=== PATIENT | male | born 1965 | race Caucasian/White ===

== ENCOUNTER 2020-05-15 12:44 | Inpatient (IN) ==
[2020-05-15] MEDS ORDERED: DEXAMETHASONE SOD INJ 10 MG/ML VIAL IV ONE (13:18)
[2020-05-15] MEDS ORDERED: ONDANSETRON INJ 2 MG/ML 2 ML VIAL IV STA (13:23)
[2020-05-15 13:50] LABS: Hematocrit (blood only) 36.6 % (42-52); Hemoglobin 12.7 g/dL (14.0-18.0); Mean Corpuscular Hemoglobin 29.5 pg (25-34); Mean Corpuscular Hgb Conc 34.7 g/dL (32-36); Mean Corpuscular Volume 85.1 fL (80-100); Mean Platelet Volume 10.5 fL (7.4-10.4); Platelet Count 45 K/uL (130-400); RDW Coefficient of Variation 12.7 % (11.5-14.5); RDW Standard Deviation 39.2 fL (36.4-46.3); White Blood Count 2.79 K/uL (4.8-10.8)
[2020-05-15 13:59] LABS: Influenza A virus by PCR Negative (Negative); Influenza B virus by PCR Negative (Negative)
[2020-05-15 14:02] LABS: Base Excess VBG 2.2 mEq/L; HCO3 VBG 28 mmol/L; PCO2 VBG 46 mmHg (38-50); PO2 VBG 31 mmHg
[2020-05-15 14:03] LABS: Oxygen Saturation VBG < 60.0 %
--- NOTE | 2020-05-15 14:06 | XRay Report ---
SINGLE VIEW CHEST CLINICAL HISTORY: Sepsis. FINDINGS: An AP, portable, upright chest radiograph is compared to study dated 07/05/2019 and correlat ed with chest CT dated 11/03/2018. The examination is degraded by portable technique and patient rotat ion. A left subclavian central venous infusion port is unchanged in position The cardiomediastinal si lhouette is unremarkable. Chronic interstitial thickening is similar to previous. Biapical opacities and nodularity is again noted. There is increasing airspace consolidation in both upper lobes (right greater than left) as compared to previous. No large pleural effusion or pneumothorax is seen. The sk eletal structures are osteopenic. The bony thorax is grossly intact. IMPRESSION: 1. Chronic parenchymal changes as above with increasing bilateral upper lobe airspace consolidation, right greater than left. Correlate clinically for evidence of pneumonia. Radiographic follow-up to re solution is recommended. 2. No pleural effusion is identified. ACT 112: Negative or not required by law. Electronically signed by: Agustín Torres M.D. 05/15/2020 2:05 PM
[2020-05-15 14:08] LABS: INR 1.1 (0.9-1.1); Partial Thromboplastin Ratio 1.4; Partial Thromboplastin Time 38.8 Seconds (21.0-31.0); Prothrombin Time 11.4 Seconds (9.0-12.0)
[2020-05-15 14:11] LABS: Alanine Aminotransferase 20 U/L (12-78); Albumin Level 3.4 gm/dl (3.4-5.0); Aspartate Aminotransferase 27 U/L (15-37); Blood Urea Nitrogen 15 mg/dl (7-18); Calcium 8.2 mg/dl (8.5-10.1); Carbon Dioxide 27 mmol/L (21-32); Chloride 102 mmol/L (98-107); Est GFR (Non-African American) 100.1; Glucose 103 mg/dl (70-99); Magnesium 2.5 mg/dl (1.8-2.4); Potassium 4.2 mmol/L (3.5-5.1); Sodium 133 mmol/L (136-145)
[2020-05-15 14:13] LABS: Immature Granulocytes # (auto) 0.01 K/uL (0.00-0.02); Immature Granulocytes % (auto) 0.4 %; Lymphocytes # (auto) 0.34 K/uL (1.2-3.4); Lymphocytes % (auto) 12.2 %; Monocytes # (auto) 0.25 K/uL (0.11-0.59); Neutrophils # (auto) 2.19 K/uL (1.4-6.5); Neutrophils % (auto) 78.4 %
[2020-05-15 14:17] LABS: Albumin Globulin Ratio 0.9 (0.9-2); Alkaline Phosphatase 98 U/L (45-117); Bilirubin,Total 0.8 mg/dl (0.2-1); Globulin 3.6 gm/dl (2.5-4.0); NT Pro B Type Natriuretic Pept 68 pg/ml (0-900); Troponin I 0.037 ng/ml (0-0.045)
[2020-05-15] MEDS ORDERED: OPTIRAY 320 125ml IV ONE (15:07)
--- NOTE | 2020-05-15 15:25 | CT Scan Report ---
CT ANGIOGRAM OF THE CHEST CLINICAL HISTORY: Shortness of breath. Covid positive patient. COMPARISON STUDY: Chest CT dated 11/03/2018 TECHNIQUE: Following the IV administration of 118 mL of Optiray-320, CT angiogram of the thorax was p erformed from the thoracic inlet to the lung bases utilizing the pulmonary embolus protocol. Images a re reviewed in the axial, sagittal, and coronal planes. IV contrast was administered without complica tion. MIP imaging was performed. A dose lowering technique was utilized adhering to the principles o f ALARA. CT DOSE: 554.88 mGy.cm FINDINGS: The visualized portions the upper abdomen reveal splenomegaly. There are mildly enlarged mediastinal lymph nodes measuring up to 12 mm in diameter. There is no path ologic axillary or hilar adenopathy. There is mild dilatation of the ascending thoracic aorta which measures 39 mm the level of the main p ulmonary artery. There were no pulmonary artery filling defects to indicate acute pulmonary embolism. No pleural effusions are visualized. There is cylindrical bronchiectasis. This is most pronounced within the lower lobes. There are multif ocal groundglass opacities with an upper lobe predominance. This is superimposed on the previously id entified upper lobe predominant subtle background increased groundglass attenuation of the lungs. There is a left sided A-Port catheter present. IMPRESSION: 1. No evidence of acute pulmonary embolism 2. Multifocal groundglass pulmonary opacities consistent with a multifocal pneumonia. Clinical and ra diographic follow-up is recommended 3. Bronchiectasis 4. Mild mediastinal lymphadenopathy 5. Mild aneurysmal dilatation of the ascending thoracic aorta which measures 39 mm 6. Splenomegaly ACT 112: Negative or not required by law. Electronically signed by: Hamilton Roach M.D. 05/15/2020 3:23 PM
--- NOTE | 2020-05-15 15:34 | CT Scan Report ---
CT SCAN OF THE ABDOMEN AND PELVIS WITH IV CONTRAST CLINICAL HISTORY: Generalized abdominal pain. COMPARISON STUDY: Abdominal CT dated 02/25/2013. PET CT dated 12/20/2019. TECHNIQUE: Following the IV administration of 118 cc of Optiray 320, CT scan of the abdomen and pelv is is performed from the lung bases to the proximal femora. Images are reviewed in the axial, sagitta l, and coronal planes. IV contrast was administered without complication. A dose lowering technique w as utilized adhering to the principles of ALARA. FINDINGS: Lung bases: The heart is normal in size and without pericardial effusion. Mild bronchiectasis is note d at the lung bases. There is peribronchial thickening with mucous plugging seen in the lower lobes. No lobar consolidation or pleural effusion is identified. A 4 mm pulmonary nodule in the lingula is s een on image #7. Liver: The contrast-enhanced liver is cirrhotic in morphology and heterogeneous in attenuation. There is nodularity of the hepatic surface contour. There is no intrahepatic biliary ductal dilatation. Th e hepatic veins and portal veins are patent. Gallbladder: Gallbladder wall thickening is nonspecific and likely related to adjacent hepatocellular disease. Spleen: The spleen is markedly enlarged measuring 16.3 cm in length. Pancreas: Unremarkable. Adrenal glands: Unremarkable. Kidneys: The contrast enhanced kidneys are normal in size and without hydronephrosis. The kidneys enh ance symmetrically. A 1.4 cm cyst is seen in the left upper pole. Abdominal vasculature: The abdominal aorta is normal in course and caliber noting mild atheroscleroti c calcification. Bowel: There is no bowel obstruction. Moderate fecal retention is seen throughout the colon. There is nonspecific wall thickening seen involving the distal ileum and the cecum. Additionally, there is a large calcification at the base of the appendix seen on image #209. The appendix is distended and flu id-filled measuring up to 1.3 cm diameter. There is mild periappendiceal stranding and tiny adjacent lymph nodes.. Peritoneum: There is no intraperitoneal free air or abdominal ascites. There is a fat-containing umbi lical hernia. Lymphadenopathy: None. Pelvic viscera: The prostate gland is mildly enlarged and heterogeneous. The bladder wall is thickene d and trabeculated indicating chronic outlet obstruction. Skeletal structures: No lytic or blastic lesions are seen. There are bilateral pars defects at L5 wit h grade 2 anterolisthesis at L5-S1. IMPRESSION: 1. There is a large calcification at the base of the appendix. The appendix is distended and fluid-fi lled, and there is surrounding soft tissue inflammation. This is somewhat similar in appearance to e 12/20/2019 PET examination. These findings may represent a mucocele of the appendix. Acute versus chr onic appendicitis is not excluded. Clinical correlation will be essential. 2. There is wall thickening in the distal ileum and the adjacent cecum. This may represent a nonspeci fic ileocecal uterus. Underlying mass or lymphomatous involvement is not excluded. 3. Cirrhotic liver morphology. 4. Marked splenomegaly. 5. Bronchiectasis with peribronchial thickening and mucus plugging is again seen at the lung bases. 6. Additional findings as above. ACT 112: Negative or not required by law. Electronically signed by: Agustín Torres M.D. 05/15/2020 3:32 PM
[2020-05-15] MEDS ORDERED: CEFEPIME 2,000 MG/20 ML VIAL IV STA (16:07)
[2020-05-15] MEDS ORDERED: metroNIDAZOLE 500 MG/100 ML BAG IV STA (16:07)
--- NOTE | 2020-05-15 16:07 | Emergency Department Note ---
History of Present Illness General Chief complaint: Shortness of Breath/Dyspnea Stated complaint: WEAKNESS, HEADACHE, FEVER, COUGH Time Seen by Provider: 05/15/20 12:54 History of Present Illness Provider complaint: Shortness of breath fever cough Onset (ago): day(s) 2 Associated symptoms: + fever/chills and + shortness of breath 54-year-old incarcerated male presents emergency department for fever cough and shortness of breath. Patient reports he has been feeling this way for last couple days. He went to the [facility] today and the patient was found to be hypoxic. He was started on supplemental oxygen. He is found to be febrile at the [facility] also. Patient was then transferred to [facility] emergency department. Patient does not wear oxygen normally. Patient has a history of CVID, colon cancer, and lymphoma. Home Medications Medication Instructions Recorded Confirmed Type Lactobacillus acidophilus 1 0 cell PO TID 06/26/19 05/15/20 History billion cell tablet ascorbic acid (vitamin C) 500 mg 500 mg PO BID 06/26/19 05/15/20 History capsule carvedilol 6.25 mg tablet 6.25 mg PO BID tab 06/26/19 05/15/20 History folic acid 1 mg tablet 1 mg PO DAILY 06/26/19 05/15/20 History immune glob,gamma(IgG) 10 0 g IV UD 06/26/19 05/15/20 History clbd-iqi-bbkp-IgA 0 to 50 mcg/mL IV solution pantoprazole 40 mg granules 40 mg PO DAILY ea 06/26/19 05/15/20 History delayed-release for susp in packet calcium polycarbophil [Fiber 625 mg PO QAM 07/03/19 05/15/20 History (calcium polycarbophil)] ondansetron HCl [Zofran] 4 mg PO Q8H PRN 07/03/19 05/15/20 History vitamin B complex 1 cap PO DAILY 07/03/19 05/15/20 History dextromethorphan-guaifenesin 30 1 tab PO Q12H PRN #60 tab 01/05/20 05/15/20 Rx mg-600 mg tablet extended hr levalbuterol tartrate 45 2 inh INHALATION Q6H PRN #15 gm 01/05/20 05/15/20 Rx mcg/actuation aerosol inhaler levocetirizine 5 mg tablet 5 mg PO DAILY PRN #90 tab 01/05/20 05/15/20 Rx umeclidinium 62.5 mcg-vilanterol 1 puffs INH DAILY #60 ea 01/05/20 05/15/20 Rx 25 mcg/actuation powdr for inhalation acetaminophen [Tylenol] 650 mg PO ONCE PRN 05/15/20 05/15/20 History escitalopram oxalate [Lexapro] 5 mg PO HS 05/15/20 05/15/20 History escitalopram oxalate [Lexapro] 10 mg PO HS 05/15/20 05/15/20 History peg 400-propylene glycol [Systane 1 drp OPHTHALMIC (EYE) QID 05/15/20 05/15/20 History Gel] Allergies Allergy/AdvReac Type Severity Reaction Status Date / Time Bactrim Allergy Mild RASH/BLEEDI Verified 01/10/13 14:22 NG sulfamethoxazole Allergy Mild RASH/BLEEDI Verified 05/15/20 13:31 NG trimethoprim Allergy Mild RASH/BLEEDI Verified 05/15/20 13:31 NG Past Med/Surg History Medical History Asthma Cirrhosis Common variable immunodeficiency Diffuse large B-cell lymphoma HIV disease Surgical History Hx of colonoscopy Port-A-Cath in place (07/05/19) Insertion Of Mediport With Fluoroscopy Dr. Huang 07-05-19 Social History Smoking Status: Former smoker Second Hand Exposure: No; Hx Alcohol Use: No Hx Substance Use: No Preferred Language: Slovak Communication Ability: Effective Illustrator Set Required: No Beliefs That Will Affect Care: None Current Living Situation: Other Current Living Situation Comment: [facility] Feels Safe at Home: Yes Review of Systems A total of 10 systems reviewed and were otherwise negative Physical Exam Vital Signs Vital Signs - 24 hr 05/15/20 12:48 05/15/20 13:03 05/15/20 13:33 Temperature 37.6 C H Temperature Source Oral Pulse Rate 78 Pulse Rate [Left Finger] 73 Pulse Rate from SpO2 Sensor Respiratory Rate 20 26 H 24 Respiratory Effort / Characteristics Non-Labored Spontaneous Non-Labored Spontaneous Blood Pressure 117/77 Blood Pressure [Left Arm] 107/77 Blood Pressure Mean 90 Blood Pressure Mean [Left Arm] 87 Pulse Oximetry 94 98 98 Oxygen Delivery Method Room Air Nasal Cannula Nasal Cannula Oxygen Flow Rate 2 2 Sepsis Recent Fever Within 48 Hours Yes Sepsis New/Unexplained Change in Mental Status N/A Sepsis Action Taken by Nursing No Action Required 05/15/20 14:06 05/15/20 14:58 05/15/20 15:19 Temperature Temperature Source Pulse Rate 70 Pulse Rate [Left Finger] 74 Pulse Rate from SpO2 Sensor 69 Respiratory Rate 22 25 H Respiratory Effort / Characteristics Blood Pressure 106/72 Blood Pressure [Left Arm] 104/68 Blood Pressure Mean 75 Blood Pressure Mean [Left Arm] 80 Pulse Oximetry 98 100 Oxygen Delivery Method Nasal Cannula Room Air Oxygen Flow Rate 2 Sepsis Recent Fever Within 48 Hours Sepsis New/Unexplained Change in Mental Status Sepsis Action Taken by Nursing 05/15/20 15:30 05/15/20 16:00 Temperature Temperature Source Pulse Rate 68 64 Pulse Rate [Left Finger] Pulse Rate from SpO2 Sensor 67 64 Respiratory Rate 26 H 27 H Respiratory Effort / Characteristics Blood Pressure 106/74 110/71 Blood Pressure [Left Arm] Blood Pressure Mean 77 81 Blood Pressure Mean [Left Arm] Pulse Oximetry 98 99 Oxygen Delivery Method Oxygen Flow Rate Sepsis Recent Fever Within 48 Hours Sepsis New/Unexplained Change in Mental Status Sepsis Action Taken by Nursing Physical Exam GENERAL: Cachectic and ill-appearing. HENT: Exam performed. - Head: Normocephalic and atraumatic. - Right Ear: External ear normal. No mastoid tenderness. - Left Ear: External ear normal. No mastoid tenderness. - Mouth/Throat: The oropharynx is clear and moist. No trismus in the jaw. No dental abscesses or uvula swelling. No oropharyngeal exudate or tonsillar abscesses. EYES: Conjunctivae and EOM are normal. Pupils are equal, round, and reactive to light. Right eye exhibits no discharge. Left eye exhibits no discharge. No scleral icterus. NECK: Normal range of motion. Neck supple. No JVD present. No spinous process tenderness present. No carotid bruit present. No rigidity. No tracheal deviation and normal range of motion present. No Brudzinski's sign and no Kernig's sign noted. CV: Normal rate, regular rhythm, normal heart sounds and intact distal pulses. There is no peripheral edema. Palpable radial pulses bue. PULM/CHEST: Rhonchi bilaterally. - Chest Wall: He exhibits no tenderness. ABD: The abdomen is soft. Bowel sounds are normal. He has no distension. No mass is present. There is no tenderness. There is no rebound, no guarding, no Moore's sign and no tenderness at McBurney's point. Rovsig negative. MUSC/SKEL: Normal range of motion. There is no peripheral edema, tenderness or deformity. LYMPH: No cervical adenopathy. NEURO: He is alert and oriented to person, place, and time. He has normal strength. No cranial nerve deficit or sensory deficit. Coordination and gait normal. GCS eye subscore is 4. GCS verbal subscore is 5. GCS motor subscore is 6. Cerebellar tests wnl. SKIN: Skin is warm and dry. He is not diaphoretic. PSYCH: He has a normal mood and affect. Behavior is normal. Judgment and thought content normal. Course Course 1254: The patient was evaluated in room A11. A complete history and physical exam was performed. Patient was admitted and placed on phototypesetting equipment monitor. [facility]'s oxygen saturation on room air is 90%. Patient was started on supplemental oxygen via nasal cannula. Patient was seen in full airborne precautions. Patient was seen in N95's, gloves, gowns, face shield by myself and staff. Given the patient's hypoxia and fever at the present, there is high suspicion for COVID-19. Patient was pretreated with Decadron 6 mg IV push on arrival. Cardiac monitoring: An order was placed for continuous cardiac monitoring. The monitor shows a rate of 60 with sinus rhythm 1611: Vital signs stable on supplemental oxygen 2 L via nasal cannula. Labs show leukopenia of 2.79. Neutrophils are within normal limits. Lactic acid and procalcitonin within normal limits. Patient is influenza negative for COVID-19 positive. CTA of the lungs showed no PE but does show multifocal groundglass opacities. Patient CT of the abdomen also showed a mucocele versus acute appendicitis versus chronic appendicitis. Physical exam revealed no pain on palpation of the right lower quadrant. I discussed with general surgery on-call Christina Jung PA-C on-call for Dr. Gallo. Both she and I agree get the patient less likely has acute appendicitis with out pain on palpation of the right lower quadrant and his fever is most likely due to his Covid pneumonia. General surgery did agree to be on consult. Patient will be treated empirically for his pulmonary infection and possible appendicitis with cefepime, Flagyl, and vancomycin. Discussed [facility] who agreed to admit the patient. Administered Medications Metronidazole (Flagyl) 500 mg in 100 mls @ 100 mls/hr IV NOW STA Stop: 05/15/20 17:06 Last Admin: 05/15/20 16:22 Dose: 100 mls/hr Documented by: [id number] Discontinued Medications Dexamethasone (Dexamethasone Sod Inj 10 Mg/Ml Vial) 6 mg IV NOW ONE Stop: 05/15/20 13:19 Last Admin: 05/15/20 13:30 Dose: 6 mg Documented by: [id number] Cefepime HCl (Maxipime) 2,000 mg in 20 mls @ 5 mls/min IV NOW STA; Protocol Stop: 05/15/20 16:10 Last Admin: 05/15/20 16:21 Dose: 5 mls/min Documented by: [id number] Ioversol (Optiray 320 125ml) 118 ml IV ONCE ONE Stop: 05/15/20 15:08 Last Admin: 05/15/20 15:07 Dose: 118 ml Documented by: [id number] Ondansetron HCl (Ondansetron Inj 2 Mg/Ml 2 Ml Vial) 4 mg IV NOW STA Stop: 05/15/20 13:24 Last Admin: 05/15/20 13:30 Dose: 4 mg Documented by: [id number] Critical Care Time Critical Care Time: Yes Total Critical Care Time: 43 I have personally spent greater than 43 minutes of critical care time in the direct management of this patient. This includes bedside care, interpretation of diagnostic studies, and testing, discussion with consultants, patient, and family members, and other required patient management activities. This 43 minutes is in excess of all separately billable procedures. Medical Decision Making Laboratory Data Result diagrams: 05/15/20 13:20 05/15/20 13:20 Lab Results 05/15/20 05/15/20 05/15/20 Range/Units 13:20 13:20 13:20 WBC 2.79 L (4.8-10.8) K/uL RBC 4.30 L (4.7-6.1) M/uL Hgb 12.7 L (14.0-18.0) g/dL Hct 36.6 L (42-52) % MCV 85.1 (80-100) fL MCH 29.5 (25-34) pg MCHC 34.7 (32-36) g/dL RDW Std Deviation 39.2 (36.4-46.3) fL RDW Coeff of John 12.7 (11.5-14.5) % Plt Count 45 L (130-400) K/uL MPV 10.5 H (7.4-10.4) fL Immature Gran % (Auto) 0.4 % Neut % (Auto) 78.4 % Lymph % (Auto) 12.2 % [place] % (Auto) 9.0 % Eos % (Auto) 0.0 % Baso % (Auto) 0.0 % Neut # (Auto) 2.19 (1.4-6.5) K/uL Lymph # (Auto) 0.34 L (1.2-3.4) K/uL [place] # (Auto) 0.25 (0.11-0.59) K/uL Eos # (Auto) 0.00 (0-0.5) K/uL Baso # (Auto) 0.00 (0-0.2) K/uL Immature Gran # (Auto) 0.01 (0.00-0.02) K/uL PT 11.4 (9.0-12.0) Seconds INR 1.1 (0.9-1.1) APTT 38.8 H (21.0-31.0) Seconds PTT Ratio 1.4 VBG pH (7.36-7.41) VBG pCO2 (38-50) mmHg VBG pO2 mmHg VBG HCO3 mmol/L VBG O2 Saturation % VBG Base Excess mEq/L Barometric Pressure mm/Hg Sodium (136-145) mmol/L Potassium (3.5-5.1) mmol/L Chloride (98-107) mmol/L Carbon Dioxide (21-32) mmol/L Anion Gap (3-11) BUN (7-18) mg/dl Creatinine (0.6-1.4) mg/dl Est Cr Clr Drug Dosing Est GFR ( Amer) Est GFR (Non-Af Amer) BUN/Creatinine Ratio (10-20) Glucose (70-99) mg/dl Lactate (0.4-2.0) mmol/L Calcium (8.5-10.1) mg/dl Magnesium (1.8-2.4) mg/dl Total Bilirubin (0.2-1) mg/dl AST (15-37) U/L ALT (12-78) U/L Alkaline Phosphatase (45-117) U/L Troponin I (0-0.045) ng/ml NT-Pro-B Natriuret Pep (0-900) pg/ml Total Protein (6.4-8.2) gm/dl Albumin (3.4-5.0) gm/dl Globulin (2.5-4.0) gm/dl Albumin/Globulin Ratio (0.9-2) Procalcitonin < 0.05 (0-0.5) ng/ml Urine Color Urine Appearance (Clear) Urine pH (4.5-7.5) Ur Specific Coleman (1.000-1.030) Urine Protein (Negative) Urine Glucose (UA) (Negative) Urine Ketones (Negative) Urine Blood (Negative) Urine Nitrite (Negative) Urine Bilirubin (Negative) Urine Urobilinogen (Negative) Ur Leukocyte Esterase (Negative) Urine WBC (Auto) (0-5) /hpf Urine RBC (Auto) (0-4) /hpf U Hyaline Cast (Auto) (0-5) /lpf U Epithel Cells (Auto) (0-5) /lpf Urine Bacteria (Auto) (Negative) COVID-19 Eval Order Influ A Molecular Assay (Negative) Influ B Molecular Assay (Negative) SARS-CoV-2, RNA, NAAT (NEGATIVE) 05/15/20 05/15/20 05/15/20 Range/Units 13:20 13:20 13:20 WBC (4.8-10.8) K/uL RBC (4.7-6.1) M/uL Hgb (14.0-18.0) g/dL Hct (42-52) % MCV (80-100) fL MCH (25-34) pg MCHC (32-36) g/dL RDW Std Deviation (36.4-46.3) fL RDW Coeff of John (11.5-14.5) % Plt Count (130-400) K/uL MPV (7.4-10.4) fL Immature Gran % (Auto) % Neut % (Auto) % Lymph % (Auto) % [place] % (Auto) % Eos % (Auto) % Baso % (Auto) % Neut # (Auto) (1.4-6.5) K/uL Lymph # (Auto) (1.2-3.4) K/uL [place] # (Auto) (0.11-0.59) K/uL Eos # (Auto) (0-0.5) K/uL Baso # (Auto) (0-0.2) K/uL Immature Gran # (Auto) (0.00-0.02) K/uL PT (9.0-12.0) Seconds INR (0.9-1.1) APTT (21.0-31.0) Seconds PTT Ratio VBG pH (7.36-7.41) VBG pCO2 (38-50) mmHg VBG pO2 mmHg VBG HCO3 mmol/L VBG O2 Saturation % VBG Base Excess mEq/L Barometric Pressure mm/Hg Sodium 133 L (136-145) mmol/L Potassium 4.2 (3.5-5.1) mmol/L Chloride 102 (98-107) mmol/L Carbon Dioxide 27 (21-32) mmol/L Anion Gap 4.0 (3-11) BUN 15 (7-18) mg/dl Creatinine 0.81 (0.6-1.4) mg/dl Est Cr Clr Drug Dosing Not Reportable Est GFR ( Amer) 116.0 Est GFR (Non-Af Amer) 100.1 BUN/Creatinine Ratio 18.0 (10-20) Glucose 103 H (70-99) mg/dl Lactate (0.4-2.0) mmol/L Calcium 8.2 L (8.5-10.1) mg/dl Magnesium 2.5 H (1.8-2.4) mg/dl Total Bilirubin 0.8 (0.2-1) mg/dl AST 27 (15-37) U/L ALT 20 (12-78) U/L Alkaline Phosphatase 98 (45-117) U/L Troponin I 0.037 (0-0.045) ng/ml NT-Pro-B Natriuret Pep 68 (0-900) pg/ml Total Protein 7.0 (6.4-8.2) gm/dl Albumin 3.4 (3.4-5.0) gm/dl Globulin 3.6 (2.5-4.0) gm/dl Albumin/Globulin Ratio 0.9 (0.9-2) Procalcitonin (0-0.5) ng/ml Urine Color Urine Appearance (Clear) Urine pH (4.5-7.5) Ur Specific Coleman (1.000-1.030) Urine Protein (Negative) Urine Glucose (UA) (Negative) Urine Ketones (Negative) Urine Blood (Negative) Urine Nitrite (Negative) Urine Bilirubin (Negative) Urine Urobilinogen (Negative) Ur Leukocyte Esterase (Negative) Urine WBC (Auto) (0-5) /hpf Urine RBC (Auto) (0-4) /hpf U Hyaline Cast (Auto) (0-5) /lpf U Epithel Cells (Auto) (0-5) /lpf Urine Bacteria (Auto) (Negative) COVID-19 Eval [facility] A Molecular Assay Negative (Negative) Influ B Molecular Assay Negative (Negative) SARS-CoV-2, RNA, NAAT (NEGATIVE) 05/15/20 05/15/20 05/15/20 Range/Units 13:20 13:49 13:49 WBC (4.8-10.8) K/uL RBC (4.7-6.1) M/uL Hgb (14.0-18.0) g/dL Hct (42-52) % MCV (80-100) fL MCH (25-34) pg MCHC (32-36) g/dL RDW Std Deviation (36.4-46.3) fL RDW Coeff of John (11.5-14.5) % Plt Count (130-400) K/uL MPV (7.4-10.4) fL Immature Gran % (Auto) % Neut % (Auto) % Lymph % (Auto) % [place] % (Auto) % Eos % (Auto) % Baso % (Auto) % Neut # (Auto) (1.4-6.5) K/uL Lymph # (Auto) (1.2-3.4) K/uL [place] # (Auto) (0.11-0.59) K/uL Eos # (Auto) (0-0.5) K/uL Baso # (Auto) (0-0.2) K/uL Immature Gran # (Auto) (0.00-0.02) K/uL PT (9.0-12.0) Seconds INR (0.9-1.1) APTT (21.0-31.0) Seconds PTT Ratio VBG pH 7.40 (7.36-7.41) VBG pCO2 46 (38-50) mmHg VBG pO2 31 mmHg VBG HCO3 28 mmol/L VBG O2 Saturation < 60.0 % VBG Base Excess 2.2 mEq/L Barometric Pressure 734.4 mm/Hg Sodium (136-145) mmol/L Potassium (3.5-5.1) mmol/L Chloride (98-107) mmol/L Carbon Dioxide (21-32) mmol/L Anion Gap (3-11) BUN (7-18) mg/dl Creatinine (0.6-1.4) mg/dl Est Cr Clr Drug Dosing Est GFR ( Amer) Est GFR (Non-Af Amer) BUN/Creatinine Ratio (10-20) Glucose (70-99) mg/dl Lactate 1.0 (0.4-2.0) mmol/L Calcium (8.5-10.1) mg/dl Magnesium (1.8-2.4) mg/dl Total Bilirubin (0.2-1) mg/dl AST (15-37) U/L ALT (12-78) U/L Alkaline Phosphatase (45-117) U/L Troponin I (0-0.045) ng/ml NT-Pro-B Natriuret Pep (0-900) pg/ml Total Protein (6.4-8.2) gm/dl Albumin (3.4-5.0) gm/dl Globulin (2.5-4.0) gm/dl Albumin/Globulin Ratio (0.9-2) Procalcitonin (0-0.5) ng/ml Urine Color Urine Appearance (Clear) Urine pH (4.5-7.5) Ur Specific Coleman (1.000-1.030) Urine Protein (Negative) Urine Glucose (UA) (Negative) Urine Ketones (Negative) Urine Blood (Negative) Urine Nitrite (Negative) Urine Bilirubin (Negative) Urine Urobilinogen (Negative) Ur Leukocyte Esterase (Negative) Urine WBC (Auto) (0-5) /hpf Urine RBC (Auto) (0-4) /hpf U Hyaline Cast (Auto) (0-5) /lpf U Epithel Cells (Auto) (0-5) /lpf Urine Bacteria (Auto) (Negative) COVID-19 Eval Order Influ A Molecular Assay (Negative) Influ B Molecular Assay (Negative) SARS-CoV-2, RNA, NAAT POSITIVE A* (NEGATIVE) 05/15/20 Range/Units 16:13 WBC (4.8-10.8) K/uL RBC (4.7-6.1) M/uL Hgb (14.0-18.0) g/dL Hct (42-52) % MCV (80-100) fL MCH (25-34) pg MCHC (32-36) g/dL RDW Std Deviation (36.4-46.3) fL RDW Coeff of John (11.5-14.5) % Plt Count (130-400) K/uL MPV (7.4-10.4) fL Immature Gran % (Auto) % Neut % (Auto) % Lymph % (Auto) % [place] % (Auto) % Eos % (Auto) % Baso % (Auto) % Neut # (Auto) (1.4-6.5) K/uL Lymph # (Auto) (1.2-3.4) K/uL [place] # (Auto) (0.11-0.59) K/uL Eos # (Auto) (0-0.5) K/uL Baso # (Auto) (0-0.2) K/uL Immature Gran # (Auto) (0.00-0.02) K/uL PT (9.0-12.0) Seconds INR (0.9-1.1) APTT (21.0-31.0) Seconds PTT Ratio VBG pH (7.36-7.41) VBG pCO2 (38-50) mmHg VBG pO2 mmHg VBG HCO3 mmol/L VBG O2 Saturation % VBG Base Excess mEq/L Barometric Pressure mm/Hg Sodium (136-145) mmol/L Potassium (3.5-5.1) mmol/L Chloride (98-107) mmol/L Carbon Dioxide (21-32) mmol/L Anion Gap (3-11) BUN (7-18) mg/dl Creatinine (0.6-1.4) mg/dl Est Cr Clr Drug Dosing Est GFR ( Amer) Est GFR (Non-Af Amer) BUN/Creatinine Ratio (10-20) Glucose (70-99) mg/dl Lactate (0.4-2.0) mmol/L Calcium (8.5-10.1) mg/dl Magnesium (1.8-2.4) mg/dl Total Bilirubin (0.2-1) mg/dl AST (15-37) U/L ALT (12-78) U/L Alkaline Phosphatase (45-117) U/L Troponin I (0-0.045) ng/ml NT-Pro-B Natriuret Pep (0-900) pg/ml Total Protein (6.4-8.2) gm/dl Albumin (3.4-5.0) gm/dl Globulin (2.5-4.0) gm/dl Albumin/Globulin Ratio (0.9-2) Procalcitonin (0-0.5) ng/ml Urine Color Dark Yellow Urine Appearance Clear (Clear) Urine pH 6.0 (4.5-7.5) Ur Specific Coleman 1.035 H (1.000-1.030) Urine Protein 2+ H (Negative) Urine Glucose (UA) Negative (Negative) Urine Ketones 1+ H (Negative) Urine Blood Negative (Negative) Urine Nitrite Negative (Negative) Urine Bilirubin Negative (Negative) Urine Urobilinogen Negative (Negative) Ur Leukocyte Esterase Trace H (Negative) Urine WBC (Auto) 1-5 (0-5) /hpf Urine RBC (Auto) 0-4 (0-4) /hpf U Hyaline Cast (Auto) 10-30 H (0-5) /lpf U Epithel Cells (Auto) >30 H (0-5) /lpf Urine Bacteria (Auto) Negative (Negative) COVID-19 Eval Order Influ A Molecular Assay (Negative) Influ B Molecular Assay (Negative) SARS-CoV-2, RNA, NAAT (NEGATIVE) Imaging Data Radiologist's Impression: CT ANGIOGRAM OF THE CHEST CLINICAL HISTORY: Shortness of breath. Covid positive patient. COMPARISON STUDY: Chest CT dated 11/03/2018 TECHNIQUE: Following the IV administration of 118 mL of Optiray-320, CT angiogram of the thorax was performed from the thoracic inlet to the lung bases utilizing the pulmonary embolus protocol. Images are reviewed in the axial, sagittal, and coronal planes. IV contrast was administered without complication. MIP imaging was performed. A dose lowering technique was utilized adhering to the principles of ALARA. CT DOSE: 554.88 mGy.cm FINDINGS: The visualized portions the upper abdomen reveal splenomegaly. There are mildly enlarged mediastinal lymph nodes measuring up to 12 mm in diameter. There is no pathologic axillary or hilar adenopathy. There is mild dilatation of the ascending thoracic aorta which measures 39 mm the level of the main pulmonary artery. There were no pulmonary artery filling defects to indicate acute pulmonary embolism. No pleural effusions are visualized. There is cylindrical bronchiectasis. This is most pronounced within the lower lobes. There are multifocal groundglass opacities with an upper lobe predominance. This is superimposed on the previously identified upper lobe predominant subtle background increased groundglass attenuation of the lungs. There is a left sided A-Port catheter present. IMPRESSION: 1. No evidence of acute pulmonary embolism 2. Multifocal groundglass pulmonary opacities consistent with a multifocal pneumonia. Clinical and radiographic follow-up is recommended 3. Bronchiectasis 4. Mild mediastinal lymphadenopathy 5. Mild aneurysmal dilatation of the ascending thoracic aorta which measures 39 mm 6. Splenomegaly ACT 112: Negative or not required by law. Electronically signed by: Hamilton Roach M.D. 05/15/2020 3:23 PM Dictated: 05/15/20 1516Transcribed: 05/15/20 1516 SINGLE VIEW CHEST CLINICAL HISTORY: Sepsis. FINDINGS: An AP, portable, upright chest radiograph is compared to study dated 07/05/2019 and correlated with chest CT dated 11/03/2018. The examination is degraded by portable technique and patient rotation. A left subclavian central v enous infusion port is unchanged in position The cardiomediastinal silhouette is unremarkable. Chronic interstitial thickening is similar to previous. Biapical opacities and nodularity is again noted. There is increasing airspace consolidation in both upper lobes (right greater than left) as compared to previous. No large pleural effusion or pneumothorax is seen. The skeletal structures are osteopenic. The bony thorax is grossly intact. IMPRESSION: 1. Chronic parenchymal changes as above with increasing bilateral upper lobe airspace consolidation, right greater than left. Correlate clinically for evidence of pneumonia. Radiographic follow-up to resolution is recommended. 2. No pleural effusion is identified. ACT 112: Negative or not required by law. Electronically signed by: Agustín Torres M.D. 05/15/2020 2:05 PM Dictated: 05/15/201402Transcribed: 05/15/201402 CT SCAN OF THE ABDOMEN AND PELVIS WITH IV CONTRAST CLINICAL HISTORY: Generalized abdominal pain. COMPARISON STUDY: Abdominal CT dated 02/25/2013. PET CT dated 12/20/2019. TECHNIQUE: Following the IV administration of 118 cc of Optiray 320, CT scan of the abdomen and pelvis is performed from the lung bases to the proximal femora. Images are reviewed in the axial, sagittal, and coronal planes. IV contrast was administered without complication. A dose lowering technique was utilized adhering to the principles of ALARA. FINDINGS: Lung bases: The heart is normal in size and without pericardial effusion. Mild bronchiectasis is noted at the lung bases. There is peribronchial thickening with mucous plugging seen in the lower lobes. No lobar consolidation or pleural effusion is identified. A 4 mm pulmonary nodule in the lingula is seen on image #7. Liver: The contrast-enhanced liver is cirrhotic in morphology and heterogeneous in attenuation. There is nodularity of the hepatic surface contour. There is no intrahepatic biliary ductal dilatation. The hepatic veins and portal veins are patent. Gallbladder: Gallbladder wall thickening is nonspecific and likely related to adjacent hepatocellular disease. Spleen: The spleen is markedly enlarged measuring 16.3 cm in length. Pancreas: Unremarkable. Adrenal glands: Unremarkable. Kidneys: The contrast enhanced kidneys are normal in size and without hydronephrosis. The kidneys enhance symmetrically. A 1.4 cm cyst is seen in the left upper pole. Abdominal vasculature: The abdominal aorta is normal in course and caliber noting mild atherosclerotic calcification. Bowel: There is no bowel obstruction. Moderate fecal retention is seen throughout the colon. There is nonspecific wall thickening seen involving the distal ileum and the cecum. Additionally, there is a large calcification at the base of the appendix seen on image #209. The appendix is distended and fluid- filled measuring up to 1.3 cm diameter. There is mild periappendiceal stranding and tiny adjacent lymph nodes.. Peritoneum: There is no intraperitoneal free air or abdominal ascites. There is a fat-containing umbilical hernia. Lymphadenopathy: None. Pelvic viscera: The prostate gland is mildly enlarged and heterogeneous. The bladder wall is thickened and trabeculated indicating chronic outlet obstruction. Skeletal structures: No lytic or blastic lesions are seen. There are bilateral pars defects at L5 with grade 2 anterolisthesis at L5-S1. IMPRESSION: 1. There is a large calcification at the base of the appendix. The appendix is distended and fluid-filled, and there is surrounding soft tissue inflammation. This is somewhat similar in appearance to the 12/20/2019 PET examination. These findings may represent a mucocele of the appendix. Acute versus chronic ap pendicitis is not excluded. Clinical correlation will be essential. 2. There is wall thickening in the distal ileum and the adjacent cecum. This may represent a nonspecific ileocecal uterus. Underlying mass or lymphomatous involvement is not excluded. 3. Cirrhotic liver morphology. 4. Marked splenomegaly. 5. Bronchiectasis with peribronchial thickening and mucus plugging is again seen at the lung bases. 6. Additional findings as above. ACT 112: Negative or not required by law. Electronically signed by: Agustín Torres M.D. 05/15/2020 3:32 PM Dictated: 05/15/20 1515Transcribed: 05/15/20 1515 ECG Data Indication: + SOB/dyspnea Rate (beats per minute): 81 Rhythm: + normal sinus ECG Intervals/blocks: + Normal QRS, + Normal WA and + Normal QT-c ECG ST segments: + Normal ST segments [facility] Narrative 1254: The patient was evaluated in room A11. A complete history and physical exam was performed. Patient was admitted and placed on phototypesetting equipment monitor. Patient's oxygen saturation on room air is 90%. Patient was started on supplemental oxygen via nasal cannula. Patient was seen in full airborne precautions. Patient was seen in N95's, gloves, gowns, face shield by myself and staff. Given the patient's hypoxia and fever at the present, there is high suspicion for COVID-19. Patient was pretreated with Decadron 6 mg IV push on arrival. Cardiac monitoring: An order was placed for continuous cardiac monitoring. The monitor shows a rate of 60 with sinus rhythm 1611: Vital signs stable on supplemental oxygen 2 L via nasal cannula. Labs sh ow leukopenia of 2.79. Neutrophils are within normal limits. Lactic acid and procalcitonin within normal limits. Patient is influenza negative for COVID-19 positive. CTA of the lungs showed no PE but does show multifocal groundglass opacities. Patient CT of the abdomen also showed a mucocele versus acute appendicitis versus chronic appendicitis. Physical exam revealed no pain on palpation of the right lower quadrant. I discussed with general surgery on-call Christina Jung PA-C on-call for Dr. Gallo. Both she and I agree get the patient less likely has acute appendicitis with out pain on palpation of the right lower quadrant and his fever is most likely due to his Covid pneumonia. General surgery did agree to be on consult. Patient will be treated empirically for his pulmonary infection and possible appendicitis with cefepime, Flagyl, and vancomycin. Discussed case [facility] who agreed to admit the patient. Impression & Plan Pneumonia due to 2019 novel coronavirus, Immunocompromised, Common variable immunodeficiency, Hypoxia Discharge Plan Visit Data Chief Complaint: Shortness of Breath/Dyspnea Stated Complaint: WEAKNESS, HEADACHE, FEVER, COUGH ED Provider: Yoshi Quintero Discharge Problem: Pneumonia due to 2019 novel coronavirus, Immunocompromised, Common variable immunodeficiency, Hypoxia Patient Disposition: Admitted As Inpatient Forms Stand Alone Forms: [facility], Virtual Emergency Department, Important Visit Information Prescriptions Prescriptions: No Action Anoro Ellipta 62.5-25 mcg/actuation blister with device 1 puffs INH DAILY Qty: 60 RF: 2 levalbuterol tartrate [Xopenex HFA] 45 mcg/actuation HFA aerosol inhaler 2 inh INHALATION Q6H PRN (Reason: SOB) Qty: 15 RF: 3 levocetirizine 5 mg tablet 5 mg PO DAILY PRN (Reason: allergy symptoms) Qty: 90 RF: 1 Mucinex DM 30-600 mg tablet extended release 12 hr 1 tab PO Q12H PRN (Reason: cough) Qty: 60 RF: 0 immun glob [id number]-[id number]-IgA 0-50 10 gram recon soln 0 g IV UD RF: 0 ascorbic acid (vitamin C) 500 mg capsule 500 mg PO BID RF: 0 Lactobacillus acidophilus 1 billion cell tablet 0 cell PO TID RF: 0 folic acid 1 mg tablet 1 mg PO DAILY RF: 0 pantoprazole [address] for susp in packet 40 mg PO DAILY RF: 0 carvedilol 6.25 mg tablet 6.25 mg PO BID RF: 0 ondansetron HCl [Zofran] 4 mg Tablet 4 mg PO Q8H PRN (Reason: Nausea And Vomiting) RF: 0 calcium polycarbophil [Fiber (calcium polycarbophil)] 625 mg Tablet 625 mg PO QAM RF: 0 vitamin B complex Capsule 1 cap PO DAILY RF: 0 acetaminophen [Tylenol] 325 mg Tablet 650 mg PO ONCE PRN (Reason: w/ gammagard) RF: 0 escitalopram oxalate [Lexapro] 10 mg Tablet 10 mg PO HS RF: 0 escitalopram oxalate [Lexapro] 5 mg Tablet 5 mg PO HS RF: 0 Systane Gel 0.4-0.3 % Drops,Gel 1 drp OPHTHALMIC (EYE) QID RF: 0 Referrals Referrals: Bradford PERERA [Primary Care Provider] -
[2020-05-15] MEDS ORDERED: VANCOMYCIN HCL 1,250 MG in SODIUM CHLORIDE 0.9% 500 ML IV ONE (16:08)
[2020-05-15] MEDS ORDERED: VANCOMYCIN CONSULT ACTIVE PRN (16:08)
[2020-05-15 16:33] LABS: Appearance Urine Clear (Clear); Bacteria Urine Automated Negative (Negative); Blood Urine Negative (Negative); Color Urine Dark Yellow; Epithelial Cell Urine Auto >30 /lpf (0-5); Glucose Urine UA Negative (Negative); Ketones Urine 1+ (Negative); Leukocyte Esterase Urine Trace (Negative); Nitrite Urine Negative (Negative); Protein Urine 2+ (Negative); RBC Urine Automated 0-4 /hpf (0-4); Specific Gravity Urine 1.035 (1.000-1.030); Urobilinogen Urine Negative (Negative)
[2020-05-15 16:36] LABS: Bilirubin Urine Negative (Negative); Ictotest Urine Negative (Negative)
--- NOTE | 2020-05-15 17:08 | History & Physical Report ---
Date of Service May 15, 2020 Assessment & Plan (1) Pneumonia due to 2019 novel coronavirus: 54yo male presenting with PNA secondary to Covid-19. Patient with reported hypoxia prior to arrival - was mildly hypoxic upon arrival to the ER. Presently doing well on NC with no respiratory distress. He has history of severe COPD with air trapping and bronchiectasis for which he follows with Pulmonary. Last seen by Dr. Curtis in December. Patient has not been hypoxic since arrival. Presently saturating 99% on room air -Admit to medical - maintain precautions, airborne and contact -Check inflammatory markers - ESR, CRP, Ferritin, Ddimer and LDH -Supplemental O2 as needed to maintain saturation 90 - 92% -Dexamethasone 6mg IV daily - if patient remains stable and not hypoxic would discontinue this -Albuterol HFA PRN -Continue Umeclidinium/VIlanterol -Pulmonary consultation appreciated -Lovenox 30 BID with caution as patient with chronic history of thrombocytopenia. Presently with platelets of 45. If levels drop with AM CBC would discontinue Lovenox in favor of mechanical DVT prophylaxis Present on Admission?: Yes (2) COPD (chronic obstructive pulmonary disease): As above. Patient with immunoglobulin deficiency/CVID, severe bronchiectasis with air trapping -Continue Umeclidinium/Vilanterol -Albuterol PRN Present on Admission?: Yes (3) Appendicitis: CT read as possible acute appendicitis. Patient does no clinically appear to have acute appendicitis. Abdomen is soft, NT/ND -Monitor clinically -Patient received antibiotics in the ER for possible appendicitis. Will hold off on additional antibiotics for now. -General Surgery consultation appreciated Present on Admission?: Yes (4) Autoimmune hepatitis: With history of non-bleeding esophageal varices per record review. Stable liver studies with no clinical evidence for decompensated failure. -Monitor -Continue Carvedilol 6.25mg po BID Present on Admission?: Yes (5) Common variable immunodeficiency: Chronic -Patient receives infusion of Immunoglobulin q Wednesday Gammagard 15gm weekly- he did not receive his treatment today due to being febrile and hypoxic. -Administer Immunoglobulin as written (after discussion with Pharmacy we may need to acquire his medication from [facility] pharmacy) Present on Admission?: Yes (6) Diffuse large B-cell lymphoma: Patient diagnosed with DLBC Lymphoma in March 2019. He has completed 5 cycles of R-CHOP and Vincristine - dosage reduced d/t neuropathy. His treatments have been put on hold d/t thrombocytopenia. He follows with [facility]. Monitor electrolytes. Regular diet as tolerated Ppx. - Lovenox BID as above with close monitoring of platelet count Code - Full Dispo - Admit to medical History of Present Illness Chief Complaint: fevers/chills/SOB Primary Care Provider: [facility] Natalio Vitale is a 54yo male presenting with 3-4 days of fevers/chills and SOB. Patient is an inmate at [facility]. He has history of CVID for which he receives a weekly infusion of IVIG [facility] and found to be febrile and hypoxic in the 70's. He was transferred to [facility] for further care. Upon arrival noted to be 90% on room air. States he feels short of breath, otherwise doing well. Covid-19 testing POSITIVE ER Course: Dexamethasone, Zofran, Cefepime, Vancomycin, Flagyl Allergies Allergy/AdvReac Type Severity Reaction Status Date / Time Bactrim Allergy Mild RASH/BLEEDI Verified 01/10/13 14:22 NG sulfamethoxazole Allergy Mild RASH/BLEEDI Verified 05/15/20 13:31 NG trimethoprim Allergy Mild RASH/BLEEDI Verified 05/15/20 13:31 NG Home Medications Medication Instructions Recorded Confirmed Type Lactobacillus acidophilus 1 0 cell PO TID 06/26/19 05/15/20 History billion cell tablet ascorbic acid (vitamin C) 500 mg 500 mg PO BID 06/26/19 05/15/20 History capsule carvedilol 6.25 mg tablet 6.25 mg PO BID tab 06/26/19 05/15/20 History folic acid 1 mg tablet 1 mg PO DAILY 06/26/19 05/15/20 History immune glob,gamma(IgG) 10 0 g IV UD 06/26/19 05/15/20 History vkbk-ued-mlbd-IgA 0 to 50 mcg/mL IV solution pantoprazole 40 mg granules 40 mg PO DAILY ea 06/26/19 05/15/20 History delayed-release for susp in packet calcium polycarbophil [Fiber 625 mg PO QAM 07/03/19 05/15/20 History (calcium polycarbophil)] ondansetron HCl [Zofran] 4 mg PO Q8H PRN 07/03/19 05/15/20 History vitamin B complex 1 cap PO DAILY 07/03/19 05/15/20 History dextromethorphan-guaifenesin 30 1 tab PO Q12H PRN #60 tab 01/05/20 05/15/20 Rx mg-600 mg tablet extended [id number] hr levalbuterol tartrate 45 2 inh INHALATION Q6H PRN #15 gm 01/05/20 05/15/20 Rx mcg/actuation aerosol inhaler levocetirizine 5 mg tablet 5 mg PO DAILY PRN #90 tab 01/05/20 05/15/20 Rx umeclidinium 62.5 mcg-vilanterol 1 puffs INH DAILY #60 ea 01/05/20 05/15/20 Rx 25 mcg/actuation powdr for inhalation acetaminophen [Tylenol] 650 mg PO ONCE PRN 05/15/20 05/15/20 History escitalopram oxalate [Lexapro] 5 mg PO HS 05/15/20 05/15/20 History escitalopram oxalate [Lexapro] 10 mg PO HS 05/15/20 05/15/20 History peg 400-propylene glycol [Systane 1 drp OPHTHALMIC (EYE) QID 05/15/20 05/15/20 History Gel] Past Med/Surg History Medical History (Updated 05/15/20 @ 22:30 by Louisa Ramirez DO) Asthma Cirrhosis Common variable immunodeficiency Diffuse large B-cell lymphoma Surgical History Hx of colonoscopy Port-A-Cath in place (07/05/19) Insertion Of Mediport With Fluoroscopy Dr. Huang 07-05-19 Social History Smoking Status: Former smoker Second Hand Exposure: No; Hx Alcohol Use: No Hx Substance Use: No Preferred Language: Syriac Communication Ability: Effective Family Resource Management Professor Required: No Beliefs That Will Affect Care: None Current Living Situation: Other Current Living Situation Comment: [facility] Feels Safe at Home: Yes Review of Systems Review of Systems: All systems reviewed & are unremarkable except as noted in HPI & below +Fever/chills +SOB Denies chest pain, nausea, vomiting, diarrhea Physical Exam Physical Exam: General: patient resting comfortably, NAD, non-toxic in appearance, AA&O x 4, wearing facemask Skin: warm, dry, intact, no rashes or lesions HEENT: NC/AT, PERRL, EOMI, anicteric sclera, conjunctiva without injection, external ear normal to inspection and nontender, nares patent, moist mucus membranes, dentition intact, no oropharyngeal lesions, neck supple, trachea midline, no LAD, no thyromegaly, no JVD Heart: +S1/S2, regular, no m/r/g Lungs: equal air entry bilaterally, no rales/rhonchi/wheezes, port present left chest wall - nontender to palpation Abd: +BS, soft, NT/ND, no masses/organomegaly/ascites Ext: warm, 2+ pulses in UE/LE bilaterally, +Digital clubbing noted on fingers Neuro: nonfocal, patient AA&O x 4, speech intact, no facial droop, moving all extremities on command with equal strength 5/5, resting tremor of right hand Results & Data Results & Data ([facility]) Vital Signs (Past 12 Hours) Vital Signs Temp Pulse Pulse Resp BP BP Pulse Ox 05/15/20 16:00 64 27 H 110/71 99 05/15/20 15:30 68 26 H 106/74 98 05/15/20 15:19 70 25 H 106/72 100 05/15/20 14:58 74 22 104/68 98 05/15/20 13:33 73 24 107/77 98 05/15/20 13:03 26 H 98 05/15/20 12:48 37.6 C H 78 20 117/77 94 Laboratory Results Lab Results 05/15/20 05/15/20 05/15/20 Range/Units 13:20 13:20 13:20 WBC 2.79 L (4.8-10.8) K/uL RBC 4.30 L (4.7-6.1) M/uL Hgb 12.7 L (14.0-18.0) g/dL Hct 36.6 L (42-52) % MCV 85.1 (80-100) fL MCH 29.5 (25-34) pg MCHC 34.7 (32-36) g/dL RDW Std Deviation 39.2 (36.4-46.3) fL RDW Coeff of John 12.7 (11.5-14.5) % Plt Count 45 L (130-400) K/uL MPV 10.5 H (7.4-10.4) fL Immature Gran % (Auto) 0.4 % Neut % (Auto) 78.4 % Lymph % (Auto) 12.2 % [place] % (Auto) 9.0 % Eos % (Auto) 0.0 % Baso % (Auto) 0.0 % Neut # (Auto) 2.19 (1.4-6.5) K/uL Lymph # (Auto) 0.34 L (1.2-3.4) K/uL [place] # (Auto) 0.25 (0.11-0.59) K/uL Eos # (Auto) 0.00 (0-0.5) K/uL Baso # (Auto) 0.00 (0-0.2) K/uL Immature Gran # (Auto) 0.01 (0.00-0.02) K/uL PT 11.4 (9.0-12.0) Seconds INR 1.1 (0.9-1.1) APTT 38.8 H (21.0-31.0) Seconds PTT Ratio 1.4 D-Dimer (0-500) ug/L FEU VBG pH (7.36-7.41) VBG pCO2 (38-50) mmHg VBG pO2 mmHg VBG HCO3 mmol/L VBG O2 Saturation % VBG Base Excess mEq/L Barometric Pressure mm/Hg Sodium (136-145) mmol/L Potassium (3.5-5.1) mmol/L Chloride (98-107) mmol/L Carbon Dioxide (21-32) mmol/L Anion Gap (3-11) BUN (7-18) mg/dl Creatinine (0.6-1.4) mg/dl Est Cr Clr Drug Dosing Est GFR ( Amer) Est GFR (Non-Af Amer) BUN/Creatinine Ratio (10-20) Glucose (70-99) mg/dl Lactate (0.4-2.0) mmol/L Calcium (8.5-10.1) mg/dl Magnesium (1.8-2.4) mg/dl Total Bilirubin (0.2-1) mg/dl AST (15-37) U/L ALT (12-78) U/L Alkaline Phosphatase (45-117) U/L Troponin I (0-0.045) ng/ml NT-Pro-B Natriuret Pep (0-900) pg/ml Total Protein (6.4-8.2) gm/dl Albumin (3.4-5.0) gm/dl Globulin (2.5-4.0) gm/dl Albumin/Globulin Ratio (0.9-2) Procalcitonin < 0.05 (0-0.5) ng/ml Urine Color Urine Appearance (Clear) Urine pH (4.5-7.5) Ur Specific [place] (1.000-1.030) Urine Protein (Negative) Urine Glucose (UA) (Negative) Urine Ketones (Negative) Urine Blood (Negative) Urine Nitrite (Negative) Urine Bilirubin (Negative) Urine Urobilinogen (Negative) Ur Leukocyte Esterase (Negative) Urine WBC (Auto) (0-5) /hpf Urine RBC (Auto) (0-4) /hpf U Hyaline Cast (Auto) (0-5) /lpf U Epithel Cells (Auto) (0-5) /lpf Urine Bacteria (Auto) (Negative) COVID-19 Eval Order Influ A Molecular Assay (Negative) Influ B Molecular Assay (Negative) SARS-CoV-2, RNA, NAAT (NEGATIVE) 05/15/20 05/15/20 05/15/20 Range/Units 13:20 13:20 13:20 WBC (4.8-10.8) K/uL RBC (4.7-6.1) M/uL Hgb (14.0-18.0) g/dL Hct (42-52) % MCV (80-100) fL MCH (25-34) pg MCHC (32-36) g/dL RDW Std Deviation (36.4-46.3) fL RDW Coeff of John (11.5-14.5) % Plt Count (130-400) K/uL MPV (7.4-10.4) fL Immature Gran % (Auto) % Neut % (Auto) % Lymph % (Auto) % [place] % (Auto) % Eos % (Auto) % Baso % (Auto) % Neut # (Auto) (1.4-6.5) K/uL Lymph # (Auto) (1.2-3.4) K/uL [place] # (Auto) (0.11-0.59) K/uL Eos # (Auto) (0-0.5) K/uL Baso # (Auto) (0-0.2) K/uL Immature Gran # (Auto) (0.00-0.02) K/uL PT (9.0-12.0) Seconds INR (0.9-1.1) APTT (21.0-31.0) Seconds PTT Ratio D-Dimer (0-500) ug/L FEU VBG pH (7.36-7.41) VBG pCO2 (38-50) mmHg VBG pO2 mmHg VBG HCO3 mmol/L VBG O2 Saturation % VBG Base Excess mEq/L Barometric Pressure mm/Hg Sodium 133 L (136-145) mmol/L Potassium 4.2 (3.5-5.1) mmol/L Chloride 102 (98-107) mmol/L Carbon Dioxide 27 (21-32) mmol/L Anion Gap 4.0 (3-11) BUN 15 (7-18) mg/dl Creatinine 0.81 (0.6-1.4) mg/dl Est Cr Clr Drug Dosing Not Reportable Est GFR ( Amer) 116.0 Est GFR (Non-Af Amer) 100.1 BUN/Creatinine Ratio 18.0 (10-20) Glucose 103 H (70-99) mg/dl Lactate (0.4-2.0) mmol/L Calcium 8.2 L (8.5-10.1) mg/dl Magnesium 2.5 H (1.8-2.4) mg/dl Total Bilirubin 0.8 (0.2-1) mg/dl AST 27 (15-37) U/L ALT 20 (12-78) U/L Alkaline Phosphatase 98 (45-117) U/L Troponin I 0.037 (0-0.045) ng/ml NT-Pro-B Natriuret Pep 68 (0-900) pg/ml Total Protein 7.0 (6.4-8.2) gm/dl Albumin 3.4 (3.4-5.0) gm/dl Globulin 3.6 (2.5-4.0) gm/dl Albumin/Globulin Ratio 0.9 (0.9-2) Procalcitonin (0-0.5) ng/ml Urine Color Urine Appearance (Clear) Urine pH (4.5-7.5) Ur Specific [place] (1.000-1.030) Urine Protein (Negative) Urine Glucose (UA) (Negative) Urine Ketones (Negative) Urine Blood (Negative) Urine Nitrite (Negative) Urine Bilirubin (Negative) Urine Urobilinogen (Negative) Ur Leukocyte Esterase (Negative) Urine WBC (Auto) (0-5) /hpf Urine RBC (Auto) (0-4) /hpf U Hyaline Cast (Auto) (0-5) /lpf U Epithel Cells (Auto) (0-5) /lpf Urine Bacteria (Auto) (Negative) COVID-19 Eval [facility] Influ A Molecular Assay Negative (Negative) Influ B Molecular Assay Negative (Negative) SARS-CoV-2, RNA, NAAT (NEGATIVE) 05/15/20 05/15/20 05/15/20 Range/Units 13:20 13:49 13:49 WBC (4.8-10.8) K/uL RBC (4.7-6.1) M/uL Hgb (14.0-18.0) g/dL Hct (42-52) % MCV (80-100) fL MCH (25-34) pg MCHC (32-36) g/dL RDW Std Deviation (36.4-46.3) fL RDW Coeff of John (11.5-14.5) % Plt Count (130-400) K/uL MPV (7.4-10.4) fL Immature Gran % (Auto) % Neut % (Auto) % Lymph % (Auto) % [place] % (Auto) % Eos % (Auto) % Baso % (Auto) % Neut # (Auto) (1.4-6.5) K/uL Lymph # (Auto) (1.2-3.4) K/uL [place] # (Auto) (0.11-0.59) K/uL Eos # (Auto) (0-0.5) K/uL Baso # (Auto) (0-0.2) K/uL Immature Gran # (Auto) (0.00-0.02) K/uL PT (9.0-12.0) Seconds INR (0.9-1.1) APTT (21.0-31.0) Seconds PTT Ratio D-Dimer (0-500) ug/L FEU VBG pH 7.40 (7.36-7.41) VBG pCO2 46 (38-50) mmHg VBG pO2 31 mmHg VBG HCO3 28 mmol/L VBG O2 Saturation < 60.0 % VBG Base Excess 2.2 mEq/L Barometric Pressure 734.4 mm/Hg Sodium (136-145) mmol/L Potassium (3.5-5.1) mmol/L Chloride (98-107) mmol/L Carbon Dioxide (21-32) mmol/L Anion Gap (3-11) BUN (7-18) mg/dl Creatinine (0.6-1.4) mg/dl Est Cr Clr Drug Dosing Est GFR ( Amer) Est GFR (Non-Af Amer) BUN/Creatinine Ratio (10-20) Glucose (70-99) mg/dl Lactate 1.0 (0.4-2.0) mmol/L Calcium (8.5-10.1) mg/dl Magnesium (1.8-2.4) mg/dl Total Bilirubin (0.2-1) mg/dl AST (15-37) U/L ALT (12-78) U/L Alkaline Phosphatase (45-117) U/L Troponin I (0-0.045) ng/ml NT-Pro-B Natriuret Pep (0-900) pg/ml Total Protein (6.4-8.2) gm/dl Albumin (3.4-5.0) gm/dl Globulin (2.5-4.0) gm/dl Albumin/Globulin Ratio (0.9-2) Procalcitonin (0-0.5) ng/ml Urine Color Urine Appearance (Clear) Urine pH (4.5-7.5) Ur Specific [place] (1.000-1.030) Urine Protein (Negative) Urine Glucose (UA) (Negative) Urine Ketones (Negative) Urine Blood (Negative) Urine Nitrite (Negative) Urine Bilirubin (Negative) Urine Urobilinogen (Negative) Ur Leukocyte Esterase (Negative) Urine WBC (Auto) (0-5) /hpf Urine RBC (Auto) (0-4) /hpf U Hyaline Cast (Auto) (0-5) /lpf U Epithel Cells (Auto) (0-5) /lpf Urine Bacteria (Auto) (Negative) COVID-19 Eval Order Influ A Molecular Assay (Negative) Influ B Molecular Assay (Negative) SARS-CoV-2, RNA, NAAT POSITIVE A* (NEGATIVE) 05/15/20 05/15/20 Range/Units 16:13 21:18 WBC (4.8-10.8) K/uL RBC (4.7-6.1) M/uL Hgb (14.0-18.0) g/dL Hct (42-52) % MCV (80-100) fL MCH (25-34) pg MCHC (32-36) g/dL RDW Std Deviation (36.4-46.3) fL RDW Coeff of John (11.5-14.5) % Plt Count (130-400) K/uL MPV (7.4-10.4) fL Immature Gran % (Auto) % Neut % (Auto) % Lymph % (Auto) % [place] % (Auto) % Eos % (Auto) % Baso % (Auto) % Neut # (Auto) (1.4-6.5) K/uL Lymph # (Auto) (1.2-3.4) K/uL [place] # (Auto) (0.11-0.59) K/uL Eos # (Auto) (0-0.5) K/uL Baso # (Auto) (0-0.2) K/uL Immature Gran # (Auto) (0.00-0.02) K/uL PT (9.0-12.0) Seconds INR (0.9-1.1) APTT (21.0-31.0) Seconds PTT Ratio D-Dimer 420 (0-500) ug/L FEU VBG pH (7.36-7.41) VBG pCO2 (38-50) mmHg VBG pO2 mmHg VBG HCO3 mmol/L VBG O2 Saturation % VBG Base Excess mEq/L Barometric Pressure mm/Hg Sodium (136-145) mmol/L Potassium (3.5-5.1) mmol/L Chloride (98-107) mmol/L Carbon Dioxide (21-32) mmol/L Anion Gap (3-11) BUN (7-18) mg/dl Creatinine (0.6-1.4) mg/dl Est Cr Clr Drug Dosing Est GFR ( Amer) Est GFR (Non-Af Amer) BUN/Creatinine Ratio (10-20) Glucose (70-99) mg/dl Lactate (0.4-2.0) mmol/L Calcium (8.5-10.1) mg/dl Magnesium (1.8-2.4) mg/dl Total Bilirubin (0.2-1) mg/dl AST (15-37) U/L ALT (12-78) U/L Alkaline Phosphatase (45-117) U/L Troponin I (0-0.045) ng/ml NT-Pro-B Natriuret Pep (0-900) pg/ml Total Protein (6.4-8.2) gm/dl Albumin (3.4-5.0) gm/dl Globulin (2.5-4.0) gm/dl Albumin/Globulin Ratio (0.9-2) Procalcitonin (0-0.5) ng/ml Urine Color Dark Yellow Urine Appearance Clear (Clear) Urine pH 6.0 (4.5-7.5) Ur Specific [place] 1.035 H (1.000-1.030) Urine Protein 2+ H (Negative) Urine Glucose (UA) Negative (Negative) Urine Ketones 1+ H (Negative) Urine Blood Negative (Negative) Urine Nitrite Negative (Negative) Urine Bilirubin Negative (Negative) Urine Urobilinogen Negative (Negative) Ur Leukocyte Esterase Trace H (Negative) Urine WBC (Auto) 1-5 (0-5) /hpf Urine RBC (Auto) 0-4 (0-4) /hpf U Hyaline Cast (Auto) 10-30 H (0-5) /lpf U Epithel Cells (Auto) >30 H (0-5) /lpf Urine Bacteria (Auto) Negative (Negative) COVID-19 Eval Order Influ A Molecular Assay (Negative) Influ B Molecular Assay (Negative) SARS-CoV-2, RNA, NAAT (NEGATIVE) Diagnostic Findings CT ANGIOGRAM OF THE CHEST CLINICAL HISTORY: Shortness of breath. Covid positive patient. COMPARISON STUDY: Chest CT dated 11/03/2018 TECHNIQUE: Following the IV administration of 118 mL of Optiray-320, CT angiogram of the thorax was performed from the thoracic inlet to the lung bases utilizing the pulmonary embolus protocol. Images are reviewed in the axial, sagittal, and coronal planes. IV contrast was administered without complication. MIP imaging was performed. A dose lowering technique was utilized adhering to the principles of ALARA. CT DOSE: 554.88 mGy.cm FINDINGS: The visualized portions the upper abdomen reveal splenomegaly. There are mildly enlarged mediastinal lymph nodes measuring up to 12 mm in diameter. There is no pathologic axillary or hilar adenopathy. There is mild dilatation of the ascending thoracic aorta which measures 39 mm the level of the main pulmonary artery. There were no pulmonary artery filling defects to indicate acute pulmonary embolism. No pleural effusions are visualized. There is cylindrical bronchiectasis. This is most pronounced within the lower lobes. There are multifocal groundglass opacities with an upper lobe predominance. This is superimposed on the previously identified upper lobe predominant subtle background increased groundglass attenuation of the lungs. There is a left sided A-Port catheter present. IMPRESSION: 1. No evidence of acute pulmonary embolism 2. Multifocal groundglass pulmonary opacities consistent with a multifocal pneumonia. Clinical and radiographic follow-up is recommended 3. Bronchiectasis 4. Mild mediastinal lymphadenopathy 5. Mild aneurysmal dilatation of the ascending thoracic aorta which measures 39 mm 6. Splenomegaly ACT 112: Negative or not required by law. CT SCAN OF THE ABDOMEN AND PELVIS WITH IV CONTRAST CLINICAL HISTORY: Generalized abdominal pain. COMPARISON STUDY: Abdominal CT dated 02/25/2013. PET CT dated 12/20/2019. TECHNIQUE: Following the IV administration of 118 cc of Optiray 320, CT scan of the abdomen and pelvis is performed from the lung bases to the proximal femora. Images are reviewed in the axial, sagittal, and coronal planes. IV contrast was administered without complication. A dose lowering technique was utilized adhering to the principles of ALARA. FINDINGS: Lung bases: The heart is normal in size and without pericardial effusion. Mild bronchiectasis is noted at the lung bases. There is peribronchial thickening with mucous plugging seen in the lower lobes. No lobar consolidation or pleural effusion is identified. A 4 mm pulmonary nodule in the lingula is seen on image #7. Liver: The contrast-enhanced liver is cirrhotic in morphology and heterogeneous in attenuation. There is nodularity of the hepatic surface contour. There is no intrahepatic biliary ductal dilatation. The hepatic veins and portal veins are patent. Gallbladder: Gallbladder wall thickening is nonspecific and likely related to adjacent hepatocellular disease. Spleen: The spleen is markedly enlarged measuring 16.3 cm in length. Pancreas: Unremarkable. Adrenal glands: Unremarkable. Kidneys: The contrast enhanced kidneys are normal in size and without hydronephrosis. The kidneys enhance symmetrically. A 1.4 cm cyst is seen in the left upper pole. Abdominal vasculature: The abdominal aorta is normal in course and caliber noting mild atherosclerotic calcification. Bowel: There is no bowel obstruction. Moderate fecal retention is seen th roughout the colon. There is nonspecific wall thickening seen involving the distal ileum and the cecum. Additionally, there is a large calcification at the base of the appendix seen on image #209. The appendix is distended and fluid- filled measuring up to 1.3 cm diameter. There is mild periappendiceal stranding and tiny adjacent lymph nodes.. Peritoneum: There is no intraperitoneal free air or abdominal ascites. There is a fat-containing umbilical hernia. Lymphadenopathy: None. Pelvic viscera: The prostate gland is mildly enlarged and heterogeneous. The bladder wall is thickened and trabeculated indicating chronic outlet obstruction. Skeletal structures: No lytic or blastic lesions are seen. There are bilateral pars defects at L5 with grade 2 anterolisthesis at L5-S1. IMPRESSION: 1. There is a large calcification at the base of the appendix. The appendix is distended and fluid-filled, and there is surrounding soft tissue inflammation. This is somewhat similar in appearance to the 12/20/2019 PET examination. These findings may represent a mucocele of the appendix. Acute versus chronic appendicitis is not excluded. Clinical correlation will be essential. 2. There is wall thickening in the distal ileum and the adjacent cecum. This may represent a nonspecific ileocecal uterus. Underlying mass or lymphomatous involvement is not excluded. 3. Cirrhotic liver morphology. 4. Marked splenomegaly. 5. Bronchiectasis with peribronchial thickening and mucus plugging is again seen at the lung bases. 6. Additional findings as above. ACT 112: Negative or not required by law. Electronically signed by: Agustín Torres M.D. 05/15/2020 3:32 PM Dictated: 05/15/205Transcribed: 05/15/201514 SINGLE VIEW CHEST CLINICAL HISTORY: Sepsis. FINDINGS: An AP, portable, upright chest radiograph is compared to study dated 07/05/2019 and correlated with chest CT dated 11/03/2018. The examination is degraded by portable technique and patient rotation. A left subclavian central venous infusion port is unchanged in position The cardiomediastinal silhouette is unremarkable. Chronic interstitial thickening is similar to previous. Biapical opacities and nodularity is again noted. There is increasing airspace consolidation in both upper lobes (right greater than left) as compared to previous. No large pleural effusion or pneumothorax is seen. The skeletal structures are osteopenic. The bony thorax is grossly intact. IMPRESSION: 1. Chronic parenchymal changes as above with increasing bilateral upper lobe airspace consolidation, right greater than left. Correlate clinically for evidence of pneumonia. Radiographic follow-up to resolution is recommended. 2. No pleural effusion is identified. ACT 112: Negative or not required by law. Electronically signed by: Agustín Torres M.D. 05/15/2020 2:05 PM Dictated: 05/15/20 1403Transcribed: 05/15/20 140 Code Status & VTE Plan VTE Prophylaxis Plan VTE Prophylaxis will be ordered: Yes PG Care Time/CCT Total # of Minutes Spent Total Time Spent with Patient: Total time spent is greater than 50% in coordination of care (as documented) at patient's floor/unit and/or counseling patient: Coding Level of Care Code 99547 Initial Inpt Care Lvl 3 Diagnoses Pneumonia due to 2019 novel coronavirus U07.1; J12.89 COPD (chronic obstructive pulmonary disease) J44.9 COPD type: unspecified COPD Appendicitis K37 Appendicitis type: unspecified Autoimmune hepatitis K75.4 Common variable immunodeficiency D83.9 Diffuse large B-cell lymphoma C83.30 Lymphoma site: unspecified region (1) Diffuse large B-cell lymphoma Lymphoma site: unspecified region Qualified Code(s): C83.30 - Diffuse large B-cell lymphoma, unspecified site (2) COPD (chronic obstructive pulmonary disease) COPD type: unspecified COPD Qualified Code(s): J44.9 - Chronic obstructive pulmonary disease, unspecified (3) Appendicitis Appendicitis type: unspecified Qualified Code(s): K37 - Unspecified appendicitis
[2020-05-15] MEDS ORDERED: ACETAMINOPHEN 325 MG TAB PO PRN (20:44)
[2020-05-15] MEDS ORDERED: ALBUTEROL HFA 8 GM INHALER INH PRN (20:44)
[2020-05-15] MEDS ORDERED: FAMOTIDINE 20 MG in SYRINGE 3 ML IV SCH (21:00)
[2020-05-15] MEDS ORDERED: NON-FORMULARY MEDICATION (Escitalopram Oxalate [Lexapro] 5 mg Tablet) PO SCH (21:00)
[2020-05-15] MEDS ORDERED: ESCITALOPRAM OXALATE 10 MG TAB PO SCH (21:00)
[2020-05-15 21:48] LABS: D Dimer 420 ug/L FEU (0-500)
[2020-05-15] MEDS ORDERED: guaiFENesin/DEXTROM SYRUP 100MG/10MG 5ML UDC PO PRN (21:57)
--- NOTE | 2020-05-15 21:59 | Electrocardiogram Report ---
Test Reason : Blood Pressure : / mmHG Vent. Rate : 081 BPM Atrial Rate : 081 BPM P-R Int : 160 ms QRS Dur : 080 ms QT Int : 376 ms P-R-T Axes : 065 066 012 degrees QTc Int : 436 ms Poor data quality, interpretation may be adversely affected Normal sinus rhythm Nonspecific T wave abnormality When compared with ECG of 24-OCT-2013 11:53, Nonspecific T wave abnormality now evident in Inferior leads Confirmed by Moshe Freire ([id number]) on 05/15/2020 9:59:08 PM Referred By: [facility] Confirmed By:Moshe Freire
[2020-05-15] MEDS: ASCORBIC ACID 500 MG TAB PO SCH (22:10)
[2020-05-15] MEDS: carvediloL 6.25 MG TAB PO SCH (22:10)
[2020-05-15] MEDS: ZINC SULFATE 220 MG CAPSULE PO SCH (22:10)
[2020-05-15] MEDS: ARTIFICIAL TEARS OP SCH (22:31)
[2020-05-15 22:42] LABS: C Reactive Protein 1.9 mg/dl (0-0.29); Ferritin 275.3 ng/ml (8-388); Phosphorus 4.3 mg/dl (2.5-4.9)
[2020-05-15] MEDS: ENOXAPARIN INJ 30 MG/0.3 ML SYR SQ SCH (22:57)
[2020-05-15] MEDS ORDERED: HEPARIN 100 UNIT/ML 5ML FLUSH FLUSH PRN (23:56)
[2020-05-16 07:32] LABS: Hematocrit (blood only) 35.9 % (42-52); Hemoglobin 12.6 g/dL (14.0-18.0); Mean Corpuscular Hgb Conc 35.1 g/dL (32-36); Mean Corpuscular Volume 85.5 fL (80-100); RDW Coefficient of Variation 12.7 % (11.5-14.5); RDW Standard Deviation 39.6 fL (36.4-46.3); White Blood Count 1.52 K/uL (4.8-10.8)
[2020-05-16 07:57] LABS: Mean Platelet Volume 11.3 fL (7.4-10.4); Platelet Count 47 K/uL (130-400)
[2020-05-16 08:18] LABS: Lymphocytes # (auto) 0.25 K/uL (1.2-3.4); Lymphocytes % (auto) 16.4 %; Monocytes # (auto) 0.14 K/uL (0.11-0.59); Monocytes % (auto) 9.2 %; Neutrophils # (auto) 1.13 K/uL (1.4-6.5); Neutrophils % (auto) 74.4 %
--- NOTE | 2020-05-16 08:33 | Surgery Consultation ---
Date of Consultation May 16, 2020 Assessment & Plan (1) Appendicolith: (2) Mucocele of appendix: We discussed his what I believed to be incidental findings on CT scan. These are unchanged from recent imaging several months ago. I do recommend this be electively resected however we could wait until his acute problem clears. I want him to follow-up with me in the office to discuss this further in 6 to 8 weeks. History of Present Illness Attending Physician: Shanon Angulo DO History of Present Illness 54-year-old male from [facility]. He was brought to emergency room for respiratory complaints. While in the ER he developed some epigastric discomfort and a CT scan was performed. This revealed an abnormality of the appendix which is similar from a previous work-up several months ago. The patient currently denies any abdominal pain nausea vomiting etc. he is HIV positive as well as recent Covid positive Allergies Allergy/AdvReac Type Severity Reaction Status Date / Time Bactrim Allergy Mild RASH/BLEEDI Verified 01/10/13 14:22 NG sulfamethoxazole Allergy Mild RASH/BLEEDI Verified 05/15/20 13:31 NG trimethoprim Allergy Mild RASH/BLEEDI Verified 05/15/20 13:31 NG Home Medications Medication Instructions Recorded Confirmed Type Lactobacillus acidophilus 1 0 cell PO TID 06/26/19 05/15/20 History billion cell tablet ascorbic acid (vitamin C) 500 mg 500 mg PO BID 06/26/19 05/15/20 History capsule carvedilol 6.25 mg tablet 6.25 mg PO BID tab 06/26/19 05/15/20 History folic acid 1 mg tablet 1 mg PO DAILY 06/26/19 05/15/20 History immune glob,gamma(IgG) 10 0 g IV UD 06/26/19 05/15/20 History gcba-mus-oowr-IgA 0 to 50 mcg/mL IV solution pantoprazole 40 mg granules 40 mg PO DAILY ea 06/26/19 05/15/20 History delayed-release for susp in packet calcium polycarbophil [Fiber 625 mg PO QAM 07/03/19 05/15/20 History (calcium polycarbophil)] ondansetron HCl [Zofran] 4 mg PO Q8H PRN 07/03/19 05/15/20 History vitamin B complex 1 cap PO DAILY 07/03/19 05/15/20 History dextromethorphan-guaifenesin 30 1 tab PO Q12H PRN #60 tab 01/05/20 05/15/20 Rx mg-600 mg tablet extended [id number] hr levalbuterol tartrate 45 2 inh INHALATION Q6H PRN #15 gm 01/05/20 05/15/20 Rx mcg/actuation aerosol inhaler levocetirizine 5 mg tablet 5 mg PO DAILY PRN #90 tab 01/05/20 05/15/20 Rx umeclidinium 62.5 mcg-vilanterol 1 puffs INH DAILY #60 ea 01/05/20 05/15/20 Rx 25 mcg/actuation powdr for inhalation acetaminophen [Tylenol] 650 mg PO ONCE PRN 05/15/20 05/15/20 History escitalopram oxalate [Lexapro] 5 mg PO HS 05/15/20 05/15/20 History escitalopram oxalate [Lexapro] 10 mg PO HS 05/15/20 05/15/20 History peg 400-propylene glycol [Systane 1 drp OPHTHALMIC (EYE) QID 05/15/20 05/15/20 History Gel] Patient History Medical History (Updated 05/16/20 @ 08:34 by Benito Gallo DO) Asthma Cirrhosis Common variable immunodeficiency Diffuse large B-cell lymphoma Surgical History Hx of colonoscopy Port-A-Cath in place (07/05/19) Insertion Of Mediport With Fluoroscopy Dr. 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 Beliefs That Will Affect Care: None Current Living Situation: Other Current Living Situation Comment: [facility] Feels Safe at Home: Yes Assistive Devices: Oxygen - Continuous Review of Systems Review of Systems: All systems reviewed & are unremarkable except as noted in HPI & below Physical Exam Constitutional: WD/WN, vitals as above no acute distress and not ill appearing Eyes: PERRL, conjunctivae normal, anicteric sclerae EOM intact bilaterally ENMT: external ear and nose normal, oropharynx normal Ears: no hearing impairment Neck: trachea midline, no thyromegaly Cardiovascular: Rate/Rhythm: regular rate and regular rhythm Gastrointestinal (Abdomen): normal bowel sounds, soft, nontender, no hepatosplenomegaly Nontender. No peritoneal signs. Skin: no rashes, warm and dry Psychiatric: Orientation: alert, oriented x 3 and cooperative Results & Data ([facility]) Vital Signs (Past 12 Hours) Vital Signs Temp Pulse Pulse Resp BP BP Pulse Ox 05/16/20 08:01 36.5 C 57 L 19 96/66 L 98 05/16/20 00:30 36.4 C L 52 L 17 99/75 L 99 05/15/20 22:04 57 L 110/69 05/15/20 20:40 36.6 C 55 L 18 107/71 99 PG Care Time/CCT Total # of Minutes Spent Total Time Spent with Patient: Total time spent is greater than 50% in coordination of care (as documented) at patient's floor/unit and/or counseling patient: Coding Level of Care Code 68501 Inpt Consult Level 4 Diagnoses Appendicolith K38.9 Mucocele of appendix K38.8
[2020-05-16] MEDS ORDERED: DEXAMETHASONE SOD INJ 10 MG/ML VIAL IV SCH (09:00)
[2020-05-16 09:03] LABS: Albumin Level 3.3 gm/dl (3.4-5.0); BUN Creatinine Ratio 26.5 (10-20); Bilirubin Direct 0.2 mg/dl (0-0.2); Bilirubin,Total 0.6 mg/dl (0.2-1); Calcium 8.3 mg/dl (8.5-10.1); Creatinine Clr Calc Pharmacy 95.4 ml/min; Est GFR (African American) 118.4; Est GFR (Non-African American) 102.2; Potassium 4.7 mmol/L (3.5-5.1)
[2020-05-16 09:04] LABS: Total Protein 6.8 gm/dl (6.4-8.2)
[2020-05-16] MEDS: ARTIFICIAL TEARS OP SCH ×4 (09:31→20:39)
[2020-05-16] MEDS: DEXAMETHASONE SOD PHOSPHATE 6 MG in SYRINGE 0 ML IV SCH (09:32)
[2020-05-16] MEDS: FOLIC ACID 1 MG TAB PO SCH (09:32)
[2020-05-16] MEDS: carvediloL 6.25 MG TAB PO SCH ×2 (09:32→21:46)
[2020-05-16] MEDS: ZINC SULFATE 220 MG CAPSULE PO SCH ×2 (09:33→21:46)
[2020-05-16] MEDS: ASCORBIC ACID 500 MG TAB PO SCH ×2 (09:33→21:46)
[2020-05-16] MEDS: ENOXAPARIN INJ 30 MG/0.3 ML SYR SQ SCH ×2 (09:33→21:46)
[2020-05-16] MEDS: UMECLIDINIUM/VILANTEROL 62.5/25MCG 7 PUFFS/INHALER INH SCH (09:36)
[2020-05-16] MEDS: ONDANSETRON INJ 2 MG/ML 2 ML VIAL IV PRN (09:47)
--- NOTE | 2020-05-16 12:40 | Pulmonary Consultation ---
Date of Consultation May 16, 2020 Assessment & Plan (1) Hypoxia: (2) Pneumonia due to 2019 novel coronavirus: (3) Abnormal CT scan of lung: Impression: 54-year-old male with prior history of common variable immune deficiency on replacement IVIG and known obstructive lung disease with a ssociated bronchiectasis presenting now with febrile illness and hypoxemia at outside facility. He is not been hypoxemic here but his Covid testing was positive. His oxygen saturations were below 94% on room air so he was appropriately started on dexamethasone. Remdesivir is being held due to con cerns regarding cirrhosis. His CT scan does show infiltrates although these are more apically based rather than basilar based which would be somewhat unusual for Covid. His underlying lung disease may account for this abnormal radiographic presentation. Recommendations: 1. Agree with treatment for moderate Covid. If oxygen saturations remain below 94%, will continue dexamethasone 6 mg IV daily. If he improves to the point that oxygen saturations are above 94% on room air, dexamethasone can be discontinued. 2. The etiology of the pulmonary infiltrates is somewhat unclear. He is at risk for a variety of opportunistic infections including P JEFFREY and other fungal infections. Inflammatory lung disease would also be possible potentially related to his chemotherapy. Ideally, the patient should undergo bronchoscopy with BAL however given the fact that he is Covid positive, I would favor empiric therapy and clinical follow-up with a repeat CT scan in 4 to 6 weeks. The patient can follow-up with Dr. Curtis who he is seen in the outpatient setting. If his Covid status resolves and he has persistent infiltrates, could consider bronchoscopy with BAL at that point time. It does seem reasonable to complete a course of antimicrobial therapy despite his normal procalcitonin level. Joaquin ephin/Ceftin and azithromycin for 5 days would be recommended If the patient is not hypoxemic, he does not require inpatient hospitalization and can be dismissed back to the retirement with outpatient follow-up as noted above. Feel free to contact us with questions or concerns. History of Present Illness Attending Physician: Shanon Angulo, DO History of Present Illness Asked by the hospitalist to assist in management of this patient with known bronchiectasis, obstructive lung disease, and COVID-19 pneumonitis. The patient has been followed in the pulmonary clinic previously and was last seen about 5 months ago. This incarcerated male with a history of common variable immune deficiency gets routine IVIG replacement. He was seen in the pulmonary clinic for follow-up for obstructive lung disease and bronchiectasis. It has been assumed that his bronchiectatic changes are associated with his immune deficiency. He was brought to the emergency room with 3 to 4 days of fevers chills and shortness of breath. He is incarcerated at [facility]. He apparently was seen in the [facility] yesterday and was found to be febrile with oxygen saturations in the 70% range. He was subsequently brought to the emergency room. His oxygen saturations here were 90% on room air. He did complain of shortness of breath. Covid testing was positive. He received dexamethasone cefepime vancomycin and Flagyl in the emergency room. A CT scan did demonstrate some groundglass opacities most prominently in the upper lobes with some mosaicism. Patient has a history of GI lymphoma and was receiving R-CHOP therapy. He developed complications including grade 1 neuropathy which required dose reduction. He also has had bone marrow suppression with pancytopenia. Allergies Allergy/AdvReac Type Severity Reaction Status Date / Time Bactrim Allergy Mild RASH/BLEEDI Verified 01/10/13 14:22 NG sulfamethoxazole Allergy Mild RASH/BLEEDI Verified 05/15/20 13:31 NG trimethoprim Allergy Mild RASH/BLEEDI Verified 05/15/20 13:31 NG Home Medications Medication Instructions Recorded Confirmed Type Lactobacillus acidophilus 1 0 cell PO TID 06/26/19 05/15/20 History billion cell tablet ascorbic acid (vitamin C) 500 mg 500 mg PO BID 06/26/19 05/15/20 History capsule carvedilol 6.25 mg tablet 6.25 mg PO BID tab 06/26/19 05/15/20 History folic acid 1 mg tablet 1 mg PO DAILY 06/26/19 05/15/20 History immune glob,gamma(IgG) 10 0 g IV UD 06/26/19 05/15/20 History mwiu-spb-suce-IgA 0 to 50 mcg/mL IV solution pantoprazole 40 mg granules 40 mg PO DAILY ea 06/26/19 05/15/20 History delayed-release for susp in packet calcium polycarbophil [Fiber 625 mg PO QAM 07/03/19 05/15/20 History (calcium polycarbophil)] ondansetron HCl [Zofran] 4 mg PO Q8H PRN 07/03/19 05/15/20 History vitamin B complex 1 cap PO DAILY 07/03/19 05/15/20 History dextromethorphan-guaifenesin 30 1 tab PO Q12H PRN #60 tab 01/05/20 05/15/20 Rx mg-600 mg tablet extended hr levalbuterol tartrate 45 2 inh INHALATION Q6H PRN #15 gm 01/05/20 05/15/20 Rx mcg/actuation aerosol inhaler levocetirizine 5 mg tablet 5 mg PO DAILY PRN #90 tab 01/05/20 05/15/20 Rx umeclidinium 62.5 mcg-vilanterol 1 puffs INH DAILY #60 ea 01/05/20 05/15/20 Rx 25 mcg/actuation powdr for inhalation acetaminophen [Tylenol] 650 mg PO ONCE PRN 05/15/20 05/15/20 History escitalopram oxalate [Lexapro] 5 mg PO HS 05/15/20 05/15/20 History escitalopram oxalate [Lexapro] 10 mg PO HS 05/15/20 05/15/20 History peg 400-propylene glycol [Systane 1 drp OPHTHALMIC (EYE) QID 05/15/20 05/15/20 History Gel] Patient History Medical History (Updated 05/16/20 @ 12:49 by Gabe Burgos MD) Asthma Cirrhosis Common variable immunodeficiency Diffuse large B-cell lymphoma Surgical History Hx of colonoscopy Port-A-Cath in place (07/05/19) Insertion Of Mediport With Fluoroscopy Dr. Huang 07-05-19 Social History Smoking Status: Former smoker Second Hand Exposure: No; Hx Alcohol Use: No Hx Substance Use: No Preferred Language: Swedish Communication Ability: Effective Risk Analyst Required: No Beliefs That Will Affect Care: None Current Living Situation: Other Current Living Situation Comment: [facility] Feels Safe at Home: Yes Assistive Devices: Oxygen - Continuous Physical Exam Physical Exam: Physical exam was not performed as the patient is in isolation for Covid. Please refer to the attending's physical exam for today. Results & Data Results & Data ([facility]) Vital Signs (Past 12 Hours) Vital Signs Temp Pulse Resp BP Pulse Ox 05/16/20 09:28 16 98 05/16/20 08:01 36.5 C 57 L 19 96/66 L 98 Laboratory Results 05/16/20 06:42 05/16/20 06:42 ESR 34 Procalcitonin negative Blood gas showed a pH 7.40 with PCO2 of 46. Venous sample LDH 212 C-reactive protein 1.9 PG Care Time/CCT Total # of Minutes Spent Total Time Spent with Patient: Total time spent is greater than 50% in coordination of care (as documented) at patient's floor/unit and/or counseling patient: Coding Level of Care Code 11980 Office/OBS Consult Lvl 4 Diagnoses Hypoxia R09.02 Pneumonia due to 2019 novel coronavirus U07.1; J12.[address] scan of lung R91.8
--- NOTE | 2020-05-16 14:58 | Hospitalist Progress Note ---
Date of Service May 16, 2020 Assessment & Plan (1) Pneumonia due to 2019 novel coronavirus: 54yo male presenting with PNA secondary to Covid-19. Patient with reported hypoxia prior to arrival - was mildly hypoxic upon arrival to the ER. Presently doing well on NC with no respiratory distress. He has history of severe COPD with air trapping and bronchiectasis for which he follows with Pulmonary. Last seen by Dr. Curtis in December. Sats are upper 90s on RA -Admit to medical - maintain precautions, airborne and contact -Dexamethasone 6mg IV daily - if patient remains stable and not hypoxic would discontinue this -Albuterol HFA PRN -Continue Umeclidinium/VIlanterol -Lovenox 30 BID with caution as patient with chronic history of thrombocytopenia. Presently with platelets of 45. If levels drop with AM CBC would discontinue Lovenox in favor of mechanical DVT prophylaxis Pulm recs for ongoing dexameth if >94%, azithro/ceftin x5 days given risk of atypicals CT scan in 4-6 weeks with pulm f/u and t/c bronch (2) COPD (chronic obstructive pulmonary disease): As above. Patient with immunoglobulin deficiency/CVID, severe bronchiectasis with air trapping -Continue Umeclidinium/Vilanterol -Albuterol PRN (3) Appendicitis: CT read as possible acute appendicitis. Patient does no clinically appear to have acute appendicitis. Abdomen is soft, NT/ND -Monitor clinically -Patient received antibiotics in the ER for possible appendicitis. Will hold off on additional antibiotics for now. Gen surg recs for f/u in 6-8 weeks for possible elective resection of appedix mucocele (4) Autoimmune hepatitis: With history of non-bleeding esophageal varices per record review. Stable liver studies with no clinical evidence for decompensated failure. -Monitor -Continue Carvedilol 6.25mg po BID (5) Common variable immunodeficiency: Chronic -Patient receives infusion of Immunoglobulin q Wednesday Gammagard 15gm weekly- he did not receive his treatment today due to being febrile and hypoxic. -Administer Immunoglobulin as written (after discussion with Pharmacy we may need to acquire his medication from [facility] pharmacy) (6) Diffuse large B-cell lymphoma: Patient diagnosed with DLBC Lymphoma in March 2019. He has completed 5 cycles of R-CHOP and Vincristine - dosage reduced d/t neuropathy. His treatments have been put on hold d/t thrombocytopenia. He follows with [facility]. Monitor electrolytes. Regular diet as tolerated Ppx. - Lovenox BID as above with close monitoring of platelet count Code - Full Dispo - Admit to medical Admission and Anticipated Discharge Date Admission Date: May 15, 2020 Subjective Pt states his breathing still feels a bit tight off of O2 at rest. He has not been OOB. Tolerating PO. Pt denies fever, chest pain, abd pain, n/v/c/d, LE pain or swelling. Physical Exam Constitutional: WD/WN, vitals as above Eyes: normal visual fong by confrontation and + anicteric sclerae Neck: normal visual inspection and trachea midline Respiratory: normal respiratory effort; no respiratory distress Auscultation: + crackles; no wheezes Cardiovascular: Rate/Rhythm: regular rate and regular rhythm Gastrointestinal (Abdomen): Inspection/Auscultation: abdomen not distended Percussion/Palpation: abdomen soft; abdomen nontender Musculoskeletal: Head/Neck/Chest: normocephalic and head atraumatic negative for edema, peripheral pulses intact Skin: no rashes, warm and dry Neurologic: awake; not confused Speech / Cognition: normal speech Psychiatric: A+Ox3, euthymic affect Results & Data Results & Data ([facility]) Vital Signs (Past 12 Hours) Vital Signs Temp Pulse Resp BP Pulse Ox 05/16/20 09:28 16 98 05/16/20 08:01 36.5 C 57 L 19 96/66 L 98 PG Care Time/CCT Total # of Minutes Spent Total Time Spent with Patient: Total time spent is greater than 50% in coordination of care (as documented) at patient's floor/unit and/or counseling patient: Coding Level of Care Code 97841 Subseq Hosp Care Lvl 3 Diagnoses Pneumonia due to 2019 novel coronavirus U07.1; J12.89 COPD (chronic obstructive pulmonary disease) J44.9 COPD type: unspecified COPD Appendicitis K37 Appendicitis type: unspecified Autoimmune hepatitis K75.4 Common variable immunodeficiency D83.9 Diffuse large B-cell lymphoma C83.30 Lymphoma site: unspecified region (1) COPD (chronic obstructive pulmonary disease) COPD type: unspecified COPD Qualified Code(s): J44.9 - Chronic obstructive pulmonary disease, unspecified (2) Appendicitis Appendicitis type: unspecified Qualified Code(s): K37 - Unspecified appendicitis (3) Diffuse large B-cell lymphoma Lymphoma site: unspecified region Qualified Code(s): C83.30 - Diffuse large B-cell lymphoma, unspecified site
[2020-05-16] MEDS: AZITHROMYCIN 250 MG TAB PO SCH (15:34)
[2020-05-16] MEDS: cefUROXime axetil 500 MG TAB PO SCH ×2 (15:34→22:04)
[2020-05-16] MEDS ORDERED: ESCITALOPRAM OXALATE 10 MG TAB PO SCH (21:00)
[2020-05-17] MEDS: DEXAMETHASONE SOD PHOSPHATE 6 MG in SYRINGE 0 ML IV SCH (09:11)
[2020-05-17] MEDS: ENOXAPARIN INJ 30 MG/0.3 ML SYR SQ SCH (09:12)
[2020-05-17] MEDS: ZINC SULFATE 220 MG CAPSULE PO SCH (09:12)
[2020-05-17] MEDS: cefUROXime axetil 500 MG TAB PO SCH (09:12)
[2020-05-17] MEDS: UMECLIDINIUM/VILANTEROL 62.5/25MCG 7 PUFFS/INHALER INH SCH (09:15)
[2020-05-17] MEDS: ASCORBIC ACID 500 MG TAB PO SCH (09:15)
[2020-05-17] MEDS: carvediloL 6.25 MG TAB PO SCH (09:15)
[2020-05-17] MEDS: ONDANSETRON INJ 2 MG/ML 2 ML VIAL IV PRN (09:23)
[2020-05-17] MEDS: FOLIC ACID 1 MG TAB PO SCH (10:18)
[2020-05-17] MEDS: AZITHROMYCIN 250 MG TAB PO SCH (10:18)
[2020-05-17] MEDS: ARTIFICIAL TEARS OP SCH ×2 (10:18→12:12)
--- NOTE | 2020-05-17 12:22 | Discharge Summary ---
Date of Service May 17, 2020 Admission HPI Per Admitting Provider Natalio Vitale is a 54yo male presenting with 3-4 days of fevers/chills and SOB. Patient is an inmate at [facility]. He has history of CVID for which he receives a weekly infusion of IVIG [facility] [place] [facility] to [place] is infusion and found to be febrile and hypoxic in the 70's. He was transferred to [facility] for further care. Upon arrival noted to be 90% on room air. States he feels short of breath, otherwise doing well. Covid-19 testing POSITIVE ER Course: Dexamethasone, Zofran, Cefepime, Vancomycin, Flagyl Principal Diagnosis Pt states he is feeling better. No SOB. Tolerating PO, although does have mild nausea. No emesis. Pt denies fever, chest pain, abd pain, c/d, LE pain or swelling. Discharge Exam Constitutional WD/WN, vitals as above Eyes normal visual fong by confrontation and + anicteric sclerae Neck normal visual inspection and trachea midline Respiratory normal respiratory effort; no respiratory distress Auscultation: + crackles (trace, improving); no wheezes Cardiovascular Rate/Rhythm: regular rate and regular rhythm Gastrointestinal (Abdomen) Inspection/Auscultation: abdomen not distended Percussion/Palpation: abdomen soft; abdomen nontender Musculoskeletal Head/Neck/Chest: normocephalic and head atraumatic Skin no rashes, warm and dry Neurologic awake; not confused Speech / Cognition: normal speech Psychiatric A+Ox3, euthymic affect Discharge Data Allergies Allergy/AdvReac Type Severity Reaction Status Date / Time Bactrim Allergy Mild RASH/BLEEDI Verified 01/10/13 14:22 NG sulfamethoxazole Allergy Mild RASH/BLEEDI Verified 05/15/20 13:31 NG trimethoprim Allergy Mild RASH/BLEEDI Verified 05/15/20 13:31 NG Consultations 05/15/20 16:11 ED Decision to Admit Stat 05/15/20 20:44 Consult General Surgery Routine Consult Pulmonology Routine Ordered Studies 05/15/20 13:04 CT abd pelvis IV con only Stat CT angio chest PE protocol Stat Hospital Course (1) Pneumonia due to 2019 novel coronavirus: 54yo male presenting with PNA secondary to Covid-19. Patient with reported hypoxia prior to arrival - was mildly hypoxic upon arrival to the ER. Presently doing well on NC with no respiratory distress. He has history of severe COPD with air trapping and bronchiectasis for which he follows with Pulmonary. Last seen by Dr. Curtis in December. Sats are upper 90s on RA -Admit to medical - maintain precautions, airborne and contact -Dexamethasone 6mg IV daily -during admission, however pt has not been hypoxic for over 24 hours, does not need further dosing -Albuterol HFA Q4hrs while awake for the next week to maximize pulmonary status in the setting of PNA -Continue Umeclidinium/VIlanterol -Lovenox 30 BID with caution as patient with chronic history of thrombocytopenia. Presently with platelets of 45. If levels drop with AM CBC would discontinue Lovenox in favor of mechanical DVT prophylaxis Pulm recs for azithro/ceftin x5 days total given risk of atypicals, pt can finish as outpt CT scan in 4-6 weeks with pulm f/u and t/c bronch at that time (2) COPD (chronic obstructive pulmonary disease): As above. Patient with immunoglobulin deficiency/CVID, severe bronchiectasis with air trapping -Continue Umeclidinium/Vilanterol -Albuterol (3) Appendicitis: CT read as possible acute appendicitis. Patient does no clinically appear to have acute appendicitis. Abdomen is soft, NT/ND -Monitor clinically -Patient received antibiotics in the ER for possible appendicitis. Will hold off on additional antibiotics for now. 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 Stable liver studies with no clinical evidence for decompensated failure. -Monitor -Continue Carvedilol 6.25mg po BID (5) Common variable immunodeficiency: Chronic -Patient receives infusion of Immunoglobulin q Wednesday Gammagard 15gm weekly- he did not receive his treatment today due to being febrile and hypoxic. -Administer Immunoglobulin as written (after discussion with Pharmacy we may need to acquire his medication from [facility] pharmacy) (6) Diffuse large B-cell lymphoma: Patient diagnosed with DLBC Lymphoma in March 2019. He has completed 5 cycles of R-CHOP and Vincristine - dosage reduced d/t neuropathy. His treatments have been put on hold d/t thrombocytopenia. [facility] follows with [facility] Total Time Total Time Spent Total Time Spent (In Minutes): >30 Total Time Includes: Examination of the Patient, Discharge Planning, Medication Reconciliation, Communication With Other Providers and Other Discharge Plan Discharge Items [facility]position[facility] Reason For Visit: COVID 19, HYPOXIA Discharge Diagnosis: COVID-19, hypoxia Activity: Resume your previous activity Non-emergency contact: Primary Care Provider Call non-emergency contact if: you have any medication questions and your symptoms worsen Follow-up/Referrals: Benito Gallo, [Surgeon] - (f/u in 6-8 weeks.) Bradford PERERA [Primary Care Provider] - Diet: Regular Addtl Attending Provider Instructions: You should use your ventolin inhaler every 4 hours while awake for the next week, even if you are not short of breath. You should be seen by your physician upon return to the [facility] and again in 1 week to determine if you need ongoing inhaler use Pending Studies at Discharge: No Stand-Alone Forms: My [facility] Skilled Items Patient informed of condition?: Yes Discharge Level of Care: Other Communicable Disease: Yes Discharge Prognosis: Improving Lines: None Urinary Catheter: No Medications and DC Order Prescriptions: New azithromycin 250 mg Tablet 250 mg PO QAM Qty: 3 RF: 0 cefuroxime axetil 500 mg Tablet 500 mg PO BID 3 Days Qty: 6 RF: 0 zinc sulfate [Orazinc] 220 (50) mg Capsule 220 mg PO BID 14 Days Qty: 28 RF: 0 Continued Anoro Ellipta 62.5-25 mcg/actuation blister with device 1 puffs INH DAILY Qty: 60 RF: 2 levalbuterol tartrate [Xopenex HFA] 45 mcg/actuation HFA aerosol inhaler 2 inh INHALATION Q6H PRN (Reason: SOB) Qty: 15 RF: 3 levocetirizine 5 mg tablet 5 mg PO DAILY PRN (Reason: allergy symptoms) Qty: 90 RF: 1 Mucinex DM 30-600 mg tablet extended release 12 hr 1 tab PO Q12H PRN (Reason: cough) Qty: 60 RF: 0 immun glob [id number] 0-50 10 gram recon soln 0 g IV UD RF: 0 ascorbic acid (vitamin C) 500 mg capsule 500 mg PO BID RF: 0 Lactobacillus acidophilus 1 billion cell tablet 0 cell PO TID RF: 0 folic acid 1 mg tablet 1 mg PO DAILY RF: 0 pantoprazole [address] for susp in packet 40 mg PO DAILY RF: 0 carvedilol 6.25 mg tablet 6.25 mg PO BID RF: 0 ondansetron HCl [Zofran] 4 mg Tablet 4 mg PO Q8H PRN (Reason: Nausea And Vomiting) RF: 0 calcium polycarbophil [Fiber (calcium polycarbophil)] 625 mg Tablet 625 mg PO QAM RF: 0 vitamin B complex Capsule 1 cap PO DAILY RF: 0 acetaminophen [Tylenol] 325 mg Tablet 650 mg PO ONCE PRN (Reason: w/ gammagard) RF: 0 escitalopram oxalate [Lexapro] 10 mg Tablet 10 mg PO HS RF: 0 escitalopram oxalate [Lexapro] 5 mg Tablet 5 mg PO HS RF: 0 Systane Gel 0.4-0.3 % Drops,Gel 1 drp OPHTHALMIC (EYE) QID RF: 0 Discharge Orders: Discharge Order (Routine); Ordered 05/17/20 Ordered By: Shanon Angulo Admission Data Admit Date/Time: 05/15/20 17:02 Attending Provider: Shanon Angulo Admit Provider: Louisa Ramirez Primary Care Provider: Bradford PERERA Other Providers: Louisa Ramirez ; Familia Adam ; Obie Molina ; Italo Rodriguez ; Clement Estrella Jr ; Benito Galol ; Jaylon Huang ; Christina Long ; Tad Cole ; Robin Jin ; Gabe Burgos Coding Level of Care Code D/C Day Management >30 mins Diagnoses Pneumonia due to 2019 novel coronavirus U07.1; J12.89 COPD (chronic obstructive pulmonary disease) J44.9 COPD type: unspecified COPD Appendicitis K37 Appendicitis type: unspecified Autoimmune hepatitis K75.4 Common variable immunodeficiency D83.9 Diffuse large B-cell lymphoma C83.30 Lymphoma site: unspecified region
== END 2020-05-17 14:02 | DRG 177 ==
LOC: ED 12:44 → 2E 17:02 → SUATTDRO 17:02 → 2E 19:58

== ENCOUNTER 2020-08-12 08:52 | Inpatient (IN) ==
[2020-08-12] MEDS ORDERED: ALBUTEROL HFA 8 GM INHALER INH ONE (09:00)
[2020-08-12] MEDS ORDERED: methylPREDNISolone 125 MG/2 ML VIAL IV STA (09:00)
[2020-08-12] MEDS ORDERED: MAGNESIUM SULFATE / D5W 1 GM/100 ML BAG IV STA (09:01)
--- NOTE | 2020-08-12 09:31 | XRay Report ---
XR chest 1V portable CLINICAL HISTORY: SEPSIS COMPARISON STUDY: 05/15/2020 FINDINGS: The cardiac and mediastinal contours remain stable. There is a left-sided A-Port catheter p resent. There are bilateral upper lung zone airspace opacities left greater than right. The left appe ars slightly progressive on the right demonstrates slight improvement.[ IMPRESSION: 1. Bilateral upper lung zone airspace opacities. The findings are suggestive of a multifocal pneumoni a. Clinical and radiographic follow-up is recommended ACT 112: Negative or not required by law. Electronically signed by: Hamilton Roach M.D. 08/12/2020 9:29 AM
[2020-08-12 09:42] LABS: Hematocrit (blood only) 32.6 % (42-52); Hemoglobin 10.8 g/dL (14.0-18.0); Mean Corpuscular Hemoglobin 27.5 pg (25-34); Mean Corpuscular Hgb Conc 33.1 g/dL (32-36); Mean Platelet Volume 11.4 fL (7.4-10.4); Platelet Count 56 K/uL (130-400); RDW Coefficient of Variation 15.8 % (11.5-14.5); RDW Standard Deviation 47.3 fL (36.4-46.3); Red Blood Count 3.93 M/uL (4.7-6.1); White Blood Count 3.35 K/uL (4.8-10.8)
[2020-08-12 09:46] LABS: INR 1.1 (0.9-1.1); Partial Thromboplastin Ratio 1.1; Partial Thromboplastin Time 28.8 Seconds (21.0-31.0); Prothrombin Time 10.9 Seconds (9.0-12.0)
[2020-08-12 09:54] LABS: Base Excess VBG 1.8 mEq/L; Oxygen Saturation VBG 63.3 %; pH VBG 7.42 (7.36-7.41)
[2020-08-12 09:56] LABS: Alanine Aminotransferase 27 U/L (12-78); Albumin Level 2.8 gm/dl (3.4-5.0); Aspartate Aminotransferase 30 U/L (15-37); BUN Creatinine Ratio 21.6 (10-20); Blood Urea Nitrogen 14 mg/dl (7-18); Calcium 8.2 mg/dl (8.5-10.1); Carbon Dioxide 27 mmol/L (21-32); Chloride 104 mmol/L (98-107); Est GFR (African American) 126.1; Est GFR (Non-African American) 108.8; Glucose 126 mg/dl (70-99); Magnesium 2.2 mg/dl (1.8-2.4); Potassium 3.8 mmol/L (3.5-5.1); Sodium 137 mmol/L (136-145)
[2020-08-12] MEDS ORDERED: DEXAMETHASONE SOD INJ 10 MG/ML VIAL IV ONE (10:01)
[2020-08-12 10:02] LABS: Immature Granulocytes # (auto) 0.01 K/uL (0.00-0.02); Immature Granulocytes % (auto) 0.3 %; Monocytes # (auto) 0.14 K/uL (0.11-0.59); Monocytes % (auto) 4.2 %; Neutrophils % (auto) 86.5 %
[2020-08-12 10:03] LABS: Albumin Globulin Ratio 0.8 (0.9-2); Alkaline Phosphatase 141 U/L (45-117); Bilirubin,Total 0.6 mg/dl (0.2-1); Creatine Kinase 42 U/L (39-308); Creatine Kinase MB < 1.0 ng/ml (0.5-3.6); Globulin 3.4 gm/dl (2.5-4.0); Total Protein 6.2 gm/dl (6.4-8.2); Troponin I < 0.015 ng/ml (0-0.045)
[2020-08-12 10:08] LABS: D Dimer 490 ug/L FEU (0-500)
--- NOTE | 2020-08-12 10:11 | Emergency Department Note ---
History of Present Illness General Chief complaint: Illness Stated complaint: illness Time Seen by Provider: 08/12/20 08:53 Source: patient, EMS, RN notes reviewed, old records reviewed and other (guards) Mode of arrival: EMS Limitations: no limitations History of Present Illness Provider complaint: SOB Onset (ago): week(s) 1 Location: chest Radiation: non-radiation Severity: moderate Maximum Pain Intensity: 0 Current Pain Intensity: 0 Relieved By: + immobilization and + rest Exacerbated By: + movement Associated symptoms: + cough, + fever/chills, + shortness of breath and + weakness Treatments prior to arrival: other (aspirin) This is a 54-year-old male who presents emergency department complaining of shortness of breath that has been ongoing for at least the past week. The patient recently had a bronchoscopy performed. He had a recent diagnosis of Covid pneumonia back in April here. The patient became hypoxic at his present today and was sent to the emergency department. He was placed on oxygen and sent to the emergency department. Upon arrival to the emergency department patient denies any chest pain as well as abdominal pain. Home Medications Medication Instructions Recorded Confirmed Type Lactobacillus acidophilus 1 0 cell PO TID 06/26/19 08/12/20 History billion cell tablet ascorbic acid (vitamin C) 500 mg 500 mg PO BID 06/26/19 08/12/20 History capsule carvedilol 6.25 mg tablet 6.25 mg PO BID tab 06/26/19 08/12/20 History folic acid 1 mg tablet 1 mg PO DAILY 06/26/19 08/12/20 History immune glob,gamma(IgG) 10 20 g IV UD 06/26/19 08/12/20 History wcgj-huz-nfww-IgA 0 to 50 mcg/mL IV solution calcium polycarbophil [Fiber 625 mg PO QAM 07/03/19 08/12/20 History (calcium polycarbophil)] ondansetron HCl [Zofran] 4 mg PO Q8H PRN 07/03/19 08/12/20 History vitamin B complex 1 cap PO DAILY 07/03/19 08/12/20 History levalbuterol tartrate 45 2 inh INHALATION Q6H PRN #15 gm 01/05/20 08/12/20 Rx mcg/actuation aerosol inhaler umeclidinium 62.5 mcg-vilanterol 1 puffs INH DAILY #60 ea 01/05/20 08/12/20 Rx 25 mcg/actuation powdr for inhalation Systane Gel 1 drp OPHTHALMIC (EYE) QID 05/15/20 08/12/20 History acetaminophen [Tylenol] 650 mg PO ONCE PRN 05/15/20 08/12/20 History escitalopram oxalate [Lexapro] 10 mg PO HS 05/15/20 08/12/20 History Magic Mouthwash 5 ml PO QID 08/12/20 08/12/20 History ciclesonide [Alvesco] 2 puff INHALATION DAILY 08/12/20 08/12/20 History dexamethasone sodium phos (PF) 20 mg IV DAILY 08/12/20 08/12/20 History dextromethorphan-guaifenesin 1 tab PO Q12H 08/12/20 08/12/20 History [Mucinex DM] diphenhydramine HCl 50 mg IM DAILY 08/12/20 08/12/20 History immune globulin (human) (IgG) 4 g IV DAILY 08/12/20 08/12/20 History [Gammagard] pantoprazole 40 mg PO DAILY 08/12/20 08/12/20 History Allergies Allergy/AdvReac Type Severity Reaction Status Date / Time Bactrim Allergy Mild RASH/BLEEDI Verified 01/10/13 14:22 NG sulfamethoxazole Allergy Mild RASH/BLEEDI Verified 08/12/20 09:31 NG trimethoprim Allergy Mild RASH/BLEEDI Verified 08/12/20 09:31 NG Past Med/Surg History Medical History Asthma Cirrhosis Common variable immunodeficiency COVID-19 in immunocompromised patient Second episode of COVID-19 in 90 days with 2 negative tests in between Diffuse large B-cell lymphoma Surgical History Hx of colonoscopy Port-A-Cath in place (07/05/19) Insertion Of Mediport With Fluoroscopy Dr. Huang 07-05-19 Family History Other Family history non-contributory Social History Smoking Status: Former smoker Second Hand Exposure: No; Hx Alcohol Use: No Hx Substance Use: No Preferred Language: [place] Communication Ability: Effective Ob Scrub Tech Required: No Beliefs That Will Affect Care: None Current Living Situation: Other Current Living Situation Comment: [place] Feels Safe at Home: Yes Assistive Devices: Oxygen - Continuous Review of Systems A total of 10 systems reviewed and were otherwise negative Physical Exam Vital Signs Vital Signs - 24 hr 08/12/20 08:55 08/12/20 10:00 Temperature 37.1 C Temperature Source Oral Pulse Rate 96 H Pulse Rate [Apical] 96 H Pulse Rhythm [Apical] Regular Respiratory Rate 24 22 Respiratory Pattern Regular Regular Blood Pressure 123/82 Blood Pressure [Right Arm] 107/79 Blood Pressure Mean 95 Blood Pressure Mean [Right Arm] 88 Pulse Oximetry 97 98 Oxygen Delivery Method Nasal Cannula Nasal Cannula Oxygen Flow Rate 2 2 Sepsis Recent Fever Within 48 Hours No Sepsis New/Unexplained Change in Mental Status No Sepsis Action Taken by Nursing No Action Required VITAL SIGNS - Vital signs and nursing notes were reviewed. GENERAL - 54-year-old male cachectic in appearanc, stated age who is in minor distress. Communicates well with provider and answers questions appropriately. SKIN - Without rashes. HEAD - NC/AT. EYES - PERRL with EOMI bilaterally. Sclera anicteric. Palpebral conjunctiva pink and moist with no injection noted. EARS - No deformities of external structures noted on gross examination bilaterally. NOSE - Midline and without cyanosis. No epistaxis or purulent drainage noted. Septum midline without deviation or septal hematoma noted. MOUTH/OROPHARYNX - Without perioral cyanosis. Buccal mucosa pink and moist and without leukoplakia. Tongue midline with equal elevation of palate bilaterally. No tonsillar hypertrophy, erythema, or exudates noted. dentition noted. NECK - Neck with FROM. Supple to palpation. lymphadenopathy noted. No nuchal rigidity. LUNGS - Wheezing present bilateral CHEST- port in place CARDIAC - RRR with S1/S2. No murmur, rubs, or gallops appreciated. ABDOMEN - Abdominal contour without pulsations or visible masses. BS normoactive all four quadrants. No tenderness, palpable masses, hepatosplenomegaly, or ascites noted. EXTREMITIES - No clubbing or peripheral cyanosis. No pretibial edema present. +3/5 radial, posterior tibial, and dorsalis pedis pulses palpated throughout. +5/5 strength noted in UE/LE bilaterally. NEUROLOGIC - Cranial nerves II through XII grossly intact. Sensory intact to light touch throughout. Patellar reflexes +2/4. PSYCH - A&Ox3 and cooperates fully with examiner. Pt is very pleasant and interacts well with examiner. Course Administered Medications Ascorbic Acid (Ascorbic Acid 500 Mg Tab) 500 mg PO BID JEN Stop: 09/11/20 20:59 Last Admin: 08/12/20 20:55 Dose: 500 mg Documented by: [id number] Carvedilol (Carvedilol 6.25 Mg Tab) 6.25 mg PO BID JEN Stop: 09/11/20 20:59 Last Admin: 08/12/20 20:54 Dose: 6.25 mg Documented by: [id number] Escitalopram Oxalate (Escitalopram Oxalate 10 Mg Tab) 10 mg PO HS JEN Stop: 09/11/20 20:59 Last Admin: 08/12/20 20:54 Dose: Not Given Documented by: [id number] Heparin Sodium (Porcine) (Heparin 100 Unit/Ml 5ml Flush) 5 ml FLUSH PRN PRN PRN Reason: Flush Stop: 09/11/20 17:41 Last Admin: 08/13/20 05:49 Dose: 5 ml Documented by: [id number] Admin: 08/12/20 20:56 Dose: 5 ml Documented by: [id number] Discontinued Medications Albuterol (Albuterol Hfa 8 Gm Inhaler) 2 puffs INH NOW ONE Stop: 08/12/20 09:01 Last Admin: 08/12/20 09:51 Dose: 2 puffs Documented by: [id number] Dexamethasone (Dexamethasone Sod Inj 10 Mg/Ml Vial) 6 mg IV NOW ONE Stop: 08/12/20 10:02 Last Admin: 08/12/20 10:12 Dose: 6 mg Documented by: [id number] Heparin Sodium (Porcine) (Heparin 100 Unit/Ml 5ml Flush) Confirm Administered Dose 5 ml .ROUTE .STK-MED ONE Stop: 08/12/20 17:46 Last Admin: 08/12/20 18:36 Dose: Not Given Documented by: [id number] Magnesium Sulfate/Dextrose (Magnesium Sulfate / D5w) 1 gm in 100 mls @ 100 mls/hr IV NOW STA Stop: 08/12/20 10:00 Last Infusion: 08/12/20 10:48 Dose: 0 mls/hr Documented by: [id number] Admin: 08/12/20 09:30 Dose: 100 mls/hr Documented by: [id number] Ioversol (Optiray 320 125ml) 120 ml IV ONCE ONE Stop: 08/12/20 11:11 Last Admin: 08/12/20 11:11 Dose: 120 ml Documented by: [id number] Methylprednisolone (Methylprednisolone 125 Mg/2 Ml Vial) 60 mg IV NOW STA Stop: 08/12/20 09:01 Last Admin: 08/12/20 09:29 Dose: 60 mg Documented by: [id number] Sodium Chloride (Sodium Chloride 0.9% 10ml Flush) 30 ml IV Q24H JEN Stop: 08/16/20 12:31 Last Admin: 08/12/20 14:22 Dose: Not Given Documented by: [id number] Critical Care Time I have personally spent greater than 30 minutes of critical care time in the direct management of this patient. This includes bedside care, interpretation of diagnostic studies, and testing, discussion with consultants, patient, and family members, and other required patient management activities. This 30 minutes is in excess of all separately billable procedures. Medical Decision Making Differential Diagnosis Cardiac ischemia, aortic dissection, pulmonary embolism, pneumothorax, pneumonia, pericarditis, myocarditis, esophageal rupture, GERD, cholecystitis, pancreatitis, musculoskeletal, as well as other pathologies. Medical Records Attestation: I reviewed the patient's medical records. Home Medications Current Medication List: was personally reviewed by me Laboratory Data Attestation: I reviewed the patient's lab results. Result diagrams: 08/13/20 05:43 08/13/20 05:43 Lab Results 08/12/20 08/12/20 08/12/20 Range/Units 09:00 09:15 09:15 WBC 3.35 L (4.8-10.8) K/uL RBC 3.93 L (4.7-6.1) M/uL Hgb 10.8 L (14.0-18.0) g/dL Hct 32.6 L (42-52) % MCV 83.0 (80-100) fL MCH 27.5 (25-34) pg MCHC 33.1 (32-36) g/dL RDW Std Deviation 47.3 H (36.4-46.3) fL RDW Coeff of John 15.8 H (11.5-14.5) % Plt Count 56 L (130-400) K/uL MPV 11.4 H (7.4-10.4) fL Immature Gran % (Auto) 0.3 % Neut % (Auto) 86.5 % Lymph % (Auto) 9.0 % [place] % (Auto) 4.2 % Eos % (Auto) 0.0 % Baso % (Auto) 0.0 % Neut # (Auto) 2.90 (1.4-6.5) K/uL Lymph # (Auto) 0.30 L (1.2-3.4) K/uL [place] # (Auto) 0.14 (0.11-0.59) K/uL Eos # (Auto) 0.00 (0-0.5) K/uL Baso # (Auto) 0.00 (0-0.2) K/uL Immature Gran # (Auto) 0.01 (0.00-0.02) K/uL ESR (0-14) mm/hr PT 10.9 (9.0-12.0) Seconds INR 1.1 (0.9-1.1) APTT 28.8 (21.0-31.0) Seconds PTT Ratio 1.1 D-Dimer 490 (0-500) ug/L FEU VBG pH (7.36-7.41) VBG pCO2 (38-50) mmHg VBG pO2 mmHg VBG HCO3 mmol/L VBG O2 Saturation % VBG Base Excess mEq/L Barometric Pressure mm/Hg Sodium 137 (136-145) mmol/L Potassium 3.8 (3.5-5.1) mmol/L Chloride 104 (98-107) mmol/L Carbon Dioxide 27 (21-32) mmol/L Anion Gap 6.0 (3-11) BUN 14 (7-18) mg/dl Creatinine 0.66 (0.6-1.4) mg/dl Est Cr Clr Drug Dosing Not Reportable Est GFR ( Amer) 126.1 Est GFR (Non-Af Amer) 108.8 BUN/Creatinine Ratio 21.6 H (10-20) Glucose 126 H (70-99) mg/dl Lactate (0.4-2.0) mmol/L Calcium 8.2 L (8.5-10.1) mg/dl Magnesium 2.2 (1.8-2.4) mg/dl Ferritin (8-388) ng/ml Total Bilirubin 0.6 (0.2-1) mg/dl AST 30 (15-37) U/L ALT 27 (12-78) U/L Alkaline Phosphatase 141 H (45-117) U/L Lactate Dehydrogenase (87-241) U/L Total Creatine Kinase 42 (39-308) U/L CK-MB (CK-2) < 1.0 (0.5-3.6) ng/ml CK/CKMB % Calc TNP Troponin I < 0.015 (0-0.045) ng/ml C-Reactive Protein (0-0.29) mg/dl NT-Pro-B Natriuret Pep (0-900) pg/ml Total Protein 6.2 L (6.4-8.2) gm/dl Albumin 2.8 L (3.4-5.0) gm/dl Globulin 3.4 (2.5-4.0) gm/dl Albumin/Globulin Ratio 0.8 L (0.9-2) Procalcitonin (0-0.5) ng/ml COVID-19 Eval Order SARS-CoV-2, RNA, NAAT (NEGATIVE) Blood Type Antibody Screen 08/12/20 08/12/20 08/12/20 Range/Units 09:15 09:15 09:15 WBC (4.8-10.8) K/uL RBC (4.7-6.1) M/uL Hgb (14.0-18.0) g/dL Hct (42-52) % MCV (80-100) fL MCH (25-34) pg MCHC (32-36) g/dL RDW Std Deviation (36.4-46.3) fL RDW Coeff of John (11.5-14.5) % Plt Count (130-400) K/uL MPV (7.4-10.4) fL Immature Gran % (Auto) % Neut % (Auto) % Lymph % (Auto) % [place] % (Auto) % Eos % (Auto) % Baso % (Auto) % Neut # (Auto) (1.4-6.5) K/uL Lymph # (Auto) (1.2-3.4) K/uL [place] # (Auto) (0.11-0.59) K/uL Eos # (Auto) (0-0.5) K/uL Baso # (Auto) (0-0.2) K/uL Immature Gran # (Auto) (0.00-0.02) K/uL ESR 57 H (0-14) mm/hr PT (9.0-12.0) Seconds INR (0.9-1.1) APTT (21.0-31.0) Seconds PTT Ratio D-Dimer (0-500) ug/L FEU VBG pH (7.36-7.41) VBG pCO2 (38-50) mmHg VBG pO2 mmHg VBG HCO3 mmol/L VBG O2 Saturation % VBG Base Excess mEq/L Barometric Pressure mm/Hg Sodium (136-145) mmol/L Potassium (3.5-5.1) mmol/L Chloride (98-107) mmol/L Carbon Dioxide (21-32) mmol/L Anion Gap (3-11) BUN (7-18) mg/dl Creatinine (0.6-1.4) mg/dl Est Cr Clr Drug Dosing Est GFR ( Amer) Est GFR (Non-Af Amer) BUN/Creatinine Ratio (10-20) Glucose (70-99) mg/dl Lactate 1.5 (0.4-2.0) mmol/L Calcium (8.5-10.1) mg/dl Magnesium (1.8-2.4) mg/dl Ferritin (8-388) ng/ml Total Bilirubin (0.2-1) mg/dl AST (15-37) U/L ALT (12-78) U/L Alkaline Phosphatase (45-117) U/L Lactate Dehydrogenase (87-241) U/L Total Creatine Kinase (39-308) U/L CK-MB (CK-2) (0.5-3.6) ng/ml CK/CKMB % Calc Troponin I (0-0.045) ng/ml C-Reactive Protein (0-0.29) mg/dl NT-Pro-B Natriuret Pep (0-900) pg/ml Total Protein (6.4-8.2) gm/dl Albumin (3.4-5.0) gm/dl Globulin (2.5-4.0) gm/dl Albumin/Globulin Ratio (0.9-2) Procalcitonin 0.14 (0-0.5) ng/ml COVID-19 Eval Order SARS-CoV-2, RNA, NAAT (NEGATIVE) Blood Type Antibody Screen 08/12/20 08/12/20 08/12/20 Range/Units 09:15 09:15 09:33 WBC (4.8-10.8) K/uL RBC (4.7-6.1) M/uL Hgb (14.0-18.0) g/dL Hct (42-52) % MCV (80-100) fL MCH (25-34) pg MCHC (32-36) g/dL RDW Std Deviation (36.4-46.3) fL RDW Coeff of John (11.5-14.5) % Plt Count (130-400) K/uL MPV (7.4-10.4) fL Immature Gran % (Auto) % Neut % (Auto) % Lymph % (Auto) % [place] % (Auto) % Eos % (Auto) % Baso % (Auto) % Neut # (Auto) (1.4-6.5) K/uL Lymph # (Auto) (1.2-3.4) K/uL [place] # (Auto) (0.11-0.59) K/uL Eos # (Auto) (0-0.5) K/uL Baso # (Auto) (0-0.2) K/uL Immature Gran # (Auto) (0.00-0.02) K/uL ESR (0-14) mm/hr PT (9.0-12.0) Seconds INR (0.9-1.1) APTT (21.0-31.0) Seconds PTT Ratio D-Dimer (0-500) ug/L FEU VBG pH 7.42 H (7.36-7.41) VBG pCO2 41 (38-50) mmHg VBG pO2 33 mmHg VBG HCO3 26 mmol/L VBG O2 Saturation 63.3 % VBG Base Excess 1.8 mEq/L Barometric Pressure 729.6 mm/Hg Sodium (136-145) mmol/L Potassium (3.5-5.1) mmol/L Chloride (98-107) mmol/L Carbon Dioxide (21-32) mmol/L Anion Gap (3-11) BUN (7-18) mg/dl Creatinine (0.6-1.4) mg/dl Est Cr Clr Drug Dosing Est GFR ( Amer) Est GFR (Non-Af Amer) BUN/Creatinine Ratio (10-20) Glucose (70-99) mg/dl Lactate (0.4-2.0) mmol/L Calcium (8.5-10.1) mg/dl Magnesium (1.8-2.4) mg/dl Ferritin 370.3 (8-388) ng/ml Total Bilirubin (0.2-1) mg/dl AST (15-37) U/L ALT (12-78) U/L Alkaline Phosphatase (45-117) U/L Lactate Dehydrogenase 216 (87-241) U/L Total Creatine Kinase (39-308) U/L CK-MB (CK-2) (0.5-3.6) ng/ml CK/CKMB % Calc Troponin I (0-0.045) ng/ml C-Reactive Protein 3.32 H (0-0.29) mg/dl NT-Pro-B Natriuret Pep 163 (0-900) pg/ml Total Protein (6.4-8.2) gm/dl Albumin (3.4-5.0) gm/dl Globulin (2.5-4.0) gm/dl Albumin/Globulin Ratio (0.9-2) Procalcitonin (0-0.5) ng/ml COVID-19 Eval Order SARS-CoV-2, RNA, NAAT (NEGATIVE) Blood Type Antibody Screen 08/12/20 08/12/20 08/12/20 Range/Units 09:33 09:33 10:00 WBC (4.8-10.8) K/uL RBC (4.7-6.1) M/uL Hgb (14.0-18.0) g/dL Hct (42-52) % MCV (80-100) fL MCH (25-34) pg MCHC (32-36) g/dL RDW Std Deviation (36.4-46.3) fL RDW Coeff of John (11.5-14.5) % Plt Count (130-400) K/uL MPV (7.4-10.4) fL Immature Gran % (Auto) % Neut % (Auto) % Lymph % (Auto) % [place] % (Auto) % Eos % (Auto) % Baso % (Auto) % Neut # (Auto) (1.4-6.5) K/uL Lymph # (Auto) (1.2-3.4) K/uL [place] # (Auto) (0.11-0.59) K/uL Eos # (Auto) (0-0.5) K/uL Baso # (Auto) (0-0.2) K/uL Immature Gran # (Auto) (0.00-0.02) K/uL ESR (0-14) mm/hr PT (9.0-12.0) Seconds INR (0.9-1.1) APTT (21.0-31.0) Seconds PTT Ratio D-Dimer (0-500) ug/L FEU VBG pH (7.36-7.41) VBG pCO2 (38-50) mmHg VBG pO2 mmHg VBG HCO3 mmol/L VBG O2 Saturation % VBG Base Excess mEq/L Barometric Pressure mm/Hg Sodium (136-145) mmol/L Potassium (3.5-5.1) mmol/L Chloride (98-107) mmol/L Carbon Dioxide (21-32) mmol/L Anion Gap (3-11) BUN (7-18) mg/dl Creatinine (0.6-1.4) mg/dl Est Cr Clr Drug Dosing Est GFR ( Amer) Est GFR (Non-Af Amer) BUN/Creatinine Ratio (10-20) Glucose (70-99) mg/dl Lactate (0.4-2.0) mmol/L Calcium (8.5-10.1) mg/dl Magnesium (1.8-2.4) mg/dl Ferritin (8-388) ng/ml Total Bilirubin (0.2-1) mg/dl AST (15-37) U/L ALT (12-78) U/L Alkaline Phosphatase (45-117) U/L Lactate Dehydrogenase (87-241) U/L Total Creatine Kinase (39-308) U/L CK-MB (CK-2) (0.5-3.6) ng/ml CK/CKMB % Calc Troponin I (0-0.045) ng/ml C-Reactive Protein (0-0.29) mg/dl NT-Pro-B Natriuret Pep (0-900) pg/ml Total Protein (6.4-8.2) gm/dl Albumin (3.4-5.0) gm/dl Globulin (2.5-4.0) gm/dl Albumin/Globulin Ratio (0.9-2) Procalcitonin (0-0.5) ng/ml COVID-19 Eval [facility] [place] SARS-CoV-2, RNA, NAAT POSITIVE A* (NEGATIVE) Blood Type O Positive Antibody Screen NEGATIVE Imaging Data Radiologist's Impression: [facility], [id number] XRay Report Patient: VALERIO VELA [id number] Date: 08/12/20MR#: [id number]: BOX AAcct ID:[id number]: Date: 1965[facility] Zip: [id number] [id number]: 54Location: EDSex: MRoom/Bed:Att Phy:Diagnosis: illnessPri [facility] Date: 08/12/20Fam Phy:Interpreting Phy: Hamilton Roach MDAdmit Phy: Ordering Phy: Kaushal Figueroa MD cc: ~ XR chest 1V portable CLINICAL HISTORY: SEPSIS COMPARISON STUDY: 05/15/2020 FINDINGS: The cardiac and mediastinal contours remain stable. There is a left- sided A-Port catheter present. There are bilateral upper lung zone airspace opacities left greater than right. The left appears slightly progressive on the right demonstrates slight improvement.[ IMPRESSION: 1. Bilateral upper lung zone airspace opacities. The findings are suggestive of a multifocal pneumonia. Clinical and radiographic follow-up is recommended ACT 112: Negative or not required by law. Electronically signed by: Hamilton Roach M.D. 08/12/2020 9:29 AM Dictated: 08/12/20926Transcribed: 08/12/20926 [facility], [phone] CT Scan Report Patient: VALERIO VELA [id number] Date: 08/12/20MR#: [id number]: BOX AAcct ID:[id number]: Date: 1965City Zip: [place] [id number]: 54Location: EDSex: MRoom/Bed:Att Phy:Diagnosis: illnessPri Phy: SCI [facility] Date: 08/12/20Fam Phy:Interpreting Phy: Agustín Torres MDAdmit Phy: Ordering Phy: Kaushal Figueroa MD cc: ~ CT ANGIOGRAM OF THE CHEST CLINICAL HISTORY: Dyspnea. Covid. History of lymphoma. COMPARISON STUDY: Chest CT dated 05/15/2020. PET/CT dated 12/20/2019. TECHNIQUE: Following the IV administration of 120 cc of Optiray 320, CT angiogram of the chest was performed from the upper abdomen to the thoracic inlet utilizing the pulmonary embolus protocol. Images are reviewed in the axial, sagittal, and coronal planes. 3-D MIPS images are created and assessed. IV contrast was administered without complication. A dose lowering technique wa s utilized adhering to the principles of ALARA. CT DOSE: 304.32 mGycm FINDINGS: Thyroid: Imaged portions of the thyroid gland are normal in size and attenuation. Thoracic aorta: There is mild atherosclerotic calcification of the thoracic aorta. There is mild aneurysmal dilatation of the ascending thoracic aorta which measures up to 4.0 cm in diameter. This is unchanged from previous. The remai nder of the thoracic aorta is normal in caliber and the arch demonstrates standard 3-vessel anatomy. No dissection is seen. Pulmonary vasculature: The pulmonary trunk is dilated, measuring 3.2 cm in diameter. This suggests pulmonary artery hypertension. There are no filling defects identified in main, lobar, or segmental pulmonary branches to suggest pulmonary embolus. Heart: A left subclavian central venous infusion port is in place. The heart is normal in size and without pericardial effusion. Lungs and pleural spaces: There is multifocal groundglass consolidation seen throughout both lungs with an upper lobe predominance. No pleural effusion is identified. The trachea and central airways are clear. Diffuse peribronchial thickening is noted. Significant fluid/debris seen within the lower lobe airways. Mediastinum: There are mildly enlarged mediastinal lymph nodes. AP window nodes measure up to 12 mm short axis. A retrotracheal node on image #240 measures 9 mm short axis. [place]: Prominent hilar nodes measure up to 10 mm in short axis. Axillae: There is no axillary lymphadenopathy. Upper abdomen: The liver is cirrhotic in morphology and heterogeneous in attenuation. There is nodularity of the hepatic surface contour. The spleen is markedly enlarged measuring over 16 cm in length. A 1.6 cm cyst is seen in the upper pole of the right kidney. Skeletal structures: No lytic or blastic bony lesions are seen. IMPRESSION: 1. There is no evidence of pulmonary embolus in the main, lobar, or segmental pulmonary arteries. 2. Multifocal groundglass consolidation is seen throughout both lungs with an upper lobe predominance. This has significantly increased as compared to and may correspond to the reported history of a viral pneumonitis. Clinical correlation will be required. 3. No pleural effusion is seen. 4. There is diffuse peribronchial thickening with fluid/debris throughout the lower lobe airways. Correlate clinically for evidence of aspiration. 5. Cirrhotic liver morphology. 6. Marked splenomegaly. 7. Mildly enlarged mediastinal lymph nodes are similar to previous. 8. There is mild aneurysmal dilatation of the ascending thoracic aorta which measures up to 4.0 cm. This is similar to previous. ACT 112: Negative or not required by law. Electronically signed by: Agustín Torres M.D. 08/12/2020 11:24 AM Dictated: 08/12/201114Transcribed: 08/12/201114 ECG Data Attestation: I personally reviewed and interpreted this ECG as follows: Indication: + SOB/dyspnea Rate (beats per minute): 96 Rhythm: + normal sinus ECG Intervals/blocks: + Normal QT-c (449) ECG Lake: + Normal ECG ST segments: no ST depression and no ST elevation Comparison ECG Date: from (05/15/2020) Change: no significant change MDM Narrative Patient was seen and evaluated as above in room A3. Review was performed of nursing notes and vital signs. I did review pertinent previous visits and patient history. After obtaining a thorough history and physical examination the above work up was performed. This 54-year-old male who presents emergency department hypoxic. The patient is positive for Covid. I will note he is pancytopenic. He was started on Decadron here in the emergency department typed and screened. He is requiring oxygen. I did discuss the case with the hospitalist service who did agree to admit the patient. Patient is in agreement with the treatment plan. An order was placed for continuous cardiac monitoring. The monitor shows a rate of 71 with Normal SInus rhythm. The patient was evaluated during a period of high volume and high acuity while the hospital was at overcapacity during the global COVID-19 pandemic, and that diagnosis was suspected/considered upon their initial presentation. Their evaluation, treatment and testing was consistent with current guidelines for patients who present with complaints or symptoms that may be related to COVID- 19. Impression & Plan Pneumonia, Thrombocytopenia, COVID-19 in immunocompromised patient, Hypoxia Discharge Plan Visit Data Chief Complaint: Illness Stated Complaint: illness ED Provider: Kaushal Figueroa Discharge Problem: Pneumonia, Thrombocytopenia, COVID-19 in immunocompromised patient, Hypoxia Patient Disposition: Admitted As Inpatient Discharge Instructions Interventions: ED Discharge Assessment Last Done: 08/12/20 11:52 Discharge Problem: Pneumonia Qualifiers: Pneumonia type: due to unspecified organism Laterality: unspecified laterality Lung location: unspecified part of lung Qualified Code(s): J18.9 - Pneumonia, unspecified organism
[2020-08-12 10:20] LABS: C Reactive Protein 3.32 mg/dl (0-0.29); Ferritin 370.3 ng/ml (8-388)
--- NOTE | 2020-08-12 10:56 | History & Physical Report ---
Date of Service August 12, 2020 Assessment & Plan (1) Pneumonia due to 2019 novel coronavirus: Reports worsening shortness of breath since his prior Covid episode in 04/2020 with acute worsening on August 07 after finishing a course of PO antibiotics at the assisted. - O2 sat ~93% on 2L NC. - Dexamethasone 6 mg PO daily x 10 day course (End date: 08/21/2020) - Pulm consult -> Discussed with pulm who feel remdesivir and convalescent plasma would not be of benefit, so will defer these interventions. - Procal is 0.14 and CXR shows patchy consolidations with one focal area. Will defer antibiotics at this time with pulm's consideration. - Supportive care (2) Common variable immunodeficiency: Receives immunoglobulin every week. - Hematology recommended immunoglobulin panel to check levels - Will work with pharmacy to give him IgG while in the hospital. (3) Diffuse large B-cell lymphoma: Finished treatment in 11/2019. CT (done at [facility]) in 06/2020 showed no indication of recurrence per discussion with hematology. - No inpatient needs at this time. (4) Cirrhosis: Per notes, due to autoimmune hepatitis. - No ascites on exam today. No indication of decompensation with normal LFTs and coagulation factors. (5) COPD (chronic obstructive pulmonary disease): Increasing shortness of breath for several months, but no wheezing on exam today for me. - Continue home inhalers - Xopenex PRN for shortness of breath or wheezing - Pulm feels this may be an ILD as well. Likely bronch tomorrow. (6) Thrombocytopenia: Presumed due to viral infection. No indication of bleeding. - Monitor (7) Mucocele of appendix: CT (done at [facility]) in 06/2020 showed mucocele. - Outpatient surgery follow-up (8) DVT prophylaxis: SCDs - Will hold off on heparin for now given thrombocytopenia and possible bronch tomorrow. History of Present Illness Primary Care Provider: TREVER Canadensisangeline 54yo M w/ hx of CVID, colon cancer, and diffuse large B-cell lymphoma who presents with second episode of Covid. He was admitted in 04/2020 with Covid and required a relatively short need for O2 at about 2L. He improved on dexamethasone and was discharged to assisted. He reports that he has been consistently dyspneic with exertion since that time, but no need for oxygen. He has been tested for Covid several times since his prior positive and reports he has been negative at least 2 times. He reports he was on a course of antibiotics until last Wednesday (). He finished the course of antibiotics and reports that he has become increasingly short of breath since then. He is minimally short of breath while lying still, but it increases with any movement or even speaking. He also notes that at night he feels significant sweats. This morning, the assisted medical staff checked his O2, and it was found to be 88% on room air, and he was sent to the hospital. Allergies Allergy/AdvReac Type Severity Reaction Status Date / Time Bactrim Allergy Mild RASH/BLEEDI Verified 01/10/13 14:22 NG sulfamethoxazole Allergy Mild RASH/BLEEDI Verified 08/12/20 09:31 NG trimethoprim Allergy Mild RASH/BLEEDI Verified 08/12/20 09:31 NG Home Medications Medication Instructions Recorded Confirmed Type Lactobacillus acidophilus 1 0 cell PO TID 06/26/19 08/12/20 History billion cell tablet ascorbic acid (vitamin C) 500 mg 500 mg PO BID 06/26/19 08/12/20 History capsule carvedilol 6.25 mg tablet 6.25 mg PO BID tab 06/26/19 08/12/20 History folic acid 1 mg tablet 1 mg PO DAILY 06/26/19 08/12/20 History immune glob,gamma(IgG) 10 20 g IV UD 06/26/19 08/12/20 History dfus-qnu-bclg-IgA 0 to 50 mcg/mL IV solution calcium polycarbophil [Fiber 625 mg PO QAM 07/03/19 08/12/20 History (calcium polycarbophil)] ondansetron HCl [Zofran] 4 mg PO Q8H PRN 07/03/19 08/12/20 History vitamin B complex 1 cap PO DAILY 07/03/19 08/12/20 History levalbuterol tartrate 45 2 inh INHALATION Q6H PRN #15 gm 01/05/20 08/12/20 Rx mcg/actuation aerosol inhaler umeclidinium 62.5 mcg-vilanterol 1 puffs INH DAILY #60 ea 01/05/20 08/12/20 Rx 25 mcg/actuation powdr for inhalation Systane Gel 1 drp OPHTHALMIC (EYE) QID 05/15/20 08/12/20 History acetaminophen [Tylenol] 650 mg PO ONCE PRN 05/15/20 08/12/20 History escitalopram oxalate [Lexapro] 10 mg PO HS 05/15/20 08/12/20 History Magic Mouthwash 5 ml PO QID 08/12/20 08/12/20 History ciclesonide [Alvesco] 2 puff INHALATION DAILY 08/12/20 08/12/20 History dexamethasone sodium phos (PF) 20 mg IV DAILY 08/12/20 08/12/20 History dextromethorphan-guaifenesin 1 tab PO Q12H 08/12/20 08/12/20 History [Mucinex DM] diphenhydramine HCl 50 mg IM DAILY 08/12/20 08/12/20 History immune globulin (human) (IgG) 4 g IV DAILY 08/12/20 08/12/20 History [Gammagard] pantoprazole 40 mg PO DAILY 08/12/20 08/12/20 History Past Med/Surg History Medical History Asthma Cirrhosis Common variable immunodeficiency Diffuse large B-cell lymphoma Surgical History Hx of colonoscopy Port-A-Cath in place (07/05/19) Insertion Of Mediport With Fluoroscopy Dr. Huang 07-05-19 Social History Smoking Status: Unknown if ever smoked Second Hand Exposure: No; Hx Alcohol Use: No Hx Substance Use: No Preferred Language: Latvian Communication Ability: Effective Wire Sawyer Required: No Beliefs That Will Affect Care: None Current Living Situation: Other Current Living Situation Comment: [employer] [facility] Feels Safe at Home: Yes Assistive Devices: None Review of Systems Review of Systems: All systems reviewed & are unremarkable except as noted in HPI & below Physical Exam Constitutional: WD/WN, vitals as above + acute distress and + cachectic Eyes: EOM intact bilaterally; no conjunctival abnormality ENMT: external ear and nose normal, oropharynx normal Neck: trachea midline, no thyromegaly normal visual inspection Respiratory: normal respiratory effort, lungs clear to auscultation no respiratory distress Auscultation: + crackles Cardiovascular: RRR, no murmur, no edema Gastrointestinal (Abdomen): Inspection/Auscultation: abdomen normal to inspection; abdomen not distended Musculoskeletal: no cyanosis or clubbing, extremities motor strength 5/5 Skin: no rashes, warm and dry Neurologic: moves all extremities and awake Psychiatric: Orientation: alert, oriented to person and cooperative Results & Data Results & Data ([facility]) Vital Signs (Past 12 Hours) Vital Signs Temp Pulse Pulse Resp BP BP Pulse Ox 08/12/20 10:00 96 H 22 107/79 98 08/12/20 08:55 37.1 C 96 H 24 123/82 97 Code Status & VTE Plan VTE Prophylaxis Plan VTE Prophylaxis will be ordered: Yes PG Care Time/CCT Total # of Minutes Spent Total Time Spent with Patient: Total time spent is greater than 50% in coordination of care (as documented) at patient's floor/unit and/or counseling patient: Coding Level of Care Code 30455 Initial Inpt Care Lvl 3 Diagnoses Pneumonia due to 2019 novel coronavirus U07.1; J12.89 Common variable immunodeficiency D83.9 Diffuse large B-cell lymphoma C83.30 Lymphoma site: unspecified region Cirrhosis K74.60 COPD (chronic obstructive pulmonary disease) J44.9 COPD type: unspecified COPD Thrombocytopenia D69.6 Mucocele of appendix K38.8 DVT prophylaxis Z29.9 (1) Diffuse large B-cell lymphoma Lymphoma site: unspecified region Qualified Code(s): C83.30 - Diffuse large B-cell lymphoma, unspecified site (2) COPD (chronic obstructive pulmonary disease) COPD type: unspecified COPD Qualified Code(s): J44.9 - Chronic obstructive pulmonary disease, unspecified
[2020-08-12] MEDS ORDERED: OPTIRAY 320 125ml IV ONE (11:10)
--- NOTE | 2020-08-12 11:25 | CT Scan Report ---
CT ANGIOGRAM OF THE CHEST CLINICAL HISTORY: Dyspnea. Covid. History of lymphoma. COMPARISON STUDY: Chest CT dated 05/15/2020. PET/CT dated 12/20/2019. TECHNIQUE: Following the IV administration of 120 cc of Optiray 320, CT angiogram of the chest was pe rformed from the upper abdomen to the thoracic inlet utilizing the pulmonary embolus protocol. Images are reviewed in the axial, sagittal, and coronal planes. 3-D MIPS images are created and assessed. I V contrast was administered without complication. A dose lowering technique was utilized adhering to the principles of ALARA. CT DOSE: 304.32 mGycm FINDINGS: Thyroid: Imaged portions of the thyroid gland are normal in size and attenuation. Thoracic aorta: There is mild atherosclerotic calcification of the thoracic aorta. There is mild aneu rysmal dilatation of the ascending thoracic aorta which measures up to 4.0 cm in diameter. This is un changed from previous. The remainder of the thoracic aorta is normal in caliber and the arch demonstr ates standard 3-vessel anatomy. No dissection is seen. Pulmonary vasculature: The pulmonary trunk is dilated, measuring 3.2 cm in diameter. This suggests pu lmonary artery hypertension. There are no filling defects identified in main, lobar, or segmental pul monary branches to suggest pulmonary embolus. Heart: A left subclavian central venous infusion port is in place. The heart is normal in size and wi thout pericardial effusion. Lungs and pleural spaces: There is multifocal groundglass consolidation seen throughout both lungs wi th an upper lobe predominance. No pleural effusion is identified. The trachea and central airways are clear. Diffuse peribronchial thickening is noted. Significant fluid/debris seen within the lower lob e airways. Mediastinum: There are mildly enlarged mediastinal lymph nodes. AP window nodes measure up to 12 mm s hort axis. A retrotracheal node on image #240 measures 9 mm short axis. Isamar: Prominent hilar nodes measure up to 10 mm in short axis. Axillae: There is no axillary lymphadenopathy. Upper abdomen: The liver is cirrhotic in morphology and heterogeneous in attenuation. There is nodula rity of the hepatic surface contour. The spleen is markedly enlarged measuring over 16 cm in length. A 1.6 cm cyst is seen in the upper pole of the right kidney. Skeletal structures: No lytic or blastic bony lesions are seen. IMPRESSION: 1. There is no evidence of pulmonary embolus in the main, lobar, or segmental pulmonary arteries. 2. Multifocal groundglass consolidation is seen throughout both lungs with an upper lobe predominance . This has significantly increased as compared to 05/15/2020 and may correspond to the reported histo ry of a viral pneumonitis. Clinical correlation will be required. 3. No pleural effusion is seen. 4. There is diffuse peribronchial thickening with fluid/debris throughout the lower lobe airways. Cor relate clinically for evidence of aspiration. 5. Cirrhotic liver morphology. 6. Marked splenomegaly. 7. Mildly enlarged mediastinal lymph nodes are similar to previous. 8. There is mild aneurysmal dilatation of the ascending thoracic aorta which measures up to 4.0 cm. T his is similar to previous. ACT 112: Negative or not required by law. Electronically signed by: Agustín Torres M.D. 08/12/2020 11:24 AM
[2020-08-12] MEDS ORDERED: ACETAMINOPHEN 325 MG TAB PO PRN (12:30)
[2020-08-12] MEDS ORDERED: SODIUM CHLORIDE 0.9% 10ML FLUSH IV SCH (12:30)
[2020-08-12] MEDS ORDERED: LEVALBUTEROL TARTRATE 15 GM HFA.AER.AD INH PRN (12:30)
[2020-08-12] MEDS ORDERED: ONDANSETRON 4 MG OD TAB PO PRN (12:35)
--- NOTE | 2020-08-12 14:34 | Pulmonary Consultation ---
Date of Consultation August 12, 2020 Assessment & Plan (1) COPD (chronic obstructive pulmonary disease): Impression: 54-year-old male currently incarcerated with prior history of Covid pneumonia and April 2020 as well as variable immune deficiency on replacement IVIG, nonobstructive lung disease, bronchiectasis, history of diffuse large B-cell lymphoma, and history of tobacco abuse admitted for recurrent COVID-19 with positive testing at the time of admission Recommendations: 1. COVID-19: This is a patient second episode. He initially was found with COV ID-19 pneumonia in April 2020. Repeat testing today with ID now reveals a second positive. In between today's admission and the prior pneumonia, the patient had 2 negative Covid tests. It is unclear how to proceed with treatment in this patient. Symptoms began last Wednesday (5 days ago) and he has mild hypoxia at 88% on room air. In as much as this is his second confirmed episode of Covid, it is unclear if he has a mutated strain. [facility] has been contacted and will advise. In the meantime, we will treat with dexamethasone and hold on remdesivir and convalescent plasma. Would consider ID consultation with [facility] for their input. Continue supportive care. Continue supplemental oxygen to maintain SaO2 above 90%. Continue with isolation procedures. 2. Chronic lung disease: Patient seen by Dr. Curtis in the pulmonary clinic in 12/2019. Since that time there has been discussion regarding bronchoscopy for tissue biopsy. Will keep patient n.p.o. after midnight to allow Dr. Curtis to evaluate and determine if bronchoscopy is warranted at this time. Most likely will hold on bronchoscopy due to positive Covid infection and question as to whether or not this is a mutated strain. Continue Arnuity Ellipta (ICS) and Anoro Ellipta (AC/LABA). Vital signs per protocol 3. Bronchiectasis: Recommend pulmonary toilet and Mucinex. Avoid aerosol generating procedures as possible. 4. Multiple pulmonary nodules: These appear to be stable. Outpatient follow-up per Fleischner criteria with pulmonary clinic 5. DVT prophylaxis: Hold chemical prophylaxis until patient is evaluated by Dr. Curtis in the event that he elects to proceed with bronchoscopy Thank you very much for including us in the care of this patient. We will colin reinae to follow along with you. Please refer to Dr. Delatorre's addendum for further recommendations and corrections. COPD type: unspecified COPD Qualified Code(s): J44.9 - Chronic obstructive pulmonary disease, unspecified (2) Common variable immunodeficiency: (3) Cirrhosis: (4) Bronchiectasis: (5) Mucocele of appendix: (6) Multiple pulmonary nodules: (7) Autoimmune hepatitis: (8) Pneumonia due to 2019 novel coronavirus: History of Present Illness Reason for Consultation: COVID-19, second infection in 90 days Attending Physician: Herman March MD History of Present Illness Attending: Dr. 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 The patient was seen in the pulmonary clinic in December [address] Curtis for shortness of breath. It was recommended that he return for consideration of bronchoscopy to rule out interstitial lung disease or other etiology. Before that could be arranged the patient was admitted in April for COVID-19 with pneumonia sequela. He underwent treatment with dexamethasone at that time. He did not receive any remdesivir or convalescent plasma. He also received Rocephin/Ceftin and azithromycin for 5 days. He required a short course of sup plemental oxygen but improved and did not require supplemental oxygen on discharge. 5 days ago the patient reports he began having some shortness of breath but primarily had some chest pain. He states that his shortness of breath was similar to what he experienced in December. He knew he was scheduled to follow-up in the pulmonary clinic so he did not see anything. Over the last 2 days he has had increased shortness of breath and today was found to be 88% on room air and was transported to the emergency department for evaluation and treatment. A repeat ID now Covid test was positive. Patient is being admitted for shortness of breath with COVID-19. He has been started on dexamethasone. The patient has no nausea or vomiting. No diarrhea. He does have slight chest pain but is improved since admission. He denies any awareness of palpitations or arrhythmias. The patient denies any fever but does state that he had some night chills. He has no diaphoresis. He has no abdominal pain. He denies any new back pain. He has no other acute complaints at this time. Allergies Allergy/AdvReac Type Severity Reaction Status Date / Time Bactrim Allergy Mild RASH/BLEEDI Verified 01/10/13 14:22 NG sulfamethoxazole Allergy Mild RASH/BLEEDI Verified 08/12/20 09:31 NG trimethoprim Allergy Mild RASH/BLEEDI Verified 08/12/20 09:31 NG Home Medications Medication Instructions Recorded Confirmed Type Lactobacillus acidophilus 1 0 cell PO TID 06/26/19 08/12/20 History billion cell tablet ascorbic acid (vitamin C) 500 mg 500 mg PO BID 06/26/19 08/12/20 History capsule carvedilol 6.25 mg tablet 6.25 mg PO BID tab 06/26/19 08/12/20 History folic acid 1 mg tablet 1 mg PO DAILY 06/26/19 08/12/20 History immune glob,gamma(IgG) 10 20 g IV UD 06/26/19 08/12/20 History bvbg-zuu-lppg-IgA 0 to 50 mcg/mL IV solution calcium polycarbophil [Fiber 625 mg PO QAM 07/03/19 08/12/20 History (calcium polycarbophil)] ondansetron HCl [Zofran] 4 mg PO Q8H PRN 07/03/19 08/12/20 History vitamin B complex 1 cap PO DAILY 07/03/19 08/12/20 History levalbuterol tartrate 45 2 inh INHALATION Q6H PRN #15 gm 01/05/20 08/12/20 Rx mcg/actuation aerosol inhaler umeclidinium 62.5 mcg-vilanterol 1 puffs INH DAILY #60 ea 01/05/20 08/12/20 Rx 25 mcg/actuation powdr for inhalation Systane Gel 1 drp OPHTHALMIC (EYE) QID 05/15/20 08/12/20 History acetaminophen [Tylenol] 650 mg PO ONCE PRN 05/15/20 08/12/20 History escitalopram oxalate [Lexapro] 10 mg PO HS 05/15/20 08/12/20 History Magic Mouthwash 5 ml PO QID 08/12/20 08/12/20 History ciclesonide [Alvesco] 2 puff INHALATION DAILY 08/12/20 08/12/20 History dexamethasone sodium phos (PF) 20 mg IV DAILY 08/12/20 08/12/20 History dextromethorphan-guaifenesin 1 tab PO Q12H 08/12/20 08/12/20 History [Mucinex DM] diphenhydramine HCl 50 mg IM DAILY 08/12/20 08/12/20 History immune globulin (human) (IgG) 4 g IV DAILY 08/12/20 08/12/20 History [Gammagard] pantoprazole 40 mg PO DAILY 08/12/20 08/12/20 History Patient History Medical History (Updated 08/12/20 @ 15:02 by Agustín Russell PA-C) Asthma Cirrhosis Common variable immunodeficiency COVID-19 in immunocompromised patient Second episode of COVID-19 in 90 days with 2 negative tests in between Diffuse large B-cell lymphoma Surgical History Hx of colonoscopy Port-A-Cath in place (07/05/19) Insertion Of Mediport With Fluoroscopy Dr. Huang 07-05-19 Family History (Updated 08/12/20 @ 15:02 by Agustín Russell PA-C) Other Family history non-contributory Social History Smoking Status: Former smoker Second Hand Exposure: No; Hx Alcohol Use: No Hx Substance Use: No Preferred Language: Danish Communication Ability: Effective Marine Fitter Required: No Beliefs That Will Affect Care: None Current Living Situation: Other Current Living Situation Comment: [place] Feels Safe at Home: Yes Assistive Devices: None Review of Systems Review of Systems: All systems reviewed & are unremarkable except as noted in HPI & below Physical Exam Physical Exam: GENERAL : No acute distress EYES: No icterus, gaze conjugate NOSE: No evidence of epistaxis. Nasal cannula in place MOUTH: No lesions or candidiasis. Mucosa moist NECK: Supple LUNGS: Bibasilar crackles. No appreciation of rhonchi. No appreciation of bronchospasm HEART: Regular, rate in the 90s ABDOMEN: Soft, NT, ND, BS Present EXTREMITIES: No LE edema, pedal pulses intact NEURO: A&OX3 Results & Data Results & Data ([facility]) Vital Signs (Past 12 Hours) Vital Signs Temp Pulse Pulse Pulse Resp BP BP 08/12/20 13:43 36.6 C 74 20 109/72 08/12/20 11:41 82 24 105/66 08/12/20 10:00 96 H 22 107/79 08/12/20 08:55 37.1 C 96 H 24 123/82 Pulse Ox 08/12/20 13:43 97 08/12/20 11:41 97 08/12/20 10:00 98 08/12/20 08:55 97 Laboratory Results 08/12/20 09:15 08/12/20 09:00 INR 1.1 (0.9-1.1) 08/12/20 09:15 08/12/20 09:00 Troponin I < 0.015 PG Care Time/CCT Total # of Minutes Spent Total Time Spent with Patient: Total time spent is greater than 50% in coordination of care (as documented) at patient's floor/unit and/or counseling patient: 60 minutes Coding Level of Care Code 77725 Inpt Consult Level 5 Diagnoses COPD (chronic obstructive pulmonary disease) J44.9 COPD type: unspecified COPD Common variable immunodeficiency D83.9 Cirrhosis K74.60 Bronchiectasis J47.9 Mucocele of appendix K38.8 Multiple pulmonary nodules R91.8 Autoimmune hepatitis K75.4 Pneumonia due to 2019 novel coronavirus U07.1; J12.89
--- NOTE | 2020-08-12 16:30 | Electrocardiogram Report ---
Test Reason : Blood Pressure : / mmHG Vent. Rate : 096 BPM Atrial Rate : 096 BPM P-R Int : 150 ms QRS Dur : 076 ms QT Int : 356 ms P-R-T Axes : 055 -02 025 degrees QTc Int : 449 ms Normal sinus rhythm Normal ECG When compared with ECG of 15-MAY-2020 12:54, Questionable change in QRS axis Confirmed by Man Haskins ([id number]) on 08/12/2020 4:30:08 PM Referred By: [facility] Confirmed By:Lopez Haskins
[2020-08-12] MEDS ORDERED: HEPARIN 100 UNIT/ML 5ML FLUSH ONE (17:45)
[2020-08-12] MEDS: carvediloL 6.25 MG TAB PO SCH (20:54)
[2020-08-12] MEDS: ESCITALOPRAM OXALATE 10 MG TAB PO SCH (20:54)
[2020-08-12] MEDS: ASCORBIC ACID 500 MG TAB PO SCH (20:55)
[2020-08-12] MEDS: HEPARIN 100 UNIT/ML 5ML FLUSH FLUSH PRN (20:56)
[2020-08-13] MEDS: HEPARIN 100 UNIT/ML 5ML FLUSH FLUSH PRN (05:49)
--- NOTE | 2020-08-13 06:13 | Communication Note ---
Date of Service: August 13, 2020 Nursing messaged about possible bronchoscopy tomorrow, placing NPO order in-case this occurs today.
[2020-08-13 06:27] LABS: Mean Corpuscular Hgb Conc 33.3 g/dL (32-36)
[2020-08-13 06:36] LABS: Hematocrit (blood only) 30.3 % (42-52); Hemoglobin 10.1 g/dL (14.0-18.0); Mean Corpuscular Hemoglobin 27.8 pg (25-34); Mean Corpuscular Volume 83.5 fL (80-100); Red Blood Count 3.63 M/uL (4.7-6.1); White Blood Count 2.28 K/uL (4.8-10.8)
[2020-08-13 06:43] LABS: Platelet Count 49 K/uL (130-400)
[2020-08-13 07:02] LABS: Alanine Aminotransferase 26 U/L (12-78); Albumin Level 2.7 gm/dl (3.4-5.0); Aspartate Aminotransferase 25 U/L (15-37); BUN Creatinine Ratio 30.8 (10-20); Blood Urea Nitrogen 20 mg/dl (7-18); Calcium 8.6 mg/dl (8.5-10.1); Carbon Dioxide 27 mmol/L (21-32); Chloride 106 mmol/L (98-107); Creatinine Clr Calc Pharmacy 108.8 ml/min; Est GFR (African American) 127.8; Est GFR (Non-African American) 110.2; Glucose 111 mg/dl (70-99); Magnesium 2.6 mg/dl (1.8-2.4); Potassium 4.1 mmol/L (3.5-5.1); Sodium 138 mmol/L (136-145)
[2020-08-13 07:15] LABS: Albumin Globulin Ratio 0.8 (0.9-2); Alkaline Phosphatase 128 U/L (45-117); Bilirubin,Total 0.4 mg/dl (0.2-1); Globulin 3.4 gm/dl (2.5-4.0); Total Protein 6.1 gm/dl (6.4-8.2)
[2020-08-13 07:57] LABS: Immunoglobulin M < 5.3 mg/dl (40-230)
[2020-08-13 08:44] LABS: Immunoglobulin A < 7.9 mg/dl (70-400)
[2020-08-13] MEDS: carvediloL 6.25 MG TAB PO SCH ×2 (08:44→21:28)
[2020-08-13] MEDS: PANTOprazole 40 MG TAB PO SCH (08:44)
[2020-08-13] MEDS: VITAMIN B COMPLEX TAB PO SCH (08:44)
[2020-08-13] MEDS: FOLIC ACID 1 MG TAB PO SCH (08:45)
[2020-08-13] MEDS: dexAMETHasone 4 MG TAB PO SCH (08:45)
[2020-08-13] MEDS: ASCORBIC ACID 500 MG TAB PO SCH ×2 (08:46→21:29)
[2020-08-13] MEDS: UMECLIDINIUM/VILANTEROL 62.5/25MCG 7 PUFFS/INHALER INH SCH (08:46)
[2020-08-13] MEDS: CALCIUM POLYCARBOPHIL 625MG TAB PO SCH (08:46)
[2020-08-13] MEDS ORDERED: FLUTICASONE FUROATE 100MCG 14 PUFFS/INHALER INH SCH (09:00)
--- NOTE | 2020-08-13 13:54 | Pulmonology Progress Note ---
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 He did have 2 negative tests in the interim. He had initial COVID-19 positivity back in April for which he was treated with dexamethasone Procalcitonin 0.14, CRP 3.32 NT BNP: 163 The possibility of reinfection is there. We will continue with dexamethasone 6 mg on a daily basis for the time being. O2 supplementation to keep oxygen saturation greater than 90% Continue with isolation PA A has been contacted. --Bronchiectasis Given that the patient has history of hypogammaglobulinemia, this is likely the etiology of his bronchiectasis and air trapping appreciated on the CT along with associated clubbing I would not like to give the patient an ICS component given that he has bro nchiectasis Continue with Anoro Continue with mucolytic and pulmonary toilet --Patient does have increased interstitial marking in the upper lobes Nonspecific finding Sarcoidosis can give similar picture Follow-up CHADWICK level, alpha 1 --Multiple pulmonary nodules Largest being 5 mm That have been stable for more than 1 year Patient does have a history of [id number] smoking history quit in 2009 --Hypogammaglobulinemia Patient gets IVIG Plan: Continue with dexamethasone for at least 10 days. Doxycycline for 5 days. No plan for bronchoscopy. Will need repeat CT chest in 8 weeks. Pulmonary rehab will be beneficial for the patient. MELVIN Arnuity Follow-up infectious disease recommendation Patient is supposed to get IVIG tomorrow. Will defer the management to primary care Please note the above document was generated using voice recognition software. It may contain grammatical, syntax or spelling errors.Any formal questions or co ncerns about the content, text or information contained within the body of this dictation should be directly addressed to the provider for clarification. COPD type: unspecified COPD Qualified Code(s): J44.9 - Chronic obstructive pulmonary disease, unspecified (2) Common variable immunodeficiency: (3) Cirrhosis: (4) Bronchiectasis: (5) Mucocele of appendix: (6) Multiple pulmonary nodules: (7) Autoimmune hepatitis: (8) Pneumonia due to 2019 novel coronavirus: Admission and Anticipated Discharge Date Admission Date: August 12, 2020 Subjective Patient seen and examined at bedside. No acute distress, no adverse events overnight. Patient was saturating 93% on 1 L nasal cannula at the time of examination. I turned off the oxygen. Patient states that he is doing fairly well when he is laying flat but he does get short of breath on exertion. Denies any significant cough. No chest pain. Good appetite. Review of Systems Review of Systems: All systems reviewed & are unremarkable except as noted in Subjective Physical Exam Physical Exam: Constitutional: No acute distress HEENT: EOMI, PERRLA Respiratory system: Decreased air entry bilaterally, no wheeze, no rhonchi, positive crackles bilateral lower lobes CVS: S1-S2 positive, no murmurs or gallops Abdomen: Soft, nontender, nondistended, positive bowel sounds x4 Extremities: +2 pulses bilaterally radialis/ dorsalis pedis, no cyanosis, no edema, positive clubbing bilaterally Neuro: Awake alert oriented x3 Psych: Normal mood and affect G/U: No Pimentel Skin: no rashes, warm and dry Lymphatic: no cervical or axillary lymphadenopathy Results & Data Results & Data ([facility]) Vital Signs (Past 12 Hours) Vital Signs Temp Pulse Resp BP Pulse Ox 08/13/20 08:07 36.4 C L 53 L 16 107/69 98 08/13/20 06:21 71 17 94 08/13/20 05:43 08/13/20 05:43 PG Care Time/CCT Total # of Minutes Spent Total Time Spent with Patient: Total time spent is greater than 50% in coordination of care (as documented) at patient's floor/unit and/or counseling patient: Coding Level of Care Code 70797 Subseq Hosp Care Lvl 3 Diagnoses COPD (chronic obstructive pulmonary disease) J44.9 COPD type: unspecified COPD Common variable immunodeficiency D83.9 Cirrhosis K74.60 Bronchiectasis J47.9 Mucocele of appendix K38.8 Multiple pulmonary nodules R91.8 Autoimmune hepatitis K75.4 Pneumonia due to 2019 novel coronavirus U07.1; J12.89
--- NOTE | 2020-08-13 16:56 | Hospitalist Progress Note ---
Date of Service August 13, 2020 Assessment & Plan (1) Pneumonia due to 2019 novel coronavirus: Reports worsening shortness of breath since his prior Covid episode in 04/2020 with acute worsening on August 07 after finishing a course of PO antibiotics at the nursing home. - O2 sat ~93% on 2L NC. - Dexamethasone 6 mg PO daily x 10 day course (End date: 08/21/2020) - Pulm consult -> Discussed with pulm who feel remdesivir and convalescent plasma would not be of benefit, so will defer these interventions. - Procal is 0.14 and CXR shows patchy consolidations with one focal area. Will defer antibiotics at this time with pulm's consideration. CTA neg for PE, noted for PNA thought to be viral (2) Common variable immunodeficiency: Receives immunoglobulin every week. - Hematology recommended immunoglobulin panel to check levels Heme c/s pending I did call pharmacy to discuss IgG dosing and they are touching base with heme to determine appropriate tx (3) Diffuse large B-cell lymphoma: Finished treatment in 11/2019. CT (done at [facility]) in 06/2020 showed no indication of recurrence per discussion with hematology. - No inpatient needs at this time. (4) Cirrhosis: Per notes, due to autoimmune hepatitis. - No ascites on exam today. No indication of decompensation with normal LFTs and coagulation factors. (5) COPD (chronic obstructive pulmonary disease): Increasing shortness of breath for several months, but no wheezing on exam today for me. - Continue home inhalers - Xopenex PRN for shortness of breath or wheezing - Pulm feels this may be an ILD as well. Likely bronch tomorrow. (6) Thrombocytopenia: Presumed due to viral infection. No indication of bleeding. - Monitor (7) Mucocele of appendix: CT (done at [facility]) in 06/2020 showed mucocele. - Outpatient surgery follow-up (8) DVT prophylaxis: SCDs - Will hold off on heparin for now given thrombocytopenia and possible bronch tomorrow. Admission and Anticipated Discharge Date Admission Date: August 12, 2020 Subjective Pt states he is feeing improved at rest. No SOB at rest. He is SOB when he is moving around the room though, even with O2. Pt denies fever, chest pain, abd pain, n/v/c/d, LE pain or swelling. Review of Systems Review of Systems: Pertinent positives and negatives reviewed in HPI--all others negative Physical Exam 2 Constitutional: WD/WN, vitals as above Eyes: normal visual fong by confrontation and + anicteric sclerae Neck: normal visual inspection and trachea midline Respiratory: normal respiratory effort; no respiratory distress Auscultation: + crackles; no wheezes Cardiovascular: Rate/Rhythm: regular rate and regular rhythm Gastrointestinal (Abdomen): Inspection/Auscultation: abdomen not distended Percussion/Palpation: abdomen soft; abdomen nontender Musculoskeletal: Head/Neck/Chest: normocephalic and head atraumatic negative for edema, peripheral pulses intact Skin: no rashes, warm and dry Neurologic: awake; not confused Speech / Cognition: normal speech Psychiatric: A+Ox3, euthymic affect Results & Data Results & Data ([facility]) Vital Signs (Past 12 Hours) Vital Signs Temp Pulse Resp BP Pulse Ox 08/13/20 15:21 92 08/13/20 15:19 36.6 C 69 18 105/62 08/13/20 08:07 36.4 C L 53 L 16 107/69 98 08/13/20 06:21 71 17 94 PG Care Time/CCT Total # of Minutes Spent Total Time Spent with Patient: Total time spent is greater than 50% in coordination of care (as documented) at patient's floor/unit and/or counseling patient: Coding Level of Care Code 63313 Subseq Hosp Care Lvl 3 Diagnoses Pneumonia due to 2019 novel coronavirus U07.1; J12.89 Common variable immunodeficiency D83.9 Diffuse large B-cell lymphoma C83.30 Lymphoma site: unspecified region Cirrhosis K74.60 COPD (chronic obstructive pulmonary disease) J44.9 COPD type: unspecified COPD Thrombocytopenia D69.6 Mucocele of appendix K38.8 DVT prophylaxis Z29.9 (1) Diffuse large B-cell lymphoma Lymphoma site: unspecified region Qualified Code(s): C83.30 - Diffuse large B-cell lymphoma, unspecified site (2) COPD (chronic obstructive pulmonary disease) COPD type: unspecified COPD Qualified Code(s): J44.9 - Chronic obstructive pulmonary disease, unspecified
[2020-08-13] MEDS: DOXYCYCLINE HYCLATE 100 MG CAP PO SCH (21:28)
[2020-08-13] MEDS: ESCITALOPRAM OXALATE 10 MG TAB PO SCH (21:29)
[2020-08-14] MEDS: UMECLIDINIUM/VILANTEROL 62.5/25MCG 7 PUFFS/INHALER INH SCH (08:54)
[2020-08-14] MEDS: ASCORBIC ACID 500 MG TAB PO SCH ×2 (08:55→20:04)
[2020-08-14] MEDS: carvediloL 6.25 MG TAB PO SCH ×2 (08:55→20:07)
[2020-08-14] MEDS: dexAMETHasone 4 MG TAB PO SCH (08:55)
[2020-08-14] MEDS: FOLIC ACID 1 MG TAB PO SCH (08:56)
[2020-08-14] MEDS: PANTOprazole 40 MG TAB PO SCH (08:56)
[2020-08-14] MEDS: VITAMIN B COMPLEX TAB PO SCH (08:56)
[2020-08-14] MEDS: CALCIUM POLYCARBOPHIL 625MG TAB PO SCH (08:56)
[2020-08-14] MEDS: DOXYCYCLINE HYCLATE 100 MG CAP PO SCH ×2 (08:56→20:03)
--- NOTE | 2020-08-14 14:14 | Pulmonology Progress Note ---
Date of Service August 14, 2020 Assessment & Plan (1) COPD (chronic obstructive pulmonary disease): Impression: 54-year-old male currently incarcerated with prior history of Covid pneumonia and April 2020 as well as variable immune deficiency on replacement IVIG, nonobstructive lung disease, bronchiectasis, history of diffuse large B-cell lymphoma, and history of tobacco abuse admitted for recurrent COVID-19 with positive testing at the time of admission --Acute hypoxic respiratory failure Patient's COVID-19 was positive on presentation. He did have 2 negative tests in the interim. He had initial COVID-19 positivity back in April for which he was treated with dexamethasone Procalcitonin 0.14, CRP 3.32 --> 0.99, LDH: 200 NT BNP: 163 The possibility of reinfection is high Will continue with dexamethasone 6 mg on a daily basis for the time being. O2 supplementation to keep oxygen saturation greater than 90% Continue with isolation PA ANGELES has been contacted. --Bronchiectasis Given that the patient has history of hypogammaglobulinemia, this is likely the etiology of his bronchiectasis and air trapping appreciated on the CT along with associated clubbing I would not like to give the patient an ICS component given that he has bronchiectasis Continue with Anoro Continue with mucolytic and pulmonary toilet --Patient does have increased interstitial marking in the upper lobes Nonspecific finding Sarcoidosis can give similar picture Follow-up CHADWICK level, alpha 1 --Multiple pulmonary nodules Largest being 5 mm That have been stable for more than 1 year Patient does have a history of [id number] smoking history quit in 2009 --Hypogammaglobulinemia Patient gets IVIG Plan: CRP is trending down. Patient is clinically doing better. Complete the course of dexamethasone for at least 10 days. Doxycycline for 5 days. No plan for bronchoscopy. Will need repeat CT chest in 8 weeks. Pulmonary rehab will be beneficial for the patient. Recommend doing two-step to see if the patient needs oxygen on exertion. Patient does have history of being on oxygen in the past. Pulmonary will follow peripherally. Please call with any questions. Please note the above document was generated using voice recognition software. It may contain grammatical, syntax or spelling errors.Any formal questions or concerns about the content, text or information contained within the body of this dictation should be directly addressed to the provider for clarification. COPD type: unspecified COPD Qualified Code(s): J44.9 - Chronic obstructive pulmonary disease, unspecified (2) Common variable immunodeficiency: (3) Cirrhosis: (4) Bronchiectasis: (5) Mucocele of appendix: (6) Multiple pulmonary nodules: (7) Autoimmune hepatitis: (8) Pneumonia due to 2019 novel coronavirus: Admission and Anticipated Discharge Date Admission Date: August 12, 2020 Subjective Patient seen and examined at bedside. No acute distress, no adverse events overnight. At the time of examination patient was saturating 91% with heart rate of 72 at rest on room air. Patient says the shortness of breath is better controlled especially when she is at rest. On exertion he does get short of breath. No cough, no hemoptysis. No dizziness. Review of Systems Review of Systems: All systems reviewed & are unremarkable except as noted in Subjective Physical Exam Physical Exam: Constitutional: No acute distress HEENT: EOMI, PERRLA Respiratory system: Decreased air entry bilaterally, no wheeze, no rhonchi, positive crackles bilateral lower lobes CVS: S1-S2 positive, no murmurs or gallops Abdomen: Soft, nontender, nondistended, positive bowel sounds x4 Extremities: +2 pulses bilaterally radialis/ dorsalis pedis, no cyanosis, no edema, positive clubbing bilaterally Neuro: Awake alert oriented x3 Psych: Normal mood and affect G/U: No Pimentel Skin: no rashes, warm and dry Lymphatic: no cervical or axillary lymphadenopathy Results & Data Results & Data ([facility]) Vital Signs (Past 12 Hours) Vital Signs Temp Pulse Resp BP Pulse Ox 08/14/20 08:58 106/66 08/14/20 07:34 36.6 C 84 14 99/67 L 91 08/13/20 05:43 08/13/20 05:43 PG Care Time/CCT Total # of Minutes Spent Total Time Spent with Patient: Total time spent is greater than 50% in coordination of care (as documented) at patient's floor/unit and/or counseling patient: Coding Level of Care Code 89824 Subseq Hosp Care Lvl 3 Diagnoses COPD (chronic obstructive pulmonary disease) J44.9 COPD type: unspecified COPD Common variable immunodeficiency D83.9 Cirrhosis K74.60 Bronchiectasis J47.9 Mucocele of appendix K38.8 Multiple pulmonary nodules R91.8 Autoimmune hepatitis K75.4 Pneumonia due to 2019 novel coronavirus U07.1; J12.89
[2020-08-14] MEDS ORDERED: ACETAMINOPHEN 500 MG TAB PO SCH (14:30)
[2020-08-14] MEDS ORDERED: diphenhydrAMINE Capsule 25 MG CAP PO SCH (14:30)
[2020-08-14] MEDS ORDERED: IMMUNE GLOBULIN(HUMAN) 10% 50 ML IV SCH (14:30)
[2020-08-14 14:54] LABS: Mean Corpuscular Hgb Conc 33.3 g/dL (32-36)
[2020-08-14 15:18] LABS: BUN Creatinine Ratio 35.5 (10-20); Calcium 8.5 mg/dl (8.5-10.1); Est GFR (African American) 122.4; Est GFR (Non-African American) 105.6; Hematocrit (blood only) 31.5 % (42-52); Hemoglobin 10.5 g/dL (14.0-18.0); Mean Corpuscular Hemoglobin 27.7 pg (25-34); Mean Corpuscular Volume 83.1 fL (80-100); Potassium 3.9 mmol/L (3.5-5.1); RDW Coefficient of Variation 16.2 % (11.5-14.5); Red Blood Count 3.79 M/uL (4.7-6.1); White Blood Count 4.28 K/uL (4.8-10.8)
[2020-08-14 15:21] LABS: Platelet Count 71 K/uL (130-400); Platelet Estimate Decreased (Normal)
[2020-08-14] MEDS ORDERED: IMMUNE GLOBULIN(HUMAN) 10% 200 ML IV SCH (15:30)
[2020-08-14] MEDS: ESCITALOPRAM OXALATE 10 MG TAB PO SCH (20:06)
[2020-08-14] MEDS ORDERED: ENOXAPARIN INJ 40 MG/0.4 ML SYR SQ ONE (20:06)
--- NOTE | 2020-08-14 20:06 | Hospitalist Progress Note ---
Date of Service August 14, 2020 Assessment & Plan (1) Pneumonia due to 2019 novel coronavirus: 1st episode 04/2020 with resolution. Now with 2nd episode. Overall stable/improved; O2 weaned off. Continue Dexamethasone 6 mg PO daily x 10 day course (End date: 08/21/2020) Remdesivir and convalescent plasma deferred; patient not hypoxic, is improving, and is over 7 days into illness. Appreciate pulmonary assistance - finish 5-day course of doxy. Give IVIG today for CVID. (2) Common variable immunodeficiency: Receives IVIG at longterm [id number]. Spoke with our pharmacy who confirmed with [facility] his dose (24gm [id number]). IgG, IgA, and IgM all low as expected. Give 25gm IVIG today; premedicate w/ tylenol/benadryl. (3) Diffuse large B-cell lymphoma: Finished treatment in 11/2019. CT (done at [facility]) in 06/2020 showed no indication of recurrence by report. (4) Cirrhosis: due to autoimmune hepatitis. previous hepC testing negative. compensated on exam. pancytopenia likely due to cirrhosis. h/o esophageal varices - cont beta shaan. (5) COPD (chronic obstructive pulmonary disease): awaiting CHADWICK and alpha-1 antitrypsin levels. appreciate pulm consult/recs. 2-step before d/c. cont usual inhalers. no exacerbation at this time. (6) Thrombocytopenia: cirrhosis along with COVID can contribute. takes folate chronically - defer on checking folate level. b12 level wnl. trend. (7) Mucocele of appendix: CT (done at [facility]) in 06/2020 showed mucocele. - Outpatient surgery follow-up needed - will likely need appendectomy (8) Pancytopenia: suspect 2nd to cirrhosis can't rule out COVID contributing to such \ trend (9) Autoimmune hepatitis: by report this is cause of his cirrhosis not on chronic steroids or other agents from cirrhosis standpoint is compensated and no signs of hepatic encephalopathy (10) DVT prophylaxis: high risk of VTE in setting of COVID and excessive immobility platelets this afternoon are in 70s - thus, will add lovenox cautiously 40mg daily suspect he can d/c back to longterm tomorrow Admission and Anticipated Discharge Date Admission Date: August 12, 2020 Subjective minimal cough. eating well. preserved sense of taste/smell. no fevers/chills although he had such about 1 week ago at the longterm. is due to q3week IVIG - agreeable to getting it today. BARBOZA remains - chronic. only mildly worse than baseline. O2 weaned off yesterday. he overall feels pretty good. Review of Systems Constitutional: no fever, no chills, no body aches, no fatigue, no weakness and no anorexia Respiratory: + dyspnea on exertion and + wheezing; no hemoptysis and no sputum production Cardiovascular: + chest pain (Central - occasional (tightness)) Gastrointestinal: no abdominal pain, no nausea, no vomiting and no diarrhea/loose stools Physical Exam Constitutional: + thin; no acute distress and no altered mental status ENMT: external ear and nose normal, oropharynx normal Respiratory: Auscultation: + diminished lung sounds (Bases) and + crackles (Occasional); no wheezes Cardiovascular: Rate/Rhythm: regular rate and regular rhythm Heart Sounds: normal S1 and normal S2; no murmur Vessels: posterior tibial pulses present and dorsalis pedis pulses present; no JVD Extremities: + edema Gastrointestinal (Abdomen): normal bowel sounds, soft, nontender, no hepatosplenomegaly Musculoskeletal: Extremities: + clubbing Skin: no rashes, warm and dry Psychiatric: A+Ox3, euthymic affect Results & Data Results & Data ([facility]) Vital Signs (Past 12 Hours) Vital Signs Temp Pulse Resp BP Pulse Ox 08/14/20 20:01 74 22 83 L 08/14/20 16:35 36.4 C L 58 L 18 104/66 94 08/14/20 16:01 36.7 C 73 16 110/69 92 08/14/20 08:58 106/66 Laboratory Results Laboratory Results - last 24 hr 08/14/20 08/14/20 08/14/20 05:49 05:49 14:25 WBC 4.28 L RBC 3.79 L Hgb 10.5 L Hct 31.5 L MCV 83.1 MCH 27.7 MCHC 33.3 RDW Std Deviation 49.0 H RDW Coeff of John 16.2 H Plt Count 71 L Platelet Estimate Decreased L Sodium Potassium Chloride Carbon Dioxide Anion Gap BUN Creatinine Est Cr Clr Drug Dosing Est GFR ( Amer) Est GFR (Non-Af Amer) BUN/Creatinine Ratio Glucose Calcium Lactate Dehydrogenase 200 C-Reactive Protein 0.99 H Vitamin B12 08/14/20 08/14/20 14:25 14:25 WBC RBC Hgb Hct MCV MCH MCHC RDW Std Deviation RDW Coeff of John Plt Count Platelet Estimate Sodium 139 Potassium 3.9 Chloride 107 Carbon Dioxide 28 Anion Gap 4.0 BUN 25 H Creatinine 0.71 Est Cr Clr Drug Dosing 98.0 Est GFR ( Amer) 122.4 Est GFR (Non-Af Amer) 105.6 BUN/Creatinine Ratio 35.5 H Glucose 114 H Calcium 8.5 Lactate Dehydrogenase C-Reactive Protein Vitamin B12 495 PG Care Time/CCT Total # of Minutes Spent Total Time Spent with Patient: Total time spent is greater than 50% in coordination of care (as documented) at patient's floor/unit and/or counseling patient: Coding Level of Care Code 08432 Subseq Hosp Care Lvl 3 Diagnoses Pneumonia due to 2019 novel coronavirus U07.1; J12.89 Common variable immunodeficiency D83.9 Diffuse large B-cell lymphoma C83.30 Lymphoma site: unspecified region Cirrhosis K74.60 COPD (chronic obstructive pulmonary disease) J44.9 COPD type: unspecified COPD Thrombocytopenia D69.6 Mucocele of appendix K38.8 Pancytopenia D61.818 Autoimmune hepatitis K75.4 DVT prophylaxis Z29.9 (1) Diffuse large B-cell lymphoma Lymphoma site: unspecified region Qualified Code(s): C83.30 - Diffuse large B-cell lymphoma, unspecified site (2) COPD (chronic obstructive pulmonary disease) COPD type: unspecified COPD Qualified Code(s): J44.9 - Chronic obstructive pulmonary disease, unspecified
[2020-08-14] MEDS: HEPARIN 100 UNIT/ML 5ML FLUSH FLUSH PRN (21:07)
[2020-08-15 06:11] LABS: Hematocrit (blood only) 30.5 % (42-52); Hemoglobin 10.1 g/dL (14.0-18.0); Mean Corpuscular Hemoglobin 27.6 pg (25-34); Mean Corpuscular Hgb Conc 33.1 g/dL (32-36); Mean Corpuscular Volume 83.3 fL (80-100); RDW Coefficient of Variation 16.1 % (11.5-14.5); RDW Standard Deviation 48.9 fL (36.4-46.3); Red Blood Count 3.66 M/uL (4.7-6.1); White Blood Count 2.94 K/uL (4.8-10.8)
[2020-08-15 06:12] LABS: Mean Platelet Volume 10.3 fL (7.4-10.4); Platelet Count 50 K/uL (130-400)
[2020-08-15 06:33] LABS: BUN Creatinine Ratio 40.7 (10-20); Calcium 8.1 mg/dl (8.5-10.1); Creatinine Clr Calc Pharmacy 114.1 ml/min; Est GFR (African American) 130.3; Est GFR (Non-African American) 112.4; Potassium 3.9 mmol/L (3.5-5.1)
--- NOTE | 2020-08-15 08:21 | XRay Report ---
XR chest 1V portable HISTORY: Dyspnea. Covid pneumonia. COMPARISON: Chest 08/12/2020. FINDINGS: No significant change in the bilateral upper lung zone airspace opacities. Stable fullness within the superior mediastinum. A left Port-A-Cath terminates in the SVC. This remains unchanged. No pneumothorax. No pleural effusions. IMPRESSION: No change in the upper lung zone airspace opacities consistent with a pneumonia. ACT 112: Negative or not required by law. Electronically signed by: Ramses Valle M.D. 08/15/2020 8:20 AM
[2020-08-15] MEDS: CALCIUM POLYCARBOPHIL 625MG TAB PO SCH (08:35)
[2020-08-15] MEDS: DOXYCYCLINE HYCLATE 100 MG CAP PO SCH (08:35)
[2020-08-15] MEDS: carvediloL 6.25 MG TAB PO SCH (08:35)
[2020-08-15] MEDS: FOLIC ACID 1 MG TAB PO SCH (08:35)
[2020-08-15] MEDS: VITAMIN B COMPLEX TAB PO SCH (08:35)
[2020-08-15] MEDS: ASCORBIC ACID 500 MG TAB PO SCH (08:35)
[2020-08-15] MEDS: UMECLIDINIUM/VILANTEROL 62.5/25MCG 7 PUFFS/INHALER INH SCH (08:35)
[2020-08-15] MEDS: PANTOprazole 40 MG TAB PO SCH (08:35)
[2020-08-15] MEDS: dexAMETHasone 4 MG TAB PO SCH (08:36)
[2020-08-15] MEDS ORDERED: ENOXAPARIN INJ 40 MG/0.4 ML SYR SQ SCH (09:00)
[2020-08-15] MEDS ORDERED: FAMOTIDINE 20 MG in SYRINGE 3 ML IV ONE (11:30)
--- NOTE | 2020-08-15 11:31 | Pulmonology Progress Note ---
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 He did have 2 negative tests in the interim. He had initial COVID-19 positivity back in April for which he was treated with dexamethasone Procalcitonin 0.14, CRP 3.32 --> 0.99, LDH: 200 NT BNP: 163 The possibility of reinfection is high Will continue with dexamethasone 6 mg on a daily basis for the time being. O2 supplementation to keep oxygen saturation greater than 90% Continue with isolation PA ANGELES has been contacted. --Bronchiectasis Given that the patient has history of hypogammaglobulinemia, this is likely the etiology of his bronchiectasis and air trapping appreciated on the CT along with associated clubbing I would not like to give the patient an ICS component given that he has bronchiectasis Continue with Anoro Continue with mucolytic and pulmonary toilet --Patient does have increased interstitial marking in the upper lobes Nonspecific finding Sarcoidosis can give similar picture Follow-up CHADWICK level, alpha 1 --Multiple pulmonary nodules Largest being 5 mm That have been stable for more than 1 year Patient does have a history of [id number] smoking history quit in 2009 --Hypogammaglobulinemia Patient gets IVIG Plan: Chest x-ray from today still shows upper lobe infiltrate. No significant worsening compared to before. Would complete the course of dexamethasone for 10 days. Complete doxycycline for [address] chest in 8 weeks. Recommend doing two-step to see if the patient needs oxygen on exertion. Patient does have history of being on oxygen in the past. Pulmonary will follow peripherally. Please call with any questions. Please note the above document was generated using voice recognition software. It may contain grammatical, syntax or spelling errors.Any formal questions or concerns about the content, text or information contained within the body of this dictation should be directly addressed to the provider for clarification. COPD type: unspecified COPD Qualified Code(s): J44.9 - Chronic obstructive pulmonary disease, unspecified (2) Common variable immunodeficiency: (3) Cirrhosis: (4) Bronchiectasis: (5) Mucocele of appendix: (6) Multiple pulmonary nodules: (7) Autoimmune hepatitis: (8) Pneumonia due to 2019 novel coronavirus: Admission and Anticipated Discharge Date Admission Date: August 12, 2020 Subjective Patient seen and examined at bedside. No acute distress, no adverse events overnight. Patient does complain of some epigastric burning. Was a little nauseous later yesterday evening which resolved after giving the medication. Denies any chest pain. Has been using incentive spirometry as well as flutter valve. Denies any hemoptysis. Patient's was saturating 94% on 1 L nasal cannula at the time of examination. Review of Systems Review of Systems: All systems reviewed & are unremarkable except as noted in Subjective Physical Exam Physical Exam: Constitutional: No acute distress HEENT: EOMI, PERRLA Respiratory system: Decreased air entry bilaterally, no wheeze, no rhonchi, positive crackles bilateral lower lobes CVS: S1-S2 positive, no murmurs or gallops Abdomen: Soft, nontender, nondistended, positive bowel sounds x4 Extremities: +2 pulses bilaterally radialis/ dorsalis pedis, no cyanosis, no edema, positive clubbing bilaterally Neuro: Awake alert oriented x3 Psych: Normal mood and affect G/U: No Pimentel Skin: no rashes, warm and dry Lymphatic: no cervical or axillary lymphadenopathy Results & Data Results & Data ([facility]) Vital Signs (Past 12 Hours) Vital Signs Temp Pulse Resp BP Pulse Ox 08/15/20 08:27 36.6 C 51 L 16 106/63 97 08/15/20 05:17 08/15/20 05:17 PG Care Time/CCT Total # of Minutes Spent Total Time Spent with Patient: Total time spent is greater than 50% in coordination of care (as documented) at patient's floor/unit and/or counseling patient: Coding Level of Care Code 96687 Subseq Hosp Care Lvl 3 Diagnoses COPD (chronic obstructive pulmonary disease) J44.9 COPD type: unspecified COPD Common variable immunodeficiency D83.9 Cirrhosis K74.60 Bronchiectasis J47.9 Mucocele of appendix K38.8 Multiple pulmonary nodules R91.8 Autoimmune hepatitis K75.4 Pneumonia due to 2019 novel coronavirus U07.1; J12.89
[2020-08-15] MEDS ORDERED: SUCRALFATE 1 GM/10 ML UDC PO ONE (12:00)
[2020-08-15] MEDS: HEPARIN 100 UNIT/ML 5ML FLUSH FLUSH PRN (12:17)
--- NOTE | 2020-08-15 12:46 | Discharge Summary ---
Date of Service date of admission - August 12, 2020 date of discharge - August 15, 2020 Admission HPI Per Admitting Provider 54yo M w/ hx of CVID on IVIG, colon cancer, and diffuse large B-cell lymphoma who presents with second episode of COVID-19 infection. He was admitted in 04/2020 with Covid and required a relatively short need for O2 at about 2L. He improved on dexamethasone and was discharged to nursing home. He reports that he has been consistently dyspneic with exertion since that time, but no need for oxygen. He has been tested for Covid several times since his prior positive and reports he has been negative at least 2 times. He reports he was on a course of antibiotics until last Wednesday (). He finished the course of antibiotics and reports that he has become increasingly short of breath since then. He is minimally short of breath while lying still, but it increases with any movement or even speaking. He also notes that at night he feels significant sweats. This morning, the nursing home medical staff checked his O2, and it was found to be 88% on room air, and he was sent to the hospital. COVID-19 testing in the ER today was positive. Principal Diagnosis COVID-19 pneumonia CVID Discharge Exam Constitutional + thin; no acute distress and no altered mental status ENMT external ear and nose normal, oropharynx normal Respiratory Auscultation: + diminished lung sounds (Bases) and + crackles (Occasional); no wheezes Cardiovascular Rate/Rhythm: regular rate and regular rhythm Heart Sounds: normal S1 and normal S2; no murmur Vessels: posterior tibial pulses present and dorsalis pedis pulses present; no JVD Extremities: + edema Gastrointestinal (Abdomen) normal bowel sounds, soft, nontender, no hepatosplenomegaly Musculoskeletal Extremities: + clubbing Skin no rashes, warm and dry Psychiatric A+Ox3, euthymic affect Discharge Data Allergies Allergy/AdvReac Type Severity Reaction Status Date / Time Bactrim Allergy Mild RASH/BLEEDI Verified 01/10/13 14:22 NG sulfamethoxazole Allergy Mild RASH/BLEEDI Verified 08/12/20 09:31 NG trimethoprim Allergy Mild RASH/BLEEDI Verified 08/12/20 09:31 NG Consultations [facility] [place]mon[place] [facility]medicine Infectious Diseases Procedures Performed IVIG infusion x 1 -- 08/14/20 Ordered Studies 08/12/20 09:00 CT angio chest PE protocol: IMPRESSION: 1. There is no evidence of pulmonary embolus in the main, lobar, or segmental pulmonary arteries. 2. Multifocal groundglass consolidation is seen throughout both lungs with an upper lobe predominance. This has significantly increased as compared to 05/15/2020 and may correspond to the reported history of a viral pneumonitis. Clinical correlation will be required. 3. No pleural effusion is seen. 4. There is diffuse peribronchial thickening with fluid/debris throughout the lower lobe airways. Correlate clinically for evidence of aspiration. 5. Cirrhotic liver morphology. 6. Marked splenomegaly. 7. Mildly enlarged mediastinal lymph nodes are similar to previous. 8. There is mild aneurysmal dilatation of the ascending thoracic aorta which measures up to 4.0 cm. This is similar to previous. Hospital Course (1) Pneumonia due to 2019 novel coronavirus: 1st episode 04/2020 with resolution. Now with 2nd episode of COVID-19. Overall stable throughout his short stay. Only briefly required NC O2. Received dexamethasone 6 mg PO daily. Will need a 10-day course in total with end date of 08/21/2020. Remdesivir and convalescent plasma were deferred; patient was not hypoxic very long, was quickly improving, and he presented over 7 days into the illness. [facility] pulmonary advised a 5-day course of doxycycline to cover for the p ossibility of bacterial superinfection. Patient did receive an IVIG infusion while hospitalized for his CVID. (2) Common variable immunodeficiency: Receives IVIG at nursing home (24gm [id number]). IgG, IgA, and IgM were all low as expected. 25gm IVIG x 1 was given on 08/14/20 without incident. (3) Diffuse large B-cell lymphoma: Finished treatment in 11/2019. CT (done at [facility]) in 06/2020 showed no indication of recurrence by report. (4) Cirrhosis: Due to autoimmune hepatitis. Previous hepC testing negative. Was compensated on exam. Pancytopenia likely due to cirrhosis. h/o esophageal varices - cont beta shaan. (5) COPD (chronic obstructive pulmonary disease): Awaiting CHADWICK and alpha-1 antitrypsin levels. Was continued on his usual inhalers. Minimal exacerbation of COPD while here. Will f/u with [facility] pulmonary post-discharge; PFTs to be performed as outpatient. (6) Thrombocytopenia: Cirrhosis along with COVID infection can contribute to this. Takes folate chronically. b12 level wnl. Platelet count was 50 at discharge. (7) Mucocele of appendix: CT (done at [facility]) in 06/2020 showed a mucocele. Outpatient [facility] general surgery follow-up needed - will likely need appendectomy. This was communicated to the providers at [facility]. (8) Pancytopenia: suspect 2nd to cirrhosis can't rule out COVID contributing to such cell lines were relatively stable during the visit (9) Autoimmune hepatitis: by report this is cause of his cirrhosis not on chronic steroids or other agents from cirrhosis standpoint was compensated during the hospitalization with no signs of hepatic encephalopathy (10) Thoracic ascending aortic aneurysm: Incidental finding on CTA chest. 4cm diameter. Yearly surveillance advised. Total Time Total Time Spent Total Time Spent (In Minutes): 45 Total Time Includes: Examination of the Patient, Discharge Planning, Medication Reconciliation and Communication With Other Providers Discharge Plan Discharge Items [facility] Disposition: [facility] Reason For Visit: COVID-19 Pneumonia; Immune Deficiency Discharge Diagnosis: 1. COVID-19 pneumonia 2. Common variable immunodeficiency 3. cirrhosis of the liver 4. pancytopenia 5. mucocele of appendix Activity: Resume your previous activity Activity Comment: as tolerated Non-emergency contact: Primary Care Provider, Specialist and Shipping Assistant Call non-emergency contact if: you have any medication questions, your symptoms worsen and you have a fever Follow-up/Referrals: Benito Gallo DO [Surgeon] - (first available appointment to discuss appendectomy for mucocele of appendix ) Bradford PERERA [Primary Care Provider] - (needs pulmonary follow-up 1-2 weeks - any provider via nursing home health system or [facility] pulmonary ) Diet: Regular Addtl Attending Provider Instructions: 1. Repeat CT chest in 8 weeks. Diagnosis - pulmonary nodules, b/l infiltrates. 2. "2-step" ambulatory oxygen test to determine if patient needs oxygen with activity/ambulation. 3. IVIG every 3 weeks as previous; patient received IVIG on 08/14/20 at [facility]. 4. General surgery referral for mucocele of appendix. 5. Repeat CBC and BMP in 1 week for stability. 6. Airborne and contact isolation for 7 additional days due to COVID+ status or per nursing home policy. Pending Studies at Discharge: Yes Studies:: Alpha-1 Antitrypsin level; CHADWICK level. Stand-Alone Forms: My [facility] Skilled Items Patient informed of condition?: Yes Discharge Level of Care: Other Communicable Disease: Yes Discharge Prognosis: Stable Lines: None Urinary Catheter: No Medications and DC Order Prescriptions: New dexamethasone 4 mg Tablet 6 mg PO DAILY 6 Days Qty: 9 RF: 0 famotidine [Pepcid] 20 mg tablet 20 mg PO DAILY 7 Days Qty: 7 RF: 0 Continued Anoro Ellipta 62.5-25 mcg/actuation blister with device 1 puffs INH DAILY Qty: 60 RF: 2 levalbuterol tartrate [Xopenex HFA] 45 mcg/actuation HFA aerosol inhaler 2 inh INHALATION Q6H PRN (Reason: SOB) Qty: 15 RF: 3 immun glob [id number]-nug-[id number]-IgA 0-50 10 gram recon soln 20 g IV UD RF: 0 Lactobacillus acidophilus 1 billion cell tablet 0 cell PO TID RF: 0 folic acid 1 mg tablet 1 mg PO DAILY RF: 0 carvedilol 6.25 mg tablet 6.25 mg PO BID RF: 0 ondansetron HCl [Zofran] 4 mg Tablet 4 mg PO Q8H PRN (Reason: Nausea And Vomiting) RF: 0 calcium polycarbophil [Fiber (calcium polycarbophil)] 625 mg Tablet 625 mg PO QAM RF: 0 vitamin B complex Capsule 1 cap PO DAILY RF: 0 immune globulin (human) (IgG) 0.5 gram Recon Soln 4 g IV DAILY RF: 0 diphenhydramine HCl 50 mg/mL Syringe 50 mg IM DAILY RF: 0 Alvesco 160 mcg/actuation Hfa Aerosol Inhaler 2 puff INHALATION DAILY RF: 0 acetaminophen [Tylenol] 325 mg Tablet 650 mg PO ONCE PRN (Reason: w/ gammagard) RF: 0 escitalopram oxalate [Lexapro] 10 mg Tablet 10 mg PO HS RF: 0 Systane Gel 0.4-0.3 % Drops,Gel 1 drp OPHTHALMIC (EYE) QID RF: 0 Changed pantoprazole 40 mg Tablet,Delayed Release (Dr/Ec) 40 mg PO BID Qty: 60 RF: 2 dextromethorphan-guaifenesin [Mucinex DM] 60-1,200 mg Tablet Extended Release 12 Hr 1 tab PO Q12H PRN (Reason: cough) Qty: 0 RF: 0 Discontinued ascorbic acid (vitamin C) 500 mg capsule 500 mg PO BID RF: 0 dexamethasone sodium phos (PF) 10 mg/mL Syringe 20 mg IV DAILY RF: 0 Magic Mouthwash 5 ml PO QID RF: 0 Discharge Orders: Discharge Order (Routine); Ordered 08/15/20 Ordered By: Greg Guerrero Admission Data Admit Date/Time: 08/12/20 10:47 Attending Provider: Greg Guerrero Admit Provider: Herman March Primary Care Provider: Bradford PERERA Other Providers: Herman March ; Nolan Delatorre ; Maciel Young ; Gaby Morris ; Ralph Ramirez I. ; Isaac Rodríguez II ; Lisa Viera ; Miguel Ángel Lee Other Interventions: Discharge Summary Assessment (RN) Last Done: 08/15/20 13:12 Coding Level of Care Code D/C Day Management >30 mins Diagnoses Pneumonia due to 2019 novel coronavirus U07.1; J12.89 Common variable immunodeficiency D83.9 Diffuse large B-cell lymphoma C83.30 Lymphoma site: unspecified region Cirrhosis K74.60 COPD (chronic obstructive pulmonary disease) J44.9 COPD type: unspecified COPD Thrombocytopenia D69.6 Mucocele of appendix K38.8 Pancytopenia D61.818 Autoimmune hepatitis K75.4 Thoracic ascending aortic aneurysm I71.2
[2020-08-21 15:37] LABS: Alpha 1 Antitrypsin 254 mg/dL (83-199); Angiotensin Converting Enzyme 84 U/L (9-67)
== END 2020-08-15 15:09 | DRG 177 ==
LOC: ED 08:52 → SUATTDRO 10:47 → 3E 10:47

== ENCOUNTER 2020-09-10 13:18 | Inpatient (IN) ==
[2020-09-10] MEDS ORDERED: SODIUM CHLORIDE 0.9% 1000ML 1,000 ML IV STA ×2 (14:03)
[2020-09-10] MEDS ORDERED: ALBUT/IPRATROP 3MG/0.5MG NEB 3 ML VIAL NEB STA (14:07)
[2020-09-10] MEDS ORDERED: methylPREDNISolone 125 MG/2 ML VIAL IV STA ×2 (14:07→18:27)
[2020-09-10 14:28] LABS: Hematocrit (blood only) 29.4 % (42-52); Hemoglobin 9.8 g/dL (14.0-18.0); Mean Corpuscular Hemoglobin 27.8 pg (25-34); Mean Corpuscular Hgb Conc 33.3 g/dL (32-36); Mean Corpuscular Volume 83.5 fL (80-100); RDW Coefficient of Variation 16.8 % (11.5-14.5); RDW Standard Deviation 51.5 fL (36.4-46.3); Red Blood Count 3.52 M/uL (4.7-6.1); White Blood Count 3.09 K/uL (4.8-10.8)
[2020-09-10 14:32] LABS: Mean Platelet Volume 9.7 fL (7.4-10.4); Platelet Count 68 K/uL (130-400)
--- NOTE | 2020-09-10 14:38 | XRay Report ---
XR chest 1V portable HISTORY: 55 years-old Male Fever acute fever COMPARISON: Chest radiograph 08/21/2020, CTA chest 08/12/2020 TECHNIQUE: Portable AP view of the chest FINDINGS: Cardiac silhouette is normal. Unchanged left pectoral Tdlope-[id number] catheter. No pneumothorax, or ple ural effusion. Persistent bilateral upper lung zone predominant airspace opacities with associated in terstitial coarsening. There is slightly improved aeration of the left lung with progressed interstit ial opacities of the right lung base. Bones appear grossly intact. IMPRESSION: Persistent bilateral mixed interstitial and alveolar opacities suggestive of a multifocal infectious or inflammatory pneumonitis. ACT 112: Negative or not required by law. The above report was generated using voice recognition software. It may contain grammatical, syntax o r spelling errors. Electronically signed by: Tres Wick M.D. 09/10/2020 2:37 PM
[2020-09-10 14:45] LABS: Albumin Level 2.5 gm/dl (3.4-5.0); BUN Creatinine Ratio 19.6 (10-20); Calcium 8.2 mg/dl (8.5-10.1); Creatinine Clr Calc Pharmacy 110.5 ml/min; Est GFR (African American) 128.5; Est GFR (Non-African American) 110.9; Potassium 4.2 mmol/L (3.5-5.1)
[2020-09-10 14:49] LABS: Albumin Globulin Ratio 0.8 (0.9-2); Bilirubin,Total 0.6 mg/dl (0.2-1); Globulin 3.3 gm/dl (2.5-4.0); Total Protein 5.8 gm/dl (6.4-8.2); Troponin I 0.016 ng/ml (0-0.045)
[2020-09-10 14:51] LABS: Basophils # (auto) 0.01 K/uL (0-0.2); Basophils % (auto) 0.3 %; Immature Granulocytes # (auto) 0.02 K/uL (0.00-0.02); Immature Granulocytes % (auto) 0.6 %; Lymphocytes # (auto) 0.52 K/uL (1.2-3.4); Lymphocytes % (auto) 16.8 %; Monocytes # (auto) 0.29 K/uL (0.11-0.59); Monocytes % (auto) 9.4 %; Neutrophils # (auto) 2.25 K/uL (1.4-6.5); Neutrophils % (auto) 72.9 %; Ovalocytes 1+
[2020-09-10 16:25] LABS: Influenza A virus by PCR Negative (Neg); Influenza B virus by PCR Negative (Neg); RSV by PCR Negative (Neg); SARS CoV2 RNA(COVID-19) InHosp NEGATIVE (Negative)
[2020-09-10] MEDS ORDERED: OPTIRAY 320 125ml IV ONE (17:50)
--- NOTE | 2020-09-10 18:05 | CT Scan Report ---
CHEST CTA for PULMONARY ARTERIES CT DOSE: 228.13 mGy.cm HISTORY: Cough. Assess for pulmonary embolus. TECHNIQUE: Multiaxial CT images of the chest were performed following the intravenous administration of contrast to evaluate the pulmonary arteries. Maximal intensity projection images were also obtaine d. A dose lowering technique was utilized adhering to the principles of ALARA. COMPARISON STUDY: Chest CTA 08/12/2020. FINDINGS: The spleen is partially visualized and remains enlarged. The visualized liver is unremarkab le. No pleural or pericardial effusions. The heart is normal in size. Normal caliber esophagus. Left jugular Port-A-Cath terminates in the distal SVC. Stable mild aneurysmal dilatation of the ascending thoracic aorta measuring up to 4 cm in diameter. No filling defects within the pulmonary arteries to suggest pulmonary embolus. No change in the mild mediastinal lymphadenopathy. The no fractures within the visualized osseous structures. No pneumothorax. Bronchial wall thickening and partial opacificat ion of the bilateral lower lobe distal bronchi is not significantly changed. Slight progression of th e upper lobe predominant scattered patchy groundglass airspace opacities. IMPRESSION: 1. No evidence for pulmonary embolus. 2. Slight progression of the multifocal groundglass airspace opacities demonstrating upper lobe predo minance. This could represent an atypical/viral pneumonia or an inflammatory process. 3. Persistent splenomegaly and mediastinal lymphadenopathy. 4. No change in the mild aneurysmal dilatation of the ascending thoracic aorta measuring up to 4 cm. 5. Bilateral lower lobe bronchial wall thickening with a few opacified distal bronchi. This is also u nchanged. ACT 112: Negative or not required by law. Electronically signed by: Ramses Valle M.D. 09/10/2020 6:04 PM
[2020-09-10] MEDS ORDERED: VANCOMYCIN HCL 1,500 MG in SODIUM CHLORIDE 0.9% 500 ML IV ONE (18:26)
[2020-09-10] MEDS ORDERED: VANCOMYCIN CONSULT ACTIVE PRN (18:26)
[2020-09-10] MEDS ORDERED: CEFEPIME 2,000 MG/20 ML VIAL IV STA (18:26)
--- NOTE | 2020-09-10 18:46 | History & Physical Report ---
Date of Service September 10, 2020 Assessment & Plan (1) Abnormal CT scan of lung: Fever, recent covid, h/o lung disease, previous b cell lymphoma and immune deficiency. CT scan of the lung with contrast PE protocol 09/10/2020 IMPRESSION: 1. No evidence for pulmonary embolus. 2. Slight progression of the multifocal groundglass airspace opacities demonstrating upper lobe predominance. This could represent an atypical/viral pneumonia or an inflammatory process. 3. Persistent splenomegaly and mediastinal lymphadenopathy. 4. No change in the mild aneurysmal dilatation of the ascending thoracic aorta measuring up to 4 cm. 5. Bilateral lower lobe bronchial wall thickening with a few opacified distal bronchi. This is also unchanged. Pulmonary consultation undertaken slight elevation CHADWICK level is indeterminate patient is already started on steroids he is to be continued. Patient will continue vancomycin and cefepime and have atypical coverage with azithromycin( was on Levaquin). Sputum culture will be attempted Legionella antigen will be sent. will be kept npo in case bronchoscopy would be considered Patient will be intervened on inhaled bronchodilators, pulmonary toilet and incentive spirometry (2) Hypogammaglobulinemia: Patient is a hypogammaglobulinemia and common variable immunodeficiency receiving intravenous immune globulin last received dose here in the hospital he has a history of diffuse large B cell lymphoma treated wt R Chop, the lymphoma was primarily in his large bowel (3) Esophageal varices: Pt states he takes his coreg for the varicies which have never bled and have never been banded, no recent melena in the previous record there is description of autoimmune hepatitis but half-way records review do document hepatitis c history (4) DVT prophylaxis: will use scd at this time due to low platelet counts and if bronchoscopy would be decided on History of Present Illness Primary Care Provider: [facility] Patient represents our facility after discharge in July (when he was admitted with progressive CT chest change and concern for recurrent COVID-19 pneumonia). 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 Patient typically has pancytopenic due to his cirrhosis Reportedly fro the patient has not improved since last discharge, remains on levaquin and has daily chills, I spoke to half-way nurse who confirms he had fever of 103F at night in the last few days. The patient has CT scan findings 09/10/20 of progressive multifocal groundglass airspace opacities in his lungs however his current Covid testing is negative. During his last hospital stay pulmonary medicine saw the patient felt that he had bronchiectasis recommend recommend good pulmonary toilet ordering an CHADWICK level which returns for slightly elevated and alpha-1 antitrypsin deficient but elevated noted patient does have a smoking history. he was cefepime vancomycin and steroids in the emergency department Allergies Allergy/AdvReac Type Severity Reaction Status Date / Time Bactrim Allergy Mild RASH/BLEEDI Verified 01/10/13 14:22 NG sulfamethoxazole Allergy Mild RASH/BLEEDI Verified 09/10/20 14:34 NG trimethoprim Allergy Mild RASH/BLEEDI Verified 09/10/20 14:34 NG Home Medications Medication Instructions Recorded Confirmed Type Lactobacillus acidophilus 1 0 cell PO TID 06/26/19 09/10/20 History billion cell tablet carvedilol 6.25 mg tablet 6.25 mg PO BID tab 06/26/19 09/10/20 History folic acid 1 mg tablet 1 mg PO DAILY 06/26/19 09/10/20 History ondansetron HCl [Zofran] 8 mg PO TID PRN 07/03/19 09/10/20 History umeclidinium 62.5 mcg-vilanterol 1 puffs INH DAILY #60 ea 01/05/20 09/10/20 Rx 25 mcg/actuation powdr for inhalation Systane Gel 1 drp OPHTHALMIC (EYE) QID 05/15/20 09/10/20 History acetaminophen [Tylenol] 325 mg PO BID PRN 05/15/20 09/10/20 History Alvesco 2 puff INHALATION DAILY 08/12/20 09/10/20 History B-complex with vitamin C [Vitamin 1 tab PO DAILY 08/21/20 09/10/20 History B Complex-C] Dexamethasone 10mg/Ml Sdv 20 mg IV DIRECTED 08/21/20 09/10/20 History Diphenhydramine 50 Mg/Ml Sdv 50 mg IV DIRECTED 08/21/20 09/10/20 History Gammagard 1 Gm /10 Ml Inj 4 g IV DIRECTED 08/21/20 09/10/20 History Gammagard 20 Gm/200 Ml 20 g IV DIRECTED 08/21/20 09/10/20 History Magic Mouth Wash 5 ml PO ACHS 08/21/20 09/10/20 History ascorbic acid (vitamin C) [Vitamin 500 mg PO BID 08/21/20 09/10/20 History C] calcium polycarbophil [Fiber-Lax] 625 mg PO DAILY 08/21/20 09/10/20 History dextromethorphan-guaifenesin 1 tab PO Q12H 08/21/20 09/10/20 History [Mucinex DM] food supplemt, lactose-reduced 1 ea PO TID 08/21/20 09/10/20 History [Ensure] levalbuterol tartrate [Xopenex HFA] 2 inh INHALATION QID PRN 08/21/20 09/10/20 History pantoprazole 40 mg PO DAILY 08/21/20 09/10/20 History sodium chloride [Laurel Allergy and 1 spray INTRANASAL BID 08/21/20 09/10/20 History Sinus] tetrahydrozoline [Visine] 1 drp OPB QID 08/21/20 09/10/20 History ipratropium-albuterol [DuoNeb] 3 ml INHALATION Q6H 09/10/20 09/10/20 History levofloxacin [Levaquin] 750 mg PO DAILY 09/10/20 09/10/20 History Past Med/Surg History Medical History (Updated 09/10/20 @ 19:15 by Nicolas Argueta MD) Asthma Autoimmune hepatitis (02/25/13) Bronchiectasis Common variable immunodeficiency COVID-19 in immunocompromised patient Second episode of COVID-19 in 90 days with 2 negative tests in between Pneumonia due to 2019 novel coronavirus (~04/2020) Thrombocytopenia Surgical History Hx of colonoscopy Port-A-Cath in place (07/05/19) Insertion Of Mediport With Fluoroscopy Dr. Huang 07-05-19 Family History Other Family history non-contributory Social History Smoking Status: Former smoker Second Hand Exposure: No; Hx Alcohol Use: No Hx Substance Use: No Preferred Language: Qatari Communication Ability: Effective Bucket Operator Required: No Beliefs That Will Affect Care: None Current Living Situation: Other Current Living Situation Comment: [place] Feels Safe at Home: Yes Assistive Devices: None Review of Systems Review of Systems: Mild distress and fatigue, visably tremulous no headache, blurry or double vision no speech or swallowing issues pleuritic chest pain, pressure or palpitations baseline shortness of breath, states expectorated bloody sputum on day of admission no abdominal pain, nausea or vomiting, diarrhea or constipation no dysuria, hematuria or frequency no focal joint pain or swelling no back pain, CVA tenderness or radicular pain no bruising, bleeding or rashes no focal signs of weakness or numbness or altered sensation no complaints of anxiety or depression.. Physical Exam Physical Exam: The patient appeared thin and tremulous Vital signs as documented. Head exam is normocephalic atraumatic no scleral icterus Neck is without JVD, thyromegaly, or carotid bruits. Lungs are with expiratory wheezes and prolongued expiratory phase Cardiac exam, Rhythm is regular.. No murmurs, rubs or gallops. Abdominal exam reveals normal bowel sounds, soft non tender, no masses Extremities are nonedematous and both pedal pulses are present Neurologic exam is alert and oriented, no focal loss of strength or sensation, resting tremor Skin is without bruises or rashes Psychologically is without concerns for anxiety or depression Results & Data Results & Data ([facility]) Vital Signs (Past 12 Hours) Vital Signs Temp Pulse Pulse Resp BP BP Pulse Ox 09/10/20 17:40 23 100 09/10/20 17:31 69 31 H 113/77 100 09/10/20 17:30 64 28 H 98 09/10/20 17:20 64 29 H 99 09/10/20 17:10 62 28 H 99 09/10/20 17:01 70 21 99 09/10/20 17:00 67 32 H 111/75 99 09/10/20 16:50 70 31 H 99 09/10/20 16:40 61 23 99 09/10/20 16:31 59 L 30 H 118/74 100 09/10/20 16:30 60 29 H 100 09/10/20 16:20 68 20 100 09/10/20 16:10 59 L 31 H 100 09/10/20 16:01 60 31 H 128/81 97 09/10/20 16:00 60 36 H 99 09/10/20 15:50 57 L 28 H 100 09/10/20 15:40 60 30 H 100 09/10/20 15:31 60 27 H 100 09/10/20 15:30 60 29 H 101/66 100 09/10/20 15:20 62 27 H 99 09/10/20 15:10 63 27 H 100 09/10/20 15:01 63 24 99 09/10/20 15:00 62 31 H 103/68 99 09/10/20 14:50 75 15 09/10/20 14:43 62 20 99 09/10/20 14:40 73 18 98 09/10/20 14:31 67 32 H 93/60 L 98 09/10/20 14:30 67 66 29 H 93/60 L 90 09/10/20 14:20 66 26 H 98 09/10/20 14:10 68 30 H 97 09/10/20 14:01 71 25 H 97 09/10/20 14:00 72 35 H 97 09/10/20 13:50 66 27 H 99 09/10/20 13:43 65 25 H 99 09/10/20 13:37 69 20 94/60 L 98 09/10/20 13:34 65 26 H 94/60 L 99 09/10/20 13:20 97.7 F 66 22 94/61 L 98 PG Care Time/CCT Total # of Minutes Spent Total Time Spent with Patient: Total time spent is greater than 50% in phlebotomy coordinator rdination of care (as documented) at patient's floor/unit and/or counseling patient: Coding Level of Care Code 01982 Initial Inpt Care Lvl [address] scan of lung R91.8 Hypogammaglobulinemia D80.1 Esophageal varices I85.00 DVT prophylaxis Z29.9
[2020-09-10] MEDS ORDERED: KETOROLAC 30 MG/ML VIAL IV ONE (22:30)
[2020-09-10] MEDS ORDERED: KETOROLAC 30 MG/ML VIAL ONE (22:36)
[2020-09-10] MEDS ORDERED: NON-FORMULARY MEDICATION (Food Supplemt, Lactose-Reduced [Ensure] Liquid) PO SCH (23:46)
[2020-09-10] MEDS ORDERED: ALUMINUM/MAGNESIUM SUSP 30 ML UDC PO PRN (23:46)
[2020-09-10] MEDS ORDERED: ACETAMINOPHEN 325 MG TAB PO PRN (23:46)
[2020-09-11] MEDS: ALBUT/IPRATROP 3MG/0.5MG NEB 3 ML VIAL INH SCH ×5 (00:26→20:17)
[2020-09-11] MEDS: carvediloL 6.25 MG TAB PO SCH ×3 (01:21→20:12)
[2020-09-11] MEDS: AZITHROMYCIN 500 MG in DEXTROSE 5% 250 ML IV SCH (01:22)
[2020-09-11] MEDS: CEFEPIME 2,000 MG in SYRINGE 0 ML IV SCH ×3 (03:19→20:06)
[2020-09-11] MEDS: ONDANSETRON INJ 2 MG/ML 2 ML VIAL IV PRN (03:20)
[2020-09-11] MEDS: HEPARIN 100 UNIT/ML 5ML FLUSH FLUSH PRN ×2 (03:20→22:24)
[2020-09-11] MEDS: VANCOMYCIN HCL 1,000 MG in SODIUM CHLORIDE 0.9% 250 ML IV SCH ×3 (05:00→20:55)
[2020-09-11 05:28] LABS: Appearance Urine Clear (Clear); Bilirubin Urine Negative (Negative); Blood Urine Negative (Negative); Color Urine Yellow; Glucose Urine UA 3+ (Negative); Ketones Urine Negative (Negative); Leukocyte Esterase Urine Negative (Negative); Nitrite Urine Negative (Negative); Protein Urine Negative (Negative); Specific Gravity Urine 1.032 (1.000-1.030); Urobilinogen Urine Negative (Negative); pH Urine 6.5 (4.5-7.5)
[2020-09-11 05:42] LABS: Hematocrit (blood only) 28.2 % (42-52); Hemoglobin 9.6 g/dL (14.0-18.0); Mean Corpuscular Hemoglobin 27.6 pg (25-34); RDW Coefficient of Variation 16.8 % (11.5-14.5); RDW Standard Deviation 49.9 fL (36.4-46.3); Red Blood Count 3.48 M/uL (4.7-6.1)
[2020-09-11 06:00] LABS: Albumin Level 2.2 gm/dl (3.4-5.0); BUN Creatinine Ratio 19.8 (10-20); Calcium 7.7 mg/dl (8.5-10.1); Creatinine Clr Calc Pharmacy 100.7 ml/min; Est GFR (African American) 123.7; Est GFR (Non-African American) 106.8; Potassium 4.1 mmol/L (3.5-5.1)
[2020-09-11 06:03] LABS: Albumin Globulin Ratio 0.6 (0.9-2); Bilirubin,Total 0.3 mg/dl (0.2-1); Globulin 3.5 gm/dl (2.5-4.0); Mean Platelet Volume 10.6 fL (7.4-10.4); Platelet Count 76 K/uL (130-400); Total Protein 5.7 gm/dl (6.4-8.2)
[2020-09-11 06:04] LABS: Lymphocytes # (auto) 0.24 K/uL (1.2-3.4); Lymphocytes % (auto) 14.1 %; Monocytes # (auto) 0.06 K/uL (0.11-0.59); Monocytes % (auto) 3.5 %; Neutrophils % (auto) 82.4 %
[2020-09-11] MEDS: methylPREDNISolone 40 MG in SYRINGE 0 ML IV SCH ×2 (07:59→20:06)
[2020-09-11] MEDS: PANTOprazole 40 MG TAB PO SCH (08:00)
[2020-09-11] MEDS: ADVANCED PROBIOTIC 1250 MG CAPSULE PO SCH ×3 (08:00→16:29)
[2020-09-11] MEDS: CALCIUM POLYCARBOPHIL 625MG TAB PO SCH (08:00)
[2020-09-11] MEDS: FOLIC ACID 1 MG TAB PO SCH (08:00)
[2020-09-11] MEDS: SODIUM CHLORIDE 0.65% NA SOLN 45 ML (OCEAN) SCH ×2 (08:33→20:13)
[2020-09-11] MEDS: ARTIFICIAL TEARS OP SCH ×4 (08:33→20:12)
--- NOTE | 2020-09-11 09:58 | Pharmacy Report ---
Pharmacy Abx Initial Consult - Date of Service September 11, 2020 - Pharmacy Dosing Scope Date of Consult: 09/10/20 Consultation requested by: Dr. Argueta Pharmacy is consulted to initiate Vancomycin IV dosing therapy, order appropriate labs and adjust drug dose/frequency. - Subjective The patient is a 55 year old M admitted on 09/10/20 19:29. - Objective Height: 5 ft 7 in Weight: 58.7 kg Vital Signs (Past 12hrs): Vital Signs Temp Pulse Pulse Resp BP BP Pulse Ox 09/11/20 09:30 36 C L 09/11/20 09:00 35.7 C L 09/11/20 08:30 36.0 C L 09/11/20 08:00 35.9 C L 09/11/20 07:33 66 16 101/69 100 09/11/20 07:30 35.7 C L 09/11/20 07:22 48 L 16 99 09/11/20 06:31 35.5 C L 09/11/20 05:58 35.2 C L 09/11/20 05:30 35 C L 09/11/20 04:00 34.8 C L 58 L 20 109/75 98 09/11/20 02:50 66 09/11/20 00:29 70 18 96 09/10/20 23:58 36.4 C L 55 L 24 112/69 98 09/10/20 23:15 63 28 H 110/75 98 09/10/20 22:10 69 26 H 09/10/20 22:01 66 29 H 99 09/10/20 22:00 69 28 H 103/73 98 09/10/20 21:50 67 30 H 98 Lab Results (24hrs): Laboratory Tests (24 Hours) 09/11/20 09/11/20 09/11/20 05:27 05:27 05:27 WBC 1.70 L Neut # (Auto) 1.40 Creatinine 0.68 Est Cr Clr Drug Dosing 100.7 Procalcitonin < 0.05 09/10/20 09/10/20 09/10/20 14:00 14:00 14:00 WBC 3.09 L Neut # (Auto) 2.25 Creatinine 0.62 Est Cr Clr Drug Dosing 110.5 Procalcitonin 0.07 Micro Results: 09/11/20 Unknown Gram Stain - Final Sputum, Expectorated Sputum Culture - Pending 09/11/20 Unknown Urine Culture - Pending Urine,Clean Catch 09/10/20 15:55 Aerobic Blood Culture - Pending Blood Anaerobic Blood Culture - Pending 09/10/20 15:49 Aerobic Blood Culture - Pending Blood Anaerobic Blood Culture - Pending - Risk Factors for Resistance * Incarcerated * Hospitalization for 48 hours or more within the past 90 days * July 2020 for COVID * Immunocompromised * H/o B-cell lymphoma and autoimmune hepatitis/cirrhosis * Antimicrobial use within the last 90 days * Levofloxacin - Assessment & Plan Assessment 55 year old M admitted from [facility] secondary to fevers * PMHx significant for B-cell lymphoma, hypogammaglobulinemia, autoimmune hepatitis, and COPD * He is afebrile and with leukopenia but not neutropenic. Renal fxn stable. All cultures are pending. * Started on Vancomycin, Cefepime, and Azithromycin for pulm indication. * Pulmonology has been consulted. Plan Vancomycin for treatment of pulmonary infection Vancomycin IV * Loading dose: 1500 mg (26 mg/kg) * Maintenance dose: 1000 mg IV (17 mg/kg) every 8 hours * Goal trough level: 15 to 20 mcg/mL * Trough level ordered for morning Cefepime (not a pharmacy consult) * 2 g IV every 8 hours * Appropriate per indication and renal fxn Azithromycin (not a pharmacy consult) * 500 mg IV every 24 hours * Appropriate per indication Pharmacy will continue to follow and will adjust dose/frequency as necessary. Thank you.
--- NOTE | 2020-09-11 10:12 | Emergency Department Note ---
Impression & Plan COPD (chronic obstructive pulmonary disease) ED Provider Note NAME: VALERIO [id number] DANE AGE: 55 SEX: M ARRIVES VIA: Ambulance INFORMANT: Patient, [place] ED PROVIDER(S): Rochelle Nelson MD CHIEF COMPLAINT: Night sweats, fevers, CP PLAN: Disposition: Admit Condition: Fair Referral: Hospitalist MEDICAL DECISION MAKING: This pt was evaluated and appeared to be in no distress. IV access was obtained and lab work was drawn. Pt was placed on the monitoring coordinator and was noted to be in a NSR at 69 bpm. EKG reveals no evidence of acute abnl. CXR reveals multifocal opacities c/w interstitial/inflammatory pneumonitis. Pt was medicated with IV solumedral, given a duoneb tx. blood cx were obtained and pt was medicated with IV cefepime and vancomycin. CT scan of the chest was performed t o better evaluate the lung changes. There is no evidence of PE and findings are again c/w viral pneumonitis. CAse was d/w the hospitalist service for further management and likely pulmonary consultation. Triage Nursing notes reviewed. Prior medical records reviewed Vital Signs: reviewed and remarkable for no significant abnormalities Differential diagnosis: Reactive airway disease, pneumonia, pneumothorax, COPD, CHF, infections, cardiac ischemia, pulmonary embolism, musculoskeletal, gastrointestinal, as well as othe r pathologies. ER treatment provided: IV vancomycin IV cefepime IV solumedral Duoneb tx Diagnostics interpreted by me: ECG: NSR at 67 bpm low voltage QRS, no PVC, no PAC, no ST abnl, QTc 439. Cardiac Monitoring: An order for cardiac monitoring was placed and pt was noted to be in a NSR at 69 bpm. Laboratory studies: See below Imaging studies: XR chest 1V portable HISTORY: 55 years-old Male Fever acute fever COMPARISON: Chest radiograph 08/21/2020, CTA chest 08/12/2020 TECHNIQUE: Portable AP view of the chest FINDINGS: Cardiac silhouette is normal. Unchanged left pectoral Ddlwpr-[id number] catheter. No pneumothorax, or pleural effusion. Persistent bilateral upper lung zone predominant airspace opacities with associated interstitial coarsening. There is slightly improved aeration of the left lung with progressed interstitial opacities of the right lung base. Bones appear grossly intact. IMPRESSION: Persistent bilateral mixed interstitial and alveolar opacities suggestive of a multifocal infectious or inflammatory pneumonitis. ACT 112: Negative or not required by law. The above report was generated using voice recognition software. It may contain grammatical, syntax or spelling errors. Electronically signed by: Tres Wick M.D. 09/10/2020 2:37 PM Dictated: 09/10/201433Transcribed: 09/10/201433 CHEST CTA for PULMONARY ARTERIES CT DOSE: 228.13 mGy.cm HISTORY: Cough. Assess for pulmonary embolus. TECHNIQUE: Multiaxial CT images of the chest were performed following the intravenous administration of contrast to evaluate the pulmonary arteries. Maximal intensity projection images were also obtained. A dose lowering technique was utilized adhering to the principles of ALARA. COMPARISON STUDY: Chest CTA 08/12/2020. FINDINGS: The spleen is partially visualized and remains enlarged. The visualized liver is unremarkable. No pleural or pericardial effusions. The heart is normal in size. Normal caliber esophagus. Left jugular Port-A-Cath terminates in the distal SVC. Stable mild aneurysmal dilatation of the ascending thoracic aorta measuring up to 4 cm in diameter. No filling defects within the pulmonary arteries to suggest pulmonary embolus. No change in the mild mediastinal lymphadenopathy. The no fractures within the visualized osseous structures. No pneumothorax. Bronchial wall thickening and partial opacification of the bilateral lower lobe distal bronchi is not significantly changed. Slight progression of the upper lobe predominant scattered patchy groundglass airspace opacities. IMPRESSION: 1. No evidence for pulmonary embolus. 2. Slight progression of the multifocal groundglass airspace opacities demonstrating upper lobe predominance. This could represent an atypical/viral pneumonia or an inflammatory process. 3. Persistent splenomegaly and mediastinal lymphadenopathy. 4. No change in the mild aneurysmal dilatation of the ascending thoracic aorta measuring up to 4 cm. 5. Bilateral lower lobe bronchial wall thickening with a few opacified distal bronchi. This is also unchanged. ACT 112: Negative or not required by law. Electronically signed by: Ramses Valle M.D. 09/10/2020 6:04 PM Dictated: 09/10/201756Transcribed: 09/10/201756 Consultation(s): Hospitalist HPI: 55/M arrives for evaluation of CP and night sweats. Pt is a [facility] and suffers from chronic lung disease. He has been dx with COVID a month ago, but for the last 5 days has been waking up with night sweats. Pt was hospitalized last month. He was placed on Levaquin recently by the long-term medical staff but has been no improvement. He has had some sputum. Pt denies v/d. Pt admits to some midsternal CP without radiation. He feels it is worse with deep breath. ROS: See above HPI for pertinent positives & negatives. A total of 10 systems reviewed and were otherwise negative. PAST MEDICAL HISTORY:See Below PAST SURGICAL HISTORY:See Below FAMILY HISTORY:See Below SOCIAL HISTORY:See Below HOME MEDICATIONS:See Below ALLERGIES:See Below VITALS:See Below PHYSICAL EXAMINATION: Vital signs reviewed. General: Chronically ill appearing 55 yo male, thin and frail, in no significant distress. HEENT: No scleral icterus, PERRLA, neck supple. Cardiovascular: Regular rate and rhythm, no extra sounds. Pulmonary: Coarse BS to auscultation bilaterally, somewhat increased work of breathing. On n/c O2. Abdomen: Soft, nontender, nondistended, positive bowel sounds. Musculoskeletal: Atraumatic, no peripheral edema. Neurologic: Patient awake alert and oriented x 3, Skin: Warm, dry, no rash Rochelle Nelson MD Past Med/Surg History Medical History (Updated 09/14/20 @ 19:10 by Rochelle Nelson MD) Asthma Autoimmune hepatitis (02/25/13) Bronchiectasis Common variable immunodeficiency COVID-19 in immunocompromised patient Second episode of COVID-19 in 90 days with 2 negative tests in between Pneumonia due to 2019 novel coronavirus (~04/2020) Thrombocytopenia Surgical History Hx of colonoscopy Port-A-Cath in place (07/05/19) Insertion Of Mediport With Fluoroscopy Dr. Huang 07-05-19 Family History Other Family history non-contributory Social History Smoking Status: Former smoker Second Hand Exposure: No; Hx Alcohol Use: No Hx Substance Use: Yes Preferred Language: Maltese Communication Ability: Effective [employer] Required: No Beliefs That Will Affect Care: None marital status: Single Current Living Situation: Other Current Living Situation Comment: [facility] Feels Safe at Home: Yes Assistive Devices: Oxygen - Continuous Assistive Devices Comment: 3l Allergies Allergies Allergy/AdvReac Type Severity Reaction Status Date / Time Bactrim Allergy Mild RASH/BLEEDI Verified 01/10/13 14:22 NG sulfamethoxazole Allergy Mild RASH/BLEEDI Verified 09/10/20 14:34 NG trimethoprim Allergy Mild RASH/BLEEDI Verified 09/10/20 14:34 NG Home Meds Home Medications Medication Instructions Recorded Confirmed Lactobacillus acidophilus 1 0 cell PO TID 06/26/19 09/10/20 billion cell tablet carvedilol 6.25 mg tablet 6.25 mg PO BID tab 06/26/19 09/10/20 folic acid 1 mg tablet 1 mg PO DAILY 06/26/19 09/10/20 ondansetron HCl [Zofran] 8 mg PO TID PRN 07/03/19 09/10/20 Systane Gel 1 drp OPHTHALMIC (EYE) QID 05/15/20 09/10/20 acetaminophen [Tylenol] 325 mg PO BID PRN 05/15/20 09/10/20 Alvesco 2 puff INHALATION DAILY 08/12/20 09/10/20 B-complex with vitamin C [Vitamin 1 tab PO DAILY 08/21/20 09/10/20 B Complex-C] Dexamethasone 10mg/Ml Sdv 20 mg IV DIRECTED 08/21/20 09/10/20 Diphenhydramine 50 Mg/Ml Sdv 50 mg IV DIRECTED 08/21/20 09/10/20 Gammagard 1 Gm /10 Ml Inj 4 g IV DIRECTED 08/21/20 09/10/20 Gammagard 20 Gm/200 Ml 20 g IV DIRECTED 08/21/20 09/10/20 Magic Mouth Wash 5 ml PO ACHS 08/21/20 09/10/20 ascorbic acid (vitamin C) [Vitamin 500 mg PO BID 08/21/20 09/10/20 C] calcium polycarbophil [Fiber-Lax] 625 mg PO DAILY 08/21/20 09/10/20 dextromethorphan-guaifenesin 1 tab PO Q12H 08/21/20 09/10/20 [Mucinex DM] food supplemt, lactose-reduced 1 ea PO TID 08/21/20 09/10/20 [Ensure] levalbuterol tartrate [Xopenex HFA] 2 inh INHALATION QID PRN 08/21/20 09/10/20 pantoprazole 40 mg PO DAILY 08/21/20 09/10/20 sodium chloride [[place] Allergy and 1 spray INTRANASAL BID 08/21/20 09/10/20 Sinus] tetrahydrozoline [Visine] 1 drp OPB QID 08/21/20 09/10/20 ipratropium-albuterol [DuoNeb] 3 ml INHALATION Q6H 09/10/20 09/10/20 levofloxacin [Levaquin] 750 mg PO DAILY 09/10/20 09/10/20 Previous Rx's Medication Instructions Recorded umeclidinium 62.5 mcg-vilanterol 1 puffs INH DAILY #60 ea 01/05/20 25 mcg/actuation powdr for inhalation Results & Data (ED) Vital Signs Vital Signs - 24 hr 09/10/20 13:20 09/10/20 13:34 09/10/20 13:37 Temperature 36.5 C Temperature Source Oral Pulse Rate 66 65 Pulse Rate [Left Apical] 69 Pulse Rate from SpO2 Sensor 66 Pulse Rhythm Regular Pulse Rhythm [Left Apical] Regular Pulse Strength Normal Pulse Strength [Left Apical] Normal Respiratory Rate 22 26 H 20 Respiratory Effort / Characteristics Non-Labored Spontaneous Non-Labored Spontaneous Respiratory Depth Normal Normal Respiratory Pattern Regular Regular Blood Pressure 94/61 L 94/60 L Blood Pressure [Right Arm] 94/60 L Blood Pressure Mean 72 71 Blood Pressure Mean [Right Arm] 71 Blood Pressure Position Lying Blood Pressure Position [Right Arm] Lying Pulse Oximetry 98 99 98 Oxygen Delivery Method Nasal Cannula Nasal Cannula Oxygen Flow Rate 3 3 Sepsis Recent Fever Within 48 Hours Yes Sepsis New/Unexplained Change in Mental Status N/A Sepsis Action Taken by Nursing No Action Required 09/10/20 13:43 09/10/20 13:50 09/10/20 14:00 Temperature Temperature Source Pulse Rate 65 66 72 Pulse Rate [Left Apical] Pulse Rate from SpO2 Sensor 65 70 208 H Pulse Rhythm Pulse Rhythm [Left Apical] Pulse Strength Pulse Strength [Left Apical] Respiratory Rate 25 H 27 H 35 H Respiratory Effort / Characteristics Respiratory Depth Respiratory Pattern Blood Pressure Blood Pressure [Right Arm] Blood Pressure Mean Blood Pressure Mean [Right Arm] Blood Pressure Position Blood Pressure Position [Right Arm] Pulse Oximetry 99 99 97 Oxygen Delivery Method Oxygen Flow Rate Sepsis Recent Fever Within 48 Hours Sepsis New/Unexplained Change in Mental Status Sepsis Action Taken by Nursing 09/10/20 14:01 09/10/20 14:10 09/10/20 14:20 Temperature Temperature Source Pulse Rate 71 68 66 Pulse Rate [Left Apical] Pulse Rate from SpO2 Sensor 74 68 65 Pulse Rhythm Pulse Rhythm [Left Apical] Pulse Strength Pulse Strength [Left Apical] Respiratory Rate 25 H 30 H 26 H Respiratory Effort / Characteristics Respiratory Depth Respiratory Pattern Blood Pressure Blood Pressure [Right Arm] Blood Pressure Mean Blood Pressure Mean [Right Arm] Blood Pressure Position Blood Pressure Position [Right Arm] Pulse Oximetry 97 97 98 Oxygen Delivery Method Oxygen Flow Rate Sepsis Recent Fever Within 48 Hours Sepsis New/Unexplained Change in Mental Status Sepsis Action Taken by Nursing 09/10/20 14:30 09/10/20 14:31 09/10/20 14:40 Temperature Temperature Source Pulse Rate 67 67 73 Pulse Rate [Left Apical] 66 Pulse Rate from SpO2 Sensor 226 H 67 72 Pulse Rhythm Pulse Rhythm [Left Apical] Regular Pulse Strength Pulse Strength [Left Apical] Normal Respiratory Rate 29 H 32 H 18 Respiratory Effort / Characteristics Non-Labored Spontaneous Respiratory Depth Normal Respiratory Pattern Regular Blood Pressure 93/60 L Blood Pressure [Right Arm] 93/60 L Blood Pressure Mean 71 Blood Pressure Mean [Right Arm] 71 Blood Pressure Position Blood Pressure Position [Right Arm] Lying Pulse Oximetry 90 98 98 Oxygen Delivery Method Nasal Cannula Oxygen Flow Rate 3 Sepsis Recent Fever Within 48 Hours Sepsis New/Unexplained Change in Mental Status Sepsis Action Taken by Nursing 09/10/20 14:43 09/10/20 14:50 09/10/20 15:00 Temperature Temperature Source Pulse Rate 75 62 Pulse Rate [Left Apical] 62 Pulse Rate from SpO2 Sensor 61 Pulse Rhythm Pulse Rhythm [Left Apical] Pulse Strength Pulse Strength [Left Apical] Respiratory Rate 20 15 31 H Respiratory Effort / Characteristics Spontaneous Respiratory Depth Respiratory Pattern Blood Pressure 103/68 Blood Pressure [Right Arm] Blood Pressure Mean 79 Blood Pressure Mean [Right Arm] Blood Pressure Position Blood Pressure Position [Right Arm] Pulse Oximetry 99 99 Oxygen Delivery Method Nasal Cannula Oxygen Flow Rate 2 Sepsis Recent Fever Within 48 Hours Sepsis New/Unexplained Change in Mental Status Sepsis Action Taken by Nursing 09/10/20 15:01 09/10/20 15:10 09/10/20 15:20 Temperature Temperature Source Pulse Rate 63 63 62 Pulse Rate [Left Apical] Pulse Rate from SpO2 Sensor 63 63 64 Pulse Rhythm Pulse Rhythm [Left Apical] Pulse Strength Pulse Strength [Left Apical] Respiratory Rate 24 27 H 27 H Respiratory Effort / Characteristics Respiratory Depth Respiratory Pattern Blood Pressure Blood Pressure [Right Arm] Blood Pressure Mean Blood Pressure Mean [Right Arm] Blood Pressure Position Blood Pressure Position [Right Arm] Pulse Oximetry 99 100 99 Oxygen Delivery Method Oxygen Flow Rate Sepsis Recent Fever Within 48 Hours Sepsis New/Unexplained Change in Mental Status Sepsis Action Taken by Nursing 09/10/20 15:30 09/10/20 15:31 09/10/20 15:40 Temperature Temperature Source Pulse Rate 60 60 60 Pulse Rate [Left Apical] Pulse Rate from SpO2 Sensor 60 60 60 Pulse Rhythm Pulse Rhythm [Left Apical] Pulse Strength Pulse Strength [Left Apical] Respiratory Rate 29 H 27 H 30 H Respiratory Effort / Characteristics Respiratory Depth Respiratory Pattern Blood Pressure 101/66 Blood Pressure [Right Arm] Blood Pressure Mean 77 Blood Pressure Mean [Right Arm] Blood Pressure Position Blood Pressure Position [Right Arm] Pulse Oximetry 100 100 100 Oxygen Delivery Method Oxygen Flow Rate Sepsis Recent Fever Within 48 Hours Sepsis New/Unexplained Change in Mental Status Sepsis Action Taken by Nursing 09/10/20 15:50 09/10/20 16:00 09/10/20 16:01 Temperature Temperature Source Pulse Rate 57 L 60 60 Pulse Rate [Left Apical] Pulse Rate from SpO2 Sensor 58 L 62 61 Pulse Rhythm Pulse Rhythm [Left Apical] Pulse Strength Pulse Strength [Left Apical] Respiratory Rate 28 H 36 H 31 H Respiratory Effort / Characteristics Respiratory Depth Respiratory Pattern Blood Pressure 128/81 Blood Pressure [Right Arm] Blood Pressure Mean 96 Blood Pressure Mean [Right Arm] Blood Pressure Position Blood Pressure Position [Right Arm] Pulse Oximetry 100 99 97 Oxygen Delivery Method Oxygen Flow Rate Sepsis Recent Fever Within 48 Hours Sepsis New/Unexplained Change in Mental Status Sepsis Action Taken by Nursing 09/10/20 16:10 09/10/20 16:20 09/10/20 16:30 Temperature Temperature Source Pulse Rate 59 L 68 60 Pulse Rate [Left Apical] Pulse Rate from SpO2 Sensor 58 L 73 134 H Pulse Rhythm Pulse Rhythm [Left Apical] Pulse Strength Pulse Strength [Left Apical] Respiratory Rate 31 H 20 29 H Respiratory Effort / Characteristics Respiratory Depth Respiratory Pattern Blood Pressure Blood Pressure [Right Arm] Blood Pressure Mean Blood Pressure Mean [Right Arm] Blood Pressure Position Blood Pressure Position [Right Arm] Pulse Oximetry 100 100 100 Oxygen Delivery Method Oxygen Flow Rate Sepsis Recent Fever Within 48 Hours Sepsis New/Unexplained Change in Mental Status Sepsis Action Taken by Nursing 09/10/20 16:31 09/10/20 16:40 09/10/20 16:50 Temperature Temperature Source Pulse Rate 59 L 61 70 Pulse Rate [Left Apical] Pulse Rate from SpO2 Sensor 60 63 70 Pulse Rhythm Pulse Rhythm [Left Apical] Pulse Strength Pulse Strength [Left Apical] Respiratory Rate 30 H 23 31 H Respiratory Effort / Characteristics Respiratory Depth Respiratory Pattern Blood Pressure 118/74 Blood Pressure [Right Arm] Blood Pressure Mean 88 Blood Pressure Mean [Right Arm] Blood Pressure Position Blood Pressure Position [Right Arm] Pulse Oximetry 100 99 99 Oxygen Delivery Method Oxygen Flow Rate Sepsis Recent Fever Within 48 Hours Sepsis New/Unexplained Change in Mental Status Sepsis Action Taken by Nursing 09/10/20 17:00 09/10/20 17:01 09/10/20 17:10 Temperature Temperature Source Pulse Rate 67 70 62 Pulse Rate [Left Apical] Pulse Rate from SpO2 Sensor 66 69 62 Pulse Rhythm Pulse Rhythm [Left Apical] Pulse Strength Pulse Strength [Left Apical] Respiratory Rate 32 H 21 28 H Respiratory Effort / Characteristics Respiratory Depth Respiratory Pattern Blood Pressure 111/75 Blood Pressure [Right Arm] Blood Pressure Mean 87 Blood Pressure Mean [Right Arm] Blood Pressure Position Blood Pressure Position [Right Arm] Pulse Oximetry 99 99 99 Oxygen Delivery Method Oxygen Flow Rate Sepsis Recent Fever Within 48 Hours Sepsis New/Unexplained Change in Mental Status Sepsis Action Taken by Nursing 09/10/20 17:20 09/10/20 17:30 09/10/20 17:31 Temperature Temperature Source Pulse Rate 64 64 69 Pulse Rate [Left Apical] Pulse Rate from SpO2 Sensor 65 65 68 Pulse Rhythm Pulse Rhythm [Left Apical] Pulse Strength Pulse Strength [Left Apical] Respiratory Rate 29 H 28 H 31 H Respiratory Effort / Characteristics Respiratory Depth Respiratory Pattern Blood Pressure 113/77 Blood Pressure [Right Arm] Blood Pressure Mean 89 Blood Pressure Mean [Right Arm] Blood Pressure Position Blood Pressure Position [Right Arm] Pulse Oximetry 99 98 100 Oxygen Delivery Method Oxygen Flow Rate Sepsis Recent Fever Within 48 Hours Sepsis New/Unexplained Change in Mental Status Sepsis Action Taken by Nursing 09/10/20 17:40 09/10/20 18:30 09/10/20 18:40 Temperature Temperature Source Pulse Rate 77 Pulse Rate [Left Apical] Pulse Rate from SpO2 Sensor 76 84 75 Pulse Rhythm Pulse Rhythm [Left Apical] Pulse Strength Pulse Strength [Left Apical] Respiratory Rate 23 21 Respiratory Effort / Characteristics Respiratory Depth Respiratory Pattern Blood Pressure Blood Pressure [Right Arm] Blood Pressure Mean Blood Pressure Mean [Right Arm] Blood Pressure Position Blood Pressure Position [Right Arm] Pulse Oximetry 100 99 99 Oxygen Delivery Method Oxygen Flow Rate Sepsis Recent Fever Within 48 Hours Sepsis New/Unexplained Change in Mental Status Sepsis Action Taken by Nursing 09/10/20 18:46 09/10/20 18:50 09/10/20 19:00 Temperature Temperature Source Pulse Rate 69 Pulse Rate [Left Apical] Pulse Rate from SpO2 Sensor 69 78 77 Pulse Rhythm Pulse Rhythm [Left Apical] Pulse Strength Pulse Strength [Left Apical] Respiratory Rate 25 H 28 H 36 H Respiratory Effort / Characteristics Respiratory Depth Respiratory Pattern Blood Pressure 128/82 122/83 Blood Pressure [Right Arm] Blood Pressure Mean 97 96 Blood Pressure Mean [Right Arm] Blood Pressure Position Blood Pressure Position [Right Arm] Pulse Oximetry 98 99 98 Oxygen Delivery Method Oxygen Flow Rate Sepsis Recent Fever Within 48 Hours Sepsis New/Unexplained Change in Mental Status Sepsis Action Taken by Nursing 09/10/20 19:01 09/10/20 19:10 09/10/20 19:20 Temperature Temperature Source Pulse Rate 67 Pulse Rate [Left Apical] Pulse Rate from SpO2 Sensor 74 82 68 Pulse Rhythm Pulse Rhythm [Left Apical] Pulse Strength Pulse Strength [Left Apical] Respiratory Rate 33 H 29 H 33 H Respiratory Effort / Characteristics Respiratory Depth Respiratory Pattern Blood Pressure Blood Pressure [Right Arm] Blood Pressure Mean Blood Pressure Mean [Right Arm] Blood Pressure Position Blood Pressure Position [Right Arm] Pulse Oximetry 98 98 97 Oxygen Delivery Method Oxygen Flow Rate Sepsis Recent Fever Within 48 Hours Sepsis New/Unexplained Change in Mental Status Sepsis Action Taken by Skilled Nursing Medications Current Medication List: was personally reviewed by me Laboratory Data Attestation: I reviewed the patient's lab results. Result diagrams: 09/14/20 05:53 09/14/20 05:53 Lab Results 09/10/20 09/10/20 09/10/20 Range/Units 14:00 14:00 14:00 WBC 3.09 L (4.8-10.8) K/uL RBC 3.52 L (4.7-6.1) M/uL Hgb 9.8 L (14.0-18.0) g/dL Hct 29.4 L (42-52) % MCV 83.5 (80-100) fL MCH 27.8 (25-34) pg MCHC 33.3 (32-36) g/dL RDW Std Deviation 51.5 H (36.4-46.3) fL RDW Coeff of John 16.8 H (11.5-14.5) % Plt Count 68 L (130-400) K/uL MPV 9.7 (7.4-10.4) fL Immature Gran % (Auto) 0.6 % Neut % (Auto) 72.9 % Lymph % (Auto) 16.8 % [place] % (Auto) 9.4 % Eos % (Auto) 0.0 % Baso % (Auto) 0.3 % Neut # (Auto) 2.25 (1.4-6.5) K/uL Lymph # (Auto) 0.52 L (1.2-3.4) K/uL [place] # (Auto) 0.29 (0.11-0.59) K/uL Eos # (Auto) 0.00 (0-0.5) K/uL Baso # (Auto) 0.01 (0-0.2) K/uL Immature Gran # (Auto) 0.02 (0.00-0.02) K/uL Ovalocytes 1+ Sodium 133 L (136-145) mmol/L Potassium 4.2 (3.5-5.1) mmol/L Chloride 102 (98-107) mmol/L Carbon Dioxide 28 (21-32) mmol/L Anion Gap 3.0 (3-11) BUN 12 (7-18) mg/dl Creatinine 0.62 (0.6-1.4) mg/dl Est Cr Clr Drug Dosing 110.5 ml/min Est GFR ( Amer) 128.5 Est GFR (Non-Af Amer) 110.9 BUN/Creatinine Ratio 19.6 (10-20) Glucose 101 H (70-99) mg/dl Lactate (0.4-2.0) mmol/L Calcium 8.2 L (8.5-10.1) mg/dl Total Bilirubin 0.6 (0.2-1) mg/dl AST 30 (15-37) U/L ALT 27 (12-78) U/L Alkaline Phosphatase 157 H (45-117) U/L Troponin I 0.016 (0-0.045) ng/ml Total Protein 5.8 L (6.4-8.2) gm/dl Albumin 2.5 L (3.4-5.0) gm/dl Globulin 3.3 (2.5-4.0) gm/dl Albumin/Globulin Ratio 0.8 L (0.9-2) Procalcitonin 0.07 (0-0.5) ng/ml COVID-19 Eval Order SARS-CoV-2 (PCR) (Negative) Influenza Type A (PCR) (Neg) Influenza Type B (PCR) (Neg) RSV (RT-PCR) (Neg) 09/10/20 09/10/20 09/10/20 Range/Units 14:55 14:55 15:49 WBC (4.8-10.8) K/uL RBC (4.7-6.1) M/uL Hgb (14.0-18.0) g/dL Hct (42-52) % MCV (80-100) fL MCH (25-34) pg MCHC (32-36) g/dL RDW Std Deviation (36.4-46.3) fL RDW Coeff of John (11.5-14.5) % Plt Count (130-400) K/uL MPV (7.4-10.4) fL Immature Gran % (Auto) % Neut % (Auto) % Lymph % (Auto) % [place] % (Auto) % Eos % (Auto) % Baso % (Auto) % Neut # (Auto) (1.4-6.5) K/uL Lymph # (Auto) (1.2-3.4) K/uL [place] # (Auto) (0.11-0.59) K/uL Eos # (Auto) (0-0.5) K/uL Baso # (Auto) (0-0.2) K/uL Immature Gran # (Auto) (0.00-0.02) K/uL Ovalocytes Sodium (136-145) mmol/L Potassium (3.5-5.1) mmol/L Chloride (98-107) mmol/L Carbon Dioxide (21-32) mmol/L Anion Gap (3-11) BUN (7-18) mg/dl Creatinine (0.6-1.4) mg/dl Est Cr Clr Drug Dosing ml/min Est GFR ( Amer) Est GFR (Non-Af Amer) BUN/Creatinine Ratio (10-20) Glucose (70-99) mg/dl Lactate 0.8 (0.4-2.0) mmol/L Calcium (8.5-10.1) mg/dl Total Bilirubin (0.2-1) mg/dl AST (15-37) U/L ALT (12-78) U/L Alkaline Phosphatase (45-117) U/L Troponin I (0-0.045) ng/ml Total Protein (6.4-8.2) gm/dl Albumin (3.4-5.0) gm/dl Globulin (2.5-4.0) gm/dl Albumin/Globulin Ratio (0.9-2) Procalcitonin (0-0.5) ng/ml COVID-19 Eval Order [facility]FluRsv at [facility] SARS-CoV-2 (PCR) NEGATIVE (Negative) Influenza Type A (PCR) Negative (Neg) Influenza Type B (PCR) Negative (Neg) RSV (RT-PCR) Negative (Neg) Administered Medications Acetaminophen (Acetaminophen 325 Mg Tab) 650 mg PO Q4H PRN PRN Reason: Pain or Fever Stop: 10/10/20 23:45 Last Admin: 09/14/20 07:56 Dose: 650 mg Documented by: [id number] Admin: 09/12/20 20:53 Dose: 650 mg Documented by: [id number] Admin: 09/12/20 14:33 Dose: 650 mg Documented by: [id number] Albuterol (Albut/Ipratrop 3mg/0.5mg Neb 3 Ml Vial) 3 ml INH Q6R JEN Stop: 10/10/20 23:45 Last Admin: 09/14/20 13:31 Dose: 3 ml Documented by: [id number] Admin: 09/14/20 07:35 Dose: 3 ml Documented by: [id number] Admin: 09/14/20 00:11 Dose: 3 ml Documented by: [id number] Admin: 09/13/20 19:40 Dose: 3 ml Documented by: [id number] Admin: 09/13/20 14:01 Dose: 3 ml Documented by: [id number] Admin: 09/13/20 07:53 Dose: 3 ml Documented by: [id number] Admin: 09/13/20 00:03 Dose: 3 ml Documented by: [id number] Admin: 09/12/20 19:06 Dose: 3 ml Documented by: [id number] Admin: 09/12/20 14:07 Dose: 3 ml Documented by: [id number] Admin: 09/12/20 07:11 Dose: 3 ml Documented by: [id number] Admin: 09/12/20 01:24 Dose: 3 ml Documented by: [id number] Admin: 09/11/20 20:17 Dose: 3 ml Documented by: [id number] Admin: 09/11/20 13:48 Dose: 3 ml Documented by: [id number] Admin: 09/11/20 07:20 Dose: 3 ml Documented by: [id number] Admin: 09/11/20 00:26 Dose: Not Given Documented by: [id number] Admin: 09/11/20 00:26 Dose: 3 ml Documented by: [id number] Artificial Tears (Artificial Tears) 1 drops OP QID JEN Stop: 10/11/20 08:59 Last Admin: 09/14/20 16:53 Dose: 1 drops Documented by: [id number] Admin: 09/14/20 12:07 Dose: 1 drops Documented by: [id number] Admin: 09/14/20 07:56 Dose: 1 drops Documented by: [id number] Admin: 09/13/20 21:30 Dose: 1 drops Documented by: [id number] Admin: 09/13/20 17:00 Dose: 1 drops Documented by: [id number] Admin: 09/13/20 12:10 Dose: 1 drops Documented by: [id number] Admin: 09/13/20 07:49 Dose: 1 drops Documented by: [id number] Admin: 09/12/20 20:50 Dose: 1 drops Documented by: [id number] Admin: 09/12/20 16:47 Dose: 1 drops Documented by: [id number] Admin: 09/12/20 12:47 Dose: Not Given Documented by: [id number] Admin: 09/12/20 08:38 Dose: Not Given Documented by: [id number] Admin: 09/11/20 20:12 Dose: 1 drops Documented by: [id number] Admin: 09/11/20 16:30 Dose: 1 drops Documented by: [id number] Admin: 09/11/20 13:01 Dose: Not Given Documented by: [id number] Admin: 09/11/20 08:33 Dose: 1 drops Documented by: [id number] Calcium Polycarbophil (Calcium Polycarbophil 625mg Tab) 625 mg PO DAILY JEN Stop: 10/11/20 08:59 Last Admin: 09/14/20 07:56 Dose: 625 mg Documented by: [id number] Admin: 09/13/20 07:49 Dose: 625 mg Documented by: [id number] Admin: 09/12/20 08:38 Dose: 625 mg Documented by: [id number] Admin: 09/11/20 08:00 Dose: 625 mg Documented by: [id number] Carvedilol (Carvedilol 6.25 Mg Tab) 6.25 mg PO BID JEN Stop: 10/10/20 23:45 Last Admin: 09/14/20 07:55 Dose: 6.25 mg Documented by: [id number] Admin: 09/13/20 21:30 Dose: 6.25 mg Documented by: [id number] Admin: 09/13/20 07:48 Dose: 6.25 mg Documented by: [id number] Admin: 09/12/20 20:50 Dose: 6.25 mg Documented by: [id number] Admin: 09/12/20 08:38 Dose: Not Given Documented by: [id number] Admin: 09/11/20 20:12 Dose: 6.25 mg Documented by: [id number] Admin: 09/11/20 08:06 Dose: Not Given Documented by: [id number] Admin: 09/11/20 01:21 Dose: 6.25 mg Documented by: [id number] Folic Acid (Folic Acid 1 Mg Tab) 1 mg PO DAILY JEN Stop: 10/11/20 08:59 Last Admin: 09/14/20 07:56 Dose: 1 mg Documented by: [id number] Admin: 09/13/20 07:49 Dose: 1 mg Documented by: [id number] Admin: 09/12/20 08:37 Dose: 1 mg Documented by: [id number] Admin: 09/11/20 08:00 Dose: 1 mg Documented by: [id number] Guaifenesin/Dextromethorphan (Guaifenesin/Dextrom Syrup 200mg/20mg 10ml Udc) 10 ml PO Q12H PRN PRN Reason: Cough Stop: 10/11/20 01:15 Last Admin: 09/13/20 07:49 Dose: 10 ml Documented by: [id number] Heparin Sodium (Porcine) (Heparin 100 Unit/Ml 5ml Flush) 5 ml FLUSH PRN PRN PRN Reason: Flush Stop: 10/11/20 00:28 Last Admin: 09/14/20 00:13 Dose: 5 ml Documented by: [id number] Admin: 09/12/20 03:09 Dose: 5 ml Documented by: [id number] Admin: 09/11/20 22:24 Dose: 5 ml Documented by: [id number] Admin: 09/11/20 03:20 Dose: 5 ml Documented by: [id number] Azithromycin 500 mg/ Dextrose 255 mls @ 125 mls/hr IV Q24H JEN Stop: 09/18/20 00:59 Last Infusion: 09/14/20 03:46 Dose: 0 mls/hr Documented by: [id number] Admin: 09/14/20 01:42 Dose: 125 mls/hr Documented by: [id number] Infusion: 09/13/20 03:24 Dose: 0 mls/hr Documented by: [id number] Admin: 09/13/20 00:59 Dose: 125 mls/hr Documented by: [id number] Infusion: 09/12/20 03:15 Dose: 0 mls/hr Documented by: [id number] Admin: 09/12/20 01:09 Dose: 125 mls/hr Documented by: [id number] Infusion: 09/11/20 03:57 Dose: 0 mls/hr Documented by: [id number] Admin: 09/11/20 01:22 Dose: 125 mls/hr Documented by: [id number] Cefepime HCl 2,000 mg/ Syringe 20 mls @ 5 mls/min IV Q8H JEN; Protocol Stop: 09/18/20 02:59 Last Admin: 09/14/20 12:08 Dose: 5 mls/min Documented by: [id number] Admin: 09/14/20 03:46 Dose: 5 mls/min Documented by: [id number] Admin: 09/13/20 19:04 Dose: 5 mls/min Documented by: [id number] Admin: 09/13/20 12:10 Dose: 5 mls/min Documented by: [id number] Admin: 09/13/20 03:19 Dose: 5 mls/min Documented by: [id number] Admin: 09/12/20 19:09 Dose: 5 mls/min Documented by: [id number] Admin: 09/12/20 12:43 Dose: 5 mls/min Documented by: [id number] Admin: 09/12/20 03:09 Dose: 5 mls/min Documented by: [id number] Admin: 09/11/20 20:06 Dose: 5 mls/min Documented by: [id number] Admin: 09/11/20 11:05 Dose: 5 mls/min Documented by: [id number] Admin: 09/11/20 03:19 Dose: 5 mls/min Documented by: [id number] Dextrose/Sodium Chloride (D5w And 1/2nss) 1,000 mls @ 80 mls/hr IV .[id number] JEN Stop: 10/12/20 11:59 Last Admin: 09/14/20 13:54 Dose: 80 mls/hr Documented by: [id number] Infusion: 09/14/20 13:54 Dose: 80 mls/hr Documented by: [id number] Admin: 09/14/20 01:30 Dose: 80 mls/hr Documented by: [id number] Infusion: 09/14/20 01:23 Dose: 0 mls/hr Documented by: [id number] Admin: 09/13/20 12:10 Dose: 80 mls/hr Documented by: [id number] Infusion: 09/13/20 12:10 Dose: 80 mls/hr Documented by: [id number] Admin: 09/13/20 00:59 Dose: 80 mls/hr Documented by: [id number] Infusion: 09/13/20 00:59 Dose: 80 mls/hr Documented by: [id number] Admin: 09/12/20 13:22 Dose: 80 mls/hr Documented by: [id number] Lactobacillus Acidoph/Casei/Rhamnos (Advanced Probiotic 1250 Mg Capsule) 2 cap PO TIDM JEN Stop: 10/11/20 07:59 Last Admin: 09/14/20 16:53 Dose: 2 cap Documented by: [id number] Admin: 09/14/20 12:07 Dose: 2 cap Documented by: [id number] Admin: 09/14/20 07:55 Dose: 2 cap Documented by: [id number] Admin: 09/13/20 17:00 Dose: 2 cap Documented by: [id number] Admin: 09/13/20 12:10 Dose: 2 cap Documented by: [id number] Admin: 09/13/20 07:48 Dose: 2 cap Documented by: [id number] Admin: 09/12/20 16:48 Dose: 2 cap Documented by: [id number] Admin: 09/12/20 15:48 Dose: Not Given Documented by: [id number] Admin: 09/12/20 08:38 Dose: 2 cap Documented by: [id number] Admin: 09/11/20 16:29 Dose: 2 cap Documented by: [id number] Admin: 09/11/20 11:05 Dose: 2 cap Documented by: [id number] Admin: 09/11/20 08:00 Dose: 2 cap Documented by: [id number] Miscellaneous (Tetrahydrozoline 0.05 % Drops: Order Awaiting Action) 1 ea N/A QS JEN Stop: 10/11/20 07:59 Last Admin: 09/14/20 12:21 Dose: Not Given Documented by: [id number] Admin: 09/14/20 07:11 Dose: Not Given Documented by: [id number] Admin: 09/14/20 00:14 Dose: Not Given Documented by: [id number] Admin: 09/13/20 16:21 Dose: Not Given Documented by: [id number] Admin: 09/13/20 07:04 Dose: Not Given Documented by: [id number] Admin: 09/13/20 00:08 Dose: Not Given Documented by: [id number] Admin: 09/12/20 16:00 Dose: Not Given Documented by: [id number] Admin: 09/12/20 08:38 Dose: Not Given Documented by: [id number] Admin: 09/12/20 01:10 Dose: Not Given Documented by: [id number] Admin: 09/11/20 16:30 Dose: Not Given Documented by: [id number] Admin: 09/11/20 08:00 Dose: Not Given Documented by: [id number] Ondansetron HCl (Ondansetron Inj 2 Mg/Ml 2 Ml Vial) 4 mg IV Q6H PRN PRN Reason: Nausea Stop: 10/10/20 23:45 Last Admin: 09/11/20 03:20 Dose: 4 mg Documented by: [id number] Pantoprazole Sodium (Pantoprazole 40 Mg Tab) 40 mg PO DAILY JEN Stop: 10/11/20 08:59 Last Admin: 09/14/20 07:56 Dose: 40 mg Documented by: [id number] Admin: 09/13/20 07:49 Dose: 40 mg Documented by: [id number] Admin: 09/12/20 08:38 Dose: 40 mg Documented by: [id number] Admin: 09/11/20 08:00 Dose: 40 mg Documented by: [id number] Sodium Chloride (Sodium Chloride 0.65% Na Soln 45 Ml ([place])) 1 sprays NA BID JEN Stop: 10/11/20 08:59 Last Admin: 09/14/20 07:56 Dose: 1 sprays Documented by: [id number] Admin: 09/13/20 21:30 Dose: 1 sprays Documented by: [id number] Admin: 09/13/20 07:49 Dose: 1 sprays Documented by: [id number] Admin: 09/12/20 20:50 Dose: 1 sprays Documented by: [id number] Admin: 09/12/20 08:38 Dose: 1 sprays Documented by: [id number] Admin: 09/11/20 20:13 Dose: 1 sprays Documented by: [id number] Admin: 09/11/20 08:33 Dose: 1 sprays Documented by: [id number] Discontinued Medications Albuterol (Albut/Ipratrop 3mg/0.5mg Neb 3 Ml Vial) 3 ml NEB NOW STA Stop: 09/10/20 14:08 Last Admin: 09/10/20 14:43 Dose: 3 ml Documented by: [id number] Fentanyl Citrate (Fentanyl Citrate 100 Mcg/2 Ml Vial) Confirm Administered Dose 200 mcg .ROUTE .STK-MED ONE Stop: 09/12/20 10:01 Last Admin: 09/12/20 11:23 Dose: 200 mcg Documented by: [id number] Sodium Chloride (Nss 1000ml) 1,000 mls @ 999 mls/hr IV .Q1H1M STA Stop: 09/10/20 15:03 Last Infusion: 09/10/20 16:00 Dose: 0 mls/hr Documented by: [id number] Admin: 09/10/20 14:53 Dose: 999 mls/hr Documented by: [id number] Sodium Chloride (Nss 1000ml) 1,000 mls @ 125 mls/hr IV .Q8H STA Stop: 09/10/20 22:02 Last Infusion: 09/11/20 00:38 Dose: 0 mls/hr Documented by: [id number] Admin: 09/10/20 16:00 Dose: 125 mls/hr Documented by: [id number] Vancomycin HCl 1,500 mg/ (Sodium Chloride) 530 mls @ 200 mls/hr IV NOW ONE Stop: 09/10/20 21:04 Last Infusion: 09/10/20 21:30 Dose: 0 mls/hr Documented by: [id number] Admin: 09/10/20 18:46 Dose: 200 mls/hr Documented by: [id number] Cefepime HCl (Maxipime) 2,000 mg in 20 mls @ 5 mls/min IV NOW STA; Protocol Stop: 09/10/20 18:29 Last Admin: 09/10/20 18:45 Dose: 5 mls/min Documented by: [id number] Methylprednisolone 40 mg/ (Syringe) 0.64 mls @ 1.5 mls/min IV Q12H JEN Stop: 10/11/20 07:59 Last Admin: 09/13/20 07:48 Dose: 1.5 mls/min Documented by: [id number] Admin: 09/12/20 20:49 Dose: 1.5 mls/min Documented by: [id number] Admin: 09/12/20 08:38 Dose: 1.5 mls/min Documented by: [id number] Admin: 09/11/20 20:06 Dose: 1.5 mls/min Documented by: [id number] Admin: 09/11/20 07:59 Dose: 1.5 mls/min Documented by: [id number] Vancomycin HCl 1,000 mg/ (Sodium Chloride) 270 mls @ 200 mls/hr IV Q8H JEN Stop: 09/18/20 03:59 Last Infusion: 09/12/20 14:16 Dose: 0 mls/hr Documented by: [id number] Admin: 09/12/20 12:47 Dose: 200 mls/hr Documented by: [id number] Infusion: 09/12/20 06:21 Dose: 0 mls/hr Documented by: [id number] Admin: 09/12/20 04:56 Dose: 200 mls/hr Documented by: [id number] Infusion: 09/11/20 22:26 Dose: 0 mls/hr Documented by: [id number] Admin: 09/11/20 20:55 Dose: 200 mls/hr Documented by: [id number] Infusion: 09/11/20 14:22 Dose: 0 mls/hr Documented by: [id number] Admin: 09/11/20 13:01 Dose: 200 mls/hr Documented by: [id number] Infusion: 09/11/20 06:22 Dose: 0 mls/hr Documented by: [id number] Admin: 09/11/20 05:00 Dose: 200 mls/hr Documented by: [id number] Sodium Chloride (Nss 1000ml) 500 mls @ 999 mls/hr IV .Q31M ONE Stop: 09/12/20 12:37 Last Infusion: 09/12/20 11:44 Dose: 0 mls/hr Documented by: [id number] Admin: 09/12/20 11:13 Dose: 999 mls/hr Documented by: [id number] Methylprednisolone 40 mg/ (Syringe) 0.64 mls @ 1.5 mls/min IV DAILY JEN Stop: 10/14/20 08:59 Last Admin: 09/14/20 07:56 Dose: 1.5 mls/min Documented by: [id number] Ioversol (Optiray 320 125ml) 119 ml IV ONCE ONE Stop: 09/10/20 17:51 Last Admin: 09/10/20 17:50 Dose: 119 ml Documented by: [id number] Ketorolac Tromethamine (Ketorolac 30 Mg/Ml Vial) 30 mg IV NOW ONE Stop: 09/10/20 22:31 Last Admin: 09/10/20 22:40 Dose: 30 mg Documented by: [id number] Ketorolac Tromethamine (Ketorolac 30 Mg/Ml Vial) Confirm Administered Dose 30 mg .ROUTE .STK-MED ONE Stop: 09/10/20 22:37 Last Admin: 09/10/20 22:40 Dose: Not Given Documented by: [id number] Lidocaine HCl (Lidocaine Hcl 2% (Local) Inj 50 Ml Vial) Confirm Administered Dose 50 ml .ROUTE .STK-MED ONE Stop: 09/12/20 10:05 Last Admin: 09/12/20 12:38 Dose: Not Given Documented by: [id number] Methylprednisolone (Methylprednisolone 125 Mg/2 Ml Vial) 60 mg IV NOW STA Stop: 09/10/20 14:08 Last Admin: 09/10/20 14:53 Dose: 60 mg Documented by: [id number] Methylprednisolone (Methylprednisolone 125 Mg/2 Ml Vial) 125 mg IV NOW STA Stop: 09/10/20 18:28 Last Admin: 09/10/20 18:45 Dose: 125 mg Documented by: [id number] Midazolam HCl (Midazolam Hcl 5 Mg/Ml 1 Ml Vial) Confirm Administered Dose 10 mg .ROUTE .STK-MED ONE Stop: 09/12/20 10:01 Last Increment: 09/12/20 11:25 Dose: 7 mg Documented by: [id number] Discharge Plan Visit Data Chief Complaint: Illness Stated Complaint: CHEST PAIN ED Provider: Rochelle Nelson Discharge Problem: COPD (chronic obstructive pulmonary disease) Patient Disposition: Admitted As Inpatient Discharge Instructions Interventions: ED Discharge Assessment Last Done: 09/10/20 23:15 Discharge Problem: COPD (chronic obstructive pulmonary disease) Qualifiers: COPD type: COPD with acute exacerbation Qualified Code(s): J44.1 - Chronic obstructive pulmonary disease with (acute) exacerbation
--- NOTE | 2020-09-11 10:29 | Pulmonary Consultation ---
Date of Consultation September 11, 2020 Assessment & Plan (1) Abnormal CT scan of lung: CT chest 09/10/2020 personally reviewed: Brochiectasis with mucous plugging appreciated b/l LL. Diffuse ground glass opacities b/l upper and lower lobes. Interstitial thickening b/l Upper lobes. Mild subcarinal LAD --Abnormal Chest CT Differential includes sarcoid, NSIP, Fibrotic lung disease from covid infection covid 19 PCR -ve. Patient had covid-19 PNA in the past Alpha one antitrypsin level within normal limits. --Chronic hypoxic respiratory failure Continue with oxygen supplementation to keep oxygen between 88-90% --Bronchiectasis Given that the patient has history of hypogammaglobulinemia, this is likely the etiology of his bronchiectasis and air trapping appreciated on the CT along with associated clubbing Continue with Anoro Continue with mucolytic and pulmonary toilet --COPD Patient had PFTs back in 2018 which showed severe obstruction --Multiple pulmonary nodules Largest being 5 mm That have been stable for more than 1 year --Ex-smoker Greater than [id number] smoking history quit in 2009 Encouraged to be abstinent from it --History of diffuse B-cell lymphoma On chemotherapy --Hypogammaglobulinemia Patient gets IVIG Plan: Bronchoscopy with possible EBUS tomorrow N.p.o. post midnight. Hold anticoagulation Continue with broad-spectrum antibiotics. Please note the above document was generated using voice recognition software. It may contain grammatical, syntax or spelling errors.Any formal questions or concerns about the content, text or information contained within the body of this dictation should be directly addressed to the provider for clarification. (2) Bronchiectasis: (3) History of COVID-19: (4) COPD with emphysema: History of Present Illness Attending Physician: Luh Guzman MD History of Present Illness 55-year-old male has been following with pulmonary for his underlying bronc hiectasis/COPD and pulmonary nodules, on 2 L NC Past medical history: Hypogammaglobulinemia getting IVIG infusions every Wednesday, diffuse large B-cell lymphoma, hypothyroidism, IBS, depressive disorder Patient had covid 19 pneumonia recently and since than he has been spiking fevers on and off with night sweats. I had a phone conversation with Dr Palacios regarding this and patient was started on Levofloxacin after a course of doxy and prednisone. He was still not feeling well and was sent for further evaluation to [facility]. On the previous visit patient was started on Trelegy inhaler for his underlying COPD/bronchiectasis. Patient stopped taking Trelegy when he heard about the side effects. Currently he is only on albuterol inhaler and using it as needed. At the time of examination patient states he has feeling of chest tightness occasionally and cough. He is not bringing up any phlegm. He is fine when he is resting but on exertion he gets short of breath. Night sweats and subjective fever. Denies any dysuria, no diarrhea, No hemoptysis. NO nausea or vomiting. Social history: [id number] smoking history, quit 2009, social alcohol, used to do heroin IV quit more than 10 years ago. 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 Has lived in [place], [place], [place], and [place]. He has been in [facility] out of [facility] since 1983. This incarceration has been since 2009 Pets: Used to have a dog when he was a kid no pets after that. Allergies: Seasonal allergies No history of lung cancer in the family. Allergies Allergy/AdvReac Type Severity Reaction Status Date / Time Bactrim Allergy Mild RASH/BLEEDI Verified 01/10/13 14:22 NG sulfamethoxazole Allergy Mild RASH/BLEEDI Verified 09/10/20 14:34 NG trimethoprim Allergy Mild RASH/BLEEDI Verified 09/10/20 14:34 NG Home Medications Medication Instructions Recorded Confirmed Type Lactobacillus acidophilus 1 0 cell PO TID 06/26/19 09/10/20 History billion cell tablet carvedilol 6.25 mg tablet 6.25 mg PO BID tab 06/26/19 09/10/20 History folic acid 1 mg tablet 1 mg PO DAILY 06/26/19 09/10/20 History ondansetron HCl [Zofran] 8 mg PO TID PRN 07/03/19 09/10/20 History umeclidinium 62.5 mcg-vilanterol 1 puffs INH DAILY #60 ea 01/05/20 09/10/20 Rx 25 mcg/actuation powdr for inhalation Systane Gel 1 drp OPHTHALMIC (EYE) QID 05/15/20 09/10/20 History acetaminophen [Tylenol] 325 mg PO BID PRN 05/15/20 09/10/20 History Alvesco 2 puff INHALATION DAILY 08/12/20 09/10/20 History B-complex with vitamin C [Vitamin 1 tab PO DAILY 08/21/20 09/10/20 History B Complex-C] Dexamethasone 10mg/Ml Sdv 20 mg IV DIRECTED 08/21/20 09/10/20 History Diphenhydramine 50 Mg/Ml Sdv 50 mg IV DIRECTED 08/21/20 09/10/20 History Gammagard 1 Gm /10 Ml Inj 4 g IV DIRECTED 08/21/20 09/10/20 History Gammagard 20 Gm/200 Ml 20 g IV DIRECTED 08/21/20 09/10/20 History Magic Mouth Wash 5 ml PO ACHS 08/21/20 09/10/20 History ascorbic acid (vitamin C) [Vitamin 500 mg PO BID 08/21/20 09/10/20 History C] calcium polycarbophil [Fiber-Lax] 625 mg PO DAILY 08/21/20 09/10/20 History dextromethorphan-guaifenesin 1 tab PO Q12H 08/21/20 09/10/20 History [Mucinex DM] food supplemt, lactose-reduced 1 ea PO TID 08/21/20 09/10/20 History [Ensure] levalbuterol tartrate [Xopenex HFA] 2 inh INHALATION QID PRN 08/21/20 09/10/20 History pantoprazole 40 mg PO DAILY 08/21/20 09/10/20 History sodium chloride [Stuart Allergy and 1 spray INTRANASAL BID 08/21/20 09/10/20 History Sinus] tetrahydrozoline [Visine] 1 drp OPB QID 08/21/20 09/10/20 History ipratropium-albuterol [DuoNeb] 3 ml INHALATION Q6H 09/10/20 09/10/20 History levofloxacin [Levaquin] 750 mg PO DAILY 09/10/20 09/10/20 History Patient History Medical History (Updated 09/11/20 @ 21:17 by Mariela Curtis MD) Asthma Autoimmune hepatitis (02/25/13) Bronchiectasis Common variable immunodeficiency COVID-19 in immunocompromised patient Second episode of COVID-19 in 90 days with 2 negative tests in between Pneumonia due to 2019 novel coronavirus (~04/2020) Thrombocytopenia Surgical History Hx of colonoscopy Port-A-Cath in place (07/05/19) Insertion Of Mediport With Fluoroscopy Dr. Huang 07-05-19 Family History Other Family history non-contributory Social History Smoking Status: Former smoker Second Hand Exposure: No; Hx Alcohol Use: No Hx Substance Use: Yes Preferred Language: Nepali Communication Ability: Effective Rn Corrections Required: No Beliefs That Will Affect Care: None marital status: Single Current Living Situation: Other Current Living Situation Comment: [facility] Feels Safe at Home: Yes Assistive Devices: Oxygen - Continuous Assistive Devices Comment: 3l Review of Systems Review of Systems: All systems reviewed & are unremarkable except as noted in HPI & below Physical Exam Physical Exam: Constitutional: No acute distress HEENT: EOMI, PERRLA Respiratory system: Decreased air entry bilaterally, no wheeze, no rhonchi, + crackles b/l anteriorly CVS: S1-S2 positive, no murmurs or gallops Abdomen: Soft, nontender, nondistended, positive bowel sounds x4 Extremities: +2 pulses bilaterally radialis, no cyanosis, minimal edema bilateral lower extremity, positive clubbing Neuro: Awake alert oriented x3, patient has unintentional resting tremor of the right hand Psych: Normal mood and affect G/U: No wetzel Skin: no rashes, warm and dry Lymphatic: no cervical or axillary lymphadenopathy Results & Data Results & Data ([facility]) Vital Signs (Past 12 Hours) Vital Signs Temp Pulse Pulse Resp BP BP Pulse Ox 09/11/20 10:00 36.4 C L 09/11/20 09:30 36 C L 09/11/20 09:00 35.7 C L 09/11/20 08:30 36.0 C L 09/11/20 08:00 35.9 C L 09/11/20 07:33 66 16 101/69 100 09/11/20 07:30 35.7 C L 09/11/20 07:22 48 L 16 99 09/11/20 06:31 35.5 C L 09/11/20 05:58 35.2 C L 09/11/20 05:30 35 C L 09/11/20 04:00 34.8 C L 58 L 20 109/75 98 09/11/20 02:50 66 09/11/20 00:29 70 18 96 09/10/20 23:58 36.4 C L 55 L 24 112/69 98 09/10/20 23:15 63 28 H 110/75 98 09/11/20 05:27 09/11/20 05:27 PG Care Time/CCT Total # of Minutes Spent Total Time Spent with Patient: Total time spent is greater than 50% in coordination of care (as documented) at patient's floor/unit and/or counseling patient: Coding Level of Care Code 21868 Initial Inpt Care Lvl [address] scan of lung R91.8 Bronchiectasis J47.9 History of COVID-19 Z86.16 COPD with emphysema J43.9
[2020-09-11 13:24] LABS: Appearance Urine Clear (Clear); Bilirubin Urine Negative (Negative); Blood Urine Negative (Negative); Color Urine Yellow; Glucose Urine UA 1+ (Negative); Ketones Urine Negative (Negative); Leukocyte Esterase Urine Negative (Negative); Nitrite Urine Negative (Negative); Protein Urine Negative (Negative); Specific Gravity Urine 1.026 (1.000-1.030); Urobilinogen Urine Negative (Negative); pH Urine 6.5 (4.5-7.5)
--- NOTE | 2020-09-11 13:57 | Electrocardiogram Report ---
Test Reason : Blood Pressure : / mmHG Vent. Rate : 067 BPM Atrial Rate : 067 BPM P-R Int : 178 ms QRS Dur : 076 ms QT Int : 416 ms P-R-T Axes : 059 036 052 degrees QTc Int : 439 ms Normal sinus rhythm Low voltage QRS Borderline ECG When compared with ECG of 21-AUG-2020 16:50, No significant change was found Confirmed by Man Haskins ([id number]) on 09/11/2020 1:57:03 PM Referred By: [facility] Confirmed By:Lopez Haskins
--- NOTE | 2020-09-11 17:49 | Hospitalist Progress Note ---
Date of Service September 11, 2020 Assessment & Plan (1) Chronic respiratory failure with hypoxia: continue 4L oxygen, wean as able (2) Sepsis: hypothermic and WBC < 4 lactate 2.0 likely related to HCAP continue vanc, azithro and cefepime (3) HCAP (healthcare-associated pneumonia): 3-24 recurrent for several months vanc, cefepime and azithro started awaiting bronchoscopy tomorrow (4) Pulmonary nodule: stable for 1 year per pulm (5) Abnormal CT scan of lung: Fever, recent covid, h/o lung disease, previous b cell lymphoma and immune deficiency. CT scan of the lung with contrast PE protocol 09/10/2020 IMPRESSION: 1. No evidence for pulmonary embolus. 2. Slight progression of the multifocal groundglass airspace opacities demonstrating upper lobe predominance. This could represent an atypical/viral pneumonia or an inflammatory process. 3. Persistent splenomegaly and mediastinal lymphadenopathy. 4. No change in the mild aneurysmal dilatation of the ascending thoracic aorta measuring up to 4 cm. 5. Bilateral lower lobe bronchial wall thickening with a few opacified distal bronchi. This is also unchanged. Pulmonary consultation undertaken slight elevation CH[place]WICK level is indeterminate patient is already started on steroids he is to be continued. Patient will continue vancomycin and cefepime and have atypical coverage with azithromycin (was on Levaquin). Sputum culture will be attempted Legionella antigen will be sent. will be kept npo in case bronchoscopy would be considered Continue inhaled bronchodilators, pulmonary toilet and incentive spirometry 3-24 bronch tomorrow, hold lovenox, npo at midnight (6) Hypogammaglobulinemia: Patient is a hypogammaglobulinemia and common variable immunodeficiency receiving intravenous immune globulin last received dose here in the hospital he has a history of diffuse large B cell lymphoma treated [facility] R Chop, the lymphoma was primarily in his large bowel (7) Esophageal varices: Pt states he takes his coreg for the varicies which have never bled and have never been banded, no recent melena in the previous record there is description of autoimmune hepatitis but detention records review do document hepatitis c history (8) DVT prophylaxis: will use scd at this time due to low platelet counts and if bronchoscopy would be decided on Admission and Anticipated Discharge Date Admission Date: September 10, 2020 Subjective Patient having nausea, no vomiting Endorsing phlegm Denies dysuria He has been having pleuritic pain on the left sternum for 1 week duration Coughing and pneumonias recurrent since Thanksgiving Awaiting bronchoscopy Review of Systems Constitutional: no fever, no chills, no fatigue, no weakness, no anorexia, no weight loss and no weight gain Ear, Nose, Mouth, Throat: no nasal congestion, no sore throat and no dysphagia Respiratory: no cough and no dyspnea Cardiovascular: no chest pain, no dyspnea on exertion, no orthopnea and no palpitations Gastrointestinal: no abdominal pain, no nausea, no vomiting, no hematemesis, no dysphagia, no constipation, no diarrhea/loose stools, no blood in stools and no melena Genitourinary: no dysuria and no hematuria Musculoskeletal: no back pain, no joint pain, no myalgia and no muscle weakness Integumentary: no rash, no lesions, no skin ulcer, no erythema, no dry skin and no pruritus Neurologic: no falls, no localized weakness, no generalized weakness, no numbness, no paresthesia, no tremor(s) and no headache(s) Psychiatric: no depression, no suicidal ideation, no homicidal ideation and no anxiety Endocrine: no cold intolerance and no heat intolerance Hematologic / Lymphatic: no easy bleeding and no easy bruising Physical Exam Constitutional: + ill appearing and + thin; + not well developed, + not well nourished and no acute distress Eyes: PERRL, conjunctivae normal, anicteric sclerae ENMT: Mouth: oral mucous membranes not dry Respiratory: normal respiratory effort; no respiratory distress and no labored breathing Auscultation: + rales and + rhonchi; + lungs not clear to auscultation, no crackles and no wheezes Cardiovascular: Rate/Rhythm: regular rate and regular rhythm Heart Sounds: no murmur and no cardiac rub Vessels: normal peripheral pulses and radial pulses present; no JVD Extremities: no edema Gastrointestinal (Abdomen): Inspection/Auscultation: abdomen normal to inspection and normal bowel sounds; abdomen not distended Percussion/Palpation: abdomen soft; abdomen nontender, no guarding, abdomen not rigid and no hepatosplenomegaly Musculoskeletal: Head/Neck/Chest: normocephalic and head atraumatic Spine: no cervical spinal tenderness, no cervical muscular tenderness, no thoracic spinal tenderness and no lumbar spinal tenderness Skin: no rashes, warm and dry Neurologic: CN's II-XI intact bilaterally and moves all extremities Motor/Sensory: no tremor and no sensory deficit Psychiatric: Orientation: alert, oriented to person, oriented to place and oriented to time Apperance: appropriately groomed; not disheveled Affect: euthymic affect; no anxious affect and no tearful affect Genitourinary: no Pimentel catheter Results & Data Results & Data ([facility]) Vital Signs (Past 12 Hours) Vital Signs Temp Pulse Pulse Resp BP Pulse Ox 09/11/20 16:00 36.3 C L 68 18 110/70 92 09/11/20 15:57 80 09/11/20 13:48 61 16 95 09/11/20 11:47 56 L 18 111/68 93 09/11/20 11:30 36.4 C L 09/11/20 10:30 36.3 C L 09/11/20 10:00 36.4 C L 09/11/20 09:30 36 C L 09/11/20 09:00 35.7 C L 09/11/20 08:30 36.0 C L 09/11/20 08:00 35.9 C L 09/11/20 07:33 66 16 101/69 100 09/11/20 07:30 35.7 C L 09/11/20 07:22 48 L 16 99 09/11/20 06:31 35.5 C L 09/11/20 05:58 35.2 C L PG Care Time/CCT Total # of Minutes Spent Total Time Spent with Patient: Total time spent is greater than 50% in coordination of care (as documented) at patient's floor/unit and/or counseling patient: Coding Level of Care Code 39493 Subseq Hosp Care Lvl 2 Diagnoses Chronic respiratory failure with hypoxia J96.11 Sepsis A41.9 Sepsis type: sepsis due to unspecified organism Sepsis acute organ dysfunction status: unspecified HCAP (healthcare-associated pneumonia) J18.9 Pulmonary nodule R91.[address] scan of lung R91.8 Hypogammaglobulinemia D80.1 Esophageal varices I85.00 DVT prophylaxis Z29.9 (1) Sepsis Sepsis type: sepsis due to unspecified organism Sepsis acute organ dysfunction status: unspecified Qualified Code(s): A41.9 - Sepsis, unspecified organism
[2020-09-12] MEDS: AZITHROMYCIN 500 MG in DEXTROSE 5% 250 ML IV SCH (01:09)
[2020-09-12] MEDS: ALBUT/IPRATROP 3MG/0.5MG NEB 3 ML VIAL INH SCH ×4 (01:24→19:06)
[2020-09-12] MEDS: HEPARIN 100 UNIT/ML 5ML FLUSH FLUSH PRN (03:09)
[2020-09-12] MEDS: CEFEPIME 2,000 MG in SYRINGE 0 ML IV SCH ×3 (03:09→19:09)
[2020-09-12] MEDS ORDERED: VANCOMYCIN TROUGH ONE (04:30)
[2020-09-12] MEDS: VANCOMYCIN HCL 1,000 MG in SODIUM CHLORIDE 0.9% 250 ML IV SCH ×2 (04:56→12:47)
[2020-09-12 05:44] LABS: Mean Corpuscular Hgb Conc 34.9 g/dL (32-36)
[2020-09-12 05:52] LABS: Hematocrit (blood only) 32.1 % (42-52); Hemoglobin 11.2 g/dL (14.0-18.0); Mean Corpuscular Hemoglobin 28.9 pg (25-34); Mean Corpuscular Volume 82.7 fL (80-100); RDW Standard Deviation 51.7 fL (36.4-46.3); Red Blood Count 3.88 M/uL (4.7-6.1); White Blood Count 6.28 K/uL (4.8-10.8)
[2020-09-12 05:56] LABS: Mean Platelet Volume 11.1 fL (7.4-10.4); Platelet Count 96 K/uL (130-400)
[2020-09-12 06:08] LABS: BUN Creatinine Ratio 20.1 (10-20); Calcium 8.2 mg/dl (8.5-10.1); Creatinine Clr Calc Pharmacy 97.8 ml/min; Est GFR (African American) 122.3; Est GFR (Non-African American) 105.5; Magnesium 2.7 mg/dl (1.8-2.4)
[2020-09-12 06:09] LABS: Phosphorus 2.9 mg/dl (2.5-4.9)
--- NOTE | 2020-09-12 07:25 | Pharmacy Report ---
Pharmacy Abx Dose Short Note - Date of Service September 12, 2020 - Assessment & Plan Assessment 55 year old M admitted from [facility] secondary to fevers * PMHx significant for B-cell lymphoma, hypogammaglobulinemia, autoimmune hepatitis, and COPD * Started on Vancomycin, Cefepime, and Azithromycin for HCAP. * Pulmonology has been consulted. Recommend continuing broad-spectrum abx. * Afebrile. White count normal. Renal fxn stable. Plan Vancomycin * Trough level of 14.3 mcg/mL is subtherapeutic but expect this level to increase as patient accumulates * Continue dose of 1000 mg IV every 8 hours * Goal trough level: 15 to 20 mcg/mL * Trough level ordered for Wednesday afternoon Cefepime (not a pharmacy consult) * 2 g IV every 8 hours * Appropriate per indication and renal fxn Azithromycin (not a pharmacy consult) * 500 mg IV every 24 hours * Appropriate per indication Pharmacy will continue to follow and will adjust dose/frequency as necessary. Thank you.
--- NOTE | 2020-09-12 08:18 | Pulmonology Progress Note ---
Date of Service September 12, 2020 Assessment & Plan (1) Abnormal CT scan of lung: CT chest 09/10/2020 personally reviewed: Brochiectasis with mucous plugging appreciated b/l LL. Diffuse ground glass opacities b/l upper and lower lobes. Interstitial thickening b/l Upper lobes. Mild subcarinal LAD --Abnormal Chest CT Differential includes sarcoid, NSIP, Fibrotic lung disease from covid infection covid 19 PCR -ve. Patient had covid-19 PNA in the past Alpha one antitrypsin level within normal limits. --Chronic hypoxic respiratory failure Continue with oxygen supplementation to keep oxygen between 88-90% --Bronchiectasis Given that the patient has history of hypogammaglobulinemia, this is likely the etiology of his bronchiectasis and air trapping appreciated on the CT along with associated clubbing Continue with Anoro Continue with mucolytic and pulmonary toilet --COPD Patient had PFTs back in 2019 which showed severe obstruction --Multiple pulmonary nodules Largest being 5 mm That have been stable for more than 1 year --Ex-smoker Greater than [id number] smoking history quit in 2009 Encouraged to be abstinent from it --History of diffuse B-cell lymphoma On chemotherapy --Hypogammaglobulinemia Patient gets IVIG Plan: For bronchoscopy today. Risk and benefits of the procedure explained to the patient in depth. Consent signed, witnessed and put in the chart. Please note the above document was generated using voice recognition software. It may contain grammatical, syntax or spelling errors.Any formal questions or concerns about the content, text or information contained within the body of this dictation should be directly addressed to the provider for clarification. (2) Bronchiectasis: (3) History of COVID-19: (4) COPD with emphysema: Admission and Anticipated Discharge Date Admission Date: September 10, 2020 Subjective Patient seen and examined at bedside. No acute distress. Denies any chest pain. Still complaining of cough. No hemoptesis. No N or V. No dysuria. No LAI. Review of Systems Review of Systems: All systems reviewed & are unremarkable except as noted in Subjective Physical Exam Physical Exam: Constitutional: No acute distress HEENT: EOMI, PERRLA Respiratory system: Decreased air entry bilaterally, no wheeze, no rhonchi, + crackles b/l anteriorly CVS: S1-S2 positive, no murmurs or gallops Abdomen: Soft, nontender, nondistended, positive bowel sounds x4 Extremities: +2 pulses bilaterally radialis, no cyanosis, minimal edema bilateral lower extremity, positive clubbing Neuro: Awake alert oriented x3, patient has unintentional resting tremor of the right hand Psych: Normal mood and affect G/U: No wetzle Skin: no rashes, warm and dry Lymphatic: no cervical or axillary lymphadenopathy Results & Data Results & Data ([facility]) Vital Signs (Past 12 Hours) Vital Signs Temp Pulse Pulse Resp BP BP Pulse Ox 09/12/20 07:39 36.3 C L 50 L 16 108/67 99 09/12/20 07:11 64 18 99 09/12/20 03:13 36.4 C L 53 L 16 110/65 96 09/12/20 01:26 68 16 91 09/12/20 01:21 54 L 09/11/20 23:36 36.3 C L 54 L 22 106/54 L 95 09/11/20 20:20 69 16 93 09/12/20 04:49 09/12/20 04:49 PG Care Time/CCT Total # of Minutes Spent Total Time Spent with Patient: Total time spent is greater than 50% in coordin ation of care (as documented) at patient's floor/unit and/or counseling patient: Coding Level of Care Code 18701 Subseq Hosp Care Lvl [address] scan of lung R91.8 Bronchiectasis J47.9 History of COVID-19 Z86.16 COPD with emphysema J43.9
[2020-09-12] MEDS: FOLIC ACID 1 MG TAB PO SCH (08:37)
[2020-09-12] MEDS: carvediloL 6.25 MG TAB PO SCH ×2 (08:38→20:50)
[2020-09-12] MEDS: CALCIUM POLYCARBOPHIL 625MG TAB PO SCH (08:38)
[2020-09-12] MEDS: methylPREDNISolone 40 MG in SYRINGE 0 ML IV SCH ×2 (08:38→20:49)
[2020-09-12] MEDS: PANTOprazole 40 MG TAB PO SCH (08:38)
[2020-09-12] MEDS: ADVANCED PROBIOTIC 1250 MG CAPSULE PO SCH ×3 (08:38→16:48)
[2020-09-12] MEDS: ARTIFICIAL TEARS OP SCH ×4 (08:38→20:50)
[2020-09-12] MEDS: SODIUM CHLORIDE 0.65% NA SOLN 45 ML (OCEAN) SCH ×2 (08:38→20:50)
[2020-09-12] MEDS ORDERED: MIDAZOLAM HCL 5 MG/ML 1 ML VIAL ONE (10:00)
[2020-09-12] MEDS ORDERED: fentaNYL citrate 100 MCG/2 ML VIAL ONE (10:00)
[2020-09-12] MEDS ORDERED: LIDOCAINE HCL 2% (LOCAL) INJ 50 ML VIAL ONE (10:04)
--- NOTE | 2020-09-12 10:24 | Pre Anesthesia Assessment ---
Date of Service September 12, 2020 Pre Sedation Assessment Vital Signs Temp Pulse Pulse Resp BP BP Pulse Ox 09/12/20 10:10 55 L 20 119/71 100 09/12/20 07:39 36.3 C L 50 L 16 108/67 99 09/12/20 07:11 64 18 99 09/12/20 03:13 36.4 C L 53 L 16 110/65 96 09/12/20 01:26 68 16 91 09/12/20 01:21 54 L 09/11/20 23:36 36.3 C L 54 L 22 106/54 L 95 09/11/20 20:20 69 16 93 09/11/20 19:33 36.4 C L 72 18 121/79 94 09/11/20 16:00 36.3 C L 68 18 110/70 92 09/11/20 15:57 80 09/11/20 13:48 61 16 95 09/11/20 11:47 56 L 18 111/68 93 09/11/20 11:30 36.4 C L 09/11/20 10:30 36.3 C L Cardiovascular RRR, no murmur, no edema Pre-Sedation Airway Assessment Smoking Status: Former smoker Hx Sleep Apnea: No Short, Thick Neck: No Thyromental Distance: > or= 3.5 Finger Breadths Oral Cavity: + WNL Mallampati Class: II ASA: ASA3 NPO Status Date of Last Intake of Fluids: 09/12/20 Time of Last Intake of Fluids: 00:00 Last Oral Intake of Fluids Comment: npo except sip with medication Date of Last Intake of Solid Food: 09/12/20 Time of Last Intake of Solid Foods: 00:00 Procedure Planning Contraindications for Sedation: none Current Medications Reviewed: Yes Notes The planned sedation has been discussed with the patient. Informed Consent was obtained. I have identified the patient, determined the appropriateness of sedation and have assessed the patient immediately prior to the procedure. All medicine(s) and interventions are by my order.
--- NOTE | 2020-09-12 11:23 | Post Anesthesia Assessment ---
Date of Service September 12, 2020 Post Sedation Assessment Vital Signs Temp Pulse Pulse Resp BP BP Pulse Ox 09/12/20 11:18 82 22 95/70 L 99 09/12/20 11:15 75 22 100/76 99 09/12/20 11:10 90 22 98/71 L 98 09/12/20 11:05 84 22 108/71 96 09/12/20 11:00 78 24 105/70 94 09/12/20 10:55 74 24 119/78 95 09/12/20 10:50 75 24 130/80 94 09/12/20 10:45 88 24 111/76 96 09/12/20 10:40 95 H 22 118/92 98 09/12/20 10:35 93 H 22 122/75 97 09/12/20 10:30 61 20 112/69 100 09/12/20 10:10 55 L 20 119/71 100 09/12/20 07:39 36.3 C L 50 L 16 108/67 99 09/12/20 07:11 64 18 99 09/12/20 03:13 36.4 C L 53 L 16 110/65 96 09/12/20 01:26 68 16 91 09/12/20 01:21 54 L 09/11/20 23:36 36.3 C L 54 L 22 106/54 L 95 09/11/20 20:20 69 16 93 09/11/20 19:33 36.4 C L 72 18 121/79 94 09/11/20 16:00 36.3 C L 68 18 110/70 92 09/11/20 15:57 80 09/11/20 13:48 61 16 95 09/11/20 11:47 56 L 18 111/68 93 09/11/20 11:30 36.4 C L Recovery Score Activity: Moves 4 extremities Respiration: Deep Breath/Cough Circulation: +/-20-49% PreAnes Value Consciousness: Arouseable (by name) Oxygen Saturation: > 92% On Room Air Post Anesthesia Score: 8 Discharge Sedation Level of Care: Fast Track Phase II Post Sedation Plan On clinical assessment, the patient appears to have tolerated the sedation without complications. Patient is recovering as anticipated. Patient will continue to be monitored by nursing and may be discharged when sedation discharge criteria are met per below protocol. Upon Completions of procedure up to 15 minutes continue every 5 minute vital signs and the P.A.R. score; then discharge to a Phase I or Fast Track to Phase II per the following guidelines: * Discharge Patient to appropriate Phase II area if PAR is 8 or greater or return to pre- procedure baseline. The post - procedure orders will be as directed. * If PAR score is less than 8 or not return to pre-procedure baseline then patient will follow Phase I monitoring till PAR is reached for Phase II. The Phase I may be done in procedure room or may call to secure a Phase I area. * If naloxone or flumazenil are used for reversal, hold in Phase I for continued monitoring from when last reversal dose was given for a minimum of 60 minutes or longer pending the nurse and/or physician discretion of patient condition before discharge to Phase II. Please call the Sedation Physician to re-evaluate and complete post-note for discharge to Phase II area. Do NOT discharge from procedure sedation or Phase 1 until post- sedation evaluation note is complete by procedure /sedation MD Sedation Discharge Instructions to be given to the patient at discharge to home.
--- NOTE | 2020-09-12 11:32 | Procedure Note ---
Procedure Note: Bronchoscopy Procedure PREOPERATIVE DIAGNOSIS: Abnormal chest CT POSTOPERATIVE DIAGNOSIS: Abnormal chest CT PROCEDURE PERFORMED: Flexible fiberoptic bronchoscopy with bronchoalveolar lavage, transbronchial biopsies and EBUS COMPLICATIONS: None. INDICATION: Rule out infection and lymphoma PROCEDURE: After obtaining an informed consent, the patient was brought to the Bronchoscopy Suite. The patient had appropriate oxygen, blood pressure, heart rate, and respiratory rate monitoring applied and monitored continuously throughout the procedure. Supplemental oxygen via nasal cannula as per nursing records was applied to the nasopharynx with adequate saturations achieved. Topical anesthesia with nebulized 1% lidocaine was achieved. Subsequent to this, the patient was premedicated with 7 mg of midazolam and 200 mcg of fentanyl. Upper Airway: The oropharynx and larynx were well visualized and showed minimal erythema. There was normal vocal cord motion without masses or lesions. Additional topical anesthesia with 1% lidocaine was applied to the trachea and mohit. The trachea appeared normal.The bronchoscope was then advanced through the mohit, which was sharp. The scope was then advanced into the right main stem and each segment, subsegement in the right upper lobe, right middle lobe and right lower lobe were visualized. There was minimal amount of clear secretion which was suctioned out. There were no other findings including evidence of mass, anatomic distortions, or hemorrhage. Atrophy of the mucosa was appreciated. Very friable mucosa as a started to have petechiae after patient started to cough. The bronchoscope was subsequently withdrawn and advanced into the left mainstem. Again, each segment and subsegment was well visualized. No specific masses or other lesions were identified throughout the tracheobronchial tree on the left. There was minimal amount of clear secretion which were suctioned out. The bronchoscope was then wedged in the right middle lobe and bronchoalveolar lavage samples were obtained. 100 ml of saline was instilled and 30 ml of fluid was aspirated back.The bronchoscope was withdrawn and the area was suctioned clear. The bronchoscope was wedged into the left upper lobe and bronchial lavage samples were obtained. 80 mL saline was instilled and 25 mL was aspirated back. The bronchoscope was withdrawn and the area was suctioned clean The bronchoscope was then re-advanced into the right middle lobe and multiple transbronchial biopsies were taken. The bronchoscope was again readvanced into the left upper lobe lingular segment and multiple transbronchial biopsies were taken. Minimal hemorrhage was identified and suctioned clear without difficulty. Cold saline was utilized to achieve adequate hemostasis. The bronchoscope was then withdrawn to the mainstem. The area was suctioned clear. The bronchoscope was then withdrawn. The patient tolerated the procedure well without evidence of desaturation or complications. Flexible bronchoscope was withdrawn and EBUS was introduced. Station 7 was identified and 4 passes were made. 2 of them adequate. Station 4 out was also identified but because of the radiation that the patient had with breathing it was very difficult to get a sample. 1 pass was made. EBUS was withdrawn after suctioning the area clean. Bronchoalveolar lavage samples were sent for cell count, Gram stain and bacterial culture, AFB culture and smear, fungal culture and smear, beta glucan, flow cytometry and cytology. Transbronchial biopsies were sent for tissue culture (bacteria, AFB and fungal) and pathology. Recommendations: Follow-up labs. Follow-up chest x-ray
--- NOTE | 2020-09-12 11:55 | XRay Report ---
XR chest 1V portable HISTORY: 55 years-old Male s/p bronchoscopy/ebus acute cough with hypoxia COMPARISON: CTA chest and chest radiograph 09/10/2020 TECHNIQUE: Portable AP view of the chest FINDINGS: Cardiomediastinal and hilar silhouettes are unchanged. Progressively worsened upper and mid lung zone predominant multifocal mixed interstitial and alveolar opacities. Left pectoral [id number] cathet er appears unchanged. No pneumothorax or pleural effusion. There is suggestion of cervical ribs. IMPRESSION: 1. Progressive mid and upper lung zone predominant pulmonary opacities suggestive of worsening infect ious or inflammatory pneumonitis. 2. No pneumothorax. ACT 112: Negative or not required by law. The above report was generated using voice recognition software. It may contain grammatical, syntax o r spelling errors. Electronically signed by: Tres Wick M.D. 09/12/2020 11:53 AM
[2020-09-12] MEDS ORDERED: SODIUM CHLORIDE 0.9% 1000ML 500 ML IV ONE (12:07)
[2020-09-12] MEDS: D5W AND 1/2NSS 1,000 ML IV SCH (13:22)
[2020-09-12 13:47] LABS: Basophil Body Fluid Man 0 %; Eosinophil Body Fluid Man 0 %; Fluid Mono/Macrophage 14 %; Lymphocyte Body Fluid Man 21 %; Neutrophil Body Fluid Man 65 %
[2020-09-12] MEDS: ACETAMINOPHEN 325 MG TAB PO PRN ×2 (14:33→20:53)
--- NOTE | 2020-09-12 14:53 | XRay Report ---
XR chest 1V portable HISTORY: 55 years-old Male chest pain acute atypical chest pain COMPARISON: Chest radiograph of same day at 11:22 AM TECHNIQUE: Portable AP view of the chest FINDINGS: Cardiomediastinal and hilar silhouettes are unchanged. Surgical clips project over the right supracla vicular tissues. Unchanged upper and mid lung zone predominant multifocal mixed interstitial and alve olar opacities. Left pectoral [id number]-[id number] catheter appears unchanged. No pneumothorax or large pleu ral effusion. Mild blunting of the costophrenic angles may reflect trace effusions. There is suggesti on of cervical ribs. IMPRESSION: Stable exam with unchanged upper lung zone predominant airspace opacities. ACT 112: Negative or not required by law. The above report was generated using voice recognition software. It may contain grammatical, syntax o r spelling errors. Electronically signed by: Tres Wick M.D. 09/12/2020 2:52 PM
--- NOTE | 2020-09-12 17:34 | Hospitalist Progress Note ---
Date of Service September 12, 2020 Assessment & Plan (1) Chronic respiratory failure with hypoxia: continue 4L oxygen, wean as able 09-12 requiring 2L oxygen today (2) Sepsis: hypothermic and WBC < 4 lactate 2.0 likely related to HCAP continue vanc, azithro and cefepime 09-12 stop vanc (3) HCAP (healthcare-associated pneumonia): 3-24 recurrent for several months vanc, cefepime and azithro started awaiting bronchoscopy tomorrow 09-12 procal was 0.07 on arrival, now 0.05 will stop vanc, cont azithro and cefepime (4) Pulmonary nodule: stable for 1 year per pulm (5) Abnormal CT scan of lung: Fever, recent covid, h/o lung disease, previous b cell lymphoma and immune deficiency. CT scan of the lung with contrast PE protocol 09/10/2020 IMPRESSION: 1. No evidence for pulmonary embolus. 2. Slight progression of the multifocal groundglass airspace opacities demonstrating upper lobe predominance. This could represent an atypical/viral pneumonia or an inflammatory process. 3. Persistent splenomegaly and mediastinal lymphadenopathy. 4. No change in the mild aneurysmal dilatation of the ascending thoracic aorta measuring up to 4 cm. 5. Bilateral lower lobe bronchial wall thickening with a few opacified distal bronchi. This is also unchanged. Pulmonary consultation undertaken slight elevation CHADWICK level is indeterminate patient is already started on steroids he is to be continued. Patient will continue vancomycin and cefepime and have atypical coverage with azithromycin (was on Levaquin). Sputum culture will be attempted Legionella antigen will be sent. will be kept npo in case bronchoscopy would be considered Continue inhaled bronchodilators, pulmonary toilet and incentive spirometry 09-11 bronch tomorrow, hold lovenox, npo at midnight 09-12 underwent bronch with BAL, transbronchial biopsies, EBUS postbronch cxr stable (6) Hypogammaglobulinemia: Patient is a hypogammaglobulinemia and common variable immunodeficiency receiving intravenous immune globulin last received dose here in the hospital he has a history of diffuse large B cell lymphoma treated wt R Chop, the lymphoma was primarily in his large bowel (7) Esophageal varices: Pt states he takes his coreg for the varicies which have never bled and have never been banded, no recent melena in the previous record there is description of autoimmune hepatitis but long term records review do document hepatitis c history (8) DVT prophylaxis: will use scd at this time due to low platelet counts and if bronchoscopy would be decided on Admission and Anticipated Discharge Date Admission Date: September 10, 2020 Subjective Endorsing mild headache Underwent bronchoscopy today with minimal hemoptysis afterwards Eating well, no nausea or vomiting Minimal pleuritic chest pain along left sternum Asking for pain meds Denies constipation Review of Systems Constitutional: no fever, no chills, no fatigue, no weakness, no anorexia, no weight loss and no weight gain Ear, Nose, Mouth, Throat: no nasal congestion, no sore throat and no dysphagia Respiratory: no cough and no dyspnea Cardiovascular: + chest pain; no dyspnea on exertion, no orthopnea and no palpitations Gastrointestinal: no abdominal pain, no nausea, no vomiting, no hematemesis, no dysphagia, no constipation, no diarrhea/loose stools, no blood in stools and no melena Genitourinary: no dysuria and no hematuria Musculoskeletal: no back pain, no joint pain, no myalgia and no muscle weakness Integumentary: no rash, no lesions, no skin ulcer, no erythema, no dry skin and no pruritus Neurologic: no falls, no localized weakness, no generalized weakness, no numbness, no paresthesia, no tremor(s) and no headache(s) Psychiatric: no depression, no suicidal ideation, no homicidal ideation and no anxiety Endocrine: no cold intolerance and no heat intolerance Hematologic / Lymphatic: no easy bleeding and no easy bruising Physical Exam Constitutional: + ill appearing and + thin; + not well developed, + not well nourished and no acute distress Eyes: PERRL, conjunctivae normal, anicteric sclerae ENMT: Mouth: oral mucous membranes not dry Respiratory: normal respiratory effort; no respiratory distress and no labored breathing Auscultation: + rales and + rhonchi; + lungs not clear to auscultation, no crackles and no wheezes Cardiovascular: Rate/Rhythm: regular rate and regular rhythm Heart Sounds: no murmur and no cardiac rub Vessels: normal peripheral pulses and radial pulses present; no JVD Extremities: no edema Gastrointestinal (Abdomen): Inspection/Auscultation: abdomen normal to inspection and normal bowel sounds; abdomen not distended Percussion/Palpation: abdomen soft; abdomen nontender, no guarding, abdomen not rigid and no hepatosplenomegaly Musculoskeletal: Head/Neck/Chest: normocephalic and head atraumatic Spine: no cervical spinal tenderness, no cervical muscular tenderness, no thoracic spinal tenderness and no lumbar spinal tenderness Skin: no rashes, warm and dry Neurologic: CN's II-XI intact bilaterally and moves all extremities Motor/Sensory: no tremor and no sensory deficit Psychiatric: Orientation: alert, oriented to person, oriented to place and oriented to time Apperance: appropriately groomed; not disheveled Affect: euthymic affect; no anxious affect and no tearful affect Results & Data Results & Data ([facility]) Vital Signs (Past 12 Hours) Vital Signs Temp Pulse Pulse Resp BP BP Pulse Ox 09/12/20 15:19 36.5 C 84 20 119/65 95 09/12/20 14:07 81 20 96 09/12/20 13:30 84 18 117/76 94 09/12/20 13:00 36.4 C L 69 18 114/76 97 09/12/20 12:30 36.4 C L 69 122/77 96 09/12/20 11:59 36.6 C 75 18 110/73 90 09/12/20 11:44 83 20 116/65 99 09/12/20 11:38 80 20 106/75 98 09/12/20 11:33 79 20 106/70 98 09/12/20 11:28 70 20 96/71 L 96 09/12/20 11:23 80 20 110/81 97 09/12/20 11:18 82 22 95/70 L 99 09/12/20 11:15 75 22 100/76 99 09/12/20 11:10 90 22 98/71 L 98 09/12/20 11:05 84 22 108/71 96 09/12/20 11:00 78 24 105/70 94 09/12/20 10:55 74 24 119/78 95 09/12/20 10:50 75 24 130/80 94 09/12/20 10:45 88 24 111/76 96 09/12/20 10:40 95 H 22 118/92 98 09/12/20 10:35 93 H 22 122/75 97 09/12/20 10:30 61 20 112/69 100 09/12/20 10:10 55 L 20 119/71 100 09/12/20 07:39 36.3 C L 50 L 16 108/67 99 09/12/20 07:11 64 18 99 PG Care Time/CCT Total # of Minutes Spent Total Time Spent with Patient: Total time spent is greater than 50% in coordination of care (as documented) at patient's floor/unit and/or counseling patient: Coding Level of Care Code 87510 Subseq Hosp Care Lvl 2 Diagnoses Chronic respiratory failure with hypoxia J96.11 Sepsis A41.9 Sepsis type: sepsis due to unspecified organism Sepsis acute organ dysfunction status: unspecified HCAP (healthcare-associated pneumonia) J18.9 Pulmonary nodule R91.[address] scan of lung R91.8 Hypogammaglobulinemia D80.1 Esophageal varices I85.00 DVT prophylaxis Z29.9 (1) Sepsis Sepsis type: sepsis due to unspecified organism Sepsis acute organ dysfunction status: unspecified Qualified Code(s): A41.9 - Sepsis, unspecified organism
[2020-09-13] MEDS: ALBUT/IPRATROP 3MG/0.5MG NEB 3 ML VIAL INH SCH ×4 (00:03→19:40)
[2020-09-13] MEDS: AZITHROMYCIN 500 MG in DEXTROSE 5% 250 ML IV SCH (00:59)
[2020-09-13] MEDS: D5W AND 1/2NSS 1,000 ML IV SCH ×2 (00:59→12:10)
[2020-09-13] MEDS: CEFEPIME 2,000 MG in SYRINGE 0 ML IV SCH ×3 (03:19→19:04)
[2020-09-13 06:33] LABS: Hemoglobin 9.2 g/dL (14.0-18.0); Mean Corpuscular Hemoglobin 28.3 pg (25-34); Mean Corpuscular Hgb Conc 34.1 g/dL (32-36); Mean Corpuscular Volume 83.1 fL (80-100); RDW Coefficient of Variation 17.1 % (11.5-14.5); Red Blood Count 3.25 M/uL (4.7-6.1); White Blood Count 2.96 K/uL (4.8-10.8)
[2020-09-13 06:37] LABS: Mean Platelet Volume 9.7 fL (7.4-10.4); Platelet Count 72 K/uL (130-400)
[2020-09-13 07:03] LABS: BUN Creatinine Ratio 24.9 (10-20); Calcium 7.8 mg/dl (8.5-10.1); Creatinine Clr Calc Pharmacy 101.4 ml/min; Est GFR (Non-African American) 106.1; Magnesium 2.4 mg/dl (1.8-2.4); Phosphorus 2.5 mg/dl (2.5-4.9); Potassium 4.1 mmol/L (3.5-5.1)
[2020-09-13] MEDS: methylPREDNISolone 40 MG in SYRINGE 0 ML IV SCH (07:48)
[2020-09-13] MEDS: ADVANCED PROBIOTIC 1250 MG CAPSULE PO SCH ×3 (07:48→17:00)
[2020-09-13] MEDS: carvediloL 6.25 MG TAB PO SCH ×2 (07:48→21:30)
[2020-09-13] MEDS: SODIUM CHLORIDE 0.65% NA SOLN 45 ML (OCEAN) SCH ×2 (07:49→21:30)
[2020-09-13] MEDS: PANTOprazole 40 MG TAB PO SCH (07:49)
[2020-09-13] MEDS: guaiFENesin/DEXTROM SYRUP 200MG/20MG 10ML UDC PO PRN (07:49)
[2020-09-13] MEDS: CALCIUM POLYCARBOPHIL 625MG TAB PO SCH (07:49)
[2020-09-13] MEDS: ARTIFICIAL TEARS OP SCH ×4 (07:49→21:30)
[2020-09-13] MEDS: FOLIC ACID 1 MG TAB PO SCH (07:49)
[2020-09-13] MEDS ORDERED: VANCOMYCIN TROUGH ONE (12:30)
--- NOTE | 2020-09-13 14:04 | Pulmonology Progress Note ---
Date of Service September 13, 2020 Assessment & Plan (1) Abnormal CT scan of lung: CT chest 09/10/2020 personally reviewed: Brochiectasis with mucous plugging appreciated b/l LL. Diffuse ground glass opacities b/l upper and lower lobes. Interstitial thickening b/l Upper lobes. Mild subcarinal LAD --Abnormal Chest CT Differential includes sarcoid, NSIP, Fibrotic lung disease from covid infection covid 19 PCR -ve. Patient had covid-19 PNA in the past Alpha one antitrypsin level within normal limits. Minimal elevation of [place]ICK level 85 (9-67) S/p bronchoscopy with EBUS 09/12/2020 Transbronchial biopsies did not show any granulomas Station 7 was negative for any granulomas or malignancy BAL differential: 1% lymphocytes, 65% neutrophils Bronc cultures have been negative to date. If the bronc culture did not show any specific diagnosis and the patient is still symptomatic open lung biopsy can be thought of. --Chronic hypoxic respiratory failure Continue with oxygen supplementation to keep oxygen between 88-90% --Bronchiectasis Given that the patient has history of hypogammaglobulinemia, this is likely the etiology of his bronchiectasis and air trapping appreciated on the CT along with associated clubbing Continue with Anoro Continue with mucolytic and pulmonary toilet --COPD Patient had PFTs back in 2019 which showed severe obstruction --Multiple pulmonary nodules Largest being 5 mm That have been stable for more than 1 year --Ex-smoker Greater than [id number] smoking history quit in 2009 Encouraged to be abstinent from it --History of diffuse B-cell lymphoma On chemotherapy --Hypogammaglobulinemia Patient gets IVIG Plan: Follow-up flow cytometry from the BAL Decrease Solu-Medrol to once daily 40 mg Continue with antibiotics for the time being. We will try to de-escalate in the next 24-48 hours Chest x-ray in the morning. Please note the above document was generated using voice recognition software. It may contain grammatical, syntax or spelling errors.Any formal questions or concerns about the content, text or information contained within the body of this dictation should be directly addressed to the provider for clarification. (2) Bronchiectasis: (3) History of COVID-19: (4) COPD with emphysema: Admission and Anticipated Discharge Date Admission Date: September 10, 2020 Subjective Patient seen and examined at bedside. No acute distress, no adverse events overnight. Patient still complains of mild chest pain occasionally when he takes deep breath. Denies any cough. Shortness of breath is improved. No subjective fevers or documented fevers. No dysuria, no diarrhea. Patient was desaturating 96% on 2 L at the time of examination. Review of Systems Review of Systems: All systems reviewed & are unremarkable except as noted in Subjective Physical Exam Physical Exam: Constitutional: No acute distress HEENT: EOMI, PERRLA Respiratory system: Decreased air entry bilaterally, no wheeze, no rhonchi, + crackles b/l anteriorly CVS: S1-S2 positive, no murmurs or gallops Abdomen: Soft, nontender, nondistended, positive bowel sounds x4 Extremities: +2 pulses bilaterally radialis, no cyanosis, minimal edema bilateral lower extremity, positive clubbing Neuro: Awake alert oriented x3, patient has unintentional resting tremor of the right hand Psych: Normal mood and affect G/U: No wetzel Skin: no rashes, warm and dry Lymphatic: no cervical or axillary lymphadenopathy Results & Data Results & Data ([facility]) Vital Signs (Past 12 Hours) Vital Signs Temp Pulse Pulse Resp BP Pulse Ox 09/13/20 11:45 36.5 C 75 16 110/73 93 09/13/20 07:54 62 18 98 09/13/20 07:37 36.3 C L 62 18 115/73 92 09/13/20 07:21 49 L 09/13/20 03:18 36.4 C L 64 18 100/66 94 09/13/20 05:43 09/13/20 05:43 PG Care Time/CCT Total # of Minutes Spent Total Time Spent with Patient: Total time spent is greater than 50% in coordination of care (as documented) at patient's floor/unit and/or counseling patient: Coding Level of Care Code 57170 Subseq Hosp Care Lvl [address] scan of lung R91.8 Bronchiectasis J47.9 History of COVID-19 Z86.16 COPD with emphysema J43.9
--- NOTE | 2020-09-13 16:04 | Hospitalist Progress Note ---
Date of Service September 13, 2020 Assessment & Plan (1) Chronic respiratory failure with hypoxia: continue 4L oxygen, wean as able - requiring 2L oxygen today (2) Sepsis: hypothermic and WBC < 4 lactate 2.0 likely related to HCAP continue vanc, azithro and cefepime 09-12 stop vanc (3) HCAP (healthcare-associated pneumonia): 3-24 recurrent for several months vanc, cefepime and azithro started awaiting bronchoscopy tomorrow 09-12 procal was 0.07 on arrival, now 0.05 will stop vanc, cont azithro and cefepime 09-13 legionella, Resp viral culture pending fluid 65% neutrophils CD4/CD8 ratio pending decrease solumedrol 40mg daily (4) Pulmonary nodule: stable for 1 year per pulm (5) Abnormal CT scan of lung: Fever, recent covid, h/o lung disease, previous b cell lymphoma and immune deficiency. CT scan of the lung with contrast PE protocol 09/10/2020 IMPRESSION: 1. No evidence for pulmonary embolus. 2. Slight progression of the multifocal groundglass airspace opacities demonstrating upper lobe predominance. This could represent an atypical/viral pneumonia or an inflammatory process. 3. Persistent splenomegaly and mediastinal lymphadenopathy. 4. No change in the mild aneurysmal dilatation of the ascending thoracic aorta measuring up to 4 cm. 5. Bilateral lower lobe bronchial wall thickening with a few opacified distal bronchi. This is also unchanged. Pulmonary consultation undertaken slight elevation [place] level is indeterminate patient is already started on steroids he is to be continued. Patient will continue vancomycin and cefepime and have atypical coverage with azithromycin (was on Levaquin). Sputum culture will be attempted Legionella antigen will be sent. will be kept npo in case bronchoscopy would be considered Continue inhaled bronchodilators, pulmonary toilet and incentive spirometry 3-24 bronch tomorrow, hold lovenox, npo at midnight 09-12 underwent bronch with BAL, transbronchial biopsies, EBUS postbronch cxr stable (6) Hypogammaglobulinemia: Patient is a hypogammaglobulinemia and common variable immunodeficiency receiving intravenous immune globulin last received dose here in the hospital he has a history of diffuse large B cell lymphoma treated wt R Chop, the lymphoma was primarily in his large bowel (7) Esophageal varices: Pt states he takes his coreg for the varicies which have never bled and have never been banded, no recent melena in the previous record there is description of autoimmune hepatitis but [facility] records review do document hepatitis c history (8) DVT prophylaxis: will use scd at this time due to low platelet counts and if bronchoscopy would be decided on Admission and Anticipated Discharge Date Admission Date: September 10, 2020 Subjective Patient had a good night sleep Eating well, no nausea or vomiting Denies chest pain or shortness of breath Reports that his cough has improved Denies hemoptysis Reports 30 pound weight loss since thanksgiving Tremor for several years Review of Systems Constitutional: no fever, no chills, no fatigue, no weakness, no anorexia, no weight loss and no weight gain Ear, Nose, Mouth, Throat: no nasal congestion, no sore throat and no dysphagia Respiratory: no cough and no dyspnea Cardiovascular: no chest pain, no dyspnea on exertion, no orthopnea and no palpitations Gastrointestinal: no abdominal pain, no nausea, no vomiting, no hematemesis, no dysphagia, no constipation, no diarrhea/loose stools, no blood in stools and no melena Genitourinary: no dysuria and no hematuria Musculoskeletal: no back pain, no joint pain, no myalgia and no muscle weakness Integumentary: no rash, no lesions, no skin ulcer, no erythema, no dry skin and no pruritus Neurologic: no falls, no localized weakness, no generalized weakness, no nu mbness, no paresthesia, no tremor(s) and no headache(s) Psychiatric: no depression, no suicidal ideation, no homicidal ideation and no anxiety Endocrine: no cold intolerance and no heat intolerance Hematologic / Lymphatic: no easy bleeding and no easy bruising Physical Exam Constitutional: + ill appearing and + thin; + not well developed, + not well nourished and no acute distress Eyes: PERRL, conjunctivae normal, anicteric sclerae ENMT: Mouth: oral mucous membranes not dry Respiratory: normal respiratory effort; no respiratory distress and no labored breathing Auscultation: + rales and + rhonchi; + lungs not clear to auscultation, no crackles and no wheezes Cardiovascular: Rate/Rhythm: regular rate and regular rhythm Heart Sounds: no murmur and no cardiac rub Vessels: normal peripheral pulses and radial pulses present; no JVD Extremities: no edema Gastrointestinal (Abdomen): Inspection/Auscultation: abdomen normal to inspection and normal bowel sounds; abdomen not distended Percussion/Palpation: abdomen soft; abdomen nontender, no guarding, abdomen not rigid and no hepatosplenomegaly Musculoskeletal: Head/Neck/Chest: normocephalic and head atraumatic Spine: no cervical spinal tenderness, no cervical muscular tenderness, no thoracic spinal tenderness and no lumbar spinal tenderness Skin: no rashes, warm and dry Neurologic: CN's II-XI intact bilaterally and moves all extremities Motor/Sensory: no tremor and no sensory deficit Psychiatric: Orientation: alert, oriented to person, oriented to place and oriented to time Apperance: appropriately groomed; not disheveled Affect: euthymic affect; no anxious affect and no tearful affect Results & Data Results & Data ([facility]) Vital Signs (Past 12 Hours) Vital Signs Temp Pulse Pulse Resp BP Pulse Ox 09/13/20 14:02 66 16 93 09/13/20 11:45 36.5 C 75 16 110/73 93 09/13/20 07:54 62 18 98 09/13/20 07:37 36.3 C L 62 18 115/73 92 09/13/20 07:21 49 L PG Care Time/CCT Total # of Minutes Spent Total Time Spent with Patient: Total time spent is greater than 50% in coordination of care (as documented) at patient's floor/unit and/or counseling patient: Coding Level of Care Code 53902 Subseq Hosp Care Lvl 2 Diagnoses Chronic respiratory failure with hypoxia J96.11 Sepsis A41.9 Sepsis type: sepsis due to unspecified organism Sepsis acute organ dysfunction status: unspecified HCAP (healthcare-associated pneumonia) J18.9 Pulmonary nodule R91.[address] scan of lung R91.8 Hypogammaglobulinemia D80.1 Esophageal varices I85.00 DVT prophylaxis Z29.9 (1) Sepsis Sepsis type: sepsis due to unspecified organism Sepsis acute organ dysfunction status: unspecified Qualified Code(s): A41.9 - Sepsis, unspecified organism
[2020-09-14] MEDS: ALBUT/IPRATROP 3MG/0.5MG NEB 3 ML VIAL INH SCH ×4 (00:11→19:29)
[2020-09-14] MEDS: HEPARIN 100 UNIT/ML 5ML FLUSH FLUSH PRN (00:13)
[2020-09-14] MEDS: D5W AND 1/2NSS 1,000 ML IV SCH ×2 (01:30→13:54)
[2020-09-14] MEDS: AZITHROMYCIN 500 MG in DEXTROSE 5% 250 ML IV SCH (01:42)
[2020-09-14] MEDS: CEFEPIME 2,000 MG in SYRINGE 0 ML IV SCH ×3 (03:46→21:11)
[2020-09-14 06:10] LABS: Hematocrit (blood only) 29.4 % (42-52); Hemoglobin 9.9 g/dL (14.0-18.0); Mean Corpuscular Hemoglobin 27.9 pg (25-34); Mean Corpuscular Hgb Conc 33.7 g/dL (32-36); Mean Corpuscular Volume 82.8 fL (80-100); Nucleated RBC # (auto) 0.05 K/uL (0-0); Nucleated RBC % (auto) 1.7 %; RDW Coefficient of Variation 16.9 % (11.5-14.5); RDW Standard Deviation 51.9 fL (36.4-46.3); Red Blood Count 3.55 M/uL (4.7-6.1); White Blood Count 3.32 K/uL (4.8-10.8)
[2020-09-14 06:14] LABS: Mean Platelet Volume 9.5 fL (7.4-10.4); Platelet Count 73 K/uL (130-400)
[2020-09-14 06:41] LABS: BUN Creatinine Ratio 23.1 (10-20); Calcium 7.8 mg/dl (8.5-10.1); Creatinine Clr Calc Pharmacy 99.1 ml/min; Est GFR (African American) 121.6; Est GFR (Non-African American) 104.9; Magnesium 2.1 mg/dl (1.8-2.4); Phosphorus 1.8 mg/dl (2.5-4.9); Potassium 3.4 mmol/L (3.5-5.1)
[2020-09-14] MEDS: carvediloL 6.25 MG TAB PO SCH ×2 (07:55→21:11)
[2020-09-14] MEDS: ADVANCED PROBIOTIC 1250 MG CAPSULE PO SCH ×3 (07:55→16:53)
[2020-09-14] MEDS: CALCIUM POLYCARBOPHIL 625MG TAB PO SCH (07:56)
[2020-09-14] MEDS: ARTIFICIAL TEARS OP SCH ×4 (07:56→21:12)
[2020-09-14] MEDS: ACETAMINOPHEN 325 MG TAB PO PRN (07:56)
[2020-09-14] MEDS: PANTOprazole 40 MG TAB PO SCH (07:56)
[2020-09-14] MEDS: FOLIC ACID 1 MG TAB PO SCH (07:56)
[2020-09-14] MEDS: SODIUM CHLORIDE 0.65% NA SOLN 45 ML (OCEAN) SCH ×2 (07:56→21:12)
--- NOTE | 2020-09-14 08:32 | XRay Report ---
XR chest 1V portable HISTORY: Shortness of breath. COMPARISON: Chest 09/12/2020. FINDINGS: Bilateral upper lobe airspace opacities persist. The heart is normal in size. No pleural ef fusions. No pneumothorax. The left subclavian Port-A-Cath which terminates in the SVC. IMPRESSION: No change in the upper lobe predominant airspace opacities. ACT 112: Negative or not required by law. Electronically signed by: Ramses Valle M.D. 09/14/2020 8:31 AM
[2020-09-14] MEDS ORDERED: methylPREDNISolone 40 MG in SYRINGE 0 ML IV SCH (09:00)
--- NOTE | 2020-09-14 16:20 | Pulmonology Progress Note ---
Date of Service September 14, 2020 Assessment & Plan (1) Abnormal CT scan of lung: CT chest 09/10/2020 personally reviewed: Brochiectasis with mucous plugging appreciated b/l LL. Diffuse ground glass opacities b/l upper and lower lobes. Interstitial thickening b/l Upper lobes. Mild subcarinal LAD --Abnormal Chest CT Differential includes sarcoid, NSIP, Fibrotic lung disease from covid infection covid 19 PCR -ve. Patient had covid-19 PNA in the past Alpha one antitrypsin level within normal limits. Minimal elevation of [place] level 85 (9-67) S/p bronchoscopy with EBUS 09/12/2020 Transbronchial biopsies did not show any granulomas Station 7 was negative for any granulomas or malignancy BAL differential: 1% lymphocytes, 65% neutrophils CD4/CD8 count: Less than 4:1. Bronc cultures have been negative to date. If the bronc culture did not show any specific diagnosis and the patient is still symptomatic open lung biopsy can be thought of. --Chronic hypoxic respiratory failure Continue with oxygen supplementation to keep oxygen between 88-90% --Bronchiectasis Given that the patient has history of hypogammaglobulinemia, this is likely the etiology of his bronchiectasis and air trapping appreciated on the CT along with associated clubbing Continue with Anoro Continue with mucolytic and pulmonary toilet --COPD Patient had PFTs back in 2019 which showed severe obstruction --Multiple pulmonary nodules Largest being 5 mm That have been stable for more than 1 year --Ex-smoker Greater than [id number] smoking history quit in 2009 Encouraged to be abstinent from it --History of diffuse B-cell lymphoma On chemotherapy --Hypogammaglobulinemia Patient gets IVIG Plan: Chest x-ray still shows bilateral upper lobe infiltrates. DC Solu-Medrol. Start tapering prednisone as of tomorrow 40 mg for 3 days followed by 20 mg for 3 days. Bronchial stent ongoing anything to date. Please note the above document was generated using voice recognition software. It may contain grammatical, syntax or spelling errors.Any formal questions or concerns about the content, text or information contained within the body of this dictation should be directly addressed to the provider for clarification. (2) Bronchiectasis: (3) History of COVID-19: (4) COPD with emphysema: Admission and Anticipated Discharge Date Admission Date: September 10, 2020 Subjective Patient seen and examined at bedside. No acute distress. Early in the morning patient got a panic attack and was complaining of shortness of breath. He was put on facemask which helped him. At the time of examination patient was saturating 94% on 2 L facemask. Denies any chest pain. Coughing but not bringing up any phlegm. Has been afebrile since coming to the hospital. No headache, no dizziness. Fair appetite. Review of Systems Review of Systems: All systems reviewed & are unremarkable except as noted in Subjective Physical Exam Physical Exam: Constitutional: No acute distress HEENT: EOMI, PERRLA Respiratory system: Decreased air entry bilaterally, no wheeze, no rhonchi, + crackles b/l anteriorly CVS: S1-S2 positive, no murmurs or gallops Abdomen: Soft, nontender, nondistended, positive bowel sounds x4 Extremities: +2 pulses bilaterally radialis, no cyanosis, minimal edema bilateral lower extremity, positive clubbing Neuro: Awake alert oriented x3, patient has unintentional resting tremor of the right hand Psych: Normal mood and affect G/U: No wetzel Skin: no rashes, warm and dry Lymphatic: no cervical or axillary lymphadenopathy Results & Data Results & Data ([facility]) Vital Signs (Past 12 Hours) Vital Signs Temp Pulse Pulse Resp BP BP Pulse Ox 09/14/20 15:37 68 09/14/20 13:32 84 18 97 09/14/20 12:00 36.8 C 78 18 100/67 99 09/14/20 10:00 79 09/14/20 09:02 37.0 C 101 H 18 106/69 92 09/14/20 07:55 37.6 C H 74 20 152/51 H 09/14/20 07:39 88 18 93 09/14/20 05:53 09/14/20 05:53 PG Care Time/CCT Total # of Minutes Spent Total Time Spent with Patient: Total time spent is greater than 50% in coordination of care (as documented) at patient's floor/unit and/or counseling patient: Coding Level of Care Code 05676 Subseq Hosp Care Lvl [address] scan of lung R91.8 Bronchiectasis J47.9 History of COVID-19 Z86.16 COPD with emphysema J43.9
--- NOTE | 2020-09-14 17:57 | Hospitalist Progress Note ---
Date of Service September 14, 2020 Assessment & Plan (1) Chronic respiratory failure with hypoxia: Comfortable on nasal cannula 2 L (2) Sepsis: hypothermic and WBC < 4 lactate 2.0 likely related to HCAP continue vanc, azithro and cefepime 09-12 stop vanc Continued cefepime and azithromycin (3) HCAP (healthcare-associated pneumonia): 3-24 recurrent for several months vanc, cefepime and azithro started awaiting bronchoscopy tomorrow 09-12 procal was 0.07 on arrival, now 0.05 will stop vanc, cont azithro and cefepime 09-13 legionella, Resp viral culture pending fluid 65% neutrophils CD4/CD8 ratio pending decrease solumedrol 40mg daily DC methylprednisolone and starting prednisone 40 mg taper in the a.m. per Pulmonary (4) Pulmonary nodule: stable for 1 year per pulm (5) Abnormal CT scan of lung: Fever, recent covid, h/o lung disease, previous b cell lymphoma and immune deficiency. CT scan of the lung with contrast PE protocol 09/10/2020 IMPRESSION: 1. No evidence for pulmonary embolus. 2. Slight progression of the multifocal groundglass airspace opacities demonstrating upper lobe predominance. This could represent an atypical/viral pneumonia or an inflammatory process. 3. Persistent splenomegaly and mediastinal lymphadenopathy. 4. No change in the mild aneurysmal dilatation of the ascending thoracic aorta measuring up to 4 cm. 5. Bilateral lower lobe bronchial wall thickening with a few opacified distal bronchi. This is also unchanged. Pulmonary consultation undertaken slight elevation CHADWICK level is indeterminate patient is already started on steroids he is to be continued. Patient will continue vancomycin and cefepime and have atypical coverage with azithromycin (was on Levaquin). Sputum culture will be attempted Legionella antigen will be sent. will be kept npo in case bronchoscopy would be considered Continue inhaled bronchodilators, pulmonary toilet and incentive spirometry 09-11 bronch tomorrow, hold lovenox, npo at midnight 09-12 underwent bronch with BAL, transbronchial biopsies, EBUS postbronch cxr stable (6) Hypogammaglobulinemia: Patient is a hypogammaglobulinemia and common variable immunodeficiency receiving intravenous immune globulin last received dose here in the hospital he has a history of diffuse large B cell lymphoma treated wt R Chop, the lymphoma was primarily in his large bowel (7) Esophageal varices: Pt states he takes his coreg for the varicies which have never bled and have never been banded, no recent melena in the previous record there is description of autoimmune hepatitis but intermediate records review do document hepatitis c history (8) DVT prophylaxis: will use scd at this time due to low platelet counts and if bronchoscopy would be decided on (9) Hypokalemia: Minimal low potassium 3.4, continue encourage potassium on regular diet. Recheck in the a.m. for consideration of additional supplementation Admission and Anticipated Discharge Date Admission Date: September 10, 2020 Subjective Patient had a good night sleep Eating well, no nausea or vomiting Denies chest pain or shortness of breath Patient had anxiety attack in the a.m. along with some dyspnea which improved with oxygen Tremor for several years No new fevers or chills chest pain palpitations Review of Systems Review of Systems: All systems reviewed & are unremarkable except as noted in HPI & below Physical Exam Physical Exam: Constitutional: WD/WN, vitals as above Psychiatric: AA Ox3, euthymic affect Neck: trachea midline, no thyromegaly Lymphatic: No cervical lymphadenopathy Respiratory: Effort normal, mild bilateral rhonchi CV: RRR, no murmur, no edema Abdomen: normal bowel sounds, soft, nontender, no hepatosplenomegaly Results & Data Results & Data ([facility]) Vital Signs (Past 12 Hours) Vital Signs Temp Pulse Pulse Resp BP BP Pulse Ox 09/14/20 17:04 36.8 C 78 16 100/67 99 09/14/20 15:37 68 09/14/20 13:32 84 18 97 09/14/20 12:00 36.8 C 78 18 100/67 99 09/14/20 10:00 79 09/14/20 09:02 37.0 C 101 H 18 106/69 92 09/14/20 07:55 37.6 C H 74 20 152/51 H 09/14/20 07:39 88 18 93 PG Care Time/CCT Total # of Minutes Spent Total Time Spent with Patient: Total time spent is greater than 50% in coordination of care (as documented) at patient's floor/unit and/or counseling patient: Coding Level of Care Code 55916 Subseq Hosp Care Lvl 2 Diagnoses Chronic respiratory failure with hypoxia J96.11 Sepsis A41.9 Sepsis type: sepsis due to unspecified organism Sepsis acute organ dysfunction status: unspecified HCAP (healthcare-associated pneumonia) J18.9 Pulmonary nodule R91.[address] scan of lung R91.8 Hypogammaglobulinemia D80.1 Esophageal varices I85.00 DVT prophylaxis Z29.9 Hypokalemia E87.6 (1) Sepsis Sepsis type: sepsis due to unspecified organism Sepsis acute organ dysfunction status: unspecified Qualified Code(s): A41.9 - Sepsis, unspecified organism
[2020-09-15] MEDS: ALBUT/IPRATROP 3MG/0.5MG NEB 3 ML VIAL INH SCH ×4 (00:35→19:45)
[2020-09-15] MEDS: AZITHROMYCIN 500 MG in DEXTROSE 5% 250 ML IV SCH (01:07)
[2020-09-15] MEDS: ACETAMINOPHEN 325 MG TAB PO PRN (01:08)
[2020-09-15] MEDS: D5W AND 1/2NSS 1,000 ML IV SCH ×2 (01:08→15:20)
[2020-09-15] MEDS: CEFEPIME 2,000 MG in SYRINGE 0 ML IV SCH ×3 (02:35→20:15)
[2020-09-15 06:12] LABS: Hematocrit (blood only) 27.4 % (42-52); Hemoglobin 9.2 g/dL (14.0-18.0); Mean Corpuscular Hemoglobin 27.9 pg (25-34); Mean Corpuscular Hgb Conc 33.6 g/dL (32-36); Nucleated RBC # (auto) 0.03 K/uL (0-0); Nucleated RBC % (auto) 1.1 %; RDW Coefficient of Variation 17.2 % (11.5-14.5); RDW Standard Deviation 51.8 fL (36.4-46.3); White Blood Count 3.08 K/uL (4.8-10.8)
[2020-09-15 06:13] LABS: Mean Platelet Volume 9.2 fL (7.4-10.4); Platelet Count 66 K/uL (130-400)
[2020-09-15 06:35] LABS: Immature Granulocytes # (auto) 0.03 K/uL (0.00-0.02); Lymphocytes # (auto) 0.15 K/uL (1.2-3.4); Lymphocytes % (auto) 4.9 %; Monocytes # (auto) 0.31 K/uL (0.11-0.59); Monocytes % (auto) 10.1 %; Neutrophils # (auto) 2.59 K/uL (1.4-6.5); Platelet Estimate Decreased (Normal)
[2020-09-15 06:49] LABS: Albumin Level 2.2 gm/dl (3.4-5.0); BUN Creatinine Ratio 26.7 (10-20); Creatinine Clr Calc Pharmacy 111.3 ml/min; Est GFR (African American) 127.7; Est GFR (Non-African American) 110.2; Potassium 3.2 mmol/L (3.5-5.1)
[2020-09-15 06:52] LABS: Albumin Globulin Ratio 0.8 (0.9-2); Bilirubin,Total 0.4 mg/dl (0.2-1); Globulin 2.8 gm/dl (2.5-4.0)
[2020-09-15] MEDS: SODIUM CHLORIDE 0.65% NA SOLN 45 ML (OCEAN) SCH ×2 (08:00→20:17)
[2020-09-15] MEDS: ARTIFICIAL TEARS OP SCH ×4 (08:00→20:17)
[2020-09-15] MEDS: predniSONE 20 MG TAB PO SCH (08:00)
[2020-09-15] MEDS: FOLIC ACID 1 MG TAB PO SCH (08:00)
[2020-09-15] MEDS: CALCIUM POLYCARBOPHIL 625MG TAB PO SCH (08:00)
[2020-09-15] MEDS: ADVANCED PROBIOTIC 1250 MG CAPSULE PO SCH ×3 (08:00→15:22)
[2020-09-15] MEDS: PANTOprazole 40 MG TAB PO SCH (08:00)
[2020-09-15] MEDS: carvediloL 6.25 MG TAB PO SCH ×2 (08:00→20:16)
[2020-09-15] MEDS ORDERED: POTASSIUM CHLORIDE CRTAB 20 MEQ TABCR PO ONE (09:45)
[2020-09-15] MEDS: MoRPHine SULFATE 2 MG/ML CARP IV PRN (10:26)
--- NOTE | 2020-09-15 15:22 | Pulmonology Progress Note ---
Date of Service September 15, 2020 Assessment & Plan (1) Abnormal CT scan of lung: CT chest 09/10/2020 personally reviewed: Brochiectasis with mucous plugging appreciated b/l LL. Diffuse ground glass opacities b/l upper and lower lobes. Interstitial thickening b/l Upper lobes. Mild subcarinal LAD --Abnormal Chest CT Differential includes sarcoid, NSIP, Fibrotic lung disease from covid infection covid 19 PCR -ve. Patient had covid-19 PNA in the past Alpha one antitrypsin level within normal limits. Minimal elevation of CHADWICK level 85 (9-67) S/p bronchoscopy with EBUS 09/12/2020 Transbronchial biopsies did not show any granulomas Station 7 was negative for any granulomas or malignancy BAL differential: 1% lymphocytes, 65% neutrophils CD4/CD8 count: Less than 4:1. Bronc cultures have been negative to date. If the bronc culture did not show any specific diagnosis and the patient is still symptomatic open lung biopsy can be thought of. --Chronic hypoxic respiratory failure Continue with oxygen supplementation to keep oxygen between 88-90% --Bronchiectasis Given that the patient has history of hypogammaglobulinemia, this is likely the etiology of his bronchiectasis and air trapping appreciated on the CT along with associated clubbing Continue with Anoro Continue with mucolytic and pulmonary toilet --COPD Patient had PFTs back in 2019 which showed severe obstruction --Multiple pulmonary nodules Largest being 5 mm That have been stable for more than 1 year --Ex-smoker Greater than [id number] smoking history quit in 2009 Encouraged to be abstinent from it --History of diffuse B-cell lymphoma --Hypogammaglobulinemia Patient gets IVIG Plan: Initial plan was to send the patient home on p.o. prednisone for 7 days but patient again spiked fever while on antibiotics. f/u PJP stain. Lab made aware to perform it 09/15/20. Talked with Faviola Rojas culture is negative to date. Bronc transbronchial biopsies were also negative He does have infiltrate in bilateral upper lobes which have remained unchanged, I am unsure if those are the reason for his underlying fever I would order a CT abdomen pelvis to make sure we are not missing anything intra-abdominal as a cause of the fever. Patient has no abdominal symptoms Patient does have history of diffuse B-cell lymphoma, is that one of the reasons that he spiking fever is a possibility Plan was discussed with Dr Barry Please note the above document was generated using voice recognition software. It may contain grammatical, syntax or spelling errors.Any formal questions or concerns about the content, text or information contained within the body of this dictation should be directly addressed to the provider for clarification. (2) Bronchiectasis: (3) History of COVID-19: (4) COPD with emphysema: Admission and Anticipated Discharge Date Admission Date: September 10, 2020 Subjective Patient seen and examined at bedside. No acute distress. Overnight patient spiked fever of 38. Denies any issues with shortness of breath. Does complain of cough and bringing up phlegm. It has decreased in amount compared to before. Subjective chills. No dysuria, no diarrhea. Denies any abdominal pain. Review of Systems Review of Systems: All systems reviewed & are unremarkable except as noted in Subjective Physical Exam Physical Exam: Constitutional: No acute distress HEENT: EOMI, PERRLA Respiratory system: Decreased air entry bilaterally, no wheeze, no rhonchi, + crackles b/l anteriorly and bilateral lower lobes CVS: S1-S2 positive, no murmurs or gallops Abdomen: Soft, nontender, nondistended, positive bowel sounds x4 Extremities: +2 pulses bilaterally radialis, no cyanosis, minimal edema bilateral lower extremity, positive clubbing Neuro: Awake alert oriented x3, patient has unintentional resting tremor of the right hand Psych: Normal mood and affect G/U: No wetzel Skin: no rashes, warm and dry Lymphatic: no cervical or axillary lymphadenopathy Results & Data Results & Data ([facility]) Vital Signs (Past 12 Hours) Vital Signs Temp Pulse Pulse Resp BP BP Pulse Ox 09/15/20 14:57 90 09/15/20 14:46 36.9 C 92 H 20 99/67 L 96 09/15/20 12:53 98 H 20 95 09/15/20 11:16 37.9 C H 99 H 20 113/76 92 09/15/20 10:00 73 09/15/20 07:32 36.9 C 90 20 112/75 96 09/15/20 07:00 83 18 96 09/15/20 03:44 36.9 C 87 19 101/67 96 09/15/20 05:52 09/15/20 05:52 PG Care Time/CCT Total # of Minutes Spent Total Time Spent with Patient: Total time spent is greater than 50% in coordination of care (as documented) at patient's floor/unit and/or counseling patient: Coding Level of Care Code 19799 Subseq Hosp Care Lvl [address] scan of lung R91.8 Bronchiectasis J47.9 History of COVID-19 Z86.16 COPD with emphysema J43.9
[2020-09-15] MEDS ORDERED: OPTIRAY 320 100ml IV ONE (18:09)
--- NOTE | 2020-09-15 18:42 | CT Scan Report ---
ABDOMEN AND PELVIS CT WITH IV AND ORAL CONTRAST CT DOSE: 318.97 mGy.cm HISTORY: Acute fever with generalized abdominal pain fever TECHNIQUE: Multiaxial CT images of the abdomen and pelvis were performed following the IV administrat ion of 94 cc of Optiray 320 and oral contrast. A dose lowering technique was utilized adhering to th e principles of ALARA. COMPARISON STUDY: CT abdomen and pelvis 05/15/2020 and 06/27/2020 from outside facility, PET CT 0. FINDINGS: The imaged inferior cardiac chambers are unremarkable. Partially imaged catheter of the SVC . Bibasilar bronchial wall thickening with mucous plugging. Mixed consolidative and groundglass opaci ties of the lung bases with relative sparing of the right lower lobe. No pneumatosis or pneumoperiton eum. Spleen is enlarged measuring up to 16.8 cm. Pancreas and adrenal glands are unremarkable. Partial dis tention of the gallbladder with unchanged mild wall thickening. There is no biliary ductal dilation. Patency of the hepatic and portal veins. Cirrhotic liver. Unremarkable kidneys. 1.5 cm cyst of the reed perior pole right kidney. No ureteral calculi or obstructive uropathy. Distended urinary bladder. Pro minent prostate. Atheromatous plaque of the abdominal aorta. No aneurysm or adenopathy. Moderate fecal retention. Air-filled levels of the transverse colon. There is chronic wall thickening of the terminal ileum, cecum and ileocecal valve. There is new circumferential wall thickening of th e ascending colon and hepatic flexure with pericolonic stranding. Large calcification the base of the appendix is again seen measuring 1.6 cm transversely. There is chronic dilation of the appendix dev uring up to 1.5 cm transversely. Periappendiceal inflammatory stranding. There is no small bowel obst ruction. Mild wall thickening involving several loops of small bowel is likely secondary to partial d istention. Unremarkable soft tissues. There is no acute fracture identified. Grade 2 anterolisthesis L5 on S1 wi th chronic bilateral pars defects. Severe L5-S1 intervertebral disc space narrowing. Synovial herniat ion pits of the right femoral neck. IMPRESSION: 1. Large calcification at the base of the appendix is redemonstrated along with chronic fluid-filled dilation of the appendix. Findings are again suggestive of a chronic appendicitis versus an appendice al mucocele. 2. Chronic wall thickening of the cecum and ileocecal valve is redemonstrated with new wall thickenin g of the ascending colon and hepatic flexure suggestive of an infectious or inflammatory colitis. Fin dings could be correlated with a follow-up colonoscopy. 3. No bowel obstruction. 4. Trace free fluid of the right pericolic gutter and dependent pelvis. 5. Bibasilar groundglass and consolidative opacities suggests an infectious or inflammatory pneumonit is. 6. Cirrhosis with marked splenomegaly. 7. Additional findings as above. ACT 112: Negative or not required by law. The above report was generated using voice recognition software. It may contain grammatical, syntax o r spelling errors. Electronically signed by: Tres Wick M.D. 09/15/2020 6:40 PM
--- NOTE | 2020-09-15 19:30 | Hospitalist Progress Note ---
Date of Service September 15, 2020 Assessment & Plan (1) Chronic respiratory failure with hypoxia: Overall stable, continue nasal cannula and supportive care (2) Sepsis: Source not entirely clear, pneumonia certainly possible, with CT scan findings gastrointestinal infection also appears possible. Continue Zithromax and cefepime, add Flagyl for abdominal coverage, ongoing serial exams. Given the complexity with his immune system, will ask immunology for assistance in management and/or other diagnostic possibilities that may be possible in his condition As it relates to the GI source, may need endoscopic evaluation (3) HCAP (healthcare-associated pneumonia): Zithromax, cefepime, steroids. (4) Colitis: As noted above under sepsis, add Flagyl, continue cefepime for this purpose as well. Given his prior lymphoma was apparently largely abdominal, even though the CT scan does not show findings consistent with lymphoma, given that it does show a nonspecific colitis as well as what appears to be chronic appendicitis, treat as above, serial exams, immunology input, but also low threshold for GI to have an endoscopic evaluation. If not done while inpatient, definitely should be done in the near future as outpatient. (5) Pulmonary nodule: stable for 1 year per pulm (6) Abnormal CT scan of lung: Post bronc, some studies still pending, overall per pulmonary (7) Hypogammaglobulinemia: Common variable immune deficiency, as well as prior B-cell lymphoma treated with R-CHOPwe will ask immunology for assistance. (8) Esophageal varices: Follow clinically, seems stable (9) DVT prophylaxis: SCDs (pharmacologic contraindicated due to thrombocytopenia) (10) Hypokalemia: Supplement and follow Admission and Anticipated Discharge Date Admission Date: September 10, 2020 Subjective Fever last night, really does not want a fever again today, he feels awful with the fevers. Wants to make sure that we are aware that he has immune deficiencysounds to be common variable immunodeficiency. After CT scan on directed questioning he does have abdominal pain periumbilical to epigastric. Review of Systems Review of Systems: All systems reviewed & are unremarkable except as noted in HPI & below Physical Exam Physical Exam: General he is awake and alert pleasant but appears somewhat anxious no distress. HEENT normocephalic atraumatic mucous membranes moist. Breathing unlabored no accessory muscle use good effort. Abdomen soft mildly distended positive periumbilical/epigastric tenderness without guarding rebound or rigidity Results & Data Results & Data ([facility]) Vital Signs (Past 12 Hours) Vital Signs Temp Pulse Pulse Resp BP Pulse Ox 09/15/20 14:57 90 09/15/20 14:46 98.4 F 92 H 20 99/67 L 96 09/15/20 12:53 98 H 20 95 09/15/20 11:16 100.2 F H 99 H 20 113/76 92 09/15/20 10:00 73 09/15/20 07:32 98.4 F 90 20 112/75 96 PG Care Time/CCT Total # of Minutes Spent Total Time Spent with Patient: Total time spent is greater than 50% in c oordination of care (as documented) at patient's floor/unit and/or counseling patient: Coding Level of Care Code 60872 Subseq Hosp Care Lvl 3 Diagnoses Chronic respiratory failure with hypoxia J96.11 Sepsis A41.9 Sepsis type: sepsis due to unspecified organism Sepsis acute organ dysfunction status: unspecified HCAP (healthcare-associated pneumonia) J18.9 Colitis K52.9 Pulmonary nodule R91.[address] scan of lung R91.8 Hypogammaglobulinemia D80.1 Esophageal varices I85.00 DVT prophylaxis Z29.9 Hypokalemia E87.6 (1) Sepsis Sepsis type: sepsis due to unspecified organism Sepsis acute organ dysfunction status: unspecified Qualified Code(s): A41.9 - Sepsis, unspecified organism
[2020-09-15] MEDS: metroNIDAZOLE 500 MG/100 ML BAG IV SCH (20:16)
[2020-09-16] MEDS: ALBUT/IPRATROP 3MG/0.5MG NEB 3 ML VIAL INH SCH ×4 (00:17→19:24)
[2020-09-16] MEDS: AZITHROMYCIN 500 MG in DEXTROSE 5% 250 ML IV SCH (01:11)
[2020-09-16] MEDS: CEFEPIME 2,000 MG in SYRINGE 0 ML IV SCH ×3 (03:33→20:23)
[2020-09-16] MEDS: ACETAMINOPHEN 325 MG TAB PO PRN ×2 (04:24→20:24)
[2020-09-16] MEDS: metroNIDAZOLE 500 MG/100 ML BAG IV SCH ×3 (04:31→20:24)
[2020-09-16] MEDS: D5W AND 1/2NSS 1,000 ML IV SCH ×2 (05:37→20:31)
[2020-09-16 06:26] LABS: Hemoglobin 9.1 g/dL (14.0-18.0); Mean Corpuscular Hemoglobin 28.3 pg (25-34); Mean Corpuscular Hgb Conc 33.7 g/dL (32-36); Mean Corpuscular Volume 83.9 fL (80-100); RDW Coefficient of Variation 17.3 % (11.5-14.5); RDW Standard Deviation 52.4 fL (36.4-46.3); Red Blood Count 3.22 M/uL (4.7-6.1); White Blood Count 2.88 K/uL (4.8-10.8)
[2020-09-16 06:44] LABS: Mean Platelet Volume 9.3 fL (7.4-10.4); Platelet Count 52 K/uL (130-400)
[2020-09-16 06:59] LABS: Immature Granulocytes # (auto) 0.02 K/uL (0.00-0.02); Immature Granulocytes % (auto) 0.7 %; Lymphocytes # (auto) 0.21 K/uL (1.2-3.4); Lymphocytes % (auto) 7.3 %; Monocytes # (auto) 0.29 K/uL (0.11-0.59); Monocytes % (auto) 10.1 %; Neutrophils # (auto) 2.36 K/uL (1.4-6.5); Neutrophils % (auto) 81.9 %; Ovalocytes 1+; Tear Drop Cells 1+
[2020-09-16 07:06] LABS: BUN Creatinine Ratio 16.6 (10-20); Calcium 8.2 mg/dl (8.5-10.1); Creatinine Clr Calc Pharmacy 109.3 ml/min; Est GFR (African American) 127.7; Est GFR (Non-African American) 110.2; Potassium 2.9 mmol/L (3.5-5.1)
--- NOTE | 2020-09-16 07:17 | Ultrasound Report ---
BILATERAL LOWER EXTREMITY VENOUS DOPPLER HISTORY: Leg swelling. r/o DVT COMPARISON STUDY: None. FINDINGS: There is normal compressibility, flow, and augmentation within the bilateral lower extremit y deep venous systems. IMPRESSION: No DVT within the right or left lower extremity. ACT 112: Negative or not required by law. Electronically signed by: Ramses Valle M.D. 09/16/2020 7:16 AM
[2020-09-16] MEDS: PANTOprazole 40 MG TAB PO SCH (07:46)
[2020-09-16] MEDS: FOLIC ACID 1 MG TAB PO SCH (07:46)
[2020-09-16] MEDS: predniSONE 20 MG TAB PO SCH (07:46)
[2020-09-16] MEDS: CALCIUM POLYCARBOPHIL 625MG TAB PO SCH (07:46)
[2020-09-16] MEDS: carvediloL 6.25 MG TAB PO SCH ×2 (07:47→20:24)
[2020-09-16] MEDS: ADVANCED PROBIOTIC 1250 MG CAPSULE PO SCH ×3 (07:47→17:27)
[2020-09-16] MEDS: ARTIFICIAL TEARS OP SCH ×4 (07:48→20:32)
[2020-09-16] MEDS: SODIUM CHLORIDE 0.65% NA SOLN 45 ML (OCEAN) SCH ×2 (07:48→20:31)
[2020-09-16] MEDS ORDERED: POTASSIUM CHLORIDE CRTAB 20 MEQ TABCR PO STA (08:52)
--- NOTE | 2020-09-16 13:33 | Allergy & Immunology Consult ---
Date of Consultation September 16, 2020 Assessment & Plan (1) Sepsis: (2) Hypogammaglobulinemia: Patient presents with persistent fevers and features of sepsis without a clear etiology. There are number of concerning abnormalities blood work. I suspect that his IgG level at present is subtherapeutic, as there may be some protein loss is evidence by his decreased albumin. I recommend we measure his IgG level, and may need to provide an infusion of IgG. His lymphocyte count has been very low, currently at 200 cells/mcl. Approximately 50% of this would be expected to be CD4, and I would estimate his count at 100 cells/mcl. As result, he would be prone to opportunistic infections due to low CD4 as well as antibodies. I recommend we check a CD4 level. It is not clear whether he has had a recent HIV test, but if not, we should test this. In a patient with hypogammaglobinemia, would be important to test either with PCR or by antigen, has antibody tests can give a false negative. I am concerned about the potential of HLH, as this can cause pancytopenia, recurrent fevers, and his overall clinical picture. We can screen for this with a ferritin level (which is often markedly elevated), a soluble IL-2 Receptor level/soluble CD25 (typically elevated), and fibrinogen (usually low). These will likely be sent out, and not clear results the available. Alternatively, bone marrow biopsy would be helpful in making this diagnosis, and we should consider heme consult. Certain viral infections including EBV, CMV, adenovirus and also present with similar features of HLH, so may be worthwhile to perform PCR to these in the blood. Regarding the colitis, it is very common to see GI pathology in patients with CVID, including a nonspecific colitis. Patient receiving the ER uniquely susceptible to infections with salmonella and giardia, but these typically present with diarrhea as the main symptom. He is certainly also prone to developing malignancies, including lymphomas in the GI tract. Often, these are not easy to diagnose, and many patients have a protein-losing enteropathy which complicates their IVIG management. Regarding the bactrim allergy, this is concerning for an exfoliative dermatitis and I would recommend he continue to avoid this. If he requires pneumocystis treatment or ppx, we would need to use a second line agent, possibly dapsone. 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 It is not clear which came 1st, whether he developed lymphoma and antibody deficiency as a secondary immune deficiency, her whether had common variable immunodeficiency 1st which predisposed him to lymphoma. Regardless, he has been treated with IgG replacement. He is currently incarcerated. He has had a complicated course recently with COVID-19 pneumonia that was difficult to clear. It appears the infection, then tested negative, then got sick again tested positive. He has known bronchiectasis. Recent illness included spiking fevers with night sweats. He was started on course of doxycycline + prednisone, followed by Levaquin, but his symptoms continued he was brought into the emergency room. He had symptoms including chest tightness cough. Multifocal opacities consistent with interstitial/inflammatory pneumonitis. A CT scan was performed, which showed multifocal ground-glass opacities, predominant in the upper lobe. There was persistent splenomegaly and mediastinal lymphadenopathy. On admission, he underwent bronchoscopy, but this was nondiagnostic. Stain for AFB was negative. BAL and Blood cultures have been negative. He has continued to have features of sepsis without a clear source. CT scan suggested nonspecific colitis chronic appendicitis. He has been treated with Zithromax and cefepime, and Flagyl was added or GI coverage. As he has continued to be febrile, we were asked to consult. I reviewed his blood work. In 2019, his IgG was 678 mg/dl, while IgA, IgM were undetectable. His white cell count was 4.04, and lymphocyte count was 800 cells/mcl. His albumin was 3.6. blood work shows white blood cell 2.88, hemoglobin of 9.1, platelets of 52. His lymphocyte count was decreased at 210 cells/mcl. He had no eosinophils. Neutrophil count was 2360 cells/mcl. His kidney function and liver function were unremarkable. His albumin was 2.2 and total protein was 5.0. Regarding his Bactrim allergy, this happened more than 10 years ago. He was on bactrim for at least a few days and then developed bleeding lesions in the mouth. He also developed a blistering rash in his gentials, where the skin peeled off. The Bactrim was stopped and he has not had any since then. Allergies Allergy/AdvReac Type Severity Reaction Status Date / Time Bactrim Allergy Mild RASH/BLEEDI Verified 01/10/13 14:22 NG sulfamethoxazole Allergy Mild RASH/BLEEDI Verified 09/10/20 14:34 NG trimethoprim Allergy Mild RASH/BLEEDI Verified 09/10/20 14:34 NG Home Medications Medication Instructions Recorded Confirmed Type Lactobacillus acidophilus 1 0 cell PO TID 06/26/19 09/10/20 History billion cell tablet carvedilol 6.25 mg tablet 6.25 mg PO BID tab 06/26/19 09/10/20 History folic acid 1 mg tablet 1 mg PO DAILY 06/26/19 09/10/20 History ondansetron HCl [Zofran] 8 mg PO TID PRN 07/03/19 09/10/20 History umeclidinium 62.5 mcg-vilanterol 1 puffs INH DAILY #60 ea 01/05/20 09/10/20 Rx 25 mcg/actuation powdr for inhalation Systane Gel 1 drp OPHTHALMIC (EYE) QID 05/15/20 09/10/20 History acetaminophen [Tylenol] 325 mg PO BID PRN 05/15/20 09/10/20 History Alvesco 2 puff INHALATION DAILY 08/12/20 09/10/20 History B-complex with vitamin C [Vitamin 1 tab PO DAILY 08/21/20 09/10/20 History B Complex-C] Dexamethasone 10mg/Ml Sdv 20 mg IV DIRECTED 08/21/20 09/10/20 History Diphenhydramine 50 Mg/Ml Sdv 50 mg IV DIRECTED 08/21/20 09/10/20 History Gammagard 1 Gm /10 Ml Inj 4 g IV DIRECTED 08/21/20 09/10/20 History Gammagard 20 Gm/200 Ml 20 g IV DIRECTED 08/21/20 09/10/20 History Magic Mouth Wash 5 ml PO ACHS 08/21/20 09/10/20 History ascorbic acid (vitamin C) [Vitamin 500 mg PO BID 08/21/20 09/10/20 History C] calcium polycarbophil [Fiber-Lax] 625 mg PO DAILY 08/21/20 09/10/20 History dextromethorphan-guaifenesin 1 tab PO Q12H 08/21/20 09/10/20 History [Mucinex DM] food supplemt, lactose-reduced 1 ea PO TID 08/21/20 09/10/20 History [Ensure] levalbuterol tartrate [Xopenex HFA] 2 inh INHALATION QID PRN 08/21/20 09/10/20 History pantoprazole 40 mg PO DAILY 08/21/20 09/10/20 History sodium chloride [[place] Allergy and 1 spray INTRANASAL BID 08/21/20 09/10/20 History Sinus] tetrahydrozoline [Visine] 1 drp OPB QID 08/21/20 09/10/20 History ipratropium-albuterol [DuoNeb] 3 ml INHALATION Q6H 09/10/20 09/10/20 History levofloxacin [Levaquin] 750 mg PO DAILY 09/10/20 09/10/20 History Patient History Medical History (Updated 09/15/20 @ 19:27 by Savage Barry DO) Asthma Autoimmune hepatitis (02/25/13) Bronchiectasis Common variable immunodeficiency COVID-19 in immunocompromised patient Second episode of COVID-19 in 90 days with 2 negative tests in between Pneumonia due to 2019 novel coronavirus (~04/2020) Thrombocytopenia Surgical History Hx of colonoscopy Port-A-Cath in place (07/05/19) Insertion Of Mediport With Fluoroscopy Dr. Huang 07-05-19 Family History Other Family history non-contributory Social History Smoking Status: Former smoker Second Hand Exposure: No; Hx Alcohol Use: No Hx Substance Use: Yes Preferred Language: Yi Communication Ability: Effective Dry Roller Required: No Beliefs That Will Affect Care: None marital status: Single Current Living Situation: Other Current Living Situation Comment: [facility] Feels Safe at Home: Yes Assistive Devices: Oxygen - Continuous Assistive Devices Comment: 3l Review of Systems Constitutional: as per Subjective / HPI Eyes: as per Subjective / HPI Ear, Nose, Mouth, Throat: as per Subjective / HPI Respiratory: as per Subjective / HPI Cardiovascular: as per Subjective / HPI Gastrointestinal: as per Subjective / HPI Genitourinary: + as per Subjective / HPI Musculoskeletal: as per Subjective / HPI Integumentary: as per Subjective / HPI Neurologic: as per Subjective / HPI Psychiatric: as per Subjective / HPI Endocrine: as per Subjective / HPI Hematologic / Lymphatic: as per Subjective / HPI Allergy / Immunological: as per Subjective / HPI Physical Exam Constitutional: WD/WN, vitals as above Eyes: + anicteric sclerae; no conjunctival abnormality ENMT: external ear and nose normal, oropharynx normal Nose: no turbinate abnormality, no nasal mucous membrane abnormality, no septum abnormality and no nasal discharge Mouth: no lip abnormality and no oropharynx abnormality Throat: no postnasal drainage Neck: trachea midline, no thyromegaly trachea midline Respiratory: normal respiratory effort and able to speak in complete sent ences; does not use accessory muscles Cardiovascular: RRR, no murmur, no edema Gastrointestinal (Abdomen): Inspection/Auscultation: abdomen normal to inspection and normal bowel sounds; abdomen not distended Musculoskeletal: Head/Neck/Chest: head atraumatic Gait: normal gait Skin: no rashes and no lesions Neurologic: awake Speech / Cognition: normal cognition Motor/Sensory: normal movement Psychiatric: A+Ox3, euthymic affect Results & Data ([facility]) Vital Signs (Past 12 Hours) Vital Signs Temp Pulse Pulse Resp BP Pulse Ox 09/16/20 11:28 36.7 C 73 18 113/69 96 09/16/20 08:13 86 20 94 09/16/20 07:40 36.9 C 78 20 103/64 97 09/16/20 07:30 82 09/16/20 05:03 95 H 09/16/20 03:26 39.1 C H 97 H 18 138/86 92 Coding Level of Care Code 60087 Initial Inpt Care Lvl 3 Diagnoses Sepsis A41.9 Sepsis acute organ dysfunction status: unspecified Sepsis type: sepsis due to unspecified organism Hypogammaglobulinemia D80.1 Immunocompromised D84.9 (1) Sepsis Sepsis acute organ dysfunction status: unspecified Sepsis type: sepsis due to unspecified organism Qualified Code(s): A41.9 - Sepsis, unspecified organism
[2020-09-16] MEDS ORDERED: POTASSIUM CHLORIDE CRTAB 20 MEQ TABCR PO ONE (14:00)
--- NOTE | 2020-09-16 15:21 | Pulmonology Progress Note ---
Date of Service September 16, 2020 Assessment & Plan (1) Abnormal CT scan of lung: CT chest 09/10/2020 personally reviewed: Brochiectasis with mucous plugging appreciated b/l LL. Diffuse ground glass opacities b/l upper and lower lobes. Interstitial thickening b/l Upper lobes. Mild subcarinal LAD --Abnormal Chest CT Differential includes sarcoid, NSIP, Fibrotic lung disease from covid infection covid 19 PCR -ve. Patient had covid-19 PNA in the past Alpha one antitrypsin level within normal limits. Minimal elevation of [place] level 85 (9-67) S/p bronchoscopy with EBUS 09/12/2020 Transbronchial biopsies did not show any granulomas Station 7 was negative for any granulomas or malignancy BAL differential: 1% lymphocytes, 65% neutrophils CD4/CD8 count: Less than 4:1. Bronc cultures have been negative to date. If the bronc culture did not show any specific diagnosis and the patient is still symptomatic open lung biopsy can be thought of. --Chronic hypoxic respiratory failure Continue with oxygen supplementation to keep oxygen between 88-90% --Bronchiectasis Given that the patient has history of hypogammaglobulinemia, this is likely the etiology of his bronchiectasis and air trapping appreciated on the CT along with associated clubbing Continue with Anoro Continue with mucolytic and pulmonary toilet --COPD Patient had PFTs back in 2019 which showed severe obstruction --Multiple pulmonary nodules Largest being 5 mm That have been stable for more than 1 year --Ex-smoker Greater than [id number] smoking history quit in 2009 Encouraged to be abstinent from it --History of diffuse B-cell lymphoma --Hypogammaglobulinemia Patient gets IVIG Plan: No malignancy or fungal infection noted on the bronchoscopy results. He does have chronic upper lobe predominant bronchiectasis and groundglass opacities. Would suggest an outpatient rheumatology work-up. He may require an open lung biopsy in the future as well. I doubt that the fever is from a pulmonary source at this time. Lower extremity Doppler yesterday was negative. CT abdomen pelvis yesterday was suggestive of infectious or inflammatory colitis. Would recommend follow-up work-up to evaluate whether this is the source of fever and infection. Pulmonary will sign off at this time. Thank you for the consultation. Please call with questions. Please note the above document was generated using voice recognition software. It may contain grammatical, syntax or spelling errors.Any formal questions or concerns about the content, text or information contained within the body of this dictation should be directly addressed to the provider for clarification. (2) Bronchiectasis: (3) History of COVID-19: (4) COPD with emphysema: Admission and Anticipated Discharge Date Admission Date: September 10, 2020 Subjective Patient seen and examined this morning today. He feels that his cough is improved. He denies any shortness of breath today. He had some mild hemoptysis yesterday which has resolved. He denies any significant chest pain at rest. He does have mild chest pain when coughing that is improving. No fevers or chills. Still requiring 3 L of oxygen via nasal cannula. Review of Systems Review of Systems: All systems reviewed & are unremarkable except as noted in HPI & below Physical Exam Physical Exam: Constitutional: No acute distress HEENT: EOMI, PERRLA Respiratory system: Decreased air entry bilaterally, no wheeze, no rhonchi, + crackles b/l anteriorly and bilateral lower lobes CVS: S1-S2 positive, no murmurs or gallops Abdomen: Soft, nontender, nondistended, positive bowel sounds x4 Extremities: +2 pulses bilaterally radialis, no cyanosis, minimal edema bilateral lower extremity, positive clubbing Neuro: Awake alert oriented x3, patient has unintentional resting tremor of the right hand Psych: Normal mood and affect G/U: No wetzel Skin: no rashes, warm and dry Lymphatic: no cervical or axillary lymphadenopathy Results & Data Results & Data ([facility]) Vital Signs (Past 12 Hours) Vital Signs Temp Pulse Pulse Resp BP Pulse Ox 09/16/20 15:13 97.7 F 76 20 111/73 97 09/16/20 13:16 82 17 98 09/16/20 11:28 98.1 F 73 18 113/69 96 09/16/20 08:13 86 20 94 09/16/20 07:40 98.4 F 78 20 103/64 97 09/16/20 07:30 82 09/16/20 05:03 95 H 09/16/20 03:26 102.4 F H 97 H 18 138/86 92 I reviewed the vital signs, labs and imaging PG Care Time/CCT Total # of Minutes Spent Total Time Spent with Patient: Total time spent is greater than 50% in coordination of care (as documented) at patient's floor/unit and/or counseling patient: Coding Level of Care Code 36906 Subseq Hosp Care Lvl [address] scan of lung R91.8 Bronchiectasis J47.9 History of COVID-19 Z86.16 COPD with emphysema J43.9
[2020-09-16] MEDS: guaiFENesin/DEXTROM SYRUP 200MG/20MG 10ML UDC PO PRN (17:28)
--- NOTE | 2020-09-16 20:35 | Hospitalist Progress Note ---
Date of Service September 16, 2020 Assessment & Plan (1) Chronic respiratory failure with hypoxia: Overall stable, continue nasal cannula and supportive care, pulmonary notes PFTs from a few years ago did show severe obstructive disease. (2) Sepsis: Source not entirely clear, bronc cultures without striking findings, pulmonary more convinced this is not an infectious process in his lungs. Abdominal process may be at playadded Flagyl to cover for enteric pathogens in addition to the cefepime. Greatly appreciate immunology inputlabs ordered as per recommended. Continue to follow, continue supportive care. (3) HCAP (healthcare-associated pneumonia): After further review, bronchoscopy, cultures, and ongoing clinical evaluation this seems less likely to be the case. (4) Colitis: Flagyl added, possibly related to his immune deficiency, possibly GI lymphoma. Serial exams and follow, likely will need a colonoscopy in the near future. (5) Pulmonary nodule: stable for 1 year per pulm (6) Abnormal CT scan of lung: See pulmonary input, ongoing evaluation/supportive care/serial exams/follow-up on pulmonary pathology from bronchoscopy (7) Hypogammaglobulinemia: See above under sepsis/see immunology input. (8) Esophageal varices: Follow clinically, seems stable (9) DVT prophylaxis: SCDs (pharmacologic contraindicated due to thrombocytopenia) (10) Hypokalemia: Supplement and follow Admission and Anticipated Discharge Date Admission Date: September 10, 2020 Subjective Fever overnight this time higher, felt like he was burning up, otherwise no specific symptoms. He had a bowel movement, still has abdominal pain, apparently had abdominal pain while coughing that he reported to nursing earlier. Otherwise really shows no focal symptoms. Case discussed with immunology and input greatly appreciated. Pulmonary input appreciated as well. Review of Systems Review of Systems: All systems reviewed & are unremarkable except as noted in HPI & below Physical Exam Physical Exam: In general he is awake and alert pleasant appears anxious and somewhat chronically ill but no acute distress. HEENT normocephalic atraumatic mucous membranes moist. Breathing unlabored no accessory muscle use good effort. Abdomen is soft still has some mild periumbilical to epigastric tenderness somewhat similar to yesterday no guarding no rebound. Extremities show no cyanosis. He has no focal neuro deficits. Results & Data Results & Data ([facility]) Vital Signs (Past 12 Hours) Vital Signs Temp Pulse Pulse Resp BP Pulse Ox 09/16/20 20:23 84 135/78 09/16/20 19:26 87 20 95 09/16/20 19:00 98.4 F 84 20 131/84 94 09/16/20 15:13 97.7 F 76 20 111/73 97 09/16/20 15:00 69 09/16/20 13:16 82 17 98 09/16/20 11:28 98.1 F 73 18 113/69 96 PG Care Time/CCT Total # of Minutes Spent Total Time Spent with Patient: Total time spent is greater than 50% in coordination of care (as documented) at patient's floor/unit and/or counseling patient: Coding Level of Care Code 88705 Subseq Hosp Care Lvl 3 Diagnoses Chronic respiratory failure with hypoxia J96.11 Sepsis A41.9 Sepsis type: sepsis due to unspecified organism Sepsis acute organ dysfunction status: unspecified HCAP (healthcare-associated pneumonia) J18.9 Colitis K52.9 Pulmonary nodule R91.[address] scan of lung R91.8 Hypogammaglobulinemia D80.1 Esophageal varices I85.00 DVT prophylaxis Z29.9 Hypokalemia E87.6 (1) Sepsis Sepsis type: sepsis due to unspecified organism Sepsis acute organ dysfunction status: unspecified Qualified Code(s): A41.9 - Sepsis, unspecified organism
[2020-09-16] MEDS ORDERED: KETOROLAC TROMETHAMINE 15 MG/ML VIAL IV ONE (20:47)
[2020-09-16 21:55] LABS: Fibrinogen 424 mg/dl (184-400)
[2020-09-16 22:03] LABS: Ferritin 285.7 ng/ml (8-388)
[2020-09-16] MEDS ORDERED: IVIG IV ONE (22:32)
[2020-09-16] MEDS ORDERED: IMMUNE GLOBULIN(HUMAN) 10% 100 ML IV SCH (23:00)
[2020-09-17] MEDS ORDERED: IMMUNE GLOBULIN(HUMAN) 10% 200 ML IV SCH
[2020-09-17] MEDS: BENZONATATE 100 MG CAPSULE PO PRN ×2 (00:40→07:25)
[2020-09-17] MEDS: ALBUT/IPRATROP 3MG/0.5MG NEB 3 ML VIAL INH SCH ×4 (01:23→19:20)
[2020-09-17] MEDS: AZITHROMYCIN 500 MG in DEXTROSE 5% 250 ML IV SCH (04:06)
[2020-09-17] MEDS: CEFEPIME 2,000 MG in SYRINGE 0 ML IV SCH ×3 (04:06→18:32)
[2020-09-17] MEDS: metroNIDAZOLE 500 MG/100 ML BAG IV SCH ×3 (06:12→20:11)
[2020-09-17] MEDS: guaiFENesin/DEXTROM SYRUP 200MG/20MG 10ML UDC PO PRN (06:12)
[2020-09-17] MEDS: D5W AND 1/2NSS 1,000 ML IV SCH ×2 (07:19→16:54)
[2020-09-17] MEDS ORDERED: COUGH DROP (SUGAR FREE) LOZ 24 LOZ/1 BOX BUCCAL ONE (07:23)
[2020-09-17] MEDS: ONDANSETRON INJ 2 MG/ML 2 ML VIAL IV PRN (07:25)
[2020-09-17] MEDS: MoRPHine SULFATE 2 MG/ML CARP IV PRN ×2 (07:26→22:10)
[2020-09-17 08:52] LABS: Hematocrit (blood only) 29.3 % (42-52); Mean Corpuscular Hemoglobin 28.2 pg (25-34); Mean Corpuscular Hgb Conc 34.1 g/dL (32-36); Mean Corpuscular Volume 82.8 fL (80-100); RDW Coefficient of Variation 17.6 % (11.5-14.5); RDW Standard Deviation 52.2 fL (36.4-46.3); Red Blood Count 3.54 M/uL (4.7-6.1); White Blood Count 3.05 K/uL (4.8-10.8)
[2020-09-17] MEDS: ADVANCED PROBIOTIC 1250 MG CAPSULE PO SCH ×3 (09:04→16:54)
[2020-09-17] MEDS: carvediloL 6.25 MG TAB PO SCH ×2 (09:05→20:11)
[2020-09-17] MEDS: ARTIFICIAL TEARS OP SCH ×4 (09:05→20:11)
[2020-09-17] MEDS: SODIUM CHLORIDE 0.65% NA SOLN 45 ML (OCEAN) SCH ×2 (09:06→20:10)
[2020-09-17] MEDS: CALCIUM POLYCARBOPHIL 625MG TAB PO SCH ×2 (09:06→09:08)
[2020-09-17] MEDS: FOLIC ACID 1 MG TAB PO SCH (09:06)
[2020-09-17] MEDS: PANTOprazole 40 MG TAB PO SCH (09:06)
[2020-09-17] MEDS: predniSONE 20 MG TAB PO SCH (09:06)
[2020-09-17 09:22] LABS: BUN Creatinine Ratio 19.1 (10-20); Calcium 8.1 mg/dl (8.5-10.1); Creatinine Clr Calc Pharmacy 118.2 ml/min; Est GFR (African American) 129.4; Est GFR (Non-African American) 111.6; Platelet Count 57 K/uL (130-400); Potassium 3.4 mmol/L (3.5-5.1)
[2020-09-17 09:30] LABS: Immature Granulocytes # (auto) 0.03 K/uL (0.00-0.02); Lymphocytes # (auto) 0.28 K/uL (1.2-3.4); Lymphocytes % (auto) 9.2 %; Monocytes # (auto) 0.32 K/uL (0.11-0.59); Monocytes % (auto) 10.5 %; Neutrophils # (auto) 2.42 K/uL (1.4-6.5); Neutrophils % (auto) 79.3 %; Ovalocytes 1+; Toxic Vacuolation 1+
[2020-09-17] MEDS: ACETAMINOPHEN 325 MG TAB PO PRN (11:18)
--- NOTE | 2020-09-17 18:14 | Hospitalist Progress Note ---
Date of Service September 17, 2020 Assessment & Plan (1) Chronic respiratory failure with hypoxia: Overall stable, continue nasal cannula and supportive care, pulmonary notes PFTs from a few years ago did show severe obstructive disease. ongoing supportive care (2) Sepsis: Source not entirely clear, bronc cultures without striking findings, pulmonary more convinced this is not an infectious process in his lungs. Abdominal process may be at playadded Flagyl to cover for enteric pathogens in addition to the cefepime. Greatly appreciate immunology inputlabs ordered as per recommended. IVIG given - fever stopped. follow. ?viral vs bacterial vs immunologic. (3) HCAP (healthcare-associated pneumonia): After further review, bronchoscopy, cultures, and ongoing clinical evaluation this seems less likely to be the case. (4) Colitis: Flagyl added, possibly related to his immune deficiency, possibly GI lymphoma. Serial exams and follow, not improving - will ask GI for input ?Cscope ?lymphoma recurrence (5) Pulmonary nodule: stable for 1 year per pulm (6) Abnormal CT scan of lung: See pulmonary input, ongoing evaluation/supportive care/serial exams/follow-up on pulmonary pathology from bronchoscopy (7) Hypogammaglobulinemia: See above under sepsis/see immunology input. IVIG given (8) Esophageal varices: Follow clinically, seems stable (9) DVT prophylaxis: SCDs (pharmacologic contraindicated due to thrombocytopenia) (10) Hypokalemia: Supplement and follow Admission and Anticipated Discharge Date Admission Date: September 10, 2020 Subjective feeling about the same. ongoing abdominal pain. no real new breathing symptoms Review of Systems Review of Systems: All systems reviewed & are unremarkable except as noted in HPI & below Physical Exam Physical Exam: aao, pleasantly anxious nad. heent nc at mmm lungs quiet throughout but no rrw good effort skin no rashes no pallor or icterus abd soft but ongoing epigastric tenderness similar to yesterday mild volutnary guarding no rebound Results & Data Results & Data ([facility]) Vital Signs (Past 12 Hours) Vital Signs Temp Pulse Pulse Resp BP BP Pulse Ox 09/17/20 16:20 97.7 F 65 16 97/64 L 110/64 98 09/17/20 13:09 82 18 94 09/17/20 12:30 98.4 F 09/17/20 11:57 99.7 F H 93 H 20 133/82 91 09/17/20 07:00 98.2 F 92 H 22 139/82 91 09/17/20 06:57 90 20 96 09/17/20 06:20 87 PG Care Time/CCT Total # of Minutes Spent Total Time Spent with Patient: Total time spent is greater than 50% in coordination of care (as documented) at patient's floor/unit and/or counseling p atient: Coding Level of Care Code 11967 Subseq Hosp Care Lvl 3 Diagnoses Chronic respiratory failure with hypoxia J96.11 Sepsis A41.9 Sepsis type: sepsis due to unspecified organism Sepsis acute organ dysfunction status: unspecified HCAP (healthcare-associated pneumonia) J18.9 Colitis K52.9 Pulmonary nodule R91.[address] scan of lung R91.8 Hypogammaglobulinemia D80.1 Esophageal varices I85.00 DVT prophylaxis Z29.9 Hypokalemia E87.6 (1) Sepsis Sepsis type: sepsis due to unspecified organism Sepsis acute organ dysfunction status: unspecified Qualified Code(s): A41.9 - Sepsis, unspecified organism
[2020-09-18] MEDS: ACETAMINOPHEN 325 MG TAB PO PRN ×2 (00:26→18:35)
[2020-09-18] MEDS: BENZONATATE 100 MG CAPSULE PO PRN (00:26)
[2020-09-18] MEDS: guaiFENesin/DEXTROM SYRUP 200MG/20MG 10ML UDC PO PRN ×2 (00:27→08:53)
[2020-09-18] MEDS: ALBUT/IPRATROP 3MG/0.5MG NEB 3 ML VIAL INH SCH ×4 (01:14→19:58)
[2020-09-18] MEDS: metroNIDAZOLE 500 MG/100 ML BAG IV SCH ×3 (04:45→21:22)
[2020-09-18] MEDS: D5W AND 1/2NSS 1,000 ML IV SCH ×2 (06:10→16:56)
[2020-09-18] MEDS: HEPARIN 100 UNIT/ML 5ML FLUSH FLUSH PRN ×2 (06:11→09:45)
[2020-09-18] MEDS: MoRPHine SULFATE 2 MG/ML CARP IV PRN (06:11)
[2020-09-18 06:24] LABS: Hematocrit (blood only) 25.6 % (42-52); Hemoglobin 8.5 g/dL (14.0-18.0); Mean Corpuscular Hemoglobin 27.6 pg (25-34); Mean Corpuscular Hgb Conc 33.2 g/dL (32-36); Mean Corpuscular Volume 83.1 fL (80-100); RDW Coefficient of Variation 17.4 % (11.5-14.5); RDW Standard Deviation 52.2 fL (36.4-46.3); Red Blood Count 3.08 M/uL (4.7-6.1); White Blood Count 1.98 K/uL (4.8-10.8)
[2020-09-18 06:27] LABS: Mean Platelet Volume 8.4 fL (7.4-10.4); Platelet Count 40 K/uL (130-400)
[2020-09-18 06:43] LABS: Eosinophils # (auto) 0.01 K/uL (0-0.5); Eosinophils % (auto) 0.5 %; Giant Platelets 1+; Immature Granulocytes # (auto) 0.02 K/uL (0.00-0.02); Lymphocytes # (auto) 0.23 K/uL (1.2-3.4); Lymphocytes % (auto) 11.6 %; Monocytes # (auto) 0.16 K/uL (0.11-0.59); Monocytes % (auto) 8.1 %; Neutrophils # (auto) 1.56 K/uL (1.4-6.5); Neutrophils % (auto) 78.8 %; Ovalocytes 1+; Tear Drop Cells 1+; Toxic Vacuolation 1+
[2020-09-18 06:47] LABS: BUN Creatinine Ratio 23.6 (10-20); Calcium 7.4 mg/dl (8.5-10.1); Creatinine Clr Calc Pharmacy 119.3 ml/min; Est GFR (African American) 128.5; Est GFR (Non-African American) 110.9; Potassium 3.6 mmol/L (3.5-5.1)
[2020-09-18] MEDS: PANTOprazole 40 MG TAB PO SCH (08:54)
[2020-09-18] MEDS: ADVANCED PROBIOTIC 1250 MG CAPSULE PO SCH (08:54)
[2020-09-18] MEDS: CALCIUM POLYCARBOPHIL 625MG TAB PO SCH (08:54)
[2020-09-18] MEDS: carvediloL 6.25 MG TAB PO SCH ×2 (08:54→21:23)
[2020-09-18] MEDS: FOLIC ACID 1 MG TAB PO SCH (08:54)
[2020-09-18] MEDS: ARTIFICIAL TEARS OP SCH ×4 (08:55→21:24)
[2020-09-18] MEDS: SODIUM CHLORIDE 0.65% NA SOLN 45 ML (OCEAN) SCH ×2 (08:55→21:24)
--- NOTE | 2020-09-18 09:19 | Gastrointestinal Consultation ---
Date of Consultation September 18, 2020 Assessment & Plan (1) Colitis: The patient was hospitalized 8 days ago due to chronic respiratory failure with hypoxia and sepsis. Etiology of sepsis source not clear. Blood cultures have been negative. He has been on IV Zithromax and cefepime. Flagyl was added for abdominal coverage. Does not appear stool testing was completed. Will order. Concerns due to patient prior lymphoma history and recent CT A/P findings. Patient has history of CVID and was evaluated by immunology while inpatient. He is a poor candidate for anesthesia due to pulmonary status. Reviewed case with Dr. Newman who will evaluate the patient this afternoon. Please refer to supervising physician addendum for further recommendations. History of Present Illness Attending Physician: Savage Barry, History of Present Illness The patient is a 55-year-old male with past medical history to include COPD on oxygen, colitis, pulmonary nodule, chronic respiratory failure with hypoxia, sepsis, HCAP, history of COVID-19, bronchiectasis, esophageal varices, former smoker, renal mass, history of fungal pneumonia, history of diffuse B-cell lymphoma, hypogammaglobulinemia who presented to the emergency department 09/11/2020 due to night sweats fever and chest pain. He was subsequently admitted for further management of chronic respiratory failure and sepsis. GI was consulted due to persistent colitis. On exam/interview today, the patient is sitting upright in bed reports he is feeling well. He reports he has been having some intermittent epigastric abdominal pain. He rates this as a 4-5 out of 10. Denies any nausea or vomiting. He has been able to eat despite his abdominal discomfort. He is able to walk in his room from the bed to the bathroom. He reports a bowel movement this morning which was loose. The patient reports he is a former smoker. He is an inmate and incarcerated at [facility]. He has been incarcerated for the last 10 years. 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 He does have family and children with grandchildren as well. Allergies Allergy/AdvReac Type Severity Reaction Status Date / Time Bactrim Allergy Mild RASH/BLEEDI Verified 01/10/13 14:22 NG sulfamethoxazole Allergy Mild RASH/BLEEDI Verified 09/10/20 14:34 NG trimethoprim Allergy Mild RASH/BLEEDI Verified 09/10/20 14:34 NG Home Medications Medication Instructions Recorded Confirmed Type Lactobacillus acidophilus 1 0 cell PO TID 06/26/19 09/10/20 History billion cell tablet carvedilol 6.25 mg tablet 6.25 mg PO BID tab 06/26/19 09/10/20 History folic acid 1 mg tablet 1 mg PO DAILY 06/26/19 09/10/20 History ondansetron HCl [Zofran] 8 mg PO TID PRN 07/03/19 09/10/20 History umeclidinium 62.5 mcg-vilanterol 1 puffs INH DAILY #60 ea 01/05/20 09/10/20 Rx 25 mcg/actuation powdr for inhalation Systane Gel 1 drp OPHTHALMIC (EYE) QID 05/15/20 09/10/20 History acetaminophen [Tylenol] 325 mg PO BID PRN 05/15/20 09/10/20 History Alvesco 2 puff INHALATION DAILY 08/12/20 09/10/20 History B-complex with vitamin C [Vitamin 1 tab PO DAILY 08/21/20 09/10/20 History B Complex-C] Dexamethasone 10mg/Ml Sdv 20 mg IV DIRECTED 08/21/20 09/10/20 History Diphenhydramine 50 Mg/Ml Sdv 50 mg IV DIRECTED 08/21/20 09/10/20 History Gammagard 1 Gm /10 Ml Inj 4 g IV DIRECTED 08/21/20 09/10/20 History Gammagard 20 Gm/200 Ml 20 g IV DIRECTED 08/21/20 09/10/20 History Magic Mouth Wash 5 ml PO ACHS 08/21/20 09/10/20 History ascorbic acid (vitamin C) [Vitamin 500 mg PO BID 08/21/20 09/10/20 History C] calcium polycarbophil [Fiber-Lax] 625 mg PO DAILY 08/21/20 09/10/20 History dextromethorphan-guaifenesin 1 tab PO Q12H 08/21/20 09/10/20 History [Mucinex DM] food supplemt, lactose-reduced 1 ea PO TID 08/21/20 09/10/20 History [Ensure] levalbuterol tartrate [Xopenex HFA] 2 inh INHALATION QID PRN 08/21/20 09/10/20 History pantoprazole 40 mg PO DAILY 08/21/20 09/10/20 History sodium chloride [[place] Allergy and 1 spray INTRANASAL BID 08/21/20 09/10/20 History Sinus] tetrahydrozoline [Visine] 1 drp OPB QID 08/21/20 09/10/20 History ipratropium-albuterol [DuoNeb] 3 ml INHALATION Q6H 09/10/20 09/10/20 History levofloxacin [Levaquin] 750 mg PO DAILY 09/10/20 09/10/20 History Patient History Medical History (Updated 09/15/20 @ 19:27 by Savage Barry DO) Asthma Autoimmune hepatitis (02/25/13) Bronchiectasis Common variable immunodeficiency COVID-19 in immunocompromised patient Second episode of COVID-19 in 90 days with 2 negative tests in between Pneumonia due to 2019 novel coronavirus (~04/2020) Thrombocytopenia Surgical History Hx of colonoscopy Port-A-Cath in place (07/05/19) Insertion Of Mediport With Fluoroscopy Dr. Huang 07-05-19 Family History Other Family history non-contributory Social History Smoking Status: Former smoker Second Hand Exposure: No; Hx Alcohol Use: No Hx Substance Use: Yes Preferred Language: Slovenian Communication Ability: Effective Purchasing Supervisor Required: No Beliefs That Will Affect Care: None marital status: Single Current Living Situation: Other Current Living Situation Comment: [facility] Feels Safe at Home: Yes Assistive Devices: Oxygen - Continuous Assistive Devices Comment: 3l Review of Systems Review of Systems: All systems reviewed & are unremarkable except as noted in Subjective Physical Exam Constitutional: + ill appearing and + frail appearing; no acute distress Eyes: no conjunctival abnormality Neck: normal visual inspection Respiratory: no respiratory distress Auscultation: + crackles (bilateral mid to lower lobes) and + wheezes Gastrointestinal (Abdomen): Inspection/Auscultation: abdomen normal to inspection and normal bowel sounds; abdomen not distended Percussion/Palpation: + abdomen tender (epigastric to LUQ tenderness with palpation) and abdomen soft; no guarding and abdomen not rigid Musculoskeletal: Extremities: extremities normal to inspection Neurologic: moves all extremities; not confused Psychiatric: Orientation: alert and oriented x 3 Results & Data ([facility]) Vital Signs (Past 12 Hours) Vital Signs Temp Pulse Pulse Resp BP BP Pulse Ox 09/18/20 07:46 73 18 97 09/18/20 07:37 36.3 C L 116 H 22 111/76 94 09/18/20 07:22 54 L 09/18/20 03:45 36.4 C L 55 L 20 113/75 98 09/18/20 01:16 70 16 97 09/18/20 00:35 60 09/17/20 23:00 36.5 C 61 20 111/71 98 09/17/20 22:59 36.5 C 53 L 18 104/67 97 Laboratory Results - last 24 hr 09/17/20 09/17/20 09/17/20 08:18 08:18 09:50 WBC RBC Hgb Hct MCV MCH MCHC RDW Std Deviation RDW Coeff of John Plt Count 57 L MPV 9.0 Immature Gran % (Auto) 1.0 Neut % (Auto) 79.3 Lymph % (Auto) 9.2 Bulloch % (Auto) 10.5 Eos % (Auto) 0.0 Baso % (Auto) 0.0 Neut # (Auto) 2.42 Lymph # (Auto) 0.28 L Bulloch # (Auto) 0.32 Eos # (Auto) 0.00 Baso # (Auto) 0.00 Immature Gran # (Auto) 0.03 H Toxic Vacuolation 1+ Giant Platelets Tear Drop Cells Ovalocytes 1+ Sodium 134 L Potassium 3.4 L D Chloride 101 Carbon Dioxide 29 Anion Gap 4.0 BUN 12 Creatinine 0.61 Est Cr Clr Drug Dosing 118.2 Est GFR ( Amer) 129.4 Est GFR (Non-Af Amer) 111.6 BUN/Creatinine Ratio 19.1 Glucose 108 H Calcium 8.1 L CMV Specimen Source Pending CMV Qnt PCR IU/mL Pending CMV Qnt PCR log IU/mL Pending 09/18/20 09/18/20 06:02 06:02 WBC 1.98 L RBC 3.08 L Hgb 8.5 L Hct 25.6 L MCV 83.1 MCH 27.6 MCHC 33.2 RDW Std Deviation 52.2 H RDW Coeff of John 17.4 H Plt Count 40 L MPV 8.4 Immature Gran % (Auto) 1.0 Neut % (Auto) 78.8 Lymph % (Auto) 11.6 Bulloch % (Auto) 8.1 Eos % (Auto) 0.5 Baso % (Auto) 0.0 Neut # (Auto) 1.56 Lymph # (Auto) 0.23 L Bulloch # (Auto) 0.16 Eos # (Auto) 0.01 Baso # (Auto) 0.00 Immature Gran # (Auto) 0.02 Toxic Vacuolation 1+ Giant Platelets 1+ Tear Drop Cells 1+ Ovalocytes 1+ Sodium 139 Potassium 3.6 Chloride 106 Carbon Dioxide 31 Anion Gap 2.0 L BUN 15 Creatinine 0.62 Est Cr Clr Drug Dosing 119.3 Est GFR ( Amer) 128.5 Est GFR (Non-Af Amer) 110.9 BUN/Creatinine Ratio 23.6 H Glucose 122 H Calcium 7.4 L CMV Specimen Source CMV Qnt PCR IU/mL CMV Qnt PCR log IU/mL 09/15/2020: CT of the abdomen and pelvis with IV and oral contrast due to acute fever and generalized abdominal pain demonstrated a large calcification at the base of the appendix with chronic fluid-filled dilation of the appendix; chronic wall thickening of the cecum and ileocecal valve redemonstrated with new wall thickening of the ascending colon and hepatic flexure suggestive of infectious or inflammatory colitis; no bowel obstruction; trace free fluid of the right pericolic gutter and dependent pelvis; cirrhosis with marked splenomegaly; bibasilar groundglass and consolidative opacities
[2020-09-18] MEDS ORDERED: ALBUT/IPRATROP 3MG/0.5MG NEB 3 ML VIAL NEB STA (09:20)
[2020-09-18] MEDS ORDERED: FUROSEMIDE 40 MG/4 ML VIAL IV ONE (09:28)
[2020-09-18] MEDS ORDERED: FUROSEMIDE 40 MG in SYRINGE 0 ML IV ONE (09:31)
--- NOTE | 2020-09-18 10:10 | XRay Report ---
XR chest 1V portable CLINICAL HISTORY: acute hypoxia, ?new pulm edema COMPARISON STUDY: Chest CT September 10, 2020. Chest radiograph September 14, 2020. FINDINGS: A left internal jugular [id number] is in place. There is no pneumothorax or pleural effu faheem. Upper lobe predominant bilateral opacities have mildly increased. Cardiac size is normal. IMPRESSION: Increase in upper lobe predominant airspace opacities which favors pneumonia. ACT 112: Negative or not required by law. Electronically signed by: Rene Mesa M.D. 09/18/2020 10:09 AM
[2020-09-18 10:25] LABS: Base Excess ABG 3.1 mEq/L (-9-1.8); HCO3 ABG 27 mmol/L (19-24); Oxygen Saturation ABG 99.1 % (90-95); PCO2 ABG 40 mmHg (35-46); PO2 ABG 146 mmHg (80-95); pH ABG 7.45 (7.35-7.45)
[2020-09-18 10:27] LABS: Allen Test Pos (Pos)
--- NOTE | 2020-09-18 13:39 | Hospitalist Progress Note ---
Date of Service September 18, 2020 Assessment & Plan (1) Acute respiratory failure with hypoxia: Abrupt onset of any acute event this morninghe related anxiety, but it would be hard pressed to attribute oxygen saturations of 70% to anxiety alone. The way he examined, the way he responded to Lasix, and the way the situation settled out through the morning, I strongly suspect he had pulmonary edemaprobably an acute diastolic CHF type episode, possibly brought on by the physiologic stress of what he has been under. Responded nicely to 40 Lasix, BiPAP has been weaned. Undoubtedly anxiety played a role in his subjective sense of dyspnea, but I highly doubt it was a whole picture. Fortunately his blood gas did not show hypoventilation. Continue serial exams and supportive care. Echocardiogram. But at this point I do not see any need for ongoing Lasix. (2) Chronic respiratory failure with hypoxia: pulmonary notes PFTs from a few years ago did show severe obstructive disease. ongoing supportive care (3) Sepsis: Source not entirely clear, bronc cultures without striking findings, pulmonary more convinced this is not an infectious process in his lungs. Abdominal process may be at playadded Flagyl to cover for enteric pathogens in addition to the cefepime. Greatly appreciate immunology inputlabs ordered as per recommended. IVIG given - fever stopped. follow. ?viral vs bacterial vs immunologic versus lymphoma. A more more concerned that his abdomen is the source of his fever/distress, GI input appreciated. He has been afebrile since getting IVIG, but continues to have the same abdominal exam, lung pathology acutely as a culprit seems to have been effectively ruled out by bronchoscopy and associated findings (4) HCAP (healthcare-associated pneumonia): After further review, bronchoscopy, cultures, and ongoing clinical evaluation this seems less likely to be the case. 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 Serial exams and follow, not improving -appreciate GI input (6) Pulmonary nodule: stable for 1 year per pulm (7) Abnormal CT scan of lung: See pulmonary input, ongoing evaluation/supportive care/serial exams/follow-up on pulmonary pathology from bronchoscopyno findings of diagnostic value to date (8) Hypogammaglobulinemia: See above under sepsis/see immunology input. IVIG given (9) Esophageal varices: Follow clinically, seems stable (10) DVT prophylaxis: SCDs (pharmacologic contraindicated due to thrombocytopenia) (11) Hypokalemia: Supplement and follow Admission and Anticipated Discharge Date Admission Date: September 10, 2020 Subjective Called to the bedside due to hypoxia. Patient very dyspneic, tachypneic, shaky. Fairly abrupt onset, later whenever he is able to calm down and breathe a little easier, he notes that it was shortly after he had gotten up to go to the bathroom and clean up. Abrupt onset of dyspnea. He still has ongoing abdominal pain basically the same as its been the last several days, and it seems like much of anything, even moving coughing or sneezing, exacerbates his abdominal pain. The abdominal pain is still essentially periumbilical to epigastric, and does not really seem to get better with anything, does seem to get worse with anything causing an abrupt movement or jolting on his abdomen. Throughout the morning patient seen many times, and as the morning progresses into the afternoon, he is feeling less and less dyspneic. He notes he definitely felt extremely anxious whenever he was in distress, to the point that he even wondered how much of his distress was anxiety. Later whenever he is doing much better, he also notes a degree of ongoing anxiety about taking off BiPAP to eat. Review of Systems Review of Systems: All systems reviewed & are unremarkable except as noted in HPI & below Physical Exam Physical Exam: Initially sitting upright in bed markedly tachypneic heavily tremulous and appearing in severe distress. Lungs were coarse bilaterally with faint scattered expiratory wheezes, much different than before. As the day progressed, his lung exam faded to very faintly coarse with absolutely no wheezing and no other rales rhonchi, good effort no accessory muscle use, his tachypnea slowed down. Cardio regular distant no rubs murmurs or gallops abdomen same as beforemildly distended somewhat firm tenderness epigastric and periumbilical without guarding or rebound or rigidity. Extremities show no cyanosis clubbing or edema. Neuro shows no focal deficits. Results & Data Results & Data ([facility]) Vital Signs (Past 12 Hours) Vital Signs Temp Pulse Pulse Resp BP BP Pulse Ox 09/18/20 13:03 107 H 18 95 09/18/20 12:07 98.8 F 96 H 22 109/74 96 09/18/20 11:24 93 H 35 H 98 09/18/20 09:40 112 H 112 H 32 H 92 09/18/20 07:46 73 18 97 09/18/20 07:37 97.3 F L 116 H 22 111/76 94 09/18/20 07:22 54 L 09/18/20 03:45 97.5 F L 55 L 20 113/75 98 PG Care Time/CCT Total # of Minutes Spent Total Time Spent with Patient: Total time spent is greater than 50% in coordination of care (as documented) at patient's floor/unit and/or counseling patient: Coding Level of Care Code 89673 Subseq Hosp Care Lvl 3 Diagnoses Acute respiratory failure with hypoxia J96.01 Chronic respiratory failure with hypoxia J96.11 Sepsis A41.9 Sepsis type: sepsis due to unspecified organism Sepsis acute organ dysfunction status: unspecified HCAP (healthcare-associated pneumonia) J18.9 Colitis K52.9 Pulmonary nodule R91.[address] scan of lung R91.8 Hypogammaglobulinemia D80.1 Esophageal varices I85.00 DVT prophylaxis Z29.9 Hypokalemia E87.6 (1) Sepsis Sepsis type: sepsis due to unspecified organism Sepsis acute organ dysfunction status: unspecified Qualified Code(s): A41.9 - Sepsis, unspecified organism
[2020-09-18] MEDS: CEFEPIME 2,000 MG in SYRINGE 0 ML IV SCH ×2 (15:01→23:55)
--- NOTE | 2020-09-18 15:02 | XCELERA ---
[id number]
--- NOTE | 2020-09-18 17:43 | Consultation Report ---
DATE OF CONSULTATION: 09/18/2020 Addendum to the consult note by Kayleigh Horton: The patient was interviewed and examined and the chart was reviewed as well as labs and imaging. The patient has chronic respiratory failure and presented to the hospital with fever. He has pancytopenia and common variable immunodeficiency and gets IVIG. Two years ago, he was diagnosed with B-cell lymphoma, primarily involving his colon. Apparently, he received chemotherapy in the form of R-CHOP and he is being followed now every 6 months. He presented with hypoxia, shortness of breath, cough, and abdominal pain. His CT scan shows some thickening of the ileum and right colon and some calcifications around the appendix concerning for recurrent lymphoma. Unfortunately, due to his respiratory status and overall poor health, he is a poor candidate for endoscopic evaluation or surgical intervention. I think at this point, I would ask oncology to offer their opinion about the likelihood of this being recurrent lymphoma and how to evaluate and treat it if they believe that it is.
[2020-09-19] MEDS: ALBUT/IPRATROP 3MG/0.5MG NEB 3 ML VIAL INH SCH ×4 (02:15→20:11)
[2020-09-19] MEDS: metroNIDAZOLE 500 MG/100 ML BAG IV SCH ×3 (03:40→21:16)
[2020-09-19] MEDS: D5W AND 1/2NSS 1,000 ML IV SCH ×2 (04:27→15:49)
[2020-09-19] MEDS: ACETAMINOPHEN 325 MG TAB PO PRN ×2 (06:07→17:13)
[2020-09-19] MEDS: CEFEPIME 2,000 MG in SYRINGE 0 ML IV SCH ×3 (06:07→22:37)
[2020-09-19] MEDS: PANTOprazole 40 MG TAB PO SCH (07:54)
[2020-09-19] MEDS: FOLIC ACID 1 MG TAB PO SCH (07:54)
[2020-09-19] MEDS: ADVANCED PROBIOTIC 1250 MG CAPSULE PO SCH (07:54)
[2020-09-19] MEDS: CALCIUM POLYCARBOPHIL 625MG TAB PO SCH (07:54)
[2020-09-19] MEDS: ARTIFICIAL TEARS OP SCH ×4 (07:55→21:19)
[2020-09-19] MEDS: carvediloL 6.25 MG TAB PO SCH ×2 (07:55→21:19)
[2020-09-19] MEDS: guaiFENesin/DEXTROM SYRUP 200MG/20MG 10ML UDC PO PRN (07:55)
[2020-09-19] MEDS: SODIUM CHLORIDE 0.65% NA SOLN 45 ML (OCEAN) SCH ×2 (07:56→21:19)
--- NOTE | 2020-09-19 08:51 | Gastroenterology Progress Note ---
Date of Service September 19, 2020 Assessment & Plan (1) Colitis: (2) H/O lymphoma: The patient reports that he is feeling better this morning. His breathing appears easier from yesterday. Patient has a complicated past medical history including B-cell lymphoma primarily involving his colon. He did receive chemotherapy in the form of R-CHOP and is being followed every [address] imaging demonstrated thickening of the ileum and right colon with some calcifications around the appendix concerning for recurrent lymphoma. Dr. Newman evaluated the patient and is recommending oncology evaluation as the patient is a very poor candidate for endoscopic evaluation or surgical intervention. Please refer to supervising physician addendum for further recommendations. Admission and Anticipated Discharge Date Admission Date: September 10, 2020 Subjective The patient reports that he is feeling better this morning. He is sitting upright and his breathing appears easier. He does have an oxygen mask on this morning. Reports that he was able to tolerate half of his pressure this morning without difficulty. Reports abdominal pain is improved from yesterday. He denies any nausea or vomiting. No bowel movement this morning. He is aware that stool sample is to be collected with next bowel movement. Denies complaints this morning. Review of Systems Review of Systems: All systems reviewed & are unremarkable except as noted in Subjective Physical Exam Constitutional: + ill appearing and + frail appearing; no acute distress Eyes: no conjunctival abnormality Neck: normal visual inspection Respiratory: no respiratory distress Gastrointestinal (Abdomen): Inspection/Auscultation: abdomen normal to inspection and normal bowel sounds; abdomen not distended Percussion/Palpation: + abdomen tender (mild epigastric to LUQ tenderness with palpation) and abdomen soft; no guarding and abdomen not rigid Musculoskeletal: Extremities: extremities normal to inspection Neurologic: moves all extremities; not confused Psychiatric: Orientation: alert and oriented x 3 Results & Data ([facility]) Vital Signs (Past 12 Hours) Vital Signs Temp Pulse Pulse Resp BP BP Pulse Ox 09/19/20 07:26 37.1 C 85 18 110/66 92 09/19/20 07:16 87 18 92 09/19/20 04:18 69 09/19/20 04:00 36.8 C 67 18 108/74 97 09/18/20 23:13 36.5 C 71 18 99/63 L 96 Laboratory Results - last 24 hr 09/16/20 09/18/20 09/18/20 21:09 09:29 10:07 ABG pH Cancelled 7.45 ABG pCO2 Cancelled 40 ABG pO2 Cancelled 146 H ABG HCO3 Cancelled 27 H ABG O2 Saturation Cancelled 99.1 H ABG Base Excess Cancelled 3.1 H Caesar Test Cancelled Pos Barometric Pressure Cancelled 732.0 Oxygen Given Cancelled 60% EBV Capsid Ag IgG Ab 127.00 H EBV Capsid Ag IgM Ab <36.00 EBV Nuclear Antigen Ab 179.00 H EBV Antibody Interp SEE NOTE
[2020-09-19 09:11] LABS: CMV DNA Qnt Real Time PCR 9443 IU/mL (<200); CMV DNA Quant PCR 3.98 log IU/mL (<2.30)
--- NOTE | 2020-09-19 10:02 | Consultation Report ---
DATE OF CONSULTATION: 09/19/2020 REASON FOR CONSULTATION: Suspected relapsed non-Hodgkin's lymphoma. HISTORY OF PRESENT ILLNESS: The patient is a pleasant 55-year-old gentleman well known to [facility], currently under my care with a prior history of diffuse large B cell lymphoma, status post 6 cycles of CHOP chemotherapy administered from 06/2019-11/2019 and currently on surveillance. This gentleman was admitted to [facility] with persistent low-grade fever and chills. He has had a couple of hospitalizations here in the last couple of months. He was last seen by our physician photo technician in mid 06/2020. The patient contracted COVID-19, required hospitalization for that. He also suffers from a common variable immunodeficiency and receives IgG periodically. On presentation to our Emergency Room, CT scan of the chest had revealed slight progression of multi ground-glass airspace opacities, thought to be sales representative groceries of viral or atypical pneumonia versus an inflammatory process. Splenomegaly and mediastinal lymphadenopathy were also mentioned. This gentleman is now in hospital for over a week. Continues receiving oxygen via nonrebreather as well as antimicrobials. CT of the abdomen and pelvis was performed on 09/15/2020 revealing chronic wall thickening of the cecum and ileocecal valve with new wall thickening of the ascending colon and hepatic flexure, suggestive of infectious or inflammatory colitis. The patient was subsequently seen in consultation by the GI service who suspects possible recurrent lymphoma. This gentleman's original lymphoma diagnosed in 04/2019 and indeed was within the ascending colon and cecum. PET scan done at that time demonstrated wall thickening with a nonspecific focus of increased activity fusing to an upper abdominal small bowel loops with an SUV maximum of 4.1 at that time. Bone marrow biopsy and aspiration as part of staging was performed, unfortunately equivocal. He subsequently received R-CHOP beginning in 06/2019 and completed in November of that year. I have been asked to render an opinion regarding the most recent radiographic findings, and make treatment recommendations moving forward. PAST MEDICAL HISTORY: Consistent with diffuse large B cell lymphoma, autoimmune hepatitis, bronchiectasis, common variable immunodeficiency, COVID-19 and pneumonia attributable to COVID-19 in 04/2020, thrombocytopenia is the last medical problem. PAST SURGICAL HISTORY: MediPort placement and colonoscopy. MEDICATIONS: Prior to admission include lactobacillus 1 p.o. t.i.d., carvedilol 6.25 mg p.o. b.i.d., folic acid 1 mg p.o. daily, Zofran 8 mg p.o. q. 8 hours p.r.n., Umeclidinium 1 inhalation p.o. daily, Alvesco 2 puffs inhaled daily, vitamin B complex 1 tablet p.o. daily, Magic mouthwash 5 mL p.o. a.c. and bedtime, vitamin C 500 mg p.o. b.i.d., levalbuterol, Xopenex inhaler 2 inhalations q.i.d. p.r.n., Protonix 40 mg p.o. daily, Levaquin 750 mg p.o. daily, DuoNeb 3 mL inhaled q. 6 hours. ALLERGIES: BACTRIM. SOCIAL HISTORY: The patient is carcerated prisoner. He is , negative for cigarettes, alcohol or illicit drugs. FAMILY HISTORY: Noncontributory. REVIEW OF SYSTEMS: GENERAL: Negative for fevers, chills or sweats. He is not anorexic or presently losing weight. SKIN: No rashes or lesions. No history of dermatoses. HEENT: Denies headaches, lightheadedness or dizziness. No acute visual or hearing deficits. No sinus symptoms, sore throat or dysphagia. LYMPH: Positive for diffuse large B cell lymphoma diagnosed in late 2019. CARDIAC: Negative for coronary artery disease. No current angina or palpitations. PULMONARY: This gentleman has several pulmonary issues including history of bronchiectasis, COVID-19 pneumonia. He is oxygen dependent at this time. He is not acutely short of breath or dyspneic at bedside. GASTROINTESTINAL: Negative for abdominal pain, nausea or vomiting. No diarrhea or constipation. No hematochezia or melena stools. GENITOURINARY: No hematuria, dysuria or urinary incontinence. PSYCHIATRIC: Negative for anxiety or depression. ENDOCRINE: Negative for diabetes or thyroid disease. MUSCULOSKELETAL: No focal muscle weakness. No arthralgias. NEUROLOGIC: Negative for seizure, stroke, or migraine headache. HEMATOLOGIC: Positive for pancytopenia. RADIOGRAPHIC DATA: As described in the HPI. IMPRESSION: 1. Chronic respiratory failure with hypoxia. 2. Sepsis. 3. Colitis. 4. Diffuse large B cell lymphoma, status post R-CHOP chemotherapy. 5. 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 PLAN: In summary, the patient is a very pleasant and unfortunate 55-year-old [place] [facility] inmate who was admitted to [facility] over a week ago with mostly respiratory symptoms. I have been asked to see him at the kind request of the Gastroenterology service because of suspected recurrent non-Hodgkin's lymphoma. Formal biopsies have not been carried out. Certainly his most recent CAT scan of the abdomen and pelvis suggests a new wall thickening in the area of the original diagnosis established in 04/2019. Certainly recurrent lymphoma is plausible. However, with this gentleman's comorbid issues ongoing, I would not proceed with any form of salvage therapy. Formal biopsy certainly would be advised. If this gentleman recovers enough medically to proceed with salvage chemotherapy. Pulmonary has worked this gentleman up extensively including bronchoscopy, bronchial washings and cultures none of which have yielded much helpful information. Patient was last seen at [facility] in mid June while on surveillance. Scans were done prior to him being seen at that time showing no enlarged lymph nodes within the chest, abdomen and pelvis. The mediastinal nodes were also mentioned on that scan. Conceivably, the mediastinal lymph nodes could be reactive considering his COVID-19 infection and resultant pneumonia. Thus, I agree with current medical management. Again, I would be happy to engage, but at some point once he is medically stable, perhaps colonoscopy could be done to obtain a formal biopsy, thus not leaving ambiguity regarding this gentleman's diagnosis moving forward. I do not believe the mediastinal nodes would yield much helpful information and presently patient is not well enough to proceed with any invasive procedures, particularly bronchoscopy or mediastinoscopy or colonoscopy. We will continue to follow periodically during his stay and will check with Dr. Kailey Bailey to see when patient is scheduled for a followup visit at [facility]. If there are any further questions or concerns, please feel free to contact me at any time.
--- NOTE | 2020-09-19 12:40 | Allergy & Immunology Prog Note ---
Date of Service September 19, 2020 Assessment & Plan (1) Hypogammaglobulinemia: (2) Sepsis: Sepsis type: sepsis due to unspecified organism Sepsis acute organ dysfunction status: unspecified Qualified Code(s): A41.9 - Sepsis, unspecified organism (3) Acute respiratory failure with hypoxia: Admission and Anticipated Discharge Date Admission Date: Patient's CMV viral load was markedly elevated indicating that he has a disseminated CMV infection. We will initiate ganciclovir 5 mg/kg every 12 hours. We will also get Infectious Disease input as this is somewhat of a unique scenario. We could consider another dose of IVIG or CMV specific IgG, as these can provide CMV specific antibodies that he cannot produce because of his immune deficiency. If he is not improving over next couple days or so, we can consider this. All Subjective He received the IVIG two days ago and this went well. The blood work was not concerning for HLH, but PCR for CMV came back markedly elevated. Clinically, he feels about the same as when I last saw him. However, he has been more short of breath and is now on oxygen via facemask. Review of Systems Review of Systems: All systems reviewed & are unremarkable except as noted in HPI & below Physical Exam Eyes: + anicteric sclerae; no conjunctival abnormality ENMT: external ear and nose normal, oropharynx normal Respiratory: + labored breathing Cardiovascular: RRR, no murmur, no edema Skin: no rashes, warm and dry Neurologic: Speech / Cognition: normal speech and normal cognition Psychiatric: A+Ox3, euthymic affect Results & Data ([facility]) Vital Signs (Past 12 Hours) Vital Signs Temp Pulse Pulse Resp BP BP Pulse Ox 09/19/20 12:14 37.1 C 76 18 111/75 98 09/19/20 08:00 74 09/19/20 07:26 37.1 C 85 18 110/66 92 09/19/20 07:16 87 18 92 09/19/20 04:18 69 09/19/20 04:00 36.8 C 67 18 108/74 97 PG Care Time/CCT Total # of Minutes Spent Total Time Spent with Patient: Total time spent is greater than 50% in coordination of care (as documented) at patient's floor/unit and/or counseling patient: Coding Level of Care Code 33804 Subseq Hosp Care Lvl 1 Diagnoses Hypogammaglobulinemia D80.1 Sepsis A41.9 Sepsis type: sepsis due to unspecified organism Sepsis acute organ dysfunction status: unspecified Acute respiratory failure with hypoxia J96.01
[2020-09-19] MEDS ORDERED: [UNRECOGNIZED DRUG - REMARK] PRN (13:53)
[2020-09-19] MEDS ORDERED: FUROSEMIDE 40 MG in SYRINGE 0 ML IV ONE (14:15)
[2020-09-19] MEDS: GANCICLOVIR SODIUM IV SCH ×2 (14:35→22:42)
[2020-09-19] MEDS: SODIUM CHLORIDE 0.9% IV SCH ×2 (14:35→22:42)
--- NOTE | 2020-09-19 16:25 | Progress Notes ---
DATE: 09/19/2020 ADDENDUM Supplement to the progress note on the patient by Kayleigh Horton. The patient continues to have some respiratory difficulty and is not a candidate for colonoscopy at this time. I have read the note by the oncologist, Dr. Thomas who concurs that there is a likelihood that the patient has recurrent lymphoma in the colon, it appears to be in the same area that his original diagnosis was made, but without a tissue diagnosis they are reluctant to proceed with any treatment, especially given his overall poor health at this time. If the patient's condition improves enough that he is able to undergo colonoscopy, then we will consider proceeding and getting biopsies of that area, so that Oncology can make a decision about therapeutic options. In the meantime, we will follow peripherally until his medical condition stabilizes and improves enough that we can do a colonoscopy.
--- NOTE | 2020-09-19 19:54 | Hospitalist Progress Note ---
Date of Service September 19, 2020 Assessment & Plan (1) Acute respiratory failure with hypoxia: Probably pulmonary edema from acute diastolic CHF, compounded by anxiety. Doing better. Did have another episode later this afternoonseems to have responded nicely to similar management. (2) Chronic respiratory failure with hypoxia: pulmonary notes PFTs from a few years ago did show severe obstructive disease. ongoing supportive care, nebulizers (3) Sepsis: After extensive review, seems to likely be CMV related. In discussion with immunology, IVIG given a few days ago should hopefully be helpful, and ephraim mcmahan suggest starting ganciclovir. We will consult ID for assistance in management of this,/most appropriate method of treatment. We will watch for another 24 hours or so, but likely we can stop the actual antibiotics. If he shows plateaued improvement for 48 hours, or any worsening, strongly consider redosing IVIG (4) HCAP (healthcare-associated pneumonia): After further review, bronchoscopy, cultures, and ongoing clinical evaluation this seems less likely to be the case. (5) Colitis: Given that it has not improved with any treatments, is a bit concerning for recurrence of lymphoma. Colonoscopy when/if stable to undergo it (6) Pulmonary nodule: stable for 1 year per pulm (7) Abnormal CT scan of lung: See pulmonary consult note/bronchoscopy findings. (8) Hypogammaglobulinemia: See above under sepsis/see immunology input. IVIG given, and as above if he shows any worsening, or fails to show improvement over the next 48 hours or so, probably redose (9) Esophageal varices: Follow clinically, seems stable (10) DVT prophylaxis: SCDs (pharmacologic contraindicated due to thrombocytopenia) (11) Hypokalemia: Supplement and follow Admission and Anticipated Discharge Date Admission Date: September 10, 2020 Subjective Breathing much better than yesterday. Overall about the same otherwise. Ongoing abdominal pain. Automotive Product Specialist input appreciated. When CMV comes back markedly elevated, discussed with immunology. Patient with no new complaints. Review of Systems 2 Review of Systems: All systems reviewed & are unremarkable except as noted in HPI & below Physical Exam Physical Exam: General he is awake and alert pleasant no distress. HEENT normocephalic atraumatic mucous membranes moist. Lungs are faintly coarse but far better than yesterday, mostly clear no rales rhonchi or wheezes otherwise. Abdomen about the same soft with epigastric/periumbilical tenderness that is slightly firm as before. Extremities show no cyanosis clubbing or edema. Neuro shows no focal deficits. Results & Data Results & Data ([facility]) Vital Signs (Past 12 Hours) Vital Signs Temp Pulse Pulse Resp BP BP Pulse Ox 09/19/20 19:40 98.8 F 86 15 99/61 L 94 09/19/20 18:20 100.2 F H 09/19/20 17:13 102.6 F H 09/19/20 16:31 104 H 09/19/20 15:55 99.7 F H 100 H 30 H 136/85 91 09/19/20 15:00 20 93 09/19/20 14:30 100 H 36 H 93 09/19/20 14:10 24 176/96 H 91 09/19/20 13:24 90 18 93 09/19/20 12:14 98.8 F 76 18 111/75 98 09/19/20 08:00 74 PG Care Time/CCT Total # of Minutes Spent Total Time Spent with Patient: Total time spent is greater than 50% in coordination of care (as documented) at patient's floor/unit and/or counseling patient: Coding Level of Care Code 31921 Subseq Hosp Care Lvl 3 Diagnoses Acute respiratory failure with hypoxia J96.01 Chronic respiratory failure with hypoxia J96.11 Sepsis A41.9 Sepsis type: sepsis due to unspecified organism Sepsis acute organ dysfunction status: unspecified HCAP (healthcare-associated pneumonia) J18.9 Colitis K52.9 Pulmonary nodule R91.[address] scan of lung R91.8 Hypogammaglobulinemia D80.1 Esophageal varices I85.00 DVT prophylaxis Z29.9 Hypokalemia E87.6 (1) Sepsis Sepsis type: sepsis due to unspecified organism Sepsis acute organ dysfunction status: unspecified Qualified Code(s): A41.9 - Sepsis, unspecified organism
[2020-09-20] MEDS: ALBUT/IPRATROP 3MG/0.5MG NEB 3 ML VIAL INH SCH ×3 (00:10→13:14)
[2020-09-20] MEDS: D5W AND 1/2NSS 1,000 ML IV SCH (04:41)
[2020-09-20] MEDS: metroNIDAZOLE 500 MG/100 ML BAG IV SCH (04:41)
[2020-09-20 06:20] LABS: Hematocrit (blood only) 29.4 % (42-52); Hemoglobin 9.7 g/dL (14.0-18.0); Mean Corpuscular Hemoglobin 27.6 pg (25-34); Mean Corpuscular Volume 83.5 fL (80-100); RDW Coefficient of Variation 17.5 % (11.5-14.5); RDW Standard Deviation 53.3 fL (36.4-46.3); Red Blood Count 3.52 M/uL (4.7-6.1); White Blood Count 3.23 K/uL (4.8-10.8)
[2020-09-20 06:40] LABS: Mean Platelet Volume 10.1 fL (7.4-10.4); Platelet Count 47 K/uL (130-400)
[2020-09-20 06:46] LABS: Immature Granulocytes # (auto) 0.01 K/uL (0.00-0.02); Immature Granulocytes % (auto) 0.3 %; Lymphocytes # (auto) 0.46 K/uL (1.2-3.4); Lymphocytes % (auto) 14.2 %; Monocytes # (auto) 0.24 K/uL (0.11-0.59); Monocytes % (auto) 7.4 %; Neutrophils # (auto) 2.52 K/uL (1.4-6.5); Neutrophils % (auto) 78.1 %; Ovalocytes 1+; Tear Drop Cells 1+
[2020-09-20 06:51] LABS: BUN Creatinine Ratio 22.2 (10-20); Calcium 7.7 mg/dl (8.5-10.1); Creatinine Clr Calc Pharmacy 129.3 ml/min; Est GFR (African American) 131.2; Est GFR (Non-African American) 113.2; Potassium 3.4 mmol/L (3.5-5.1)
[2020-09-20] MEDS: CEFEPIME 2,000 MG in SYRINGE 0 ML IV SCH (07:28)
--- NOTE | 2020-09-20 07:53 | Hospitalist Progress Note ---
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 -On 3LNC at baseline, with diagnosis several months ago of COVID 19 pneumonia. -Presented to hospital at baseline oxygen need. Throughout admission however has had several instances of acute hypoxic respiratory failure requiring Oxymask and increased supplemental O2. -Currently on 4-5L Oxymask, but does feel significantly dyspneic with activity (getting out of bed to use the restroom, extended conversations). -This admission with CT Chest 09/10 which showed slight progression of the multifocal groundglass airspace opacities, possibly representing an atypical/viral pneumonia or an inflammatory process. -Pulmonology consulted this admission; CHADWICK level mildly elevated but no granulomas on transbronchial biopsies, negative bronchoscopy cultures. Bronchiectasis on imaging suspected to be due to hypogammaglobulinemia. Pulmonary nodules stable for the last year, unlikely to be contributory. -Extensive smoking history, not on any daily inhalers. -Has previously had PFTs several years ago showing severe obstructive disease. -Anoro Ellipta ordered for daily use, as well as guaifenesin for mucolytic. -Continue scheduled q6h albuterol nebs. -Patient did not appear fluid overloaded on exam today. Did have IV fluids ordered; cancelled these given PO intake. -Echo this admission with LVEF 60-65%, no diastolic dysfunction, no valvular or wall motion abnormalities. -Due to continued hypoxia despite antibiotic and antiviral treatment, repeat XR Chest ordered today; last performed on 09/18. -COVID 19 testing this admission negative. -Currently on ganciclovir for CMV infection per ID recommendations. Did have significantly elevated CMV viral load suggestive of disseminated infection. Was also given IVIG per Immunology recommendations several days ago. ? Colitis vs. likely recurrence of Non-Hodkin's lymphoma: -CTAP performed this admission showed thickening of the ileum and right colon with some calcifications around the appendix concerning for recurrent lymphoma. -Initially thought to be some element of colitis, however appears unlikely given higher likelihood of recurrent GI lymphoma per Oncology/GI. -GI consult this admission; no endoscopic or surgical intervention recommended at this time due to poor candidate given acute medical complaints. -Oncology consult this admission; would require colonoscopy when able in order to biopsy the affected tissue for continued Oncologic treatment. Has had R-CHOP chemotherapy in the past for history of Large B Cell lymphoma. Hypogammaglobulinemia: -IVIG given as described above. -Can consider re-dosing IVIG if he does not continue to improve, or worsens. Thrombocytopenia: -No acute bleeding. -Plts 47 today, relatively stable. -No Heparin DVT ppx. Hypokalemia: -Replete with PO. -BMP with Mg and Phos in AM. Esophageal varices: -History of, no acute intervention. Code Status: FULL CODE FEN: Regular, fluids discontinued DVT ppx: SCDs; chemoppx contraindicated in the setting of thrombocytopenia. Dispo: Med/Surg (2) Sepsis: (3) COPD (chronic obstructive pulmonary disease): (4) H/O lymphoma: (5) CMV (cytomegalovirus infection): Admission and Anticipated Discharge Date Admission Date: September 10, 2020 Subjective Patient without acute events overnight. Does have Review of Systems Review of Systems: All systems reviewed & are unremarkable except as noted in HPI & below Constitutional: no fever, no chills and no malaise Respiratory: + dyspnea on exertion (continued, about the same as yesterday); no cough Cardiovascular: no chest pain, no palpitations and no edema Gastrointestinal: no abdominal pain, no constipation and no diarrhea/loose stools Physical Exam Constitutional: WD/WN, vitals as above Respiratory: normal respiratory effort, lungs clear to auscultation Cardiovascular: RRR, no murmur, no edema Gastrointestinal (Abdomen): normal bowel sounds, soft, nontender, no hepatosplenomegaly Skin: no rashes, warm and dry Psychiatric: A+Ox3, euthymic affect Results & Data Results & Data ([facility]) Vital Signs (Past 12 Hours) Vital Signs Temp Pulse Pulse Resp BP Pulse Ox 09/20/20 07:27 87 18 95 09/20/20 06:00 37.8 C H 93 H 18 118/79 92 09/20/20 04:11 36.9 C 91 H 18 110/74 97 09/20/20 00:13 83 18 96 09/19/20 23:52 36.7 C 86 18 102/67 94 09/19/20 23:30 73 09/19/20 20:12 85 20 95 09/19/20 20:03 36.9 C 85 18 100/65 95 (1) Sepsis Sepsis acute organ dysfunction status: unspecified Sepsis type: sepsis due to unspecified organism Qualified Code(s): A41.9 - Sepsis, unspecified organism (2) COPD (chronic obstructive pulmonary disease) COPD type: COPD with acute exacerbation Qualified Code(s): J44.1 - Chronic obstructive pulmonary disease with (acute) exacerbation
[2020-09-20] MEDS ORDERED: POTASSIUM CHLORIDE CRTAB 20 MEQ TABCR PO STA (08:22)
[2020-09-20] MEDS: carvediloL 6.25 MG TAB PO SCH (08:29)
[2020-09-20] MEDS: HEPARIN 100 UNIT/ML 5ML FLUSH FLUSH PRN ×2 (08:31→10:51)
[2020-09-20] MEDS: ARTIFICIAL TEARS OP SCH ×2 (08:35→14:25)
[2020-09-20] MEDS: CALCIUM POLYCARBOPHIL 625MG TAB PO SCH (08:36)
[2020-09-20] MEDS: FOLIC ACID 1 MG TAB PO SCH (08:37)
[2020-09-20] MEDS: SODIUM CHLORIDE 0.65% NA SOLN 45 ML (OCEAN) SCH (08:37)
[2020-09-20] MEDS: ADVANCED PROBIOTIC 1250 MG CAPSULE PO SCH (08:38)
[2020-09-20] MEDS: PANTOprazole 40 MG TAB PO SCH (08:39)
[2020-09-20] MEDS ORDERED: UMECLIDINIUM BROMIDE 62.5MCG/BLISTER 7 PUFFS/INHALER INH SCH (09:15)
[2020-09-20] MEDS ORDERED: UMECLIDINIUM/VILANTEROL 62.5/25MCG 7 PUFFS/INHALER INH SCH (09:30)
[2020-09-20] MEDS: SODIUM CHLORIDE 0.9% IV SCH (09:47)
[2020-09-20] MEDS: GANCICLOVIR SODIUM IV SCH (09:47)
--- NOTE | 2020-09-20 12:18 | Discharge Summary ---
Date of Service September 20, 2020 Admission HPI Per Admitting Provider Patient represents our facility after discharge in July (when he was admitted with progressive CT chest change and concern for recurrent COVID-19 pneumonia). 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 Patient typically has pancytopenic due to his cirrhosis Reportedly fro the patient has not improved since last discharge, remains on levaquin and has daily chills, I spoke to alf nurse who confirms he had fever of 103F at night in the last few days. The patient has CT scan findings 09/10/20 of progressive multifocal groundglass airspace opacities in his lungs however his current Covid testing is negative. During his last hospital stay pulmonary medicine saw the patient felt that he had bronchiectasis recommend recommend good pulmonary toilet ordering an CHADWICK level which returns for slightly elevated and alpha-1 antitrypsin deficient but elevated noted patient does have a smoking history. he received cefepime vancomycin and steroids in the emergency department Admission Exam Per Admitting Provider The patient appeared thin and tremulous Vital signs as documented. Head exam is normocephalic atraumatic no scleral icterus Neck is without JVD, thyromegaly, or carotid bruits. Lungs are with expiratory wheezes and prolongued expiratory phase Cardiac exam, Rhythm is regular.. No murmurs, rubs or gallops. Abdominal exam reveals normal bowel sounds, soft non tender, no masses Extremities are nonedematous and both pedal pulses are present Neurologic exam is alert and oriented, no focal loss of strength or sensation, resting tremor Skin is without bruises or rashes Psychologically is without concerns for anxiety or depression Principal Diagnosis acute hypoxic respiratory failure, CMV infection, CVID, large B cell lymphoma Discharge Exam Constitutional WD/WN, vitals as above Respiratory normal respiratory effort and + labored breathing Auscultation: no rhonchi and no wheezes saturating well on 5L Oxymask while lying in bed, oxygen saturation drops with movement in bed and getting up to use the restroom Cardiovascular RRR, no murmur, no edema Gastrointestinal (Abdomen) normal bowel sounds, soft, nontender, no hepatosplenomegaly Skin no rashes, warm and dry Psychiatric Orientation: alert and oriented x 3 Affect: + anxious affect Discharge Data Allergies Allergy/AdvReac Type Severity Reaction Status Date / Time Bactrim Allergy Mild RASH/BLEEDI Verified 01/10/13 14:22 NG sulfamethoxazole Allergy Mild RASH/BLEEDI Verified 09/10/20 14:34 NG trimethoprim Allergy Mild RASH/BLEEDI Verified 09/10/20 14:34 NG Consultations 09/10/20 23:46 Consult Pulmonology Routine 09/15/20 19:23 Consult Allergy / Immunology Routine 09/17/20 18:26 Consult Gastroenterology Routine 09/18/20 16:30 Consult Oncology Routine 09/19/20 12:12 Consult Infectious Diseases Routine 09/20/20 11:16 Burn CD for patient Routine Procedures Performed Operation Date: 09/12/20 10:30 Actual Procedures p Endobronchial Ultrasound (EBUS), Bronchoscopy(Bilateral) - Mariela Curtis MD Ordered Studies 09/10/20 17:03 CT angio chest PE protocol Stat 09/15/20 15:13 CT abd pelvis oral and IV con Routine 09/15/20 16:43 US venous doppler [facility] Urgent Hospital Course (1) Acute respiratory failure with hypoxia: Hx common variable immunodeficiency receiving IgG and a history of diffuse large B-cell lymphoma, 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 -On 3LNC at baseline, with diagnosis several months ago of COVID 19 pneumonia. -Presented to hospital at baseline oxygen need. Throughout admission however has had several instances of acute hypoxic respiratory failure requiring Oxymask and increased supplemental O2. -Currently on 4-5L Oxymask, but does feel significantly dyspneic with activity (getting out of bed to use the restroom, extended conversations). -This admission with CT Chest 09/10 which showed slight progression of the multifocal groundglass airspace opacities, possibly representing an atypical/viral pneumonia or an inflammatory process. -Pulmonology consulted this admission; CHADWICK level mildly elevated but no granulomas on transbronchial biopsies, negative bronchoscopy cultures. Bronchiectasis on imaging suspected to be due to hypogammaglobulinemia. Pulmonary nodules stable for the last year, unlikely to be contributory. -Extensive smoking history, not on any daily inhalers. -Has previously had PFTs several years ago showing severe obstructive disease. -Anoro Ellipta ordered for daily use, as well as guaifenesin for mucolytic. -Continue scheduled q6h albuterol nebs. -Patient did not appear fluid overloaded on exam today. Did have IV fluids ordered; cancelled these given PO intake. -Echo this admission with LVEF 60-65%, no diastolic dysfunction, no valvular or wall motion abnormalities. -Due to continued hypoxia despite antibiotic and antiviral treatment, repeat XR Chest ordered today; last performed on 09/18. -COVID 19 testing this admission negative. -Currently on ganciclovir for CMV infection per ID recommendations, started 09/19. Did have significantly elevated CMV viral load suggestive of disseminated infection. Was also given IVIG per Immunology recommendations several days ago. -Recommended to repeat cell counts 1 week after starting ganciclovir. -For transfer today to [facility] for possible repeat bronchoalveolar lavage to specifically detect CMV, or possibly perform lung biopsy for CMV detection. ? Colitis vs. likely recurrence of Non-Hodkin's lymphoma: -CTAP performed this admission showed thickening of the ileum and right colon with some calcifications around the appendix concerning for recurrent lymphoma. -Initially thought to be some element of colitis, however appears unlikely given higher likelihood of recurrent GI lymphoma per Oncology/GI. -GI consult this admission; no endoscopic or surgical intervention recommended at this time due to poor candidate given acute medical complaints. -Oncology consult this admission; would require colonoscopy when able in order to biopsy the affected tissue for continued Oncologic treatment. Has had R-CHOP chemotherapy in the past for history of large B cell lymphoma. Hypogammaglobulinemia: -IVIG given as described above. -Can consider re-dosing IVIG if he does not continue to improve, or worsens. Thrombocytopenia: -No acute bleeding. -Plts 47 today, relatively stable this admission. -No Heparin DVT ppx due to significant thrombocytopenia. Hypokalemia: -Repleted this admission with PO. Esophageal varices: -History of, no acute intervention. Code Status: FULL CODE FEN: Regular, not on IV fluids DVT ppx: SCDs; chemoppx contraindicated in the setting of thrombocytopenia. Dispo: Med/Surg with Telemetry Total Time Total Time Spent Total Time Spent (In Minutes): see attending attestation Discharge Plan Discharge Items Patient Disposition: Transfer Acute Care Hospital Reason For Visit: FEVER, PNEUMONIA Discharge Diagnosis: acute hypoxic respiratory failure, CMV infection Activity: Per Instructions section Non-emergency contact: Primary Care Provider and Technical Internship Call non-emergency contact if: your symptoms worsen and your temperature is above 101 Follow-up/Referrals: Bradford PERERA [Primary Care Provider] - Diet: Regular Addtl Attending Provider Instructions: Hx common variable immunodeficiency receiving IgG and a history of diffuse large B-cell lymphoma, 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 -On 3LNC at baseline, with diagnosis several months ago of COVID 19 pneumonia. -Presented to hospital at baseline oxygen need. Throughout admission however has had several instances of acute hypoxic respiratory failure requiring Oxymask and increased supplemental O2. -Currently on 4-5L Oxymask, but does feel significantly dyspneic with activity (getting out of bed to use the restroom, extended conversations). -This admission with CT Chest 09/10 which showed slight progression of the multifocal groundglass airspace opacities, possibly representing an atypical/viral pneumonia or an inflammatory process. -Pulmonology consulted this admission; CHADWICK level mildly elevated but no granulomas on transbronchial biopsies, negative bronchoscopy cultures. Bronchiectasis on imaging suspected to be due to hypogammaglobulinemia. Pulmonary nodules stable for the last year, unlikely to be contributory. -Extensive smoking history, not on any daily inhalers. -Has previously had PFTs several years ago showing severe obstructive disease. -Anoro Ellipta ordered for daily use, as well as guaifenesin for mucolytic. -Continue scheduled q6h albuterol nebs. -Patient did not appear fluid overloaded on exam today. Did have IV fluids ordered; cancelled these given PO intake. -Echo this admission with LVEF 60-65%, no diastolic dysfunction, no valvular or wall motion abnormalities. -Due to continued hypoxia despite antibiotic and antiviral treatment, repeat XR Chest ordered today; last performed on 09/18. -COVID 19 testing this admission negative. -Currently on ganciclovir for CMV infection per ID recommendations, started 09/19. Did have significantly elevated CMV viral load suggestive of disseminated infection. Was also given IVIG per Immunology recommendations several days ago. -Recommended to repeat cell counts 1 week after starting ganciclovir. -For transfer today to [facility] for possible repeat bronchoalveolar lavage to specifically detect CMV, or possibly perform lung biopsy for CMV detection. ? Colitis vs. likely recurrence of Non-Hodkin's lymphoma: -CTAP performed this admission showed thickening of the ileum and right colon with some calcifications around the appendix concerning for recurrent lymphoma. -Initially thought to be some element of colitis, however appears unlikely given higher likelihood of recurrent GI lymphoma per Oncology/GI. -GI consult this admission; no endoscopic or surgical intervention recommended at this time due to poor candidate given acute medical complaints. -Oncology consult this admission; would require colonoscopy when able in order to biopsy the affected tissue for continued Oncologic treatment. Has had R-CHOP chemotherapy in the past for history of large B cell lymphoma. Hypogammaglobulinemia: -IVIG given as described above. -Can consider re-dosing IVIG if he does not continue to improve, or worsens. Thrombocytopenia: -No acute bleeding. -Plts 47 today, relatively stable this admission. -No Heparin DVT ppx due to significant thrombocytopenia. Hypokalemia: -Repleted this admission with PO. Esophageal varices: -History of, no acute intervention. Code Status: FULL CODE FEN: Regular, not on IV fluids DVT ppx: SCDs; chemoppx contraindicated in the setting of thrombocytopenia. Dispo: Med/Surg with Telemetry Pending Studies at Discharge: No Stand-Alone Forms: My [facility] Skilled Items Patient informed of condition?: Yes DNR: No Discharge Level of Care: Other Communicable Disease: No Discharge Prognosis: Deteriorating Lines: Peripheral IV Urinary Catheter: No Medications and DC Order Prescriptions: Continued Anoro Ellipta 62.5-25 mcg/actuation blister with device 1 puffs INH DAILY Qty: 60 RF: 2 Lactobacillus acidophilus 1 billion cell tablet 0 cell PO TID RF: 0 folic acid 1 mg tablet 1 mg PO DAILY RF: 0 carvedilol 6.25 mg tablet 6.25 mg PO BID RF: 0 ondansetron HCl [Zofran] 4 mg Tablet 8 mg PO TID PRN (Reason: Nausea And Vomiting) RF: 0 [place] 160 mcg/actuation Hfa Aerosol Inhaler 2 puff INHALATION DAILY RF: 0 tetrahydrozoline 0.05 % Drops 1 drp OPB QID RF: 0 ascorbic acid (vitamin C) [Vitamin C] 500 mg Tablet 500 mg PO BID RF: 0 calcium polycarbophil [Fiber-Lax] 625 mg Tablet 625 mg PO DAILY RF: 0 dextromethorphan-guaifenesin [Mucinex DM] 60-1,200 mg Tablet Extended Release 12 Hr 1 tab PO Q12H RF: 0 B-complex with vitamin C Tablet 1 tab PO DAILY RF: 0 [place] [facility] 2.65 % Aerosol,[place] 1 spray INTRANASAL BID RF: 0 Magic Mouth Wash 5 ml PO ACHS RF: 0 pantoprazole 40 mg tablet,delayed release (DR/EC) 40 mg PO DAILY RF: 0 Ensure Liquid 1 ea PO TID RF: 0 levalbuterol tartrate [Xopenex HFA] 45 mcg/actuation HFA aerosol inhaler 2 inh INHALATION QID PRN (Reason: Shortness Of Breath) RF: 0 Dexamethasone 10mg/Ml Sdv 10 mg/ml 20 mg IV DIRECTED RF: 0 Diphenhydramine 50 Mg/Ml Sdv 50 mg/ml 50 mg IV DIRECTED RF: 0 Gammagard 1 Gm /10 Ml Inj 1 g/10 ml 4 g IV DIRECTED RF: 0 Gammagard 20 Gm/200 Ml 20 g/200 ml 20 g IV DIRECTED RF: 0 acetaminophen [Tylenol] 325 mg Tablet 325 mg PO BID PRN (Reason: Only as Needed) RF: 0 Systane Gel 0.4-0.3 % Drops,Gel 1 drp ophthalmic (eye) QID RF: 0 ipratropium-albuterol 0.5 mg-3 mg(2.5 mg base)/3 mL Solution For Nebulization 3 ml INHALATION Q6H RF: 0 Discontinued levofloxacin [Levaquin] 750 mg Tablet 750 mg PO DAILY RF: 0 Discharge Orders: Discharge Order (Routine); Ordered 09/20/20 Ordered By: Lore Wilkins Admission Data Admit Date/Time: 09/10/20 19:29 Attending Provider: Savage Barry Admit Provider: Nicolas Argueta Primary Care Provider: Bradford PERERA Other Providers: Mariela Curtis ; Luh Guzman ; Roger Berumen ; Jake Bass ; Ez Newman ; Robert Thomas V. ; Maciel Young ; Gaby Morris ; Ralph Ramirez I. ; Isaac Rodríguez II ; Lisa Viera ; Rosa,Miguel Ángel A. Other Interventions: Discharge Summary Assessment (RN) Last Done: 09/20/20 13:44 Supervising Physician Co-Signing Physician Notes I personally examined the patient and verified all bullock points of history and exam, discussed case, and agree with decision making with Dr Wilkins. Breathing is up and down again. Otherwise feels about the same. Infectious disease input appreciated, transfer arranged to [facility] Vitals noted, in general he is awake and alert fatigued appearing currently in no distress. HEENT normocephalic atraumatic mucous membranes moist. Breathing unlabored he is on oxygen mask. No accessory muscle use. Skin shows no rashes, no pallor no icterus. Septic pictureappears to have been from rather significant CMV infection in the context of combined variable immune deficiency, and prior B-cell lymphoma. On ganciclovir, transferred to [facility] for ongoing multidisciplinary care, given the complexity of his infection/immune system/pulmonary needs. Otherwise as above Resident Activity Tracking Resident Involvement: Resident Care Provided Care Provided: Adult Hospital Medicine
[2020-09-20 12:48] LABS: LSP % Cells Analyzed CD4 21 % (30-61); LSP Absolute Ct CD4 51 cells/uL (490-1740); LSP Lymphocytes Absolute 237 cells/uL (850-3900)
--- NOTE | 2020-09-20 14:21 | XRay Report ---
SINGLE VIEW CHEST CLINICAL HISTORY: Hypoxia. FINDINGS: An AP, portable, upright chest radiograph is compared to study dated 09/18/2020 and correlat ed with chest CT dated 09/10/2020. A left subclavian central venous infusion port is unchanged in posi tion. The cardiomediastinal silhouette is unremarkable. Diffuse upper lobe predominant airspace conso lidation is unchanged. No large pleural effusion or pneumothorax is seen. The bony thorax is grossly intact. IMPRESSION: Upper lobe predominant airspace consolidation has not significantly changed from 1. ACT 112: Negative or not required by law. Electronically signed by: Agustín Torres M.D. 09/20/2020 2:19 PM
--- NOTE | 2020-09-20 19:44 | Billing Data ---
Date of Service September 20, 2020 Coding Level of Care Code D/C Day Management <30 mins
[2020-09-21 18:56] LABS: HIV 1 RNA PCR Copies/ML <20 NOT DETECTED copies/mL (NOT DETECTED); HIV-1 RNA Log Copies/mL <1.30 NOT DETECTED (NOT DETECTED)
[2020-09-23 01:15] LABS: Legionella Culture Source BA LAV; Source BA LAV
== END 2020-09-20 15:10 | disposition short-term general hospital (02) | DRG 853 ==
LOC: ED 13:18 → 2W 19:29 → SUATTDRO 19:29 → 2W 23:15

== ENCOUNTER 2020-11-08 18:49 | Inpatient (IN) ==
[2020-11-08] MEDS ORDERED: methylPREDNISolone 125 MG/2 ML VIAL IV STA (18:59)
[2020-11-08] MEDS ORDERED: SODIUM CHLORIDE 0.9% 500 ML IV STA (18:59)
[2020-11-08] MEDS ORDERED: ALBUTEROL 0.083% NEBU SOLN 3 ML VIAL NEB STA (18:59)
--- NOTE | 2020-11-08 19:05 | Emergency Department Note ---
Impression & Plan Pneumonia due to 2019 novel coronavirus, Hypogammaglobulinemia, Immunocompromised, Hypoxia ED Provider Note NAME: VALERIO CASTILLO7 DANE AGE: 55 SEX: M : 1965 ARRIVES VIA: Ambulance INFORMANT: Patient ED PROVIDER(S): Savage Jewell DO CHIEF COMPLAINT: shortness of breath HPI: Patient is a 55-year-old male with a past medical history of Covid positive, CMV, history of lymphoma, COPD with acute respiratory failure chronically on 4 L nasal cannula and esophageal varices that presents the ER for shortness of breath. Symptoms started earlier today. He was titrated up to 6 to 7 L as he was found to be 70% on his chronic 4 L. He denies any chest pain. No belly pain, nausea, vomiting, or diarrhea. No dysuria, urgency, or frequency. He notes that he does have a green productive cough and this may be slightly worse. He was brought in by EMS. He did have a temperature of 100.7 before. ROS: See above HPI for pertinent positives & negatives. A total of 10 systems reviewed and were otherwise negative. PAST MEDICAL HISTORY:See Below PAST SURGICAL HISTORY:See Below FAMILY HISTORY:See Below SOCIAL HISTORY:See Below HOME MEDICATIONS:See Below ALLERGIES:See Below VITALS:See Below PHYSICAL EXAMINATION: GENERAL: Sitting up in bed, alert, disheveled, chronically ill-appearing EYE EXAM: normal conjunctiva. OROPHARYNX: mucous membranes are dry NECK: supple, no nuchal rigidity, no adenopathy, non-tender LUNGS: Diminished bilaterally with poor air movement. Normal chest wall mechanics HEART: no murmurs, S1 normal and S2 normal ABDOMEN: abdomen soft, non-tender, normo-active bowel sounds, no masses, no rebound or guarding. UPPER EXTREMITIES: upper extremities are grossly normal. LOWER EXTREMITIES: No pitting edema. NEURO EXAM: Normal sensorium, cranial nerves II-XII grossly intact, normal speech, no gross weakness of arms, no gross weakness of legs. MEDICAL DECISION MAKING: Patient is a 55-year-old male with extensive history as stated above the presents the ER for shortness of breath. He was found to be hypoxic at the [facility]. IV was established blood work was obtained. He remained on 7 L and was gradually titrated down to 5 L while in the ER. He was given an hour-long albuterol treatment. Labs show leukocytosis of 3000 fairly consistent with previous. Hemoglobin at 10.5. Platelets were low at 83 which is actually better than previous. BMP with mild hyponatremia. LFTs bilirubin was unrema rkable. Lipase was normal. Troponin was negative. Covid was positive. Chest x-ray with worsening infiltrates in the left lower lung. Discussed with the hospitalist they recommended a CT of the chest. CT of the chest did show worsening infiltrates. Patient was given IV fluids, IV Levaquin, Zosyn and ganciclovir following discussion with the hospitalist. They recommend discussion with pulmonology. Discussed with Dr. Das from pulmonology to see if this patient was appropriate for the hospital. He noted that he likely needs no additional interventions and consequently it would be up to infectious disease which we do not have. We discussed with the hospitalist who recommended transfer at this time. Patient was previously transferred to [facility] and consequently called and contacted [facility]. Discussed with Dr. Driver. He reviewed this gentleman's chart and notes that he likely can be treated here with IV antibiotics and antivirals and if he is not improving can be transferred down in a couple days if needed to have any type of additional interventions. He recommends using a chair infectious disease consults. Following this I read discussed the case with the hospitalist who accepted the patient. Patient was admitted to [facility]. Triage Nursing notes reviewed. Limited review of prior medical records performed Vital Signs: reviewed and remarkable for hypoxia Differential diagnosis: Differential diagnoses includes but is not limited to pneumonia, bronchitis, COPD/Asthma exacerbation, pneumothorax, pulmonary embolism, congestive heart failure, acute coronary syndrome ER treatment provided: See below Diagnostics interpreted by me: ECG: Sinus rhythm at 79 Normal axis No PVCs QTC 426 Cardiac Monitoring: An order was placed for continuous cardiac monitoring. The monitor shows a rate of 80 with sinus rhythm. Laboratory studies: As stated above and show below. Imaging studies: Portable AP upright 1 view of the chest shows left minutes airspace opacities new from previous CT Vida of the chest shows worsening infiltrates Consultation(s): Discussed with hospitalist for further evaluation Critical Care: I have personally spent 45 minutes of critical care time in the direct management of this patient. This includes bedside care, interpretation of diagnostic studies, and testing, discussion with consultants, patient, and family members, and other required patient management activities. This 45 minutes is in excess of all separately billable procedures. Past Med/Surg History Medical History (Updated 11/09/20 @ 00:02 by Savage Jewell, ) Asthma Autoimmune hepatitis (02/25/13) Bronchiectasis Common variable immunodeficiency COVID-19 in immunocompromised patient Second episode of COVID-19 in 90 days with 2 negative tests in between Pneumonia due to 2019 novel coronavirus (~04/2020) Thrombocytopenia Surgical History Hx of colonoscopy Port-A-Cath in place (07/05/19) Insertion Of Mediport With Fluoroscopy Dr. Huang 07-05-19 Family History Other Family history non-contributory Social History Smoking Status: Former smoker Tobacco Type: Cigarettes Second Hand Exposure: No; Hx Alcohol Use: No Hx Substance Use: Yes Preferred Language: Slovak Communication Ability: Effective Materials Associate Required: No Beliefs That Will Affect Care: None marital status: Single Current Living Situation: Other Current Living Situation Comment: [facility] Feels Safe at Home: Yes Assistive Devices: Oxygen - Continuous Allergies Allergies Allergy/AdvReac Type Severity Reaction Status Date / Time sulfamethoxazole Allergy Mild RASH/BLEEDI Verified 11/01/20 01:27 NG trimethoprim Allergy Mild RASH/BLEEDI Verified 11/01/20 01:27 NG Home Meds Home Medications Medication Instructions Recorded Confirmed carvedilol 6.25 mg tablet 6.25 mg PO BID tab 06/26/19 11/08/20 ondansetron HCl [Zofran] 8 mg PO TID PRN 07/03/19 11/08/20 Systane Gel 1 drp OPHTHALMIC (EYE) QID 05/15/20 11/08/20 acetaminophen [Tylenol] 325 mg PO BID PRN 05/15/20 11/08/20 Alvesco 2 puff INHALATION DAILY 08/12/20 11/08/20 [place] Allergy and Sinus 1 spray INTRANASAL BID 08/21/20 11/08/20 B-complex with vitamin C 1 tab PO DAILY 08/21/20 11/08/20 Dexamethasone 10mg/Ml Sdv 20 mg IV DIRECTED 08/21/20 11/08/20 Diphenhydramine 50 Mg/Ml Sdv 50 mg IV DIRECTED 08/21/20 11/08/20 Gammagard 1 Gm /10 Ml Inj 4 g IV DIRECTED 08/21/20 11/08/20 Gammagard 20 Gm/200 Ml 20 g IV DIRECTED 08/21/20 11/08/20 Magic Mouth Wash 5 ml PO ACHS 08/21/20 11/08/20 ascorbic acid (vitamin C) [Vitamin 500 mg PO BID 08/21/20 11/08/20 C] dextromethorphan-guaifenesin 1 tab PO Q12H 08/21/20 11/08/20 [Mucinex DM] levalbuterol tartrate [Xopenex HFA] 2 inh INHALATION QID PRN 08/21/20 11/08/20 pantoprazole 40 mg PO DAILY 08/21/20 11/08/20 tetrahydrozoline 1 drp OPB QID 08/21/20 11/08/20 Lactobacillus acidophilus 1,000 mmu cells PO TID 11/01/20 11/08/20 [PROBIATA] atovaquone 1,500 mg PO DAILY 11/01/20 11/08/20 clonidine HCl 0.2 mg PO BID 11/01/20 11/08/20 folic acid 1 mg PO DAILY 11/01/20 11/08/20 sertraline 50 mg PO DAILY 11/01/20 11/08/20 valganciclovir 450 mg PO BID 11/01/20 11/08/20 ipratropium-albuterol 3 ml INHALATION Q4H PRN 11/08/20 11/08/20 Previous Rx's Medication Instructions Recorded umeclidinium 62.5 mcg-vilanterol 1 puffs INH DAILY #60 ea 01/05/20 25 mcg/actuation powdr for inhalation Results & Data (ED) Vital Signs Vital Signs - 24 hr 11/08/20 19:21 11/08/20 19:22 11/08/20 19:35 Temperature 37.0 C Temperature Source Oral Pulse Rate 80 81 Pulse Rate [Right Radial] 78 Pulse Rate from SpO2 Sensor 79 Pulse Rhythm Regular Regular Pulse Strength Normal Respiratory Rate 22 26 H 28 H Respiratory Effort / Characteristics Spontaneous Short of Breath Spontaneous Labored Short of Breath Respiratory Depth Normal Blood Pressure 123/67 Blood Pressure Mean 85 Blood Pressure Position Lying Pulse Oximetry 98 99 97 Oxygen Delivery Method Nasal Cannula Nasal Cannula Nasal Cannula Oxygen Flow Rate 6 6 6 Sepsis Recent Fever Within 48 Hours No Sepsis New/Unexplained Change in Mental Status N/A Sepsis Action Taken by Nursing No Action Required 11/08/20 19:43 11/08/20 19:49 11/08/20 20:00 Temperature Temperature Source Pulse Rate 78 81 Pulse Rate [Right Radial] Pulse Rate from SpO2 Sensor 78 82 Pulse Rhythm Pulse Strength Respiratory Rate 22 22 Respiratory Effort / Characteristics Spontaneous SOB on Exertion Respiratory Depth Normal Blood Pressure 111/76 110/74 Blood Pressure Mean 87 86 Blood Pressure Position Pulse Oximetry 99 98 Oxygen Delivery Method Nasal Cannula Nasal Cannula Nasal Cannula Oxygen Flow Rate 6 6 6 Sepsis Recent Fever Within 48 Hours Sepsis New/Unexplained Change in Mental Status Sepsis Action Taken by Nursing 11/08/20 20:30 11/08/20 21:00 11/08/20 22:00 Temperature Temperature Source Pulse Rate 87 86 82 Pulse Rate [Right Radial] Pulse Rate from SpO2 Sensor 87 86 82 Pulse Rhythm Pulse Strength Respiratory Rate 24 25 H 25 H Respiratory Effort / Characteristics Respiratory Depth Blood Pressure 114/78 102/74 108/71 Blood Pressure Mean 90 83 83 Blood Pressure Position Pulse Oximetry 96 95 99 Oxygen Delivery Method Nasal Cannula Nasal Cannula Nasal Cannula Oxygen Flow Rate 6 6 6 Sepsis Recent Fever Within 48 Hours Sepsis New/Unexplained Change in Mental Status Sepsis Action Taken by Nursing 11/08/20 22:30 11/08/20 23:00 Temperature Temperature Source Pulse Rate 83 73 Pulse Rate [Right Radial] Pulse Rate from SpO2 Sensor 83 72 Pulse Rhythm Pulse Strength Respiratory Rate 24 24 Respiratory Effort / Characteristics Respiratory Depth Blood Pressure 111/76 113/75 Blood Pressure Mean 87 87 Blood Pressure Position Pulse Oximetry 99 99 Oxygen Delivery Method Nasal Cannula Nasal Cannula Oxygen Flow Rate 6 6 Sepsis Recent Fever Within 48 Hours Sepsis New/Unexplained Change in Mental Status Sepsis Action Taken by Nursing Laboratory Data Result diagrams: 11/08/20 19:54 11/08/20 19:54 Lab Results 11/08/20 11/08/20 11/08/20 Range/Units 19:12 19:12 19:54 WBC 3.07 L (4.8-10.8) K/uL RBC 3.72 L (4.7-6.1) M/uL Hgb 10.5 L (14.0-18.0) g/dL Hct 32.2 L (42-52) % MCV 86.6 (80-100) fL MCH 28.2 (25-34) pg MCHC 32.6 (32-36) g/dL RDW Std Deviation 53.1 H (36.4-46.3) fL RDW Coeff of John 16.7 H (11.5-14.5) % Plt Count 83 L (130-400) K/uL MPV 9.9 (7.4-10.4) fL Immature Gran % (Auto) 0.3 % Neut % (Auto) 76.9 % Lymph % (Auto) 11.7 % Esmeralda % (Auto) 11.1 % Eos % (Auto) 0.0 % Baso % (Auto) 0.0 % Neut # (Auto) 2.36 (1.4-6.5) K/uL Lymph # (Auto) 0.36 L (1.2-3.4) K/uL Esmeralda # (Auto) 0.34 (0.11-0.59) K/uL Eos # (Auto) 0.00 (0-0.5) K/uL Baso # (Auto) 0.00 (0-0.2) K/uL Immature Gran # (Auto) 0.01 (0.00-0.02) K/uL Tear Drop Cells 1+ APTT (21.0-31.0) Seconds PTT Ratio Sodium (136-145) mmol/L Potassium (3.5-5.1) mmol/L Chloride (98-107) mmol/L Carbon Dioxide (21-32) mmol/L Anion Gap (3-11) BUN (7-18) mg/dl Creatinine (0.6-1.4) mg/dl Est Cr Clr Drug Dosing ml/min Est GFR ( Amer) ml/min Est GFR (Non-Af Amer) ml/min BUN/Creatinine Ratio (10-20) Glucose (70-99) mg/dl Calcium (8.5-10.1) mg/dl Total Bilirubin (0.2-1) mg/dl AST (15-37) U/L ALT (12-78) U/L Alkaline Phosphatase (45-117) U/L Troponin I (0-0.045) ng/ml Total Protein (6.4-8.2) gm/dl Albumin (3.4-5.0) gm/dl Globulin (2.5-4.0) gm/dl Albumin/Globulin Ratio (0.9-2) Lipase (73-393) U/L COVID-19 Eval Order Covid19 at [facility] SARS-CoV-2 (PCR) POSITIVE A* (Negative) 11/08/20 11/08/20 Range/Units 19:54 19:54 WBC (4.8-10.8) K/uL RBC (4.7-6.1) M/uL Hgb (14.0-18.0) g/dL Hct (42-52) % MCV (80-100) fL MCH (25-34) pg MCHC (32-36) g/dL RDW Std Deviation (36.4-46.3) fL RDW Coeff of John (11.5-14.5) % Plt Count (130-400) K/uL MPV (7.4-10.4) fL Immature Gran % (Auto) % Neut % (Auto) % Lymph % (Auto) % Esmeralda % (Auto) % Eos % (Auto) % Baso % (Auto) % Neut # (Auto) (1.4-6.5) K/uL Lymph # (Auto) (1.2-3.4) K/uL Esmeralda # (Auto) (0.11-0.59) K/uL Eos # (Auto) (0-0.5) K/uL Baso # (Auto) (0-0.2) K/uL Immature Gran # (Auto) (0.00-0.02) K/uL Tear Drop Cells APTT 30.4 (21.0-31.0) Seconds PTT Ratio 1.2 Sodium 134 L (136-145) mmol/L Potassium 4.2 (3.5-5.1) mmol/L Chloride 100 (98-107) mmol/L Carbon Dioxide 31 (21-32) mmol/L Anion Gap 4.0 (3-11) BUN 13 (7-18) mg/dl Creatinine 0.51 L (0.6-1.4) mg/dl Est Cr Clr Drug Dosing 151.2 ml/min Est GFR ( Amer) 139.3 ml/min Est GFR (Non-Af Amer) 120.2 ml/min BUN/Creatinine Ratio 25.2 H (10-20) Glucose 140 H (70-99) mg/dl Calcium 8.2 L (8.5-10.1) mg/dl Total Bilirubin 0.3 (0.2-1) mg/dl AST 26 (15-37) U/L ALT 22 (12-78) U/L Alkaline Phosphatase 170 H (45-117) U/L Troponin I < 0.015 (0-0.045) ng/ml Total Protein 5.9 L (6.4-8.2) gm/dl Albumin 2.4 L (3.4-5.0) gm/dl Globulin 3.5 (2.5-4.0) gm/dl Albumin/Globulin Ratio 0.7 L (0.9-2) Lipase 141 (73-393) U/L COVID-19 Eval Order SARS-CoV-2 (PCR) (Negative) Administered Medications Vancomycin HCl 1,500 mg/ (Sodium Chloride) 530 mls @ 200 mls/hr IV NOW ONE Stop: 11/09/20 01:20 Last Admin: 11/08/20 23:11 Dose: 200 mls/hr Documented by: [id number] Discontinued Medications Albuterol (Albuterol 0.083% Nebu Soln 3 Ml Vial) 10 mg NEB NOW STA Stop: 11/08/20 19:00 Last Admin: 11/08/20 19:35 Dose: 10 mg Documented by: [id number] Sodium Chloride (Nss) 500 mls @ 999 mls/hr IV .Q31M STA Stop: 11/08/20 19:29 Last Infusion: 11/08/20 20:12 Dose: 0 mls/hr Documented by: [id number] Admin: 11/08/20 19:31 Dose: 999 mls/hr Documented by: [id number] Levofloxacin/Dextrose (Levaquin/D5w) 750 mg in 150 mls @ 100 mls/hr IV NOW STA Stop: 11/08/20 21:08 Last Infusion: 11/08/20 21:25 Dose: 0 mls/hr Documented by: [id number] Admin: 11/08/20 19:52 Dose: 100 mls/hr Documented by: [id number] Piperacillin Sod/Tazobactam Sod (Zosyn) 4.5 gm in 120 mls @ 240 mls/hr IV NOW ONE Stop: 11/08/20 23:46 Last Admin: 11/08/20 23:55 Dose: 240 mls/hr Documented by: [id number] Ioversol (Optiray 350 500ml) 118 ml IV ONCE ONE Stop: 11/08/20 21:34 Last Admin: 11/08/20 21:34 Dose: 118 ml Documented by: [id number] Methylprednisolone (Methylprednisolone 125 Mg/2 Ml Vial) 60 mg IV NOW STA Stop: 11/08/20 19:00 Last Admin: 11/08/20 19:30 Dose: 60 mg Documented by: [id number] Imaging Data Radiologist's Impression: Chest X-Ray 11/08/20 18:59 XR chest 1V portable HISTORY: Atypical Chest Pain COMPARISON: Chest 11/01/2020. FINDINGS: No pneumothorax. No pleural effusions. The heart remains top normal in size. There is a left Port-A-Cath which range at the SVC. Upper lobe perihilar airspace opacities are again noted. There is progressive patchy airspace opacity within the left mid to lower lung zone. IMPRESSION: 1. Progressive patchy airspace opacities within the left mid to lower lung zones. This likely represents a pneumonia and may be secondary to aspiration. 2. No change in the chronic bilateral upper lobe airspace opacities. ACT 112: Negative or not required by law. Electronically signed by: Ramses Valle M.D. 11/08/2020 7:17 PM Chest CTA 11/08/20 21:09 CHEST CTA for PULMONARY ARTERIES CT DOSE: 263.76 mGy.cm HISTORY: Shortness of breath. Covid pneumonia. TECHNIQUE: Multiaxial CT images of the chest were performed following the intravenous administration of contrast to evaluate the pulmonary arteries. Maximal intensity projection images were also obtained. A dose lowering technique was utilized adhering to the principles of ALARA. COMPARISON STUDY: Chest CTA 09/10/2020. FINDINGS: A left jugular Port-A-Cath terminates in the distal SVC. Cirrhotic liver and splenomegaly remain unchanged. No pleural or pericardial trace pleural effusions. No pericardial effusion. Normal esophagus. The heart is normal in size. No change in the mild mediastinal and bilateral hilar lymphadenopathy. No fractures within the visualized osseous structures. No pneumothorax. Mild bronchiectasis with diffuse bronchial wall thickening is again noted. Small amount of mucoid material within the distal trachea and right mainstem bronchus. Progressive interstitial and groundglass airspace opacities within the bilateral upper to mid lung zones. There is also progressive patchy consolidative airspace opacities within the left lower lobe. Small groundglass airspace opacity within the right lower lobe posteriorly is also new compared the prior study. No change in the ascending thoracic aorta measuring up to 4 cm in diameter. No evidence for an aortic dissection. No filling defects within the pulmonary arteries to suggest a pulmonary embolus. IMPRESSION: 1. No evidence for pulmonary embolus. 2. Interval progression of the bilateral airspace opacities as described above including new areas of multifocal consolidation within the left lower lobe. This may represent an acute on chronic pneumonia. Chronic inflammatory process such as sarcoidosis would also be considered in the differential diagnosis but is considered less likely. Pulmonary consultation recommended. 3. No change in the cirrhosis and splenomegaly. 4. Stable mediastinal lymphadenopathy. 5. Trace bilateral pleural effusions. ACT 112: Negative or not required by law. Electronically signed by: Ramses Valle M.D. 11/08/2020 10:01 PM Discharge Plan Visit Data Chief Complaint: Shortness of Breath/Dyspnea Stated Complaint: SOB ED Provider: Savage Jewell Discharge Problem: Pneumonia due to 2019 novel coronavirus, Hypogammaglobulinemia, Immunocompromised, Hypoxia Forms Stand Alone Forms: My [facility] Prescriptions Prescriptions: No Action Anoro Ellipta 62.5-25 mcg/actuation blister with device 1 puffs INH DAILY Qty: 60 RF: 2 carvedilol 6.25 mg tablet 6.25 mg PO BID RF: 0 ondansetron HCl [Zofran] 4 mg Tablet 8 mg PO TID PRN (Reason: Nausea And Vomiting) RF: 0 Alvesco 160 mcg/actuation Hfa Aerosol Inhaler 2 puff INHALATION DAILY RF: 0 tetrahydrozoline 0.05 % Drops 1 drp OPB QID RF: 0 ascorbic acid (vitamin C) [Vitamin C] 500 mg Tablet 500 mg PO BID RF: 0 dextromethorphan-guaifenesin [Mucinex DM] 60-1,200 mg Tablet Extended Release 12 Hr 1 tab PO Q12H RF: 0 B-complex with vitamin C Tablet 1 tab PO DAILY RF: 0 [place] Allergy [facility] Sinus 2.65 % Aerosol,[place] 1 spray INTRANASAL BID RF: 0 Magic Mouth Wash 5 ml PO ACHS RF: 0 pantoprazole 40 mg tablet,delayed release (DR/EC) 40 mg PO DAILY RF: 0 levalbuterol tartrate [Xopenex HFA] 45 mcg/actuation HFA aerosol inhaler 2 inh INHALATION QID PRN (Reason: Shortness Of Breath) RF: 0 Dexamethasone 10mg/Ml Sdv 10 mg/ml 20 mg IV DIRECTED RF: 0 Diphenhydramine 50 Mg/Ml Sdv 50 mg/ml 50 mg IV DIRECTED RF: 0 Gammagard 1 Gm /10 Ml Inj 1 g/10 ml 4 g IV DIRECTED RF: 0 Gammagard 20 Gm/200 Ml 20 g/200 ml 20 g IV DIRECTED RF: 0 acetaminophen [Tylenol] 325 mg Tablet 325 mg PO BID PRN (Reason: Only as Needed) RF: 0 Systane Gel 0.4-0.3 % Drops,Gel 1 drp ophthalmic (eye) QID RF: 0 sertraline 50 mg Tablet 50 mg PO DAILY RF: 0 folic acid 1 mg Tablet 1 mg PO DAILY RF: 0 Lactobacillus acidophilus [PROBIATA] 1 billion cell Tablet 1,000 mmu cells PO TID RF: 0 clonidine HCl 0.1 mg Tablet 0.2 mg PO BID RF: 0 valganciclovir 450 mg Tablet 450 mg PO BID RF: 0 atovaquone 750 mg/5 mL Suspension 1,500 mg PO DAILY RF: 0 ipratropium-albuterol 0.5 mg-3 mg(2.5 mg base)/3 mL Solution For Nebulization 3 ml INHALATION Q4H PRN (Reason: Shortness Of Breath) RF: 0
--- NOTE | 2020-11-08 19:18 | XRay Report ---
XR chest 1V portable HISTORY: Atypical Chest Pain COMPARISON: Chest 11/01/2020. FINDINGS: No pneumothorax. No pleural effusions. The heart remains top normal in size. There is a lef t Port-A-Cath which range at the SVC. Upper lobe perihilar airspace opacities are again noted. There is progressive patchy airspace opacity within the left mid to lower lung zone. IMPRESSION: 1. Progressive patchy airspace opacities within the left mid to lower lung zones. This likely represe nts a pneumonia and may be secondary to aspiration. 2. No change in the chronic bilateral upper lobe airspace opacities. ACT 112: Negative or not required by law. Electronically signed by: Ramses Valle M.D. 11/08/2020 7:17 PM
[2020-11-08] MEDS ORDERED: levoFLOXacin/D5W 750 MG/150 ML BAG IV STA (19:39)
[2020-11-08 20:04] LABS: Hematocrit (blood only) 32.2 % (42-52); Hemoglobin 10.5 g/dL (14.0-18.0); Mean Corpuscular Hemoglobin 28.2 pg (25-34); Mean Corpuscular Hgb Conc 32.6 g/dL (32-36); Mean Corpuscular Volume 86.6 fL (80-100); RDW Coefficient of Variation 16.7 % (11.5-14.5); RDW Standard Deviation 53.1 fL (36.4-46.3); Red Blood Count 3.72 M/uL (4.7-6.1); White Blood Count 3.07 K/uL (4.8-10.8)
[2020-11-08 20:12] LABS: Partial Thromboplastin Ratio 1.2; Partial Thromboplastin Time 30.4 Seconds (21.0-31.0)
[2020-11-08 20:16] LABS: Mean Platelet Volume 9.9 fL (7.4-10.4); Platelet Count 83 K/uL (130-400)
[2020-11-08 20:23] LABS: Alanine Aminotransferase 22 U/L (12-78); Albumin Level 2.4 gm/dl (3.4-5.0); Aspartate Aminotransferase 26 U/L (15-37); BUN Creatinine Ratio 25.2 (10-20); Blood Urea Nitrogen 13 mg/dl (7-18); Calcium 8.2 mg/dl (8.5-10.1); Carbon Dioxide 31 mmol/L (21-32); Chloride 100 mmol/L (98-107); Creatinine Clr Calc Pharmacy 151.2 ml/min; Est GFR (African American) 139.3 ml/min; Est GFR (Non-African American) 120.2 ml/min; Glucose 140 mg/dl (70-99); Lipase 141 U/L (73-393); Potassium 4.2 mmol/L (3.5-5.1); Sodium 134 mmol/L (136-145)
[2020-11-08 20:25] LABS: Immature Granulocytes # (auto) 0.01 K/uL (0.00-0.02); Immature Granulocytes % (auto) 0.3 %; Lymphocytes # (auto) 0.36 K/uL (1.2-3.4); Lymphocytes % (auto) 11.7 %; Monocytes # (auto) 0.34 K/uL (0.11-0.59); Monocytes % (auto) 11.1 %; Neutrophils # (auto) 2.36 K/uL (1.4-6.5); Neutrophils % (auto) 76.9 %; Tear Drop Cells 1+
[2020-11-08 20:28] LABS: Albumin Globulin Ratio 0.7 (0.9-2); Alkaline Phosphatase 170 U/L (45-117); Bilirubin,Total 0.3 mg/dl (0.2-1); Globulin 3.5 gm/dl (2.5-4.0); Total Protein 5.9 gm/dl (6.4-8.2); Troponin I < 0.015 ng/ml (0-0.045)
[2020-11-08] MEDS ORDERED: OPTIRAY 350 500ml IV ONE (21:33)
--- NOTE | 2020-11-08 22:02 | CT Scan Report ---
CHEST CTA for PULMONARY ARTERIES CT DOSE: 263.76 mGy.cm HISTORY: Shortness of breath. Covid pneumonia. TECHNIQUE: Multiaxial CT images of the chest were performed following the intravenous administration of contrast to evaluate the pulmonary arteries. Maximal intensity projection images were also obtaine d. A dose lowering technique was utilized adhering to the principles of ALARA. COMPARISON STUDY: Chest CTA 09/10/2020. FINDINGS: A left jugular Port-A-Cath terminates in the distal SVC. Cirrhotic liver and splenomegaly r emain unchanged. No pleural or pericardial trace pleural effusions. No pericardial effusion. Normal e sophagus. The heart is normal in size. No change in the mild mediastinal and bilateral hilar lymphade nopathy. No fractures within the visualized osseous structures. No pneumothorax. Mild bronchiectasis with diffuse bronchial wall thickening is again noted. Small amount of mucoid material within the dis dale trachea and right mainstem bronchus. Progressive interstitial and groundglass airspace opacities within the bilateral upper to mid lung zones. There is also progressive patchy consolidative airspace opacities within the left lower lobe. Small groundglass airspace opacity within the right lower lobe posteriorly is also new compared the prior study. No change in the ascending thoracic aorta measurin g up to 4 cm in diameter. No evidence for an aortic dissection. No filling defects within the pulmona ry arteries to suggest a pulmonary embolus. IMPRESSION: 1. No evidence for pulmonary embolus. 2. Interval progression of the bilateral airspace opacities as described above including new areas of multifocal consolidation within the left lower lobe. This may represent an acute on chronic pneumoni a. Chronic inflammatory process such as sarcoidosis would also be considered in the differential diag nosis but is considered less likely. Pulmonary consultation recommended. 3. No change in the cirrhosis and splenomegaly. 4. Stable mediastinal lymphadenopathy. 5. Trace bilateral pleural effusions. ACT 112: Negative or not required by law. Electronically signed by: Ramses Valle M.D. 11/08/2020 10:01 PM
[2020-11-08] MEDS ORDERED: VANCOMYCIN HCL 1,500 MG in SODIUM CHLORIDE 0.9% 500 ML IV ONE (22:42)
[2020-11-08] MEDS ORDERED: VANCOMYCIN CONSULT ACTIVE PRN (22:42)
[2020-11-08] MEDS ORDERED: PIPERACILL/TAZOBAC CONSULT ACTIVE PRN (23:17)
[2020-11-08] MEDS ORDERED: PIPERACILLIN/TAZOBACTAM 4.5 GM/120 ML BAG IV ONE (23:17)
[2020-11-09] MEDS ORDERED: SODIUM CHLORIDE 0.9% IV SCH
[2020-11-09] MEDS ORDERED: GANCICLOVIR SODIUM IV SCH
--- NOTE | 2020-11-09 00:03 | History & Physical Report ---
Date of Service November 09, 2020 Assessment & Plan (1) Acute on chronic respiratory failure with hypoxemia: Acute on chronic respiratory failure with hypoxemia/CMV/COVID-19 coronavirus pneumonia/left lower lobe consolidated pneumonia- CVID/hypogammaglobulinemia/history of lymphoma- Admit to monitored bed Give dose of Flebogamma IV tonight Give dose of ganciclovir IV and dosing per pharmacy Decadron 20 mg IV, 30 minutes prior to ganciclovir IV Decadron 6 mg IV every morning Vancomycin IV per pharmacokinetic monitoring Zosyn 4.5 g IV every 8 hours Duonebs every 2 hours when necessary. Continue usual inhalers Mucinex DM every 12 hours Zinc sulfate turn 20 mg p.o. every morning Vitamin D 5000 international units p.o. every morning Continue atovaquone for suppression Of note, ED consulted with Dr. Lara from [facility], who felt that the patient should be managed in [facility] Present on Admission?: Yes (2) CMV (cytomegalovirus infection): Changing oral valganciclovir to IV ganciclovir Present on Admission?: Yes (3) Pneumonia due to 2019 novel coronavirus: See above Present on Admission?: Yes (4) Common variable immunodeficiency: Present on Admission?: Yes (5) Hypogammaglobulinemia: See above Present on Admission?: Yes (6) H/O lymphoma: Not actively treated at this time Present on Admission?: Yes History of Present Illness Chief Complaint: Patient presents to the emergency department with worsening shortness of breath that began earlier in the day Primary Care Provider: [facility] The patient is a 55-year-old male resident of [facility], with a past medical history including CMV pneumonia, lymphoma, acute respiratory failure with hypoxia, COPD, hypokalemia, COPD with emphysema, pulmonary nodule, chronic respiratory failure with hypoxia, history of COVID-19, bronchiectasis, esophageal varices, thoracic ascending aortic aneurysm, seasonal allergies, hypogammaglobulinemia, CVID, immunocompromise, renal mass, incidental lung nodule and history of fungal pneumonia Work-up in the emergency department included COVID-19 test positivity. Imaging: Chest x-ray showed worsening multifocal pneumonia. CT angiography of chest PE protocol was negative for PE, but did show interval progression of bilateral airspace opacities including new areas of multifocal consolidation within the left lower lobe, representing either an acute or chronic pneumonia. There is no change in cirrhosis or splenomegaly and there was stable mediastinal lymphadenopathy. Allergies Allergy/AdvReac Type Severity Reaction Status Date / Time sulfamethoxazole Allergy Mild RASH/BLEEDI Verified 11/01/20 01:27 NG trimethoprim Allergy Mild RASH/BLEEDI Verified 11/01/20 01:27 NG Home Medications Medication Instructions Recorded Confirmed Type carvedilol 6.25 mg tablet 6.25 mg PO BID tab 06/26/19 11/08/20 History ondansetron HCl [Zofran] 8 mg PO TID PRN 07/03/19 11/08/20 History umeclidinium 62.5 mcg-vilanterol 1 puffs INH DAILY #60 ea 01/05/20 11/08/20 Rx 25 mcg/actuation powdr for inhalation Systane Gel 1 drp OPHTHALMIC (EYE) QID 05/15/20 11/08/20 History acetaminophen [Tylenol] 325 mg PO BID PRN 05/15/20 11/08/20 History Alvesco 2 puff INHALATION DAILY 08/12/20 11/08/20 History [place] [facility] 1 spray INTRANASAL BID 08/21/20 11/08/20 History B-complex with vitamin C 1 tab PO DAILY 08/21/20 11/08/20 History Dexamethasone 10mg/Ml Sdv 20 mg IV DIRECTED 08/21/20 11/08/20 History Diphenhydramine 50 Mg/Ml Sdv 50 mg IV DIRECTED 08/21/20 11/08/20 History Gammagard 1 Gm /10 Ml Inj 4 g IV DIRECTED 08/21/20 11/08/20 History Gammagard 20 Gm/200 Ml 20 g IV DIRECTED 08/21/20 11/08/20 History Magic Mouth Wash 5 ml PO ACHS 08/21/20 11/08/20 History ascorbic acid (vitamin C) [Vitamin 500 mg PO BID 08/21/20 11/08/20 History C] dextromethorphan-guaifenesin 1 tab PO Q12H 08/21/20 11/08/20 History [Mucinex DM] levalbuterol tartrate [Xopenex HFA] 2 inh INHALATION QID PRN 08/21/20 11/08/20 History pantoprazole 40 mg PO DAILY 08/21/20 11/08/20 History tetrahydrozoline 1 drp OPB QID 08/21/20 11/08/20 History Lactobacillus acidophilus 1,000 mmu cells PO TID 11/01/20 11/08/20 History [PROBIATA] atovaquone 1,500 mg PO DAILY 11/01/20 11/08/20 History clonidine HCl 0.2 mg PO BID 11/01/20 11/08/20 History folic acid 1 mg PO DAILY 11/01/20 11/08/20 History sertraline 50 mg PO DAILY 11/01/20 11/08/20 History valganciclovir 450 mg PO BID 11/01/20 11/08/20 History ipratropium-albuterol 3 ml INHALATION Q4H PRN 11/08/20 11/08/20 History Past Med/Surg History Medical History (Updated 11/09/20 @ 04:57 by Jose Angel Boudreaux MD) Asthma Autoimmune hepatitis (02/25/13) Bronchiectasis Common variable immunodeficiency COVID-19 in immunocompromised patient Second episode of COVID-19 in 90 days with 2 negative tests in between Pneumonia due to 2019 novel coronavirus (~04/2020) Thrombocytopenia Surgical History Hx of colonoscopy Port-A-Cath in place (07/05/19) Insertion Of Mediport With Fluoroscopy Dr. Huang 07-05-19 Family History Other Family history non-contributory Social History Smoking Status: Former smoker Tobacco Type: Cigarettes Second Hand Exposure: No; Hx Alcohol Use: No Hx Substance Use: No Preferred Language: Tunisian Communication Ability: Effective [employer] Police Required: No Beliefs That Will Affect Care: None marital status: Single Current Living Situation: Other Current Living Situation Comment: [facility] Feels Safe at Home: Yes Assistive Devices: Glasses and Oxygen - Continuous Review of Systems Review of Systems: The patient denies chest pain, palpitations, lower extremity swelling, sore throat, sweats, nausea, vomiting, diarrhea , constipation, abdominal pain, pelvic pain, blood in urine or stool, dysuria, urinary frequency or urgency, lightheadedness, dizziness, headache, memory loss, loss of consciousness, rash, abnormal bruising or bleeding, imbalance, focal weakness, numbness or tingling in arms or legs, back or neck pa in, or night sweats. The review of systems is otherwise negative other than for that already noted above, and at least 10 systems have been reviewed. Physical Exam Physical Exam: The patient is awake, alert and oriented 3, looks emaciated, normocephalic and atraumatic, lying in bed and in no acute distress. HEENT--PERRL, EOMI, mucous membranes and oropharynx dry. Neck--supple. No JVD. No bruits. Thyroid normal, trachea midline, no adenopathy. Heart--normal S1 and S2. No murmurs, rubs or gallops. Lungs--coarse breath sounds bilaterally. No respiratory distress, no accessory muscle use. Abdomen--normal bowel sounds and soft. Nontender. Nondistended. Extremities--no cyanosis or clubbing. No edema. Dermatologic--normal skin turgor, normal color, no abnormal lymph nodes, no rash. Neurologic--cranial nerves II through XII grossly intact. Rheumatologic--normal range of motion. Psychiatric--normal affect. Results & Data Results & Data ([facility]) Vital Signs (Past 12 Hours) Vital Signs Temp Pulse Pulse Resp BP Pulse Ox 11/08/20 23:00 73 24 113/75 99 11/08/20 22:30 83 24 111/76 99 11/08/20 22:00 82 25 H 108/71 99 11/08/20 21:00 86 25 H 102/74 95 11/08/20 20:30 87 24 114/78 96 11/08/20 20:00 81 22 110/74 98 11/08/20 19:49 78 22 111/76 99 11/08/20 19:35 78 28 H 97 11/08/20 19:22 98.6 F 81 26 H 123/67 99 11/08/20 19:21 80 22 98 Laboratory Results Laboratory Results WBC 3.07 K/uL (4.8-10.8) L 11/08/20 19:54 RBC 3.72 M/uL (4.7-6.1) L 11/08/20 19:54 Hgb 10.5 g/dL (14.0-18.0) L 11/08/20 19:54 Hct 32.2 % (42-52) L 11/08/20 19:54 MCV 86.6 fL (80-100) 11/08/20 19:54 MCH 28.2 pg (25-34) 11/08/20 19:54 MCHC 32.6 g/dL (32-36) 11/08/20 19:54 RDW Std Deviation 53.1 fL (36.4-46.3) H 11/08/20 19:54 RDW Coeff of John 16.7 % (11.5-14.5) H 11/08/20 19:54 Plt Count 83 K/uL (130-400) L 11/08/20 19:54 MPV 9.9 fL (7.4-10.4) 11/08/20 19:54 Immature Gran % (Auto) 0.3 % 11/08/20 19:54 Neut % (Auto) 76.9 % 11/08/20 19:54 Lymph % (Auto) 11.7 % 11/08/20 19:54 [place] % (Auto) 11.1 % 11/08/20 19:54 Eos % (Auto) 0.0 % 11/08/20 19:54 Baso % (Auto) 0.0 % 11/08/20 19:54 Neut # (Auto) 2.36 K/uL (1.4-6.5) 11/08/20 19:54 Lymph # (Auto) 0.36 K/uL (1.2-3.4) L 11/08/20 19:54 [place] # (Auto) 0.34 K/uL (0.11-0.59) 11/08/20 19:54 Eos # (Auto) 0.00 K/uL (0-0.5) 11/08/20 19:54 Baso # (Auto) 0.00 K/uL (0-0.2) 11/08/20 19:54 Immature Gran # (Auto) 0.01 K/uL (0.00-0.02) 11/08/20 19:54 Tear Drop Cells 1+ 11/08/20 19:54 APTT 30.4 Seconds (21.0-31.0) 11/08/20 19:54 PTT Ratio 1.2 11/08/20 19:54 Sodium 134 mmol/L (136-145) L 11/08/20 19:54 Potassium 4.2 mmol/L (3.5-5.1) 11/08/20 19:54 Chloride 100 mmol/L (98-107) 11/08/20 19:54 Carbon Dioxide 31 mmol/L (21-32) 11/08/20 19:54 Anion Gap 4.0 (3-11) 11/08/20 19:54 BUN 13 mg/dl (7-18) 11/08/20 19:54 Creatinine 0.51 mg/dl (0.6-1.4) L 11/08/20 19:54 Est Cr Clr Drug Dosing 151.2 ml/min 11/08/20 19:54 Est GFR ( Amer) 139.3 ml/min 11/08/20 19:54 Est GFR (Non-Af Amer) 120.2 ml/min 11/08/20 19:54 BUN/Creatinine Ratio 25.2 (10-20) H 11/08/20 19:54 Glucose 140 mg/dl (70-99) H 11/08/20 19:54 Calcium 8.2 mg/dl (8.5-10.1) L 11/08/20 19:54 Total Bilirubin 0.3 mg/dl (0.2-1) 11/08/20 19:54 AST 26 U/L (15-37) 11/08/20 19:54 ALT 22 U/L (12-78) 11/08/20 19:54 Alkaline Phosphatase 170 U/L (45-117) H 11/08/20 19:54 Troponin I < 0.015 ng/ml (0-0.045) 11/08/20 19:54 Total Protein 5.9 gm/dl (6.4-8.2) L 11/08/20 19:54 Albumin 2.4 gm/dl (3.4-5.0) L 11/08/20 19:54 Globulin 3.5 gm/dl (2.5-4.0) 11/08/20 19:54 Albumin/Globulin Ratio 0.7 (0.9-2) L 11/08/20 19:54 Lipase 141 U/L (73-393) 11/08/20 19:54 Nasal Screen MRSA (PCR) Negative (Negative) 11/09/20 01:39 COVID-19 Eval Order Covid19 at [facility] 11/08/20 19:12 SARS-CoV-2 (PCR) POSITIVE (Negative) A* 11/08/20 19:12 Impressions Chest X-Ray 11/08/20 18:59 XR chest 1V portable HISTORY: Atypical Chest Pain COMPARISON: Chest 11/01/2020. FINDINGS: No pneumothorax. No pleural effusions. The heart remains top normal in size. There is a left Port-A-Cath which range at the SVC. Upper lobe perihilar airspace opacities are again noted. There is progressive patchy airspace opacity within the left mid to lower lung zone. IMPRESSION: 1. Progressive patchy airspace opacities within the left mid to lower lung zones. This likely represents a pneumonia and may be secondary to aspiration. 2. No change in the chronic bilateral upper lobe airspace opacities. ACT 112: Negative or not required by law. Electronically signed by: Ramses Valle M.D. 11/08/2020 7:17 PM Chest CTA 11/08/20 21:09 CHEST CTA for PULMONARY ARTERIES CT DOSE: 263.76 mGy.cm HISTORY: Shortness of breath. Covid pneumonia. TECHNIQUE: Multiaxial CT images of the chest were performed following the intravenous administration of contrast to evaluate the pulmonary arteries. Maximal intensity projection images were also obtained. A dose lowering technique was utilized adhering to the principles of ALARA. COMPARISON STUDY: Chest CTA 09/10/2020. FINDINGS: A left jugular Port-A-Cath terminates in the distal SVC. Cirrhotic liver and splenomegaly remain unchanged. No pleural or pericardial trace pleural effusions. No pericardial effusion. Normal esophagus. The heart is normal in size. No change in the mild mediastinal and bilateral hilar lymphadenopathy. No fractures within the visualized osseous structures. No pneumothorax. Mild bronchiectasis with diffuse bronchial wall thickening is again noted. Small amount of mucoid material within the distal trachea and right mainstem bronchus. Progressive interstitial and groundglass airspace opacities within the bilateral upper to mid lung zones. There is also progressive patchy consolidative airspace opacities within the left lower lobe. Small groundglass airspace opacity within the right lower lobe posteriorly is also new compared the prior study. No change in the ascending thoracic aorta measuring up to 4 cm in diameter. No evidence for an aortic dissection. No filling defects within the pulmonary arteries to suggest a pulmonary embolus. IMPRESSION: 1. No evidence for pulmonary embolus. 2. Interval progression of the bilateral airspace opacities as described above including new areas of multifocal consolidation within the left lower lobe. This may represent an acute on chronic pneumonia. Chronic inflammatory process such as sarcoidosis would also be considered in the differential diagnosis but is considered less likely. Pulmonary consultation recommended. 3. No change in the cirrhosis and splenomegaly. 4. Stable mediastinal lymphadenopathy. 5. Trace bilateral pleural effusions. ACT 112: Negative or not required by law. Electronically signed by: Ramses Valle M.D. 11/08/2020 10:01 PM Code Status & VTE Plan Code Status Full code VTE Prophylaxis Plan VTE Prophylaxis will be ordered: Yes PG Care Time/CCT Total # of Minutes Spent Total Time Spent with Patient: Total time spent is greater than 50% in coordination of care (as documented) at patient's floor/unit and/or counseling patient: Coding Level of Care Code 81306 Initial Inpt Care Lvl 3 Diagnoses Acute on chronic respiratory failure with hypoxemia J96.21 CMV (cytomegalovirus infection) B25.9 Pneumonia due to 2019 novel coronavirus U07.1; J12.82 Common variable immunodeficiency D83.9 Hypogammaglobulinemia D80.1 H/O lymphoma Z85.79
[2020-11-09] MEDS ORDERED: dexAMETHasone 20 MG in DEXTROSE 5% 25 ML IV SCH (01:00)
[2020-11-09] MEDS ORDERED: diphenhydrAMINE 50 MG/ML VIAL IV SCH (01:00)
[2020-11-09] MEDS ORDERED: IMMUNE GLOBULIN(HUMAN) 10% 50 ML IV SCH (01:30)
[2020-11-09] MEDS ORDERED: VANCOMYCIN CONSULT ACTIVE PRN (01:31)
[2020-11-09] MEDS ORDERED: PIPERACILL/TAZOBAC CONSULT ACTIVE PRN (01:31)
[2020-11-09] MEDS ORDERED: DEXAMETHASONE IV SCH (01:31)
[2020-11-09] MEDS ORDERED: ACETAMINOPHEN 325 MG TAB PO PRN (01:31)
[2020-11-09] MEDS ORDERED: IMMUNE GLOBULIN 20 GM/200 ML IV SCH (01:31)
[2020-11-09] MEDS ORDERED: LEVALBUTEROL TARTRATE 15 GM HFA.AER.AD INH PRN (01:31)
[2020-11-09] MEDS ORDERED: ALBUT/IPRATROP 3MG/0.5MG NEB 3 ML VIAL INH PRN (01:31)
[2020-11-09] MEDS ORDERED: IMMUNE GLOBULIN 1 GM/10 ML IV SCH (01:31)
[2020-11-09] MEDS ORDERED: ONDANSETRON INJ 2 MG/ML 2 ML VIAL IV PRN (01:31)
[2020-11-09] MEDS ORDERED: IMMUNE GLOBULIN(HUMAN) 10% 200 ML IV ONE (02:30)
[2020-11-09] MEDS: carvediloL 6.25 MG TAB PO SCH ×3 (02:46→21:05)
[2020-11-09] MEDS: cloNIDine HCL 0.1 MG TAB PO SCH ×3 (02:46→21:00)
[2020-11-09] MEDS: ASCORBIC ACID 500 MG TAB PO SCH ×3 (02:47→21:00)
[2020-11-09] MEDS ORDERED: hydrOXYzine HCl 25 MG TAB PO STA (04:36)
[2020-11-09] MEDS: PIPERACILLIN/TAZOBACTAM 4.5 GM in DEXTROSE 5% 100 ML IV SCH ×3 (06:18→22:26)
[2020-11-09 06:46] LABS: Hematocrit (blood only) 28.8 % (42-52); Hemoglobin 9.3 g/dL (14.0-18.0); Mean Corpuscular Hemoglobin 28.6 pg (25-34); Mean Corpuscular Hgb Conc 32.3 g/dL (32-36); Mean Corpuscular Volume 88.6 fL (80-100); RDW Coefficient of Variation 16.5 % (11.5-14.5); RDW Standard Deviation 55.1 fL (36.4-46.3); Red Blood Count 3.25 M/uL (4.7-6.1); White Blood Count 1.42 K/uL (4.8-10.8)
[2020-11-09 06:49] LABS: Mean Platelet Volume 9.1 fL (7.4-10.4); Platelet Count 79 K/uL (130-400)
[2020-11-09 07:05] LABS: Lymphocytes # (auto) 0.12 K/uL (1.2-3.4); Lymphocytes % (auto) 8.5 %; Monocytes # (auto) 0.03 K/uL (0.11-0.59); Monocytes % (auto) 2.1 %; Neutrophils # (auto) 1.27 K/uL (1.4-6.5); Neutrophils % (auto) 89.4 %; Tear Drop Cells 1+
[2020-11-09 07:14] LABS: Albumin Level 2.2 gm/dl (3.4-5.0); BUN Creatinine Ratio 15.6 (10-20); Creatinine Clr Calc Pharmacy 111.1 ml/min; Est GFR (African American) 129.4 ml/min; Est GFR (Non-African American) 111.6 ml/min; Magnesium 2.4 mg/dl (1.8-2.4); Potassium 4.2 mmol/L (3.5-5.1)
[2020-11-09 07:16] LABS: Albumin Globulin Ratio 0.6 (0.9-2); Bilirubin,Total 0.4 mg/dl (0.2-1); Globulin 3.6 gm/dl (2.5-4.0); Total Protein 5.8 gm/dl (6.4-8.2)
[2020-11-09] MEDS ORDERED: MAGIC MOUTH WASH PO SCH (07:30)
[2020-11-09] MEDS ORDERED: VANCOMYCIN HCL 1,250 MG in SODIUM CHLORIDE 0.9% 250 ML IV SCH (08:00)
--- NOTE | 2020-11-09 08:42 | Pharmacy Report ---
Pharmacy Abx Dose Short Note - Date of Service November 09, 2020 - Assessment & Plan Assessment 55 year old M receiving Vancomycin and Zosyn for treatment of pneumonia * PMHx significant for CMV pneumonia, lymphoma, COPD, h/o COVID-19, hypogammaglobulinemia, and h/o fungal pneumonia * On oral valganciclovir as outpatient which is being changed to IV ganciclovir inpatient * Imaging consistent with pneumonia * Afebrile since admission. Leukopenia. MRSA nasal swab negative. Plan Vancomycin * Loading Dose: 1500 mg (25 mg/kg) IV x 1 * Maintenance dose: 1000 mg (17 mg/kg) IV every 8 hours * Goal trough: 15 - 20 mcg/mL * Trough level ordered for 11/10/20 prior to 0800 dose Zosyn * Zosyn 4.5 IV every 8 hours * Will continue aggressive dosing for now Ganciclovir * 350 mg IV x 1 dose * Will reduce to 300 mg (5 mg/kg) IV every 12 hours Pharmacy will continue to follow and will adjust dose/frequency as necessary. Thank you.
[2020-11-09] MEDS: Magic Mouthwash 240mL PO SCH ×4 (09:48→21:00)
[2020-11-09] MEDS: VANCOMYCIN HCL 1,000 MG in SODIUM CHLORIDE 0.9% 250 ML IV SCH ×2 (09:54→17:41)
[2020-11-09] MEDS: ATOVAQUONE 750 MG/5 ML UDC PO SCH (09:59)
[2020-11-09] MEDS: CHOLECALCIFEROL 1,000 UNITS 25 MCG TAB PO SCH (10:00)
[2020-11-09] MEDS: dexAMETHasone 6 MG in SYRINGE 0 ML IV SCH (10:01)
[2020-11-09] MEDS: ENOXAPARIN INJ 40 MG/0.4 ML SYR SQ SCH (10:01)
[2020-11-09] MEDS: UMECLIDINIUM/VILANTEROL 62.5/25MCG 7 PUFFS/INHALER INH SCH (10:01)
[2020-11-09] MEDS: FLUTICASONE FUROATE 100MCG 14 PUFFS/INHALER INH SCH (10:02)
[2020-11-09] MEDS: FOLIC ACID 1 MG TAB PO SCH (10:02)
[2020-11-09] MEDS: guaiFENesin/DEXTROM SYRUP 200MG/20MG 10ML UDC PO SCH ×2 (10:03→21:01)
[2020-11-09] MEDS: PANTOprazole 40 MG TAB PO SCH (10:03)
[2020-11-09] MEDS: ADVANCED PROBIOTIC 1250 MG CAPSULE PO SCH ×3 (10:03→20:59)
[2020-11-09] MEDS: SODIUM CHLORIDE 0.65% NA SOLN 45 ML (OCEAN) SCH ×2 (10:03→20:57)
[2020-11-09] MEDS: SERTRALINE HCL 50 MG TABLET PO SCH (10:05)
[2020-11-09] MEDS: ZINC SULFATE 220 MG CAPSULE PO SCH (10:06)
[2020-11-09] MEDS: VITAMIN B COMPLEX TAB PO SCH (10:06)
--- NOTE | 2020-11-09 10:40 | Hospitalist Progress Note ---
Date of Service November 09, 2020 Assessment & Plan (1) Acute respiratory failure with hypoxia: Natalio is a 55-year-old male [employer] [facility] with a past medical history of common variable immunodeficiency/hypogammaglobulinemia, CMV pneumonia, lymphoma, COPD, emphysema, cirrhosis with esophageal varices, incidental lung nodules, and past history of fungal pneumonia with recent COVID-19 positive test (U07.1, COVID-19) on 11/01/2020 who presents with worsened hypoxia and continued respiratory symptoms. Acute on chronic hypoxic respiratory failure, 2/2 acute on chronic pneumonia with COVID-19+ Patient COVID-19 positive on 11/01/2020 and 11/08/2020 - CTA: No evidence for pulmonary embolus. Interval progression of the bilateral airspace opacities including new areas of multifocal consolidation within the left lower lobe. No change in the cirrhosis and splenomegaly. Stable mediastinal lymphadenopathy. Trace bilateral pleural effusions. Leukopenic + common variable immunodeficiency, may have impaired ability to respond to COVID with prolonged infection/sx -Dexamethasone 6 mg IV every morning - Empiric vanc/zosyn on admission. Given frailty and ongoing evaluation will continue empiric treatment at this time. - Duoneb Q2H PRN - ID consulted for recommendations in the setting of COVID+, worsening PNA, and immunodeficiency. CVID w/ history of CMV PNA - Continue immune globulin monthly infusion, decadron 10mg prior to infusion 11/09/20 - ABSTRACT CHECKER acyclovir converted to gancyclovir Q12H - Continue atovaquone ppx History of Diffuse Large B Cell Lymphoma - s/p 6 cycles of CHOP 07/10-11/2019 - At admission 09/2020 CT scan of the abdomen and pelvis suggests a new wall thickening in the area of the original diagnosis suggesting possible recurrence. Heme-onc was consulted, GI was consulted. While this could represent recurrence, salvage therapy was not recommended due to patients comorbidity and acute illness. He was not stable/a candidate for colonoscopy at the time, and colonoscopy and biopsy was not recommended on evaluation for GI. - No acute treatment at this time, tx for above and consider outpt colonoscopy when medically stable COPD w/ Emphysema - Duonebs as above - Umeclidinium/Vilanterol 1 puff daily - Fluticasone 100mcg INH daily Cirrhosis w/ Esophageal Varices - BB as above - no signs of bleeding of decompensation at this time - Protonix 30mg daily Depression - Sertraline 50mg PO daily DVT PPx: Lovenox 40mg SQ daily CODE: Full Dispo: PCU, COVID Respiratory Precautions FEN/GI: Regular (2) COPD (chronic obstructive pulmonary disease): (3) COPD with emphysema: (4) History of COVID-19: (5) Esophageal varices: (6) Thoracic ascending aortic aneurysm: (7) Ex-smoker: (8) Common variable immunodeficiency: (9) CMV (cytomegalovirus infection): Admission and Anticipated Discharge Date Admission Date: November 09, 2020 Supervising Physician Co-Signing Physician Notes Attending attestation Pt seen and examined in concert with Dr. Cummings. In agreement with the documented findings as noted in the resident documentation with any exceptions or additions as noted here. Complaining of persistent SOB with minimal activity which is ostensably unchanged from his chronic course of same. Still with intermittent minimally productive coughing fits with accompanying chest pain. On examination, decreased BS throughout more pronounced at bases without audible adventitious sounds. S1/S2 nl RRR no MCG, abd NT/ND bs + Acute on chronic hypoxic respiratory failure in the setting of chronic PNA and persistent COVID-19 - ID consultation pending. Pulmnology consultation. Continue dexamethasone. Will continue vanc/zosyn with pending ID consult and concern for immune compromised state with chronic PNA until ID consult. CVID - continue gancyclovir and atovaquone. Per patient, recently had increased dose of IG infusion on monthly schedule (with concomittant dexamethasone) Else see resident documentation as noted. Subjective Patient is seen at the bedside, appears chronically ill and fatigued but in no acute distress. He reports that he has a history of CMV pneumonia with combined variable immunodeficiency and recent Covid positive for which she was treated and discharged back to [facility], but had had increasing shortness of breath and was found to be hypoxic to the 70s by the [facility] prior to admission. Reports in the last 1 to 2 days he has developed an intermittent cough occasionally productive for green sputum. Endorses soaking night sweats. Endorses shortness of breath with exertion, denies shortness of breath while sitting in bed. Denies chest pain. Otherwise reports that he feels mostly the same as yesterday, with no acute change. Review of Systems Review of Systems: Constitutional: As noted in HPI Eyes: Denies vision change ENT: Denies ear pain, sore throat, sinus pain Cardiovascular: Denies Chest pain, chest pressure, palpitations Respiratory: As noted in HPI Gastrointestinal: Denies abdominal pain, nausea, vomiting, constipation, diarrhea Genitourinary: Denies dysuria Musculoskeletal: Endorses global fatigue, denies acute focal weakness Integumentary:Denies acute rash Neurological: Denies headache, numbness, tingling, focal weakness Physical Exam Physical Exam: General: A&Ox3. NAD. Cooperative. Appears malnourished, ch ronically ill. HEENT: Atraumatic, normocephalic. Pupils equal and responsive to light and accommodation. Visual acuity grossly intact. EOM grossly intact. Pulm: Diminished at the bases bilaterally, coarse in the mid/lower lobes bilaterally, upper lobes clear without wheeze. Symmetrical chest rise. No respiratory distress on nasal cannula. Cardiac: RRR, -mrg. Radial pulses intact and symmetrical. Abdominal: Nontender, nondistended, soft. BS present. Results & Data Results & Data ([facility]) Vital Signs (Past 12 Hours) Vital Signs Temp Pulse Pulse Resp BP BP Pulse Ox 11/09/20 04:18 60 112/66 11/09/20 03:39 36.4 C L 67 20 123/75 100 11/09/20 02:48 66 109/68 11/09/20 02:08 72 11/09/20 01:48 36.4 C L 62 18 112/66 97 11/09/20 01:47 11/09/20 01:15 36.5 C 70 18 107/66 96 11/09/20 01:00 62 24 108/72 99 11/09/20 00:30 70 23 108/69 99 11/09/20 00:00 68 24 111/70 99 11/08/20 23:30 71 22 115/80 99 11/08/20 23:00 73 24 113/75 99 11/08/20 22:30 83 24 111/76 99 Pulse Ox 11/09/20 04:18 11/09/20 03:39 11/09/20 02:48 11/09/20 02:08 11/09/20 01:48 11/09/20 01:47 96 11/09/20 01:15 11/09/20 01:00 11/09/20 00:30 11/09/20 00:00 11/08/20 23:30 11/08/20 23:00 11/08/20 22:30 Resident Activity Tracking Resident Involvement: Resident Care Provided Care Provided: Adult Hospital Medicine (1) COPD (chronic obstructive pulmonary disease) COPD type: COPD with acute exacerbation Qualified Code(s): J44.1 - Chronic obstructive pulmonary disease with (acute) exacerbation
[2020-11-09] MEDS: ARTIFICIAL TEARS OP SCH ×4 (11:00→20:58)
[2020-11-09] MEDS: SODIUM CHLORIDE 0.9% IV SCH (13:34)
[2020-11-09] MEDS: GANCICLOVIR SODIUM IV SCH (13:34)
[2020-11-10] MEDS: GANCICLOVIR SODIUM IV SCH ×3 (00:02→23:36)
[2020-11-10] MEDS: SODIUM CHLORIDE 0.9% IV SCH ×3 (00:02→23:36)
--- NOTE | 2020-11-10 00:04 | Electrocardiogram Report ---
Test Reason : Blood Pressure : / mmHG Vent. Rate : 079 BPM Atrial Rate : 079 BPM P-R Int : 162 ms QRS Dur : 076 ms QT Int : 372 ms P-R-T Axes : 047 004 026 degrees QTc Int : 426 ms Normal sinus rhythm Normal ECG When compared with ECG of 01-NOV-2020 01:01, No significant change was found Confirmed by Moshe Freire ([id number]) on 11/10/2020 12:03:53 AM Referred By: [facility] Confirmed By:Moshe Freire
[2020-11-10] MEDS: VANCOMYCIN HCL 1,000 MG in SODIUM CHLORIDE 0.9% 250 ML IV SCH ×3 (02:03→17:18)
[2020-11-10] MEDS: PIPERACILLIN/TAZOBACTAM 4.5 GM in DEXTROSE 5% 100 ML IV SCH ×3 (06:00→21:39)
[2020-11-10] MEDS ORDERED: VANCOMYCIN TROUGH ONE ×2 (07:30→09:30)
--- NOTE | 2020-11-10 07:32 | Hospitalist Progress Note ---
Date of Service November 10, 2020 Assessment & Plan (1) Acute respiratory failure with hypoxia: Natalio is a 55-year-old male [employer] [facility] with a past medical history of common variable immunodeficiency/hypogammaglobulinemia, CMV pneumonia, lymphoma, COPD, emphysema, cirrhosis with esophageal varices, incidental lung nodules, and past history of fungal pneumonia with recent COVID-19 positive test (U07.1, COVID-19) on 11/01/2020 who presents with worsened hypoxia and continued respiratory symptoms. Acute on chronic hypoxic respiratory failure, 2/2 acute on chronic pneumonia with COVID-19+ Patient COVID-19 positive on 11/01/2020 and 11/08/2020 - CTA: No evidence for pulmonary embolus. Interval progression of the bilateral airspace opacities including new areas of multifocal consolidation within the left lower lobe. No change in the cirrhosis and splenomegaly. Stable mediastinal lymphadenopathy. Trace bilateral pleural effusions. Leukopenic + common variable immunodeficiency, may have impaired ability to respond to COVID with prolonged infection/sx -Dexamethasone 6 mg IV every morning - Empiric vanc/zosyn on admission. Given frailty and ongoing evaluation will continue empiric treatment at this time. - Duoneb Q2H PRN - ID consulted for recommendations in the setting of COVID+, worsening PNA, and immunodeficiency. 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 Heme-onc was consulted, GI was consulted. While this could represent recurrence, salvage therapy was not recommended due to patients comorbidity and acute illness. He was not stable/a candidate for colonoscopy at the time, and colonoscopy and biopsy was not recommended on evaluation for GI. - No acute treatment at this time, tx for above and consider outpt colonoscopy when medically stable COPD w/ Emphysema - Duonebs as above - Umeclidinium/Vilanterol 1 puff daily - Fluticasone 100mcg INH daily Cirrhosis w/ Esophageal Varices - BB as above - no signs of bleeding of decompensation at this time - Protonix 30mg daily Depression/Anxiety - Sertraline 50mg PO daily Hydroxyzine 10 mg twice daily as needed DVT PPx: Lovenox 40mg SQ daily CODE: Full Dispo: PCU, COVID Respiratory Precautions FEN/GI: Regular (2) COPD (chronic obstructive pulmonary disease): (3) COPD with emphysema: (4) History of COVID-19: (5) Esophageal varices: (6) Thoracic ascending aortic aneurysm: (7) Ex-smoker: (8) Common variable immunodeficiency: (9) CMV (cytomegalovirus infection): Admission and Anticipated Discharge Date Admission Date: November 09, 2020 Supervising Physician Co-Signing Physician Notes Attending attestation Pt seen and examined in concert with Dr. Cummings. In agreement with the do cumented findings as noted in the resident documentation with any exceptions or additions as noted here. Stable/minimally improved shortness of breath with intermittent cough without significant expectoration. On examination, decreased BS throughout more pronounced at bases without audible adventitious sounds. S1/S2 nl RRR no MCG, abd NT/ND bs + Acute on chronic hypoxic respiratory failure in the setting of chronic PNA and persistent COVID-19 - ID consultation pending. Pulmonology consultation. Continue dexamethasone. Will continue vanc/zosyn with pending ID consult and concern for immune compromised state with chronic PNA until ID consult. CVID - continue ganciclovir and atovaquone. Per patient, recently had increased dose of IG infusion on monthly schedule (with concomitant dexamethasone) Else see resident documentation as noted. Subjective Seen at bedside this morning. Patient is laying in bed, comfortable and appears chronically ill and emaciated but in no acute distress. He reports he feels similar to yesterday, no fevers or chills last night but is quickly short of breath with exertion. Denies shortness of breath while lying in bed, denies current chest pain/chest pressure. Denies abdominal pain, extremity pain at time of assessment. Endorses an intermittent cough with production of yellow sputum, unchanged from yesterday. Review of Systems Review of Systems: All systems reviewed & are unremarkable except as noted in HPI & below Physical Exam Physical Exam: General: A&Ox3. Patient is chronically ill and emaciated. HEENT: Atraumatic, normocephalic. Pulm: Diminished, left lower lobe more diminished than right lower lobe. Good air movement in upper lung fong. No tachypnea, no accessory work of breathing. Cardiac: RRR, -mrg. Radial pulses intact and symmetrical. Abdominal: Nontender, nondistended, soft. BS present. Results & Data Results & Data ([facility]) Vital Signs (Past 12 Hours) Vital Signs Temp Pulse Pulse Resp BP Pulse Ox Pulse Ox 11/10/20 02:03 36.4 C L 52 L 16 106/69 98 11/10/20 01:31 98 11/10/20 00:01 36.4 C L 56 L 16 104/67 99 11/09/20 23:31 57 L 11/09/20 23:13 36.6 C 54 L 17 120/73 98 11/09/20 20:03 36.9 C 90 16 105/62 94 Resident Activity Tracking Resident Involvement: Resident Care Provided Care Provided: Adult Hospital Medicine (1) COPD (chronic obstructive pulmonary disease) COPD type: COPD with acute exacerbation Qualified Code(s): J44.1 - Chronic obstructive pulmonary disease with (acute) exacerbation
[2020-11-10 08:04] LABS: Hematocrit (blood only) 28.1 % (42-52); Hemoglobin 9.4 g/dL (14.0-18.0); Mean Corpuscular Hemoglobin 28.7 pg (25-34); Mean Corpuscular Hgb Conc 33.5 g/dL (32-36); Mean Corpuscular Volume 85.9 fL (80-100); RDW Coefficient of Variation 16.8 % (11.5-14.5); RDW Standard Deviation 53.1 fL (36.4-46.3); Red Blood Count 3.27 M/uL (4.7-6.1); White Blood Count 3.04 K/uL (4.8-10.8)
[2020-11-10 08:11] LABS: Mean Platelet Volume 9.3 fL (7.4-10.4); Platelet Count 80 K/uL (130-400)
[2020-11-10 08:34] LABS: Albumin Level 2.2 gm/dl (3.4-5.0); BUN Creatinine Ratio 20.9 (10-20); Calcium 8.8 mg/dl (8.5-10.1); Creatinine Clr Calc Pharmacy 148.8 ml/min; Est GFR (African American) 142.8 ml/min; Est GFR (Non-African American) 123.2 ml/min; Magnesium 2.2 mg/dl (1.8-2.4); Potassium 3.7 mmol/L (3.5-5.1)
[2020-11-10 08:37] LABS: Albumin Globulin Ratio 0.6 (0.9-2); Bilirubin,Total 0.2 mg/dl (0.2-1); Globulin 3.6 gm/dl (2.5-4.0); Lymphocytes # (auto) 0.22 K/uL (1.2-3.4); Lymphocytes % (auto) 7.2 %; Monocytes # (auto) 0.17 K/uL (0.11-0.59); Monocytes % (auto) 5.6 %; Neutrophils # (auto) 2.65 K/uL (1.4-6.5); Neutrophils % (auto) 87.2 %; Total Protein 5.8 gm/dl (6.4-8.2)
[2020-11-10] MEDS: Magic Mouthwash 240mL PO SCH ×4 (08:54→20:46)
[2020-11-10] MEDS: ASCORBIC ACID 500 MG TAB PO SCH ×2 (08:55→20:46)
[2020-11-10] MEDS: ARTIFICIAL TEARS OP SCH ×4 (08:55→20:42)
[2020-11-10] MEDS: ATOVAQUONE 750 MG/5 ML UDC PO SCH (08:56)
[2020-11-10] MEDS: carvediloL 6.25 MG TAB PO SCH ×2 (08:56→20:43)
[2020-11-10] MEDS: CHOLECALCIFEROL 1,000 UNITS 25 MCG TAB PO SCH (08:56)
[2020-11-10] MEDS: ENOXAPARIN INJ 40 MG/0.4 ML SYR SQ SCH (08:57)
[2020-11-10] MEDS: dexAMETHasone 6 MG in SYRINGE 0 ML IV SCH (08:57)
[2020-11-10] MEDS: cloNIDine HCL 0.1 MG TAB PO SCH ×2 (08:57→20:45)
[2020-11-10] MEDS: FLUTICASONE FUROATE 100MCG 14 PUFFS/INHALER INH SCH (08:58)
[2020-11-10] MEDS: FOLIC ACID 1 MG TAB PO SCH (08:58)
[2020-11-10] MEDS: guaiFENesin/DEXTROM SYRUP 200MG/20MG 10ML UDC PO SCH ×2 (08:58→20:42)
[2020-11-10] MEDS: ADVANCED PROBIOTIC 1250 MG CAPSULE PO SCH ×3 (08:59→20:45)
[2020-11-10] MEDS: PANTOprazole 40 MG TAB PO SCH (08:59)
[2020-11-10] MEDS: SODIUM CHLORIDE 0.65% NA SOLN 45 ML (OCEAN) SCH ×2 (08:59→20:41)
[2020-11-10] MEDS: SERTRALINE HCL 50 MG TABLET PO SCH (08:59)
[2020-11-10] MEDS: VITAMIN B COMPLEX TAB PO SCH (09:00)
[2020-11-10] MEDS: ZINC SULFATE 220 MG CAPSULE PO SCH (09:00)
[2020-11-10] MEDS: UMECLIDINIUM/VILANTEROL 62.5/25MCG 7 PUFFS/INHALER INH SCH (09:00)
--- NOTE | 2020-11-10 10:40 | Pharmacy Report ---
Pharmacy Abx Dose Short Note - Date of Service November 10, 2020 - Assessment & Plan Assessment 55 year old M receiving Vancomycin and Zosyn for treatment of pneumonia * PMHx significant for CMV pneumonia, lymphoma, COPD, h/o COVID-19, hypogammaglobulinemia, and h/o fungal pneumonia * On oral valganciclovir as outpatient which is being changed to IV ganciclovir inpatient * Imaging consistent with pneumonia * Afebrile since admission. Leukopenia. MRSA nasal swab negative. * Day #2 of antimicrobial therapy. Plan Vancomycin * Trough level of 13.1 mcg/mL is therapeutic * Continue dose of 1000 mg IV every 8 hours * Goal trough level: 15 to 20 mcg/mL * Trough level ordered for 11/12/20 prior to the 1000 dose Zosyn * Continue 4.5 g IV every 8 hours Pharmacy will continue to follow and will adjust dose/frequency as necessary. Thank you.
[2020-11-10] MEDS: hydrOXYzine HCl 10 MG TAB PO PRN ×2 (14:46→20:45)
[2020-11-11] MEDS: VANCOMYCIN HCL 1,000 MG in SODIUM CHLORIDE 0.9% 250 ML IV SCH ×3 (02:18→18:16)
[2020-11-11] MEDS: PIPERACILLIN/TAZOBACTAM 4.5 GM in DEXTROSE 5% 100 ML IV SCH ×3 (06:11→20:56)
[2020-11-11 06:30] LABS: Hematocrit (blood only) 29.5 % (42-52); Hemoglobin 9.8 g/dL (14.0-18.0); Mean Corpuscular Hemoglobin 29.1 pg (25-34); Mean Corpuscular Hgb Conc 33.2 g/dL (32-36); Mean Corpuscular Volume 87.5 fL (80-100); RDW Coefficient of Variation 16.7 % (11.5-14.5); RDW Standard Deviation 53.9 fL (36.4-46.3); Red Blood Count 3.37 M/uL (4.7-6.1)
[2020-11-11 06:33] LABS: Mean Platelet Volume 9.4 fL (7.4-10.4); Platelet Count 90 K/uL (130-400)
[2020-11-11 06:51] LABS: Immature Granulocytes # (auto) 0.02 K/uL (0.00-0.02); Immature Granulocytes % (auto) 0.7 %; Lymphocytes # (auto) 0.23 K/uL (1.2-3.4); Lymphocytes % (auto) 8.5 %; Monocytes # (auto) 0.18 K/uL (0.11-0.59); Monocytes % (auto) 6.7 %; Neutrophils # (auto) 2.27 K/uL (1.4-6.5); Neutrophils % (auto) 84.1 %
[2020-11-11 07:02] LABS: Albumin Level 2.1 gm/dl (3.4-5.0); BUN Creatinine Ratio 20.3 (10-20); Calcium 8.1 mg/dl (8.5-10.1); Creatinine Clr Calc Pharmacy 136.3 ml/min; Est GFR (African American) 139.3 ml/min; Est GFR (Non-African American) 120.2 ml/min; Magnesium 2.1 mg/dl (1.8-2.4); Potassium 3.5 mmol/L (3.5-5.1)
[2020-11-11 07:05] LABS: Albumin Globulin Ratio 0.6 (0.9-2); Bilirubin,Total 0.4 mg/dl (0.2-1); Globulin 3.6 gm/dl (2.5-4.0); Total Protein 5.7 gm/dl (6.4-8.2)
[2020-11-11] MEDS: dexAMETHasone 6 MG in SYRINGE 0 ML IV SCH (08:57)
[2020-11-11] MEDS: guaiFENesin/DEXTROM SYRUP 200MG/20MG 10ML UDC PO SCH ×2 (08:57→20:42)
[2020-11-11] MEDS: Magic Mouthwash 240mL PO SCH ×4 (08:57→20:50)
[2020-11-11] MEDS: carvediloL 6.25 MG TAB PO SCH ×2 (08:57→20:42)
[2020-11-11] MEDS: ADVANCED PROBIOTIC 1250 MG CAPSULE PO SCH ×3 (08:57→20:43)
[2020-11-11] MEDS: ASCORBIC ACID 500 MG TAB PO SCH ×2 (08:57→20:42)
[2020-11-11] MEDS: UMECLIDINIUM/VILANTEROL 62.5/25MCG 7 PUFFS/INHALER INH SCH (08:58)
[2020-11-11] MEDS: SERTRALINE HCL 50 MG TABLET PO SCH (08:58)
[2020-11-11] MEDS: FLUTICASONE FUROATE 100MCG 14 PUFFS/INHALER INH SCH (08:58)
[2020-11-11] MEDS: ATOVAQUONE 750 MG/5 ML UDC PO SCH (08:59)
[2020-11-11] MEDS: PANTOprazole 40 MG TAB PO SCH (08:59)
[2020-11-11] MEDS: ZINC SULFATE 220 MG CAPSULE PO SCH (08:59)
[2020-11-11] MEDS: VITAMIN B COMPLEX TAB PO SCH (08:59)
[2020-11-11] MEDS: CHOLECALCIFEROL 1,000 UNITS 25 MCG TAB PO SCH (08:59)
[2020-11-11] MEDS: cloNIDine HCL 0.1 MG TAB PO SCH ×3 (08:59→21:00)
[2020-11-11] MEDS: FOLIC ACID 1 MG TAB PO SCH (08:59)
[2020-11-11] MEDS: ENOXAPARIN INJ 40 MG/0.4 ML SYR SQ SCH (08:59)
[2020-11-11] MEDS: ARTIFICIAL TEARS OP SCH ×4 (09:00→20:37)
[2020-11-11] MEDS: SODIUM CHLORIDE 0.65% NA SOLN 45 ML (OCEAN) SCH ×2 (09:00→20:37)
[2020-11-11] MEDS: SODIUM CHLORIDE 0.9% IV SCH ×2 (10:21→22:14)
[2020-11-11] MEDS: GANCICLOVIR SODIUM IV SCH ×2 (10:21→22:14)
--- NOTE | 2020-11-11 10:25 | Hospitalist Progress Note ---
Date of Service November 11, 2020 Assessment & Plan (1) Acute respiratory failure with hypoxia: Natalio is a 55-year-old male [employer] [facility] with a past medical history of common variable immunodeficiency/hypogammaglobulinemia, CMV pneumonia, lymphoma, COPD, emphysema, cirrhosis with esophageal varices, incidental lung nodules, and past history of fungal pneumonia with recent COVID-19 positive test (U07.1, COVID-19) on 11/01/2020 who presents with worsened hypoxia and continued respiratory symptoms. Acute on chronic hypoxic respiratory failure, 2/2 acute on chronic pneumonia with COVID-19+ -Patient COVID-19 positive on 11/01/2020 and 11/08/2020 -CTA: No evidence for pulmonary embolus. Interval progression of the bilateral airspace opacities including new areas of multifocal consolidation within the left lower lobe. No change in the cirrhosis and splenomegaly. Stable mediastinal lymphadenopathy. Trace bilateral pleural effusions. -Leukopenic + common variable immunodeficiency, may have impaired ability to respond to COVID with prolonged infection/sx -Dexamethasone 6 mg IV every morning -Empiric vanc/zosyn on admission. Given frailty and ongoing evaluation will continue empiric treatment at this time. -Duoneb Q2H PRN -ID consulted for recommendations in the setting of COVID+, worsening PNA, and immunodeficiency. 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 Heme-onc was consulted, GI was consulted. While this could represent recurrence, salvage therapy was not recommended due to patients comorbidity and acute illness. He was not stable/a candidate for colonoscopy at the time, and colonoscopy and biopsy was not recommended on evaluation for GI. -No acute treatment at this time, tx for above and consider outpt colonoscopy when medically stable COPD w/ Emphysema -Duonebs as above -Umeclidinium/Vilanterol 1 puff daily -Fluticasone 100mcg INH daily Cirrhosis w/ Esophageal Varices -BB as above -no signs of bleeding of decompensation at this time -Protonix 30mg daily Depression/Anxiety -Sertraline 50mg PO daily -Hydroxyzine 10 mg twice daily as needed DVT PPx: Lovenox 40mg SQ daily CODE: Full Dispo: PCU, COVID Respiratory Precautions FEN/GI: Regular (2) COPD (chronic obstructive pulmonary disease): (3) COPD with emphysema: (4) History of COVID-19: (5) Esophageal varices: (6) Thoracic ascending aortic aneurysm: (7) Ex-smoker: (8) Common variable immunodeficiency: (9) CMV (cytomegalovirus infection): Admission and Anticipated Discharge Date Admission Date: November 09, 2020 Supervising Physician Co-Signing Physician Notes I personally examined the patient and verified all bullock points of history and exam, discussed case, and agree with decision making with Dr Martines. Feeling okay at rest, a lot of dyspnea on exertion. Notes that he starts to feel sicker and gets sicker and gets worse whenever it is nearing the end of his month between IVIG treatments. Notes that shortly thereafter he starts to feel better again, notes that prior to Covid he was getting them way more often and wonders if that might be part of his problem. Vitals noted, in general he is awake and alert pleasant no distress. HEENT normocephalic atraumatic mucous membranes moist. Breathing unlabored lungs are overall clear may be faint basilar rales but we more clear than whenever I last listen to my prior admission ago, skin shows no rashes no pallor or icterus. Persistent hypoxic respiratory failurerelated to persistent or recurrent Covid/persistent CMV infection superimposed on COPD, with the added complexity of his common variable immune deficiency. Had IVIG on 11/09levels today do show adequate response, I do wonder if he is not correct and possibly needing IVIG more frequentlywill discuss with immunology. Otherwise as above. Genia Lance is feeling much better this morning when resting in his bed, notes that he is only on 3 liters at this point, when he is normally on 4 liters in fpc to keep his numbers normal. However, as soon as he does any activity within the room (i.e. going to the bedside commode, or wiping himself off) he feels more winded and has frequent desaturations. Review of Systems Review of Systems: All systems reviewed & are unremarkable except as noted in Subjective Physical Exam Constitutional: WD/WN, vitals as above Eyes: PERRL, conjunctivae normal, anicteric sclerae Respiratory: normal respiratory effort and able to speak in complete sentences; no respiratory distress and no retractions Auscultation: + diminished lung sounds (Over b/l lower lobes); no wheezes Cardiovascular: Rate/Rhythm: regular rate and regular rhythm Heart Sounds: no gallop, no murmur and no cardiac rub Vessels: normal peripheral pulses; no JVD Extremities: no edema Gastrointestinal (Abdomen): Inspection/Auscultation: normal bowel sounds; abdomen not distended Percussion/Palpation: abdomen soft; abdomen nontender and no guarding Skin: no rashes, warm and dry Neurologic: CN's II-XI intact bilaterally and moves all extremities Psychiatric: Orientation: alert and oriented x 3 Results & Data Results & Data ([facility]) Vital Signs (Past 12 Hours) Vital Signs Temp Pulse Pulse Pulse Resp BP Pulse Ox 11/11/20 08:05 36.4 C L 79 18 121/80 93 11/11/20 07:53 36.3 C L 62 19 119/66 93 11/11/20 03:45 36.5 C 50 L 16 126/74 97 11/11/20 01:29 36.5 C 62 18 126/71 94 11/11/20 01:00 11/10/20 23:49 66 11/10/20 23:37 36.5 C 52 L 18 109/69 96 Pulse Ox Pulse Ox 11/11/20 08:05 11/11/20 07:53 11/11/20 03:45 11/11/20 01:29 11/11/20 01:00 96 96 11/10/20 23:49 11/10/20 23:37 Laboratory Results 11/11/20 11/11/20 11/11/20 Range/Units 09:09 06:17 06:17 WBC 2.70 L (4.8-10.8) K/uL RBC 3.37 L (4.7-6.1) M/uL Hgb 9.8 L (14.0-18.0) g/dL Hct 29.5 L (42-52) % MCV 87.5 (80-100) fL MCH 29.1 (25-34) pg MCHC 33.2 (32-36) g/dL RDW Std Deviation 53.9 H (36.4-46.3) fL RDW Coeff of John 16.7 H (11.5-14.5) % Plt Count 90 L (130-400) K/uL MPV 9.4 (7.4-10.4) fL Immature Gran % (Auto) 0.7 % Neut % (Auto) 84.1 % Lymph % (Auto) 8.5 % Amelia % (Auto) 6.7 % Eos % (Auto) 0.0 % Baso % (Auto) 0.0 % Neut # (Auto) 2.27 (1.4-6.5) K/uL Lymph # (Auto) 0.23 L (1.2-3.4) K/uL Amelia # (Auto) 0.18 (0.11-0.59) K/uL Eos # (Auto) 0.00 (0-0.5) K/uL Baso # (Auto) 0.00 (0-0.2) K/uL Immature Gran # (Auto) 0.02 (0.00-0.02) K/uL Sodium 141 (136-145) mmol/L Potassium 3.5 (3.5-5.1) mmol/L Chloride 106 (98-107) mmol/L Carbon Dioxide 30 (21-32) mmol/L Anion Gap 5.0 (3-11) BUN 10 (7-18) mg/dl Creatinine 0.51 L (0.6-1.4) mg/dl Est Cr Clr Drug Dosing 136.3 ml/min Est GFR ( Amer) 139.3 ml/min Est GFR (Non-Af Amer) 120.2 ml/min BUN/Creatinine Ratio 20.3 H (10-20) Glucose 77 (70-99) mg/dl Calcium 8.1 L (8.5-10.1) mg/dl Magnesium 2.1 (1.8-2.4) mg/dl Total Bilirubin 0.4 (0.2-1) mg/dl AST 30 (15-37) U/L ALT 30 (12-78) U/L Alkaline Phosphatase 150 H (45-117) U/L Total Protein 5.7 L (6.4-8.2) gm/dl Albumin 2.1 L (3.4-5.0) gm/dl Globulin 3.6 (2.5-4.0) gm/dl Albumin/Globulin Ratio 0.6 L (0.9-2) IgG 980.0 (700-1600) mg/dl Medications Administered Current Inpatient Medications Acetaminophen (Acetaminophen 325 Mg Tab) 650 mg PO Q4H PRN PRN Reason: Pain or Fever Stop: 12/09/20 01:30 Albuterol (Albut/Ipratrop 3mg/0.5mg Neb 3 Ml Vial) 3 ml INH Q4H PRN PRN Reason: Shortness Of Breath Stop: 12/09/20 01:30 Artificial Tears (Artificial Tears) 1 drops OP QID JEN Stop: 12/09/20 08:59 Last Admin: 11/11/20 16:16 Dose: 1 drops Documented by: Ascorbic Acid (Ascorbic Acid 500 Mg Tab) 500 mg PO BID JEN Stop: 12/09/20 01:30 Last Admin: 11/11/20 08:57 Dose: 500 mg Documented by: Atovaquone (Atovaquone 750 Mg/5 Ml Udc) 1,500 mg PO DAILY JEN Stop: 12/09/20 08:59 Last Admin: 11/11/20 08:59 Dose: 1,500 mg Documented by: Carvedilol (Carvedilol 6.25 Mg Tab) 6.25 mg PO BID JEN Stop: 12/09/20 01:30 Last Admin: 11/11/20 08:57 Dose: 6.25 mg Documented by: Clonidine HCl (Clonidine Hcl 0.1 Mg Tab) 0.2 mg PO BID JEN Stop: 12/09/20 01:30 Last Admin: 11/11/20 08:59 Dose: 0.2 mg Documented by: Nystatin 30 ml/ Dexamethasone 3.75 mg/ Diphenhydramine HCl 300 mg/ Sucrose 45 ml/Microcrystalline Cellulose 45 ml/ BARCODE IDENTIFIER 1 ea 0 ml PO ACHS [facility] Stop: 12/09/20 07:29 Last Admin: 11/11/20 16:15 Dose: 30 ml Documented by: Enoxaparin Sodium (Enoxaparin Inj 40 Mg/0.4 Ml Syr) 40 mg SQ Q24H JEN Stop: 12/09/20 08:59 Last Admin: 11/11/20 08:59 Dose: 40 mg Documented by: Fluticasone Furoate (Fluticasone Furoate 100mcg 14 Puffs/Inhaler) 1 puffs INH DAILY JEN Stop: 12/09/20 08:59 Last Admin: 11/11/20 08:58 Dose: 1 puffs Documented by: Folic Acid (Folic Acid 1 Mg Tab) 1 mg PO DAILY JEN Stop: 12/09/20 08:59 Last Admin: 11/11/20 08:59 Dose: 1 mg Documented by: Guaifenesin/Dextromethorphan (Guaifenesin/Dextrom Syrup 200mg/20mg 10ml Udc) 10 ml PO Q12 JEN Stop: 12/09/20 08:59 Last Admin: 11/11/20 08:57 Dose: 10 ml Documented by: Heparin Sodium (Porcine) (Heparin 100 Unit/Ml 5ml Flush) 5 ml FLUSH PRN PRN PRN Reason: Flush Stop: 12/09/20 02:17 Last Admin: 11/11/20 11:25 Dose: 5 ml Documented by: Hydroxyzine HCl (Hydroxyzine Hcl 10 Mg Tab) 10 mg PO BID PRN PRN Reason: anxiety Stop: 12/10/20 09:40 Last Admin: 11/10/20 20:45 Dose: 10 mg Documented by: Dexamethasone 6 mg/ Syringe 1.5 mls @ 1 mls/min IV QAM JEN Stop: 12/09/20 08:59 Last Admin: 11/11/20 08:57 Dose: 1 mls/min Documented by: Piperacillin Sod/Tazobactam (Sod 4.5 gm/ Dextrose) 120 mls @ 30 mls/hr IV Q8H JEN; Protocol Stop: 11/16/20 05:59 Last Infusion: 11/11/20 18:21 Dose: Infused Documented by: Vancomycin HCl 1,000 mg/ (Sodium Chloride) 270 mls @ 200 mls/hr IV Q8H JEN; Protocol Stop: 11/16/20 08:29 Last Admin: 11/11/20 18:16 Dose: 200 mls/hr Documented by: Ganciclovir Sodium 300 mg/ (Sodium Chloride) 106 mls @ 106 mls/hr IV Q12H [facility]; Protocol Stop: 12/09/20 00:00 Last Infusion: 11/11/20 11:29 Dose: Infused Documented by: Lactobacillus Acidoph/Casei/Rhamnos (Advanced Probiotic 1250 Mg Capsule) 2 cap PO TID [facility] Stop: 12/09/20 08:59 Last Admin: 11/11/20 14:32 Dose: 2 cap Documented by: Levalbuterol HCl (Levalbuterol Tartrate 15 Gm Hfa.Aer.Ad) 2 puffs INH QID PRN PRN Reason: Shortness Of Breath Stop: 12/09/20 01:30 Loperamide HCl (Loperamide Hcl 2 Mg Cap) 2 mg PO Q4H PRN PRN Reason: Diarrhea Stop: 12/11/20 18:06 Miscellaneous (Tetrahydrozoline Op: Order Awaiting Action) 1 ea N/A QS [facility] Stop: 12/09/20 07:59 Last Admin: 11/11/20 15:14 Dose: 1 ea Documented by: Miscellaneous Information (Piperacill/Tazobac Consult Active) 1 ea N/A UD PRN PRN Reason: Consult Stop: 12/09/20 01:30 Miscellaneous Information (Vancomycin Consult Active) 1 ea N/A UD PRN PRN Reason: Consult Stop: 12/09/20 01:30 Ondansetron HCl (Ondansetron Inj 2 Mg/Ml 2 Ml Vial) 4 mg IV Q6H PRN PRN Reason: Nausea Stop: 12/09/20 01:30 Pantoprazole Sodium (Pantoprazole 40 Mg Tab) 40 mg PO DAILY [facility] Stop: 12/09/20 08:59 Last Admin: 11/11/20 08:59 Dose: 40 mg Documented by: Sertraline HCl (Sertraline Hcl 50 Mg Tablet) 50 mg PO DAILY [facility] Stop: 12/09/20 08:59 Last Admin: 11/11/20 08:58 Dose: 50 mg Documented by: Sodium Chloride (Sodium Chloride 0.65% Na Soln 45 Ml ([place])) 1 sprays NA BID [facility] Stop: 12/09/20 08:59 Last Admin: 11/11/20 09:00 Dose: 1 sprays Documented by: Umeclidinium/Vilanterol (Umeclidinium/Vilanterol 62.5/25mcg 7 Puffs/Inhaler) 1 puffs INH DAILY [facility] Stop: 12/09/20 08:59 Last Admin: 11/11/20 08:58 Dose: 1 puffs Documented by: Vitamin B Complex (Vitamin B Complex Tab) 1 tab PO DAILY JEN Stop: 12/09/20 08:59 Last Admin: 11/11/20 08:59 Dose: 1 tab Documented by: Vitamin D (Cholecalciferol 1,000 Units 25 Mcg Tab) 5,000 units PO QAM JEN Stop: 12/09/20 08:59 Last Admin: 11/11/20 08:59 Dose: 5,000 units Documented by: Zinc Sulfate (Zinc Sulfate 220 Mg Capsule) 220 mg PO QAM JEN Stop: 12/09/20 08:59 Last Admin: 11/11/20 08:59 Dose: 220 mg Documented by: Resident Activity Tracking Resident Involvement: Resident Care Provided Care Provided: Adult Hospital Medicine (1) COPD (chronic obstructive pulmonary disease) COPD type: COPD with acute exacerbation Qualified Code(s): J44.1 - Chronic obstructive pulmonary disease with (acute) exacerbation
[2020-11-11] MEDS: HEPARIN 100 UNIT/ML 5ML FLUSH FLUSH PRN (11:25)
--- NOTE | 2020-11-11 17:51 | Billing Data ---
Date of Service November 11, 2020 Coding Level of Care Code 02952 Subseq Hosp Care Lvl 3
[2020-11-12] MEDS: VANCOMYCIN HCL 1,000 MG in SODIUM CHLORIDE 0.9% 250 ML IV SCH ×2 (02:11→10:19)
[2020-11-12] MEDS: PIPERACILLIN/TAZOBACTAM 4.5 GM in DEXTROSE 5% 100 ML IV SCH (05:34)
[2020-11-12 05:55] LABS: Hematocrit (blood only) 29.2 % (42-52); Hemoglobin 9.5 g/dL (14.0-18.0); Mean Corpuscular Hemoglobin 28.2 pg (25-34); Mean Corpuscular Hgb Conc 32.5 g/dL (32-36); Mean Corpuscular Volume 86.6 fL (80-100); Nucleated RBC # (auto) 0.04 K/uL (0-0); Nucleated RBC % (auto) 1.7 %; RDW Coefficient of Variation 16.9 % (11.5-14.5); RDW Standard Deviation 54.4 fL (36.4-46.3); Red Blood Count 3.37 M/uL (4.7-6.1); White Blood Count 2.54 K/uL (4.8-10.8)
[2020-11-12 05:58] LABS: Mean Platelet Volume 8.9 fL (7.4-10.4); Platelet Count 84 K/uL (130-400)
[2020-11-12 06:26] LABS: Calcium 7.9 mg/dl (8.5-10.1); Creatinine Clr Calc Pharmacy 118.2 ml/min; Est GFR (African American) 129.4 ml/min; Est GFR (Non-African American) 111.6 ml/min; Magnesium 2.2 mg/dl (1.8-2.4); Phosphorus 2.6 mg/dl (2.5-4.9); Potassium 3.5 mmol/L (3.5-5.1)
[2020-11-12 06:30] LABS: Immature Granulocytes # (auto) 0.02 K/uL (0.00-0.02); Immature Granulocytes % (auto) 0.8 %; Lymphocytes % (auto) 7.9 %; Monocytes # (auto) 0.22 K/uL (0.11-0.59); Monocytes % (auto) 8.7 %; Neutrophils % (auto) 82.6 %; Tear Drop Cells 1+
[2020-11-12] MEDS: Magic Mouthwash 240mL PO SCH ×4 (07:45→20:32)
[2020-11-12] MEDS: guaiFENesin/DEXTROM SYRUP 200MG/20MG 10ML UDC PO SCH ×2 (08:11→20:33)
[2020-11-12] MEDS: ENOXAPARIN INJ 40 MG/0.4 ML SYR SQ SCH (08:11)
[2020-11-12] MEDS: LOPERAMIDE HCL 2 MG CAP PO PRN ×2 (08:11→20:33)
[2020-11-12] MEDS: dexAMETHasone 6 MG in SYRINGE 0 ML IV SCH (08:11)
[2020-11-12] MEDS: CHOLECALCIFEROL 1,000 UNITS 25 MCG TAB PO SCH (08:12)
[2020-11-12] MEDS: VITAMIN B COMPLEX TAB PO SCH (08:12)
[2020-11-12] MEDS: PANTOprazole 40 MG TAB PO SCH (08:12)
[2020-11-12] MEDS: ZINC SULFATE 220 MG CAPSULE PO SCH (08:12)
[2020-11-12] MEDS: ADVANCED PROBIOTIC 1250 MG CAPSULE PO SCH ×3 (08:12→20:33)
[2020-11-12] MEDS: carvediloL 6.25 MG TAB PO SCH ×2 (08:12→20:32)
[2020-11-12] MEDS: FOLIC ACID 1 MG TAB PO SCH (08:12)
[2020-11-12] MEDS: SERTRALINE HCL 50 MG TABLET PO SCH (08:12)
[2020-11-12] MEDS: ASCORBIC ACID 500 MG TAB PO SCH ×2 (08:12→21:06)
[2020-11-12] MEDS: cloNIDine HCL 0.1 MG TAB PO SCH ×3 (08:12→20:39)
[2020-11-12] MEDS: ATOVAQUONE 750 MG/5 ML UDC PO SCH (08:12)
[2020-11-12] MEDS: FLUTICASONE FUROATE 100MCG 14 PUFFS/INHALER INH SCH (08:13)
[2020-11-12] MEDS: UMECLIDINIUM/VILANTEROL 62.5/25MCG 7 PUFFS/INHALER INH SCH (08:13)
[2020-11-12] MEDS: SODIUM CHLORIDE 0.65% NA SOLN 45 ML (OCEAN) SCH ×2 (08:13→20:31)
[2020-11-12] MEDS: ARTIFICIAL TEARS OP SCH ×4 (08:13→20:31)
[2020-11-12] MEDS ORDERED: VANCOMYCIN TROUGH ONE (09:30)
--- NOTE | 2020-11-12 10:09 | Hospitalist Progress Note ---
Date of Service November 12, 2020 Assessment & Plan (1) Acute respiratory failure with hypoxia: Natalio is a 55-year-old male [employer] with a past medical history of common variable immunodeficiency/hypogammaglobulinemia, CMV pneumonia, lymphoma, COPD, emphysema, cirrhosis with esophageal varices, incidental lung nodules, and past history of fungal pneumonia with recent COVID- 19 positive test (U07.1, COVID-19) on 11/01/2020 who presents with worsened hypoxia and continued respiratory symptoms. Acute on chronic hypoxic respiratory failure: -2/2 acute on chronic pneumonia with COVID-19+ -Patient COVID-19 positive on 11/01/2020 and 11/08/2020 -CTA: No evidence for pulmonary embolus. Interval progression of the bilateral airspace opacities including new areas of multifocal consolidation within the left lower lobe. No change in the cirrhosis and splenomegaly. Stable mediastinal lymphadenopathy. Trace bilateral pleural effusions. -Leukopenic + common variable immunodeficiency, may have impaired ability to respond to COVID with prolonged infection/sx -Dexamethasone 6 mg IV every morning -discontinued vanc/zosyn given concerns of loose stools and potential C. diff -Duoneb Q2H PRN -ID consulted for recommendations in the setting of COVID+, worsening PNA, and immunodeficiency. -Incentive spirometry COVID w/ history of CMV PNA: -Continue immune globulin monthly infusion, decadron 10mg prior to infusion 11/09/20 -seemingly good response to recent IVIG course, with IgG levels this AM of 980 -[employer] acyclovir converted to gancyclovir Q12H -Continue atovaquone ppx Chronic malnutrition, emaciated: -Boost 3 times daily ordered History of Diffuse Large B Cell Lymphoma: -s/p 6 cycles of CHOP 07/10-11/2019 -At admission 09/2020 CT scan of the abdomen and pelvis suggests a new wall thickening in the area of the original diagnosis suggesting possible recurrence. Heme-onc was consulted, GI was consulted. While this could represent recurrence, salvage therapy was not recommended due to patients comorbidity and acute illness. He was not stable/a candidate for colonoscopy at the time, and colonoscopy and biopsy was not recommended on evaluation for GI. -No acute treatment at this time, tx for above and consider outpt colonoscopy when medically stable COPD w/ Emphysema: -Duonebs as above -Umeclidinium/Vilanterol 1 puff daily -Fluticasone 100mcg INH daily Cirrhosis w/ Esophageal Varices: -BB as above -no signs of bleeding of decompensation at this time -Protonix 30mg daily Depression/Anxiety: -Sertraline 50mg PO daily -Hydroxyzine 10 mg twice daily as needed Diarrhea: -C.diff testing ordered -patient at high risk given paucity of immunoglobulins DVT PPx: Lovenox 40mg SQ daily CODE: Full Dispo: PCU, COVID Respiratory Precautions FEN/GI: Regular (2) COPD (chronic obstructive pulmonary disease): (3) COPD with emphysema: (4) History of COVID-19: (5) Esophageal varices: (6) Thoracic ascending aortic aneurysm: (7) Ex-smoker: (8) Common variable immunodeficiency: (9) CMV (cytomegalovirus infection): Admission and Anticipated Discharge Date Admission Date: November 09, 2020 Supervising Physician Co-Signing Physician Notes I personally examined the patient and verified all bullock points of history and exam, discussed case, and agree with decision making with Dr Martines. Feels about the same. Reiterates that as time lapses between his IVIG treatments he generally starts to feel worse around week 3 or 4, and ends up back in the hospital. He notes prior whenever he was getting it subcutaneously more frequently he did better. Vitals noted, in general he is awake and alert pleasant no distress. HEENT normocephalic atraumatic mucous membranes moist. Lungs quiet bibasilar but otherwise fairly clear may be very faint scattered rales about a third of the way up. Persistent hypoxic respiratory failurerelated to persistent or recurrent Covid/persistent CMV infection superimposed on COPD, with the added complexity of his common variable immune deficiency. Given his time course of feeling fairly good and feeling like he is in recovery for a week or 2 after his IVIG, followed by a slow decline followed by a pattern of rehospitalization, I suspect his suspicion is correctcommunicating with immunology about hopefully being able to craft a plan. Otherwise as above. Subjective Feeling okay this morning, did have multiple loose stools overnight, and had shortness of breath with evening small amounts of movement requiring increased oxygen supplementation. Review of Systems Review of Systems: All systems reviewed & are unremarkable except as noted in Subjective Physical Exam Constitutional: WD/WN, vitals as above Eyes: PERRL, conjunctivae normal, anicteric sclerae Respiratory: normal respiratory effort and able to speak in complete sentences; no respiratory distress and no retractions Auscultation: + diminished lung sounds (Over b/l lower lobes); no wheezes Cardiovascular: Rate/Rhythm: regular rate and regular rhythm Heart Sounds: no gallop, no murmur and no cardiac rub Vessels: normal peripheral pulses; no JVD Extremities: no edema Gastrointestinal (Abdomen): Inspection/Auscultation: normal bowel sounds; abdomen not distended Percussion/Palpation: abdomen soft; abdomen nontender and no guarding Skin: no rashes, warm and dry Neurologic: CN's II-XI intact bilaterally and moves all extremities Psychiatric: Orientation: alert and oriented x 3 Results & Data Results & Data ([facility]) Vital Signs (Past 12 Hours) Vital Signs Temp Pulse Pulse Resp BP Pulse Ox 11/12/20 07:55 36.8 C 79 20 124/81 90 11/12/20 07:06 66 11/12/20 03:58 36.9 C 64 18 122/68 96 11/12/20 00:20 36.8 C 81 20 112/71 94 11/11/20 22:19 66 Laboratory Results 11/12/20 11/12/20 11/12/20 Range/Units 10:03 10:03 05:33 WBC 2.54 L (4.8-10.8) K/uL RBC 3.37 L (4.7-6.1) M/uL Hgb 9.5 L (14.0-18.0) g/dL Hct 29.2 L (42-52) % MCV 86.6 (80-100) fL MCH 28.2 (25-34) pg MCHC 32.5 (32-36) g/dL RDW Std Deviation 54.4 H (36.4-46.3) fL RDW Coeff of John 16.9 H (11.5-14.5) % Plt Count 84 L (130-400) K/uL MPV 8.9 (7.4-10.4) fL Immature Gran % (Auto) 0.8 % Neut % (Auto) 82.6 % Lymph % (Auto) 7.9 % [place] % (Auto) 8.7 % Eos % (Auto) 0.0 % Baso % (Auto) 0.0 % Neut # (Auto) 2.10 (1.4-6.5) K/uL Lymph # (Auto) 0.20 L (1.2-3.4) K/uL [place] # (Auto) 0.22 (0.11-0.59) K/uL Eos # (Auto) 0.00 (0-0.5) K/uL Baso # (Auto) 0.00 (0-0.2) K/uL Immature Gran # (Auto) 0.02 (0.00-0.02) K/uL Absolute Nucleated RBC 0.04 H (0-0) K/uL Nucleated RBC % (auto) 1.7 % Tear Drop Cells 1+ Sodium (136-145) mmol/L Potassium (3.5-5.1) mmol/L Chloride (98-107) mmol/L Carbon Dioxide (21-32) mmol/L Anion Gap (3-11) BUN (7-18) mg/dl Creatinine (0.6-1.4) mg/dl Est Cr Clr Drug Dosing ml/min Est GFR ( Amer) ml/min Est GFR (Non-Af Amer) ml/min BUN/Creatinine Ratio (10-20) Glucose (70-99) mg/dl Calcium (8.5-10.1) mg/dl Phosphorus (2.5-4.9) mg/dl Magnesium (1.8-2.4) mg/dl Procalcitonin < 0.05 (0-0.5) ng/ml Vancomycin Trough 22.3 (See Comment) mcg/ml 11/12/20 Range/Units 05:33 WBC (4.8-10.8) K/uL RBC (4.7-6.1) M/uL Hgb (14.0-18.0) g/dL Hct (42-52) % MCV (80-100) fL MCH (25-34) pg MCHC (32-36) g/dL RDW Std Deviation (36.4-46.3) fL RDW Coeff of John (11.5-14.5) % Plt Count (130-400) K/uL MPV (7.4-10.4) fL Immature Gran % (Auto) % Neut % (Auto) % Lymph % (Auto) % [place] % (Auto) % Eos % (Auto) % Baso % (Auto) % Neut # (Auto) (1.4-6.5) K/uL Lymph # (Auto) (1.2-3.4) K/uL [place] # (Auto) (0.11-0.59) K/uL Eos # (Auto) (0-0.5) K/uL Baso # (Auto) (0-0.2) K/uL Immature Gran # (Auto) (0.00-0.02) K/uL Absolute Nucleated RBC (0-0) K/uL Nucleated RBC % (auto) % Tear Drop Cells Sodium 142 (136-145) mmol/L Potassium 3.5 (3.5-5.1) mmol/L Chloride 106 (98-107) mmol/L Carbon Dioxide 32 (21-32) mmol/L Anion Gap 4.0 (3-11) BUN 18 D (7-18) mg/dl Creatinine 0.61 (0.6-1.4) mg/dl Est Cr Clr Drug Dosing 118.2 ml/min Est GFR ( Amer) 129.4 ml/min Est GFR (Non-Af Amer) 111.6 ml/min BUN/Creatinine Ratio 29.0 H (10-20) Glucose 78 (70-99) mg/dl Calcium 7.9 L (8.5-10.1) mg/dl Phosphorus 2.6 (2.5-4.9) mg/dl Magnesium 2.2 (1.8-2.4) mg/dl Procalcitonin (0-0.5) ng/ml Vancomycin Trough (See Comment) mcg/ml Medications Administered Current Inpatient Medications Acetaminophen (Acetaminophen 325 Mg Tab) 650 mg PO Q4H PRN PRN Reason: Pain or Fever Stop: 12/09/20 01:30 Last Admin: 11/12/20 11:59 Dose: 650 mg Documented by: Albuterol (Albut/Ipratrop 3mg/0.5mg Neb 3 Ml Vial) 3 ml INH Q4H PRN PRN Reason: Shortness Of Breath Stop: 12/09/20 01:30 Artificial Tears (Artificial Tears) 1 drops OP QID JEN Stop: 12/09/20 08:59 Last Admin: 11/12/20 16:14 Dose: 1 drops Documented by: Ascorbic Acid (Ascorbic Acid 500 Mg Tab) 500 mg PO BID JEN Stop: 12/09/20 01:30 Last Admin: 11/12/20 08:12 Dose: 500 mg Documented by: Atovaquone (Atovaquone 750 Mg/5 Ml Udc) 1,500 mg PO DAILY JEN Stop: 12/09/20 08:59 Last Admin: 11/12/20 08:12 Dose: 1,500 mg Documented by: Carvedilol (Carvedilol 6.25 Mg Tab) 6.25 mg PO BID JEN Stop: 12/09/20 01:30 Last Admin: 11/12/20 08:12 Dose: 6.25 mg Documented by: Clonidine HCl (Clonidine Hcl 0.1 Mg Tab) 0.2 mg PO BID JEN Stop: 12/09/20 01:30 Last Admin: 11/12/20 08:12 Dose: 0.2 mg Documented by: Nystatin 30 ml/ Dexamethasone 3.75 mg/ Diphenhydramine HCl 300 mg/ Sucrose 45 ml/Microcrystalline Cellulose 45 ml/ BARCODE IDENTIFIER 1 ea 0 ml PO ACHS JEN Stop: 12/09/20 07:29 Last Admin: 11/12/20 15:24 Dose: 5 ml Documented by: Enoxaparin Sodium (Enoxaparin Inj 40 Mg/0.4 Ml Syr) 40 mg SQ Q24H JEN Stop: 12/09/20 08:59 Last Admin: 11/12/20 08:11 Dose: 40 mg Documented by: Fluticasone Furoate (Fluticasone Furoate 100mcg 14 Puffs/Inhaler) 1 puffs INH DAILY JEN Stop: 12/09/20 08:59 Last Admin: 11/12/20 08:13 Dose: 1 puffs Documented by: Folic Acid (Folic Acid 1 Mg Tab) 1 mg PO DAILY JEN Stop: 12/09/20 08:59 Last Admin: 11/12/20 08:12 Dose: 1 mg Documented by: Guaifenesin/Dextromethorphan (Guaifenesin/Dextrom Syrup 200mg/20mg 10ml Udc) 10 ml PO Q12 JEN Stop: 12/09/20 08:59 Last Admin: 11/12/20 08:11 Dose: 10 ml Documented by: Heparin Sodium (Porcine) (Heparin 100 Unit/Ml 5ml Flush) 5 ml FLUSH PRN PRN PRN Reason: Flush Stop: 12/09/20 02:17 Last Admin: 11/12/20 11:27 Dose: 5 ml Documented by: Hydroxyzine HCl (Hydroxyzine Hcl 10 Mg Tab) 10 mg PO BID PRN PRN Reason: anxiety Stop: 12/10/20 09:40 Last Admin: 11/10/20 20:45 Dose: 10 mg Documented by: Dexamethasone 6 mg/ Syringe 1.5 mls @ 1 mls/min IV QAM [facility] Stop: 12/09/20 08:59 Last Admin: 11/12/20 08:11 Dose: 1 mls/min Documented by: Ganciclovir Sodium 300 mg/ (Sodium Chloride) 106 mls @ 106 mls/hr IV Q24H [facility]; Protocol Stop: 12/13/20 09:59 Lactobacillus Acidoph/Casei/Rhamnos (Advanced Probiotic 1250 Mg Capsule) 2 cap PO TID [facility] Stop: 12/09/20 08:59 Last Admin: 11/12/20 14:58 Dose: 2 cap Documented by: Levalbuterol HCl (Levalbuterol Tartrate 15 Gm Hfa.Aer.Ad) 2 puffs INH QID PRN PRN Reason: Shortness Of Breath Stop: 12/09/20 01:30 Loperamide HCl (Loperamide Hcl 2 Mg Cap) 2 mg PO Q4H PRN PRN Reason: Diarrhea Stop: 12/11/20 18:06 Last Admin: 11/12/20 08:11 Dose: 2 mg Documented by: Miscellaneous (Tetrahydrozoline Op: Order Awaiting Action) 1 ea N/A QS [facility] Stop: 12/09/20 07:59 Last Admin: 11/12/20 15:06 Dose: Not Given Documented by: Ondansetron HCl (Ondansetron Inj 2 Mg/Ml 2 Ml Vial) 4 mg IV Q6H PRN PRN Reason: Nausea Stop: 12/09/20 01:30 Pantoprazole Sodium (Pantoprazole 40 Mg Tab) 40 mg PO DAILY [facility] Stop: 12/09/20 08:59 Last Admin: 11/12/20 08:12 Dose: 40 mg Documented by: Saccharomyces Boulardii (Saccharomyces Boulardii 250 Mg Cap) 250 mg PO DAILY [facility] Stop: 12/12/20 10:29 Last Admin: 11/12/20 11:59 Dose: 250 mg Documented by: Sertraline HCl (Sertraline Hcl 50 Mg Tablet) 50 mg PO DAILY [facility] Stop: 12/09/20 08:59 Last Admin: 11/12/20 08:12 Dose: 50 mg Documented by: Sodium Chloride (Sodium Chloride 0.65% Na Soln 45 Ml ([place])) 1 sprays NA BID JEN Stop: 12/09/20 08:59 Last Admin: 11/12/20 08:13 Dose: 1 sprays Documented by: Umeclidinium/Vilanterol (Umeclidinium/Vilanterol 62.5/25mcg 7 Puffs/Inhaler) 1 puffs INH DAILY JEN Stop: 12/09/20 08:59 Last Admin: 11/12/20 08:13 Dose: 1 puffs Documented by: Vitamin B Complex (Vitamin B Complex Tab) 1 tab PO DAILY JEN Stop: 12/09/20 08:59 Last Admin: 11/12/20 08:12 Dose: 1 tab Documented by: Vitamin D (Cholecalciferol 1,000 Units 25 Mcg Tab) 5,000 units PO QAM [facility] Stop: 12/09/20 08:59 Last Admin: 11/12/20 08:12 Dose: 5,000 units Documented by: Zinc Sulfate (Zinc Sulfate 220 Mg Capsule) 220 mg PO QAM [facility] Stop: 12/09/20 08:59 Last Admin: 11/12/20 08:12 Dose: 220 mg Documented by: Resident Activity Tracking Resident Involvement: Resident Care Provided Care Provided: Adult Hospital Medicine (1) COPD (chronic obstructive pulmonary disease) COPD type: COPD with acute exacerbation Qualified Code(s): J44.1 - Chronic obstructive pulmonary disease with (acute) exacerbation
[2020-11-12] MEDS: GANCICLOVIR SODIUM IV SCH (10:12)
[2020-11-12] MEDS: SODIUM CHLORIDE 0.9% IV SCH (10:12)
[2020-11-12] MEDS: HEPARIN 100 UNIT/ML 5ML FLUSH FLUSH PRN (11:27)
[2020-11-12] MEDS: SACCHAROMYCES BOULARDII 250 MG CAP PO SCH (11:59)
[2020-11-12] MEDS: ACETAMINOPHEN 325 MG TAB PO PRN (11:59)
--- NOTE | 2020-11-12 18:25 | Billing Data ---
Date of Service November 12, 2020 Coding Level of Care Code 58950 Subseq Hosp Care Lvl 2
[2020-11-13 06:32] LABS: Hematocrit (blood only) 29.6 % (42-52); Hemoglobin 9.5 g/dL (14.0-18.0); Mean Corpuscular Hemoglobin 28.5 pg (25-34); Mean Corpuscular Hgb Conc 32.1 g/dL (32-36); Mean Corpuscular Volume 88.9 fL (80-100); RDW Coefficient of Variation 17.2 % (11.5-14.5); RDW Standard Deviation 56.3 fL (36.4-46.3); Red Blood Count 3.33 M/uL (4.7-6.1); White Blood Count 2.17 K/uL (4.8-10.8)
[2020-11-13 06:35] LABS: Mean Platelet Volume 9.5 fL (7.4-10.4); Platelet Count 94 K/uL (130-400)
[2020-11-13 06:50] LABS: Immature Granulocytes # (auto) 0.01 K/uL (0.00-0.02); Immature Granulocytes % (auto) 0.5 %; Lymphocytes # (auto) 0.19 K/uL (1.2-3.4); Lymphocytes % (auto) 8.8 %; Monocytes # (auto) 0.17 K/uL (0.11-0.59); Monocytes % (auto) 7.8 %; Neutrophils % (auto) 82.9 %; Tear Drop Cells Occasional
[2020-11-13 07:02] LABS: BUN Creatinine Ratio 25.7 (10-20); Calcium 8.6 mg/dl (8.5-10.1); Creatinine Clr Calc Pharmacy 130.9 ml/min; Est GFR (Non-African American) 117.4 ml/min; Magnesium 2.2 mg/dl (1.8-2.4); Potassium 3.3 mmol/L (3.5-5.1)
[2020-11-13 07:13] LABS: Phosphorus 3.4 mg/dl (2.5-4.9)
[2020-11-13] MEDS: Magic Mouthwash 240mL PO SCH ×4 (08:12→20:34)
[2020-11-13] MEDS: ARTIFICIAL TEARS OP SCH ×4 (08:13→20:34)
[2020-11-13] MEDS: CHOLECALCIFEROL 1,000 UNITS 25 MCG TAB PO SCH (08:13)
[2020-11-13] MEDS: dexAMETHasone 6 MG in SYRINGE 0 ML IV SCH (08:14)
[2020-11-13] MEDS: cloNIDine HCL 0.1 MG TAB PO SCH ×3 (08:14→20:34)
[2020-11-13] MEDS: VITAMIN B COMPLEX TAB PO SCH (08:15)
[2020-11-13] MEDS: ATOVAQUONE 750 MG/5 ML UDC PO SCH (08:15)
[2020-11-13] MEDS: PANTOprazole 40 MG TAB PO SCH (08:15)
[2020-11-13] MEDS: ASCORBIC ACID 500 MG TAB PO SCH ×2 (08:15→20:33)
[2020-11-13] MEDS: ENOXAPARIN INJ 40 MG/0.4 ML SYR SQ SCH (08:15)
[2020-11-13] MEDS: ADVANCED PROBIOTIC 1250 MG CAPSULE PO SCH ×3 (08:15→20:33)
[2020-11-13] MEDS: SACCHAROMYCES BOULARDII 250 MG CAP PO SCH (08:16)
[2020-11-13] MEDS: SERTRALINE HCL 50 MG TABLET PO SCH (08:16)
[2020-11-13] MEDS: ZINC SULFATE 220 MG CAPSULE PO SCH (08:17)
[2020-11-13] MEDS: carvediloL 6.25 MG TAB PO SCH ×2 (08:17→20:33)
[2020-11-13] MEDS: guaiFENesin/DEXTROM SYRUP 200MG/20MG 10ML UDC PO SCH ×2 (08:21→20:33)
[2020-11-13] MEDS: FLUTICASONE FUROATE 100MCG 14 PUFFS/INHALER INH SCH (08:22)
[2020-11-13] MEDS: UMECLIDINIUM/VILANTEROL 62.5/25MCG 7 PUFFS/INHALER INH SCH (08:23)
[2020-11-13] MEDS: SODIUM CHLORIDE 0.65% NA SOLN 45 ML (OCEAN) SCH ×2 (08:23→20:32)
[2020-11-13] MEDS: FOLIC ACID 1 MG TAB PO SCH (10:00)
[2020-11-13] MEDS: SODIUM CHLORIDE 0.9% IV SCH (11:11)
[2020-11-13] MEDS: GANCICLOVIR SODIUM IV SCH (11:11)
--- NOTE | 2020-11-13 11:37 | Hospitalist Progress Note ---
Date of Service November 13, 2020 Assessment & Plan (1) Acute respiratory failure with hypoxia: Natalio is a 55-year-old male [employer] with a past medical history of common variable immunodeficiency/hypogammaglobulinemia, CMV pneumonia, lymphoma, COPD, emphysema, cirrhosis with esophageal varices, incidental lung nodules, and past history of fungal pneumonia with recent COVID- 19 positive test (U07.1, COVID-19) on 11/01/2020 who presents with worsened hypoxia and continued respiratory symptoms. Acute on chronic hypoxic respiratory failure: -2/2 acute on chronic pneumonia with COVID-19+ -Patient COVID-19 positive on 11/01/2020 and 11/08/2020 -CTA: No evidence for pulmonary embolus. Interval progression of the bilateral airspace opacities including new areas of multifocal consolidation within the left lower lobe. No change in the cirrhosis and splenomegaly. Stable mediastinal lymphadenopathy. Trace bilateral pleural effusions. -Leukopenic + common variable immunodeficiency, may have impaired ability to respond to COVID with prolonged infection/sx -Dexamethasone 6 mg IV every morning -Duoneb Q2H PRN -ID consulted for recommendations in the setting of COVID+, worsening PNA, and immunodeficiency. -Incentive spirometry COVID w/ history of CMV PNA: -Continue immune globulin monthly infusion, decadron 10mg prior to infusion 11/09/20 -seemingly good response to recent IVIG course, with IgG levels of 980 -[employer]IST acyclovir converted to gancyclovir Q12H -Continue atovaquone ppx -looking into COVID IgG titers to examine potential response of immune system given previous vaccination -consideration of tocilizumab 8mg/kg x1 if determined lack of response to previous COVID infection Chronic malnutrition, emaciated: -Boost 3 times daily ordered History of Diffuse Large B Cell Lymphoma: -s/p 6 cycles of CHOP 07/10-11/2019 -At admission 09/2020 CT scan of the abdomen and pelvis suggests a new wall thickening in the area of the original diagnosis suggesting possible recurrence. Heme-onc was consulted, GI was consulted. While this could represent recurrence, salvage therapy was not recommended due to patients comorbidity and acute illness. He was not stable/a candidate for colonoscopy at the time, and colonoscopy and biopsy was not recommended on evaluation for GI. -No acute treatment at this time, tx for above and consider outpt colonoscopy when medically stable COPD w/ Emphysema: -Duonebs as above -Umeclidinium/Vilanterol 1 puff daily -Fluticasone 100mcg INH daily Cirrhosis w/ Esophageal Varices: -BB as above -no signs of bleeding of decompensation at this time -Protonix 30mg daily Depression/Anxiety: -Sertraline 50mg PO daily -Hydroxyzine 10 mg twice daily as needed Diarrhea: -C.diff testing negative -stool culture ordered -patient at high risk given immune-deficiency DVT PPx: Lovenox 40mg SQ daily CODE: Full FEN/GI: Regular (2) COPD (chronic obstructive pulmonary disease): (3) COPD with emphysema: (4) History of COVID-19: (5) Esophageal varices: (6) Thoracic ascending aortic aneurysm: (7) Ex-smoker: (8) Common variable immunodeficiency: (9) CMV (cytomegalovirus infection): Admission and Anticipated Discharge Date Admission Date: November 09, 2020 Supervising Physician Co-Signing Physician Notes I personally examined the patient and verified all bullock points of history and exam, discussed case, and agree with decision making with Dr Martines. still feels about the same, just worried about getting better. saw ID earlier, awaiting formal consult input Vitals noted, in general he is awake and alert pleasant no distress. HEENT normocephalic atraumatic mucous membranes moist. Lungs quiet bibasilar but otherwise fairly clear Persistent hypoxic respiratory failurerelated to persistent or recurrent Covid/persistent CMV infection superimposed on COPD, with the added complexity of his common variable immune deficiency. probably needs IVIG more often; also IVIG may not have covid antibodies - possibly benefit from monoclonal antibody Rx (but would want antibodies directed against virus (like bamlanivimab/etesevimab or casirivimab/imdevimab -- rather than the anti-IL6 of tocilizumab - which also means it may require EUA/compassionate use from company) -- also will send SARSCoV2 IgG in case he actually has some antibodies - may need to direct therapy towards increasing Tcell response. continue supportive care Otherwise as above. Subjective Feeling okay this morning, did have multiple loose stools overnight, and continues to have shortness of breath with evening small amounts of movement requiring increased oxygen supplementation. Extensive discussions with Immunology regarding role of continued IVIG verse monoclonal antibodies given patient's immunodeficiency. Review of Systems Review of Systems: All systems reviewed & are unremarkable except as noted in Subjective Physical Exam Constitutional: WD/WN, vitals as above Eyes: PERRL, conjunctivae normal, anicteric sclerae Respiratory: normal respiratory effort and able to speak in complete sentences; no respiratory distress and no retractions Auscultation: + diminished lung sounds (Over b/l lower lobes); no wheezes Cardiovascular: Rate/Rhythm: regular rate and regular rhythm Heart Sounds: no gallop, no murmur and no cardiac rub Vessels: normal peripheral pulses; no JVD Extremities: no edema Gastrointestinal (Abdomen): Inspection/Auscultation: normal bowel sounds; abdomen not distended Percussion/Palpation: abdomen soft; abdomen nontender and no guarding Skin: no rashes, warm and dry Neurologic: CN's II-XI intact bilaterally and moves all extremities Psychiatric: Orientation: alert and oriented x 3 Results & Data Results & Data ([facility]) Vital Signs (Past 12 Hours) Vital Signs Temp Pulse Pulse Resp BP Pulse Ox 11/13/20 11:08 36.7 C 70 20 116/73 94 11/13/20 07:30 36.7 C 61 18 127/82 97 11/13/20 07:21 60 11/13/20 02:54 36.5 C 86 20 113/72 90 11/13/20 02:19 60 Laboratory Results 11/13/20 11/13/20 11/12/20 Range/Units 06:02 06:02 18:15 WBC 2.17 L (4.8-10.8) K/uL RBC 3.33 L (4.7-6.1) M/uL Hgb 9.5 L (14.0-18.0) g/dL Hct 29.6 L (42-52) % MCV 88.9 (80-100) fL MCH 28.5 (25-34) pg MCHC 32.1 (32-36) g/dL RDW Std Deviation 56.3 H (36.4-46.3) fL RDW Coeff of John 17.2 H (11.5-14.5) % Plt Count 94 L (130-400) K/uL MPV 9.5 (7.4-10.4) fL Immature Gran % (Auto) 0.5 % Neut % (Auto) 82.9 % Lymph % (Auto) 8.8 % [place] % (Auto) 7.8 % Eos % (Auto) 0.0 % Baso % (Auto) 0.0 % Neut # (Auto) 1.80 (1.4-6.5) K/uL Lymph # (Auto) 0.19 L (1.2-3.4) K/uL [place] # (Auto) 0.17 (0.11-0.59) K/uL Eos # (Auto) 0.00 (0-0.5) K/uL Baso # (Auto) 0.00 (0-0.2) K/uL Immature Gran # (Auto) 0.01 (0.00-0.02) K/uL Tear Drop Cells Occasional Sodium 140 (136-145) mmol/L Potassium 3.3 L (3.5-5.1) mmol/L Chloride 105 (98-107) mmol/L Carbon Dioxide 33 H (21-32) mmol/L Anion Gap 1.0 L (3-11) BUN 14 (7-18) mg/dl Creatinine 0.54 L (0.6-1.4) mg/dl Est Cr Clr Drug Dosing 130.9 ml/min Est GFR ( Amer) 136.0 ml/min Est GFR (Non-Af Amer) 117.4 ml/min BUN/Creatinine Ratio 25.7 H (10-20) Glucose 95 (70-99) mg/dl Calcium 8.6 (8.5-10.1) mg/dl Phosphorus 3.4 (2.5-4.9) mg/dl Magnesium 2.2 (1.8-2.4) mg/dl Stl C. diff Tox B Gene Negative Cdiff Gene (Neg) Resident Activity Tracking Resident Involvement: Resident Care Provided Care Provided: Adult Hospital Medicine (1) COPD (chronic obstructive pulmonary disease) COPD type: COPD with acute exacerbation Qualified Code(s): J44.1 - Chronic obstructive pulmonary disease with (acute) exacerbation
[2020-11-13] MEDS: LOPERAMIDE HCL 2 MG CAP PO PRN ×2 (11:56→20:38)
--- NOTE | 2020-11-13 17:55 | Billing Data ---
Date of Service November 13, 2020 Coding Level of Care Code 64889 Subseq Hosp Care Lvl 3
[2020-11-13 19:08] LABS: CoV2 Total Antibody Negative (Negative)
[2020-11-14 07:15] LABS: Hematocrit (blood only) 30.7 % (42-52); Hemoglobin 9.9 g/dL (14.0-18.0); Mean Corpuscular Hgb Conc 32.2 g/dL (32-36); RDW Coefficient of Variation 17.4 % (11.5-14.5); RDW Standard Deviation 56.7 fL (36.4-46.3); Red Blood Count 3.41 M/uL (4.7-6.1); White Blood Count 2.61 K/uL (4.8-10.8)
[2020-11-14 07:22] LABS: Mean Platelet Volume 9.6 fL (7.4-10.4); Platelet Count 88 K/uL (130-400)
--- NOTE | 2020-11-14 07:42 | Hospitalist Progress Note ---
Date of Service November 14, 2020 Assessment & Plan (1) Acute respiratory failure with hypoxia: Natalio is a 55-year-old male [employer] [facility] with a past medical history of common variable immunodeficiency/hypogammaglobulinemia, CMV pneumonia, lymphoma, COPD, emphysema, cirrhosis with esophageal varices, incidental lung nodules, and past history of fungal pneumonia with recent COVID- 19 positive test (U07.1, COVID-19) on 11/01/2020 who presents with worsened hypoxia and continued respiratory symptoms. Acute on chronic hypoxic respiratory failure: -2/2 acute on chronic pneumonia with COVID-19+ -Patient COVID-19 positive on 11/01/2020 and 11/08/2020 -CTA: No evidence for pulmonary embolus. Interval progression of the bilateral airspace opacities including new areas of multifocal consolidation within the left lower lobe. No change in the cirrhosis and splenomegaly. Stable mediastinal lymphadenopathy. Trace bilateral pleural effusions. -Leukopenic + common variable immunodeficiency, may have impaired ability to respond to COVID with prolonged infection/sx -Dexamethasone 6 mg IV every morning -Duoneb Q2H PRN -ID consulted recommended continuation of dexamethasone and ganciclovir COVID w/ history of CMV PNA: -Continue immune globulin monthly infusion, decadron 10mg prior to infusion 11/09/20 -seemingly good response to recent IVIG course, with IgG levels of 980 -[employer]IR acyclovir converted to gancyclovir Q12H -Continue atovaquone ppx -Covid IgG negative, antibody index pending History of Diffuse Large B Cell Lymphoma: -s/p 6 cycles of CHOP 07/10-11/2019 -At admission 09/2020 CT scan of the abdomen and pelvis suggests a new wall thickening in the area of the original diagnosis suggesting possible recurrence. Heme-onc was consulted, GI was consulted. While this could represent recurrence, salvage therapy was not recommended due to patients comorbidity and acute illness. He was not stable/a candidate for colonoscopy at the time, and colonoscopy and biopsy was not recommended on evaluation for GI. -No acute treatment at this time, tx for above and consider outpt colonoscopy wh en medically stable COPD w/ Emphysema: -Duonebs as above -Umeclidinium/Vilanterol 1 puff daily -Fluticasone 100mcg INH daily Cirrhosis w/ Esophageal Varices: -BB as above -no signs of bleeding of decompensation at this time -Protonix 30mg daily Depression/Anxiety: -Sertraline 50mg PO daily -Hydroxyzine 10 mg twice daily as needed Diarrhea: -C.diff testing negative -stool culture negative to date -patient at high risk given immune-deficiency DVT PPx: Lovenox 40mg SQ daily CODE: Full Code FEN/GI: Regular (2) COPD (chronic obstructive pulmonary disease): (3) COPD with emphysema: (4) History of COVID-19: (5) Esophageal varices: (6) Thoracic ascending aortic aneurysm: (7) Ex-smoker: (8) Common variable immunodeficiency: (9) CMV (cytomegalovirus infection): Admission and Anticipated Discharge Date Admission Date: November 09, 2020 Supervising Physician Co-Signing Physician Notes I personally examined the patient and verified all bullock points of history and exam, discussed case, and agree with decision making with Dr Martines. Feeling about the same, worried about outpatient follow-up. Discussed plans and hurdles in regards to plans. Vitals noted, in general he is awake and alert pleasant no distress. HEENT normocephalic atraumatic mucous membranes moist. Lungs quiet bibasilar but otherwise fairly clear Persistent hypoxic respiratory failurerelated to persistent or recurrent Covid/persistent CMV infection superimposed on COPD, with the added complexity of his common variable immune deficiency. probably needs IVIG more often; also IVIG may not have covid antibodies - possibly benefit from monoclonal antibody Rx (but would want antibodies directed against virus (like bamlanivimab/etesevimab or casirivimab/imdevimab -- rather than the anti-IL6 of tocilizumab - which also means it may require EUA/compassionate use from [facility] [place] [facility]) --working on trying to set this uprunning into some difficulty due to authorization and approvals. Patient overall stable. Otherwise as above. Subjective Patient is feeling somewhat better this morning, has had slowing of his bowel movements however they continue to be loose and fairly watery. Is hopeful that with discovery of recent labs and discussions regarding monoclonal antibody that he might have resolution of his Covid infection. Review of Systems Review of Systems: All systems reviewed & are unremarkable except as noted in Subjective Physical Exam Constitutional: WD/WN, vitals as above Eyes: PERRL, conjunctivae normal, anicteric sclerae Respiratory: normal respiratory effort and able to speak in complete sent ences; no respiratory distress and no retractions Auscultation: + diminished lung sounds (Over b/l lower lobes) and + wheezes; no crackles Cardiovascular: Rate/Rhythm: regular rate and regular rhythm Heart Sounds: no gallop, no murmur and no cardiac rub Vessels: normal peripheral pulses; no JVD Extremities: no edema Gastrointestinal (Abdomen): Inspection/Auscultation: normal bowel sounds; abdomen not distended Percussion/Palpation: abdomen soft; abdomen nontender and no guarding Skin: no rashes, warm and dry Neurologic: CN's II-XI intact bilaterally and moves all extremities Psychiatric: Orientation: alert and oriented x 3 Results & Data Results & Data ([facility]) Vital Signs (Past 12 Hours) Vital Signs Temp Pulse Pulse Resp BP Pulse Ox 11/14/20 04:18 36.8 C 57 L 20 118/73 97 11/14/20 00:00 36.8 C 70 20 111/66 97 11/13/20 22:35 66 11/13/20 19:42 36.7 C 69 20 120/75 97 Laboratory Results 11/14/20 11/14/20 11/13/20 Range/Units 06:40 06:40 17:38 WBC 2.61 L (4.8-10.8) K/uL RBC 3.41 L (4.7-6.1) M/uL Hgb 9.9 L (14.0-18.0) g/dL Hct 30.7 L (42-52) % MCV 90.0 (80-100) fL MCH 29.0 (25-34) pg MCHC 32.2 (32-36) g/dL RDW Std Deviation 56.7 H (36.4-46.3) fL RDW Coeff of John 17.4 H (11.5-14.5) % Plt Count 88 L (130-400) K/uL MPV 9.6 (7.4-10.4) fL Immature Gran % (Auto) 0.4 % Neut % (Auto) 84.7 % Lymph % (Auto) 6.9 % Candler % (Auto) 8.0 % Eos % (Auto) 0.0 % Baso % (Auto) 0.0 % Neut # (Auto) 2.21 (1.4-6.5) K/uL Lymph # (Auto) 0.18 L (1.2-3.4) K/uL Candler # (Auto) 0.21 (0.11-0.59) K/uL Eos # (Auto) 0.00 (0-0.5) K/uL Baso # (Auto) 0.00 (0-0.2) K/uL Immature Gran # (Auto) 0.01 (0.00-0.02) K/uL Sodium 139 (136-145) mmol/L Potassium 3.5 (3.5-5.1) mmol/L Chloride 105 (98-107) mmol/L Carbon Dioxide 33 H (21-32) mmol/L Anion Gap 2.0 L (3-11) BUN 15 (7-18) mg/dl Creatinine 0.57 L (0.6-1.4) mg/dl Est Cr Clr Drug Dosing 124.0 ml/min Est GFR ( Amer) 133.0 ml/min Est GFR (Non-Af Amer) 114.8 ml/min BUN/Creatinine Ratio 27.1 H (10-20) Glucose 70 (70-99) mg/dl Calcium 8.4 L (8.5-10.1) mg/dl SARS-CoV-2 IgG Ab Index Pending SARS-CoV-2 IgG & IgM Ab (Negative) 11/13/20 Range/Units 17:38 WBC (4.8-10.8) K/uL RBC (4.7-6.1) M/uL Hgb (14.0-18.0) g/dL Hct (42-52) % MCV (80-100) fL MCH (25-34) pg MCHC (32-36) g/dL RDW Std Deviation (36.4-46.3) fL RDW Coeff of John (11.5-14.5) % Plt Count (130-400) K/uL MPV (7.4-10.4) fL Immature Gran % (Auto) % Neut % (Auto) % Lymph % (Auto) % Candler % (Auto) % Eos % (Auto) % Baso % (Auto) % Neut # (Auto) (1.4-6.5) K/uL Lymph # (Auto) (1.2-3.4) K/uL Candler # (Auto) (0.11-0.59) K/uL Eos # (Auto) (0-0.5) K/uL Baso # (Auto) (0-0.2) K/uL Immature Gran # (Auto) (0.00-0.02) K/uL Sodium (136-145) mmol/L Potassium (3.5-5.1) mmol/L Chloride (98-107) mmol/L Carbon Dioxide (21-32) mmol/L Anion Gap (3-11) BUN (7-18) mg/dl Creatinine (0.6-1.4) mg/dl Est Cr Clr Drug Dosing ml/min Est GFR ( Amer) ml/min Est GFR (Non-Af Amer) ml/min BUN/Creatinine Ratio (10-20) Glucose (70-99) mg/dl Calcium (8.5-10.1) mg/dl SARS-CoV-2 IgG Ab Index SARS-CoV-2 IgG & IgM Ab Negative (Negative) Medications Administered Current Inpatient Medications Acetaminophen (Acetaminophen 325 Mg Tab) 650 mg PO Q4H PRN PRN Reason: Pain or Fever Stop: 12/09/20 01:30 Last Admin: 11/12/20 11:59 Dose: 650 mg Documented by: Albuterol (Albut/Ipratrop 3mg/0.5mg Neb 3 Ml Vial) 3 ml INH Q4H PRN PRN Reason: Shortness Of Breath Stop: 12/09/20 01:30 Artificial Tears (Artificial Tears) 1 drops OP QID [facility] Stop: 12/09/20 08:59 Last Admin: 11/14/20 09:23 Dose: 1 drops Documented by: Ascorbic Acid (Ascorbic Acid 500 Mg Tab) 500 mg PO BID [facility] Stop: 12/09/20 01:30 Last Admin: 11/14/20 09:19 Dose: 500 mg Documented by: Atovaquone (Atovaquone 750 Mg/5 Ml Udc) 1,500 mg PO DAILY [facility] Stop: 12/09/20 08:59 Last Admin: 11/14/20 09:20 Dose: 1,500 mg Documented by: Carvedilol (Carvedilol 6.25 Mg Tab) 6.25 mg PO BID [facility] Stop: 12/09/20 01:30 Last Admin: 11/14/20 09:19 Dose: 6.25 mg Documented by: Clonidine HCl (Clonidine Hcl 0.1 Mg Tab) 0.2 mg PO BID JEN Stop: 12/09/20 01:30 Last Admin: 11/14/20 09:18 Dose: Not Given Documented by: Nystatin 30 ml/ Dexamethasone 3.75 mg/ Diphenhydramine HCl 300 mg/ Sucrose 45 ml/Microcrystalline Cellulose 45 ml/ BARCODE IDENTIFIER 1 ea 0 ml PO ACHS JEN Stop: 12/09/20 07:29 Last Admin: 11/14/20 09:14 Dose: 5 ml Documented by: Enoxaparin Sodium (Enoxaparin Inj 40 Mg/0.4 Ml Syr) 40 mg SQ Q24H JEN Stop: 12/09/20 08:59 Last Admin: 11/14/20 09:20 Dose: 40 mg Documented by: Fluticasone Furoate (Fluticasone Furoate 100mcg 14 Puffs/Inhaler) 1 puffs INH DAILY JEN Stop: 12/09/20 08:59 Last Admin: 11/14/20 09:21 Dose: 1 puffs Documented by: Folic Acid (Folic Acid 1 Mg Tab) 1 mg PO DAILY JEN Stop: 12/09/20 08:59 Last Admin: 11/14/20 09:19 Dose: 1 mg Documented by: Guaifenesin/Dextromethorphan (Guaifenesin/Dextrom Syrup 200mg/20mg 10ml Udc) 10 ml PO Q12 JEN Stop: 12/09/20 08:59 Last Admin: 11/14/20 09:14 Dose: 10 ml Documented by: Heparin Sodium (Porcine) (Heparin 100 Unit/Ml 5ml Flush) 5 ml FLUSH PRN PRN PRN Reason: Flush Stop: 12/09/20 02:17 Last Admin: 11/12/20 11:27 Dose: 5 ml Documented by: Hydroxyzine HCl (Hydroxyzine Hcl 10 Mg Tab) 10 mg PO BID PRN PRN Reason: anxiety Stop: 12/10/20 09:40 Last Admin: 11/10/20 20:45 Dose: 10 mg Documented by: Dexamethasone 6 mg/ Syringe 1.5 mls @ 1 mls/min IV QAM JEN Stop: 12/09/20 08:59 Last Admin: 11/14/20 09:14 Dose: 1 mls/min Documented by: Ganciclovir Sodium 300 mg/ (Sodium Chloride) 106 mls @ 106 mls/hr IV Q24H [facility]; Protocol Stop: 12/13/20 09:59 Last Infusion: 11/13/20 12:38 Dose: Infused Documented by: Lactobacillus Acidoph/Casei/Rhamnos (Advanced Probiotic 1250 Mg Capsule) 2 cap PO TID [facility] Stop: 12/09/20 08:59 Last Admin: 11/14/20 09:15 Dose: 2 cap Documented by: Levalbuterol HCl (Levalbuterol Tartrate 15 Gm Hfa.Aer.Ad) 2 puffs INH QID PRN PRN Reason: Shortness Of Breath Stop: 12/09/20 01:30 Loperamide HCl (Loperamide Hcl 2 Mg Cap) 2 mg PO Q4H PRN PRN Reason: Diarrhea Stop: 12/11/20 18:06 Last Admin: 11/13/20 20:38 Dose: 2 mg Documented by: Miscellaneous (Tetrahydrozoline Op: Order Awaiting Action) 1 ea N/A QS [facility] Stop: 12/09/20 07:59 Last Admin: 11/14/20 09:04 Dose: Not Given Documented by: Ondansetron HCl (Ondansetron Inj 2 Mg/Ml 2 Ml Vial) 4 mg IV Q6H PRN PRN Reason: Nausea Stop: 12/09/20 01:30 Pantoprazole Sodium (Pantoprazole 40 Mg Tab) 40 mg PO DAILY [facility] Stop: 12/09/20 08:59 Last Admin: 11/14/20 09:19 Dose: 40 mg Documented by: Saccharomyces Boulardii (Saccharomyces Boulardii 250 Mg Cap) 250 mg PO DAILY [facility] Stop: 12/12/20 10:29 Last Admin: 11/14/20 09:18 Dose: 250 mg Documented by: Sertraline HCl (Sertraline Hcl 50 Mg Tablet) 50 mg PO DAILY [facility] Stop: 12/09/20 08:59 Last Admin: 11/14/20 09:19 Dose: 50 mg Documented by: Sodium Chloride (Sodium Chloride 0.65% Na Soln 45 Ml ([place])) 1 sprays NA BID [facility] Stop: 12/09/20 08:59 Last Admin: 11/14/20 09:22 Dose: 1 sprays Documented by: Umeclidinium/Vilanterol (Umeclidinium/Vilanterol 62.5/25mcg 7 Puffs/Inhaler) 1 puffs INH DAILY [facility] Stop: 12/09/20 08:59 Last Admin: 11/14/20 09:21 Dose: 1 puffs Documented by: Vitamin B Complex (Vitamin B Complex Tab) 1 tab PO DAILY [facility] Stop: 12/09/20 08:59 Last Admin: 11/14/20 09:20 Dose: 1 tab Documented by: Vitamin D (Cholecalciferol 1,000 Units 25 Mcg Tab) 5,000 units PO QAM [facility] Stop: 12/09/20 08:59 Last Admin: 11/14/20 09:18 Dose: 5,000 units Documented by: Zinc Sulfate (Zinc Sulfate 220 Mg Capsule) 220 mg PO QAM [facility] Stop: 12/09/20 08:59 Last Admin: 11/14/20 09:16 Dose: 220 mg Documented by: Resident Activity Tracking Resident Involvement: Resident Care Provided Care Provided: Adult Hospital Medicine (1) COPD (chronic obstructive pulmonary disease) COPD type: COPD with acute exacerbation Qualified Code(s): J44.1 - Chronic obstructive pulmonary disease with (acute) exacerbation
[2020-11-14 07:48] LABS: BUN Creatinine Ratio 27.1 (10-20); Calcium 8.4 mg/dl (8.5-10.1); Est GFR (Non-African American) 114.8 ml/min; Potassium 3.5 mmol/L (3.5-5.1)
[2020-11-14 08:41] LABS: Immature Granulocytes # (auto) 0.01 K/uL (0.00-0.02); Immature Granulocytes % (auto) 0.4 %; Lymphocytes # (auto) 0.18 K/uL (1.2-3.4); Lymphocytes % (auto) 6.9 %; Monocytes # (auto) 0.21 K/uL (0.11-0.59); Neutrophils # (auto) 2.21 K/uL (1.4-6.5); Neutrophils % (auto) 84.7 %
[2020-11-14] MEDS: dexAMETHasone 6 MG in SYRINGE 0 ML IV SCH (09:14)
[2020-11-14] MEDS: Magic Mouthwash 240mL PO SCH ×4 (09:14→21:30)
[2020-11-14] MEDS: guaiFENesin/DEXTROM SYRUP 200MG/20MG 10ML UDC PO SCH ×2 (09:14→21:29)
[2020-11-14] MEDS: ADVANCED PROBIOTIC 1250 MG CAPSULE PO SCH ×3 (09:15→21:29)
[2020-11-14] MEDS: ZINC SULFATE 220 MG CAPSULE PO SCH (09:16)
[2020-11-14] MEDS: SACCHAROMYCES BOULARDII 250 MG CAP PO SCH (09:18)
[2020-11-14] MEDS: CHOLECALCIFEROL 1,000 UNITS 25 MCG TAB PO SCH (09:18)
[2020-11-14] MEDS: cloNIDine HCL 0.1 MG TAB PO SCH ×2 (09:18→21:29)
[2020-11-14] MEDS: FOLIC ACID 1 MG TAB PO SCH (09:19)
[2020-11-14] MEDS: SERTRALINE HCL 50 MG TABLET PO SCH (09:19)
[2020-11-14] MEDS: ASCORBIC ACID 500 MG TAB PO SCH ×2 (09:19→21:29)
[2020-11-14] MEDS: carvediloL 6.25 MG TAB PO SCH ×2 (09:19→21:29)
[2020-11-14] MEDS: PANTOprazole 40 MG TAB PO SCH (09:19)
[2020-11-14] MEDS: ATOVAQUONE 750 MG/5 ML UDC PO SCH (09:20)
[2020-11-14] MEDS: VITAMIN B COMPLEX TAB PO SCH (09:20)
[2020-11-14] MEDS: ENOXAPARIN INJ 40 MG/0.4 ML SYR SQ SCH (09:20)
[2020-11-14] MEDS: UMECLIDINIUM/VILANTEROL 62.5/25MCG 7 PUFFS/INHALER INH SCH (09:21)
[2020-11-14] MEDS: FLUTICASONE FUROATE 100MCG 14 PUFFS/INHALER INH SCH (09:21)
[2020-11-14] MEDS: SODIUM CHLORIDE 0.65% NA SOLN 45 ML (OCEAN) SCH ×2 (09:22→21:29)
[2020-11-14] MEDS: ARTIFICIAL TEARS OP SCH ×4 (09:23→21:29)
[2020-11-14] MEDS: GANCICLOVIR SODIUM IV SCH (10:38)
[2020-11-14] MEDS: SODIUM CHLORIDE 0.9% IV SCH (10:38)
--- NOTE | 2020-11-14 19:55 | Billing Data ---
Date of Service November 14, 2020 Coding Level of Care Code 92314 Subseq Hosp Care Lvl 3
[2020-11-15 06:02] LABS: Hematocrit (blood only) 28.5 % (42-52); Hemoglobin 9.3 g/dL (14.0-18.0); Mean Corpuscular Hemoglobin 28.7 pg (25-34); Mean Corpuscular Hgb Conc 32.6 g/dL (32-36); RDW Coefficient of Variation 17.4 % (11.5-14.5); Red Blood Count 3.24 M/uL (4.7-6.1); White Blood Count 2.23 K/uL (4.8-10.8)
[2020-11-15 06:06] LABS: Mean Platelet Volume 8.5 fL (7.4-10.4); Platelet Count 65 K/uL (130-400)
[2020-11-15] MEDS: hydrOXYzine HCl 10 MG TAB PO PRN ×2 (06:06→20:27)
[2020-11-15 06:35] LABS: BUN Creatinine Ratio 33.6 (10-20); Calcium 8.3 mg/dl (8.5-10.1); Creatinine Clr Calc Pharmacy 135.3 ml/min; Est GFR (African American) 138.2 ml/min; Est GFR (Non-African American) 119.2 ml/min; Potassium 3.8 mmol/L (3.5-5.1)
[2020-11-15 06:51] LABS: Immature Granulocytes # (auto) 0.01 K/uL (0.00-0.02); Immature Granulocytes % (auto) 0.4 %; Lymphocytes # (auto) 0.16 K/uL (1.2-3.4); Lymphocytes % (auto) 7.2 %; Monocytes # (auto) 0.17 K/uL (0.11-0.59); Monocytes % (auto) 7.6 %; Neutrophils # (auto) 1.89 K/uL (1.4-6.5); Neutrophils % (auto) 84.8 %; Tear Drop Cells 1+
[2020-11-15] MEDS: Magic Mouthwash 240mL PO SCH ×4 (08:17→20:30)
[2020-11-15] MEDS: ARTIFICIAL TEARS OP SCH ×4 (08:17→20:30)
[2020-11-15] MEDS: FLUTICASONE FUROATE 100MCG 14 PUFFS/INHALER INH SCH (08:18)
[2020-11-15] MEDS: UMECLIDINIUM/VILANTEROL 62.5/25MCG 7 PUFFS/INHALER INH SCH (08:19)
[2020-11-15] MEDS: PANTOprazole 40 MG TAB PO SCH (08:19)
[2020-11-15] MEDS: CHOLECALCIFEROL 1,000 UNITS 25 MCG TAB PO SCH (08:19)
[2020-11-15] MEDS: carvediloL 6.25 MG TAB PO SCH ×2 (08:20→20:26)
[2020-11-15] MEDS: VITAMIN B COMPLEX TAB PO SCH (08:20)
[2020-11-15] MEDS: FOLIC ACID 1 MG TAB PO SCH (08:20)
[2020-11-15] MEDS: ZINC SULFATE 220 MG CAPSULE PO SCH (08:20)
[2020-11-15] MEDS: SERTRALINE HCL 50 MG TABLET PO SCH (08:20)
[2020-11-15] MEDS: ATOVAQUONE 750 MG/5 ML UDC PO SCH (08:20)
[2020-11-15] MEDS: SACCHAROMYCES BOULARDII 250 MG CAP PO SCH (08:20)
[2020-11-15] MEDS: guaiFENesin/DEXTROM SYRUP 200MG/20MG 10ML UDC PO SCH ×2 (08:21→20:23)
[2020-11-15] MEDS: dexAMETHasone 6 MG in SYRINGE 0 ML IV SCH (08:21)
[2020-11-15] MEDS: ASCORBIC ACID 500 MG TAB PO SCH ×2 (08:21→20:26)
[2020-11-15] MEDS: ENOXAPARIN INJ 40 MG/0.4 ML SYR SQ SCH (08:22)
[2020-11-15] MEDS: ADVANCED PROBIOTIC 1250 MG CAPSULE PO SCH ×3 (08:22→20:26)
[2020-11-15] MEDS: cloNIDine HCL 0.1 MG TAB PO SCH ×2 (08:22→21:00)
[2020-11-15] MEDS: SODIUM CHLORIDE 0.65% NA SOLN 45 ML (OCEAN) SCH ×2 (08:23→20:27)
[2020-11-15] MEDS: GANCICLOVIR SODIUM IV SCH (10:20)
[2020-11-15] MEDS: SODIUM CHLORIDE 0.9% IV SCH (10:20)
[2020-11-15] MEDS ORDERED: OXYMETAZOLINE 0.05% 30 ML BTL NAE ONE (12:31)
[2020-11-15] MEDS ORDERED: SODIUM CHLORIDE 0.65% NA SOLN 45 ML (OCEAN) PRN (13:04)
--- NOTE | 2020-11-15 19:10 | Hospitalist Progress Note ---
Date of Service November 15, 2020 Assessment & Plan (1) Acute respiratory failure with hypoxia: Related to ongoing pneumonia, most likely persistent Covid infection, possibly persistent CMV infection. Has been given IVIG, however unfortunately it probably does not have much as far as anti-Covid antibodies and it. Continues on Decadron, but if he is got an ongoing viremia type phase, the Decadron is not likely to help much other than for his COPD. Is on ganciclovir which will help with the CMV. After extensive discussions with multiple team members, immunology and I feel quite convinced that one of the few ways to help this unfortunate patient would be with monoclonal antibodies against the viral spike proteingiven that the patient himself is unable to mount any meaningful antibody response. We are able to give Tocilizumab in house, but this is anti-IL-6, and the patient is clearly not suffering from a cytokine storm, rather an ongoing viral infection. We have discussed with the patient, and with other team members the difficult nature of utilizing a spike protein monoclonal antibody given the bureaucracy involved, but all involved, including most importantly the patient himself, feel that this is the best approach to try to help him. In that respect we will continue supportive care, and then work towards administering antispike protein monoclonal antibody in the next few days, with ongoing close immunology follow-up thereafter. (2) COPD (chronic obstructive pulmonary disease): steroids, inhalers (3) COPD with emphysema: (4) History of COVID-19: (5) Esophageal varices: (6) Thoracic ascending aortic aneurysm: (7) Ex-smoker: (8) Common variable immunodeficiency: (9) CMV (cytomegalovirus infection): Changing oral valganciclovir to IV ganciclovir Admission and Anticipated Discharge Date Admission Date: November 09, 2020 Supervising Physician Co-Signing Physician Notes Persistent hypoxic respiratory failurerelated to persistent or recurrent Covid/persistent CMV infection superimposed on COPD, with the added complexity of his common variable immune deficiency. probably needs IVIG more often; also IVIG may not have covid antibodies - possibly benefit from monoclonal antibody Rx (but would want antibodies directed against virus (like bamlanivimab/etesevimab or casirivimab/imdevimab -- rather than the anti-IL6 of tocilizumab - which also means it may require EUA/compassionate use from company) --working on trying to set this uprunning into some difficulty due to authorization and approvals. Patient overall stable. Subjective feeling about the same. ongoing BARBOZA. nothing new or wosre. Spent an extensive amount of time building plan. Case discussed with immunology, with the ER, and right now the plan will likely be to give monoclonal antibody as he is on his way [facility]. No other new complaints. Review of Systems Review of Systems: All systems reviewed & are unremarkable except as noted in HPI & below Physical Exam Physical Exam: In general he is awake and alert pleasant no distress. HEENT normocephalic atraumatic mucous membranes moist. Breathing unlabored no accessory muscle use good effort. Skin shows no rashes no pallor or icterus. Neuro no focal deficits. Results & Data Results & Data ([facility]) Vital Signs (Past 12 Hours) Vital Signs Temp Pulse Pulse Resp BP Pulse Ox 11/15/20 16:21 98.2 F 75 20 110/68 96 11/15/20 15:00 75 11/15/20 12:20 67 20 95 11/15/20 10:57 98.1 F 67 18 103/65 95 11/15/20 07:38 97.9 F 73 19 129/81 95 PG Care Time/CCT Total # of Minutes Spent Total Time Spent with Patient: Total time spent is greater than 50% in coordination of care (as documented) at patient's floor/unit and/or counseling patient: Coding Level of Care Code 43396 Subseq Hosp Care Lvl 3 Diagnoses Acute respiratory failure with hypoxia J96.01 COPD (chronic obstructive pulmonary disease) J44.1 COPD type: COPD with acute exacerbation COPD with emphysema J43.9 History of COVID-19 Z86.16 Esophageal varices I85.00 Thoracic ascending aortic aneurysm I71.2 Ex-smoker Z87.891 Common variable immunodeficiency D83.9 CMV (cytomegalovirus infection) B25.9 (1) COPD (chronic obstructive pulmonary disease) COPD type: COPD with acute exacerbation Qualified Code(s): J44.1 - Chronic obstructive pulmonary disease with (acute) exacerbation
[2020-11-15] MEDS: HEPARIN 100 UNIT/ML 5ML FLUSH FLUSH PRN (19:53)
[2020-11-15] MEDS: FLUTICASONE PROPIONATE NA SPR 16 GM BTL SCH (20:25)
[2020-11-16] MEDS: hydrOXYzine HCl 10 MG TAB PO PRN (06:06)
[2020-11-16] MEDS: Magic Mouthwash 240mL PO SCH ×4 (06:38→20:37)
[2020-11-16] MEDS: guaiFENesin/DEXTROM SYRUP 200MG/20MG 10ML UDC PO SCH ×2 (08:48→20:34)
[2020-11-16] MEDS: cloNIDine HCL 0.1 MG TAB PO SCH ×2 (08:49→22:33)
[2020-11-16] MEDS: FLUTICASONE PROPIONATE NA SPR 16 GM BTL SCH ×2 (08:50→20:33)
[2020-11-16] MEDS: ADVANCED PROBIOTIC 1250 MG CAPSULE PO SCH ×3 (08:50→20:33)
[2020-11-16] MEDS: carvediloL 6.25 MG TAB PO SCH ×2 (08:51→20:34)
[2020-11-16] MEDS: ASCORBIC ACID 500 MG TAB PO SCH ×2 (08:52→20:34)
[2020-11-16] MEDS: CHOLECALCIFEROL 1,000 UNITS 25 MCG TAB PO SCH (08:52)
[2020-11-16] MEDS: ATOVAQUONE 750 MG/5 ML UDC PO SCH (08:54)
[2020-11-16] MEDS: ENOXAPARIN INJ 40 MG/0.4 ML SYR SQ SCH (08:55)
[2020-11-16] MEDS: FOLIC ACID 1 MG TAB PO SCH (08:56)
[2020-11-16] MEDS: PANTOprazole 40 MG TAB PO SCH (08:57)
[2020-11-16] MEDS: SERTRALINE HCL 50 MG TABLET PO SCH (08:57)
[2020-11-16] MEDS: ZINC SULFATE 220 MG CAPSULE PO SCH (08:57)
[2020-11-16] MEDS: FLUTICASONE FUROATE 100MCG 14 PUFFS/INHALER INH SCH (09:53)
[2020-11-16] MEDS: dexAMETHasone 6 MG in SYRINGE 0 ML IV SCH (09:54)
[2020-11-16] MEDS: SACCHAROMYCES BOULARDII 250 MG CAP PO SCH (09:54)
[2020-11-16] MEDS: ARTIFICIAL TEARS OP SCH ×4 (09:54→20:37)
[2020-11-16] MEDS: SODIUM CHLORIDE 0.65% NA SOLN 45 ML (OCEAN) SCH ×2 (09:55→20:37)
[2020-11-16] MEDS: VITAMIN B COMPLEX TAB PO SCH (09:59)
[2020-11-16] MEDS: UMECLIDINIUM/VILANTEROL 62.5/25MCG 7 PUFFS/INHALER INH SCH (10:00)
[2020-11-16] MEDS: SODIUM CHLORIDE 0.9% IV SCH (10:46)
[2020-11-16] MEDS: GANCICLOVIR SODIUM IV SCH (10:46)
[2020-11-16] MEDS: HEPARIN 100 UNIT/ML 5ML FLUSH FLUSH PRN (11:55)
[2020-11-16] MEDS: ACETAMINOPHEN 325 MG TAB PO PRN (15:13)
--- NOTE | 2020-11-16 17:42 | Hospitalist Progress Note ---
Date of Service November 16, 2020 Assessment & Plan (1) Acute respiratory failure with hypoxia: Related to ongoing pneumonia, most likely persistent Covid infection, possibly persistent CMV infection. Has been given IVIG, however unfortunately it probably does not have much as far as anti-Covid antibodies and it. Continues on Decadron, but if he is got an ongoing viremia type phase, the Decadron is not likely to help much other than for his COPD. Is on ganciclovir which will help with the CMV. After extensive discussions with multiple team members, immunology and I feel quite convinced that one of the few ways to help this unfortunate patient would be with monoclonal antibodies against the viral spike proteingiven that the patient himself is unable to mount any meaningful antibody response. We are able to give Tocilizumab in house, but this is anti-IL-6, and the patient is clearly not suffering from a cytokine storm, rather an ongoing viral infection. We have discussed with the patient, and with other team members the difficult nature of utilizing a spike protein monoclonal antibody given the bureaucracy involved, but all involved, including most importantly the patient himself, feel that this is the best approach to try to help him. anticipate discharge to ER tomorrow - get monoclonal antibody then, then infirmary, then close outpt f/u w immunology. (2) COPD (chronic obstructive pulmonary disease): steroids, inhalers (3) COPD with emphysema: (4) History of COVID-19: (5) Esophageal varices: (6) Thoracic ascending aortic aneurysm: (7) Ex-smoker: (8) Common variable immunodeficiency: (9) CMV (cytomegalovirus infection): Changing oral valganciclovir to IV ganciclovir Admission and Anticipated Discharge Date Admission Date: November 09, 2020 Subjective Overall feeling the same. Does have a little bit more green sputum today, but shortness of breath is not worse, dyspnea on exertion about the same, and he has had no fevers. Reiterated the plan. Discussed the off label use of the monoclonal antibodies, he is very comfortable with the plan. His only real questions were whether we felt it better to give trial to monoclonal antibodies or convalescent plasma, and after discussing what literature we can lean on, we all agreed monoclonal antibodies make the most sense. Review of Systems Review of Systems: All systems reviewed & are unremarkable except as noted in HPI & below Physical Exam Physical Exam: In general he is awake and alert pleasant somewhat anxious no distress. HEENT normocephalic atraumatic mucous membranes moist. Breathing unlabored no accessory muscle use good effort. Skin shows no rashes no pallor or icterus. Results & Data Results & Data ([facility]) Vital Signs (Past 12 Hours) Vital Signs Temp Pulse Resp BP Pulse Ox 11/16/20 15:32 98.1 F 70 19 118/72 97 11/16/20 11:42 98.4 F 81 20 115/73 93 11/16/20 07:38 98.4 F 64 19 113/70 97 PG Care Time/CCT Total # of Minutes Spent Total Time Spent with Patient: Total time spent is greater than 50% in coordination of care (as documented) at patient's floor/unit and/or counseling patient: Coding Level of Care Code 08412 Subseq Hosp Care Lvl 2 Diagnoses Acute respiratory failure with hypoxia J96.01 COPD (chronic obstructive pulmonary disease) J44.1 COPD type: COPD with acute exacerbation COPD with emphysema J43.9 History of COVID-19 Z86.16 Esophageal varices I85.00 Thoracic ascending aortic aneurysm I71.2 Ex-smoker Z87.891 Common variable immunodeficiency D83.9 CMV (cytomegalovirus infection) B25.9 (1) COPD (chronic obstructive pulmonary disease) COPD type: COPD with acute exacerbation Qualified Code(s): J44.1 - Chronic obstructive pulmonary disease with (acute) exacerbation
[2020-11-17] MEDS: SODIUM CHLORIDE 0.9% IV SCH (10:01)
[2020-11-17] MEDS: GANCICLOVIR SODIUM IV SCH (10:01)
[2020-11-17] MEDS: Magic Mouthwash 240mL PO SCH (10:04)
[2020-11-17] MEDS: FLUTICASONE FUROATE 100MCG 14 PUFFS/INHALER INH SCH (10:05)
[2020-11-17] MEDS: ARTIFICIAL TEARS OP SCH (10:05)
[2020-11-17] MEDS: dexAMETHasone 6 MG in SYRINGE 0 ML IV SCH (10:06)
[2020-11-17] MEDS: FLUTICASONE PROPIONATE NA SPR 16 GM BTL SCH (10:07)
[2020-11-17] MEDS: ASCORBIC ACID 500 MG TAB PO SCH (10:11)
[2020-11-17] MEDS: ATOVAQUONE 750 MG/5 ML UDC PO SCH (10:11)
[2020-11-17] MEDS: ZINC SULFATE 220 MG CAPSULE PO SCH (10:12)
[2020-11-17] MEDS: ADVANCED PROBIOTIC 1250 MG CAPSULE PO SCH (10:12)
[2020-11-17] MEDS: PANTOprazole 40 MG TAB PO SCH (10:12)
[2020-11-17] MEDS: guaiFENesin/DEXTROM SYRUP 200MG/20MG 10ML UDC PO SCH (10:13)
[2020-11-17] MEDS: FOLIC ACID 1 MG TAB PO SCH (10:13)
[2020-11-17] MEDS: SERTRALINE HCL 50 MG TABLET PO SCH (10:14)
[2020-11-17] MEDS: ENOXAPARIN INJ 40 MG/0.4 ML SYR SQ SCH (10:14)
[2020-11-17] MEDS: carvediloL 6.25 MG TAB PO SCH (10:15)
[2020-11-17] MEDS: SODIUM CHLORIDE 0.65% NA SOLN 45 ML (OCEAN) SCH (10:15)
[2020-11-17] MEDS: VITAMIN B COMPLEX TAB PO SCH (10:16)
[2020-11-17] MEDS: SACCHAROMYCES BOULARDII 250 MG CAP PO SCH (10:17)
[2020-11-17] MEDS: CHOLECALCIFEROL 1,000 UNITS 25 MCG TAB PO SCH (10:17)
[2020-11-17] MEDS: hydrOXYzine HCl 10 MG TAB PO PRN (10:18)
[2020-11-17] MEDS: cloNIDine HCL 0.1 MG TAB PO SCH (10:20)
[2020-11-17] MEDS: UMECLIDINIUM/VILANTEROL 62.5/25MCG 7 PUFFS/INHALER INH SCH (10:21)
[2020-11-17] MEDS: HEPARIN 100 UNIT/ML 5ML FLUSH FLUSH PRN ×2 (11:16→12:45)
--- NOTE | 2020-11-17 17:56 | Discharge Summary ---
Date of Service November 17, 2020 Admission HPI Per Admitting Provider The patient is a 55-year-old male resident of [facility], with a past medical history including CMV pneumonia, lymphoma, acute respiratory failure with hypoxia, COPD, hypokalemia, COPD with emphysema, pulmonary nodule, chronic respiratory failure with hypoxia, history of COVID-19, bronchiectasis, esophageal varices, thoracic ascending aortic aneurysm, seasonal allergies, hypogammaglobulinemia, CVID, immunocompromise, renal mass, incidental lung nodule and history of fungal pneumonia Work-up in the emergency department included COVID-19 test positivity. Imaging: Chest x-ray showed worsening multifocal pneumonia. CT angiography of chest PE protocol was negative for PE, but did show interval progression of bilateral airspace opacities including new areas of multifocal consolidation within the left lower lobe, representing either an acute or chronic pneumonia. There is no change in cirrhosis or splenomegaly and there was stable mediastinal lymphadenopathy. Principal Diagnosis Acute on chronic hypoxic respiratory failure due to: -Recurrent versus persistent Covid pneumonia -Ongoing CMV infection -COPD exacerbation Discharge Exam General he is awake and alert pleasant anxious no distress. HEENT normocephalic atraumatic mucous membranes moist. Breathing unlabored no accessory muscle use, his lungs are diminished may be faint basilar rales but overall just clear and quiet. No wheezing good effort. Neuro shows no focal deficits. Skin shows no rashes no pallor or icterus. Discharge Data Allergies Allergy/AdvReac Type Severity Reaction Status Date / Time sulfamethoxazole Allergy Mild RASH/BLEEDI Verified 11/01/20 01:27 NG trimethoprim Allergy Mild RASH/BLEEDI Verified 11/01/20 01:27 NG Consultations 11/08/20 23:00 ED Decision to Admit Stat 11/09/20 10:11 Consult Infectious Diseases Routine Ordered Studies 11/08/20 21:09 CT angio chest PE protocol Stat Hospital Course (1) Acute respiratory failure with hypoxia: Related to ongoing pneumonia, most likely persistent Covid infection, poss ibly persistent CMV infection. Has been given IVIG, however unfortunately it probably does not have much as far as anti-Covid antibodies and it. Continues on Decadron, but if he is got an ongoing viremia type phase, the Decadron is not likely to help much other than for his COPDto this end we will continue the Decadron and then taper to discontinuation. Is on ganciclovir which will help with the CMVduration of this to be determined by [facility] infectious disease and outpatient follow-up. After extensive discussions with multiple team members, immunology and I feel quite convinced that one of the few ways to help this unfortunate patient would be with monoclonal antibodies against the viral spike proteingiven that the patient himself is unable to mount any meaningful antibody response. In-house, we are able to give Tocilizumab, but this is anti-IL-6, and the patient is clearly not suffering from a cytokine storm, rather an ongoing viral infection. We have discussed with the patient, and with other team members the difficult nature of utilizing a spike protein monoclonal antibody given the bureaucracy involved, but all involved, including most importantly the patient himself, feel that this is the best approach to try to help himrisks and benefits outlined again today on day of discharge, he continues to agree that this is probably his best possible approach. By rules /regulations it was most feasible to give him a dose in the emergency departmentwhich I personally discussed with the ER charge nurse and physician. Patient stable for dischargehis course will be to go to the ER for Covid monoclonal antibody, and [facility]. He will be on a tapering course of Decadron over the next 10 days or so, ongoing ganciclovir until [facility] infectious disease directs otherwise, and ongoing close follow-up with [facility] in regards to ongoing dosing of his IVIG, and/or recurrent dosing of Covid monoclonal antibody. Right now his hypoxic respiratory failure is acute on chronic fading to mostly chronicand he has required 3 to 5 L of oxygen predominantly throughout the week, occasionally turning him up to 6 when he is recovering from activitybut this appears to be his current stable baseline. Given how much of his lungs are involved with the viral pneumonia, I suspect it will take quite some time for him to be able to wean down on oxygen. Continue his triple therapy as far as his COPD inhalers (2) COPD (chronic obstructive pulmonary disease): steroids, inhalers (3) COPD with emphysema: (4) History of COVID-19: (5) Esophageal varices: (6) Thoracic ascending aortic aneurysm: (7) Ex-smoker: (8) Common variable immunodeficiency: (9) CMV (cytomegalovirus infection): Total Time Total Time Spent Total Time Spent (In Minutes): >30 Discharge Plan Discharge Items [facility] Reason For Visit: PNA DUE TO CMV, COVID,SECONDARY BACTERIAL WITH HYP Discharge Diagnosis: ongoing covid infection Activity: Resume your previous activity Non-emergency contact: Primary Care Provider and Specialist Call non-emergency contact if: you have any medication questions and your symptoms worsen Follow-up/Referrals: Bradford PERERA [Primary Care Provider] - Diet: Regular Addtl Attending Provider Instructions: ongoing covid infection -we'll have you on dexamethasone for another week to help with the COPD portion of this and reduce covid related inflammation -we're getting you downstairs to give a dose of covid monoclonal antibody to try to help your body fight off the infection -Dr Bass ([facility]) we'll continue to orchestrate your care as it relates to needs for ongoing IVIG, as well as possible needs for repeat covid monoclonal antibody dosing CMV infection -for now, we'll have you continue the gancyclovir that is helping fight the CMV infection -IVIG will also help with this portion of the infection -ongoing guidance from [facility] infectious disease will help determine when we can have you stop the gancyclovir COPD -because of all of the above, your COPD is of course a bit worse than it used to be - right now it's impossible to determine if that will get better with time and clearing the infections, or if you might have a degree of permanent worsening -the steroids as above will help acutely reduce some inflammation. as we get to where we try to stop them, if your breathing shows any clear worsening (especially ~2-3 days after stopping the steroids) then we might need them restarted -continue your baseline inhalers (alvesco and anoro) in addition to the albuterol as needed Pending Studies at Discharge: No Stand-Alone Forms: My [facility] Skilled Items Patient informed of condition?: Yes Discharge Level of Care: Other Communicable Disease: Yes Discharge Prognosis: Stable Lines: None Urinary Catheter: No Medications and DC Order Prescriptions: New cholecalciferol (vitamin D3) 25 mcg (1,000 unit) Capsule 5,000 unit PO QAM Qty: 30 RF: 0 zinc sulfate [Orazinc] 50 mg zinc (220 mg) Capsule 220 mg PO QAM Qty: 30 RF: 0 dexamethasone [Decadron] 6 mg tablet 6 mg PO DAILY Qty: 14 RF: 0 Continued Anoro Ellipta 62.5-25 mcg/actuation blister with device 1 puffs INH DAILY Qty: 60 RF: 2 carvedilol 6.25 mg tablet 6.25 mg PO BID RF: 0 ondansetron HCl [Zofran] 4 mg Tablet 8 mg PO TID PRN (Reason: Nausea And Vomiting) RF: 0 Alvesco 160 mcg/actuation Hfa Aerosol Inhaler 2 puff INHALATION DAILY RF: 0 tetrahydrozoline 0.05 % Drops 1 drp OPB QID RF: 0 ascorbic acid (vitamin C) [Vitamin C] 500 mg Tablet 500 mg PO BID RF: 0 dextromethorphan-guaifenesin [Mucinex DM] 60-1,200 mg Tablet Extended Release 12 Hr 1 tab PO Q12H RF: 0 B-complex with vitamin C Tablet 1 tab PO DAILY RF: 0 [place] [facility] 2.65 % Aerosol,[place] 1 spray INTRANASAL BID RF: 0 Magic Mouth Wash 5 ml PO ACHS RF: 0 pantoprazole 40 mg tablet,delayed release (DR/EC) 40 mg PO DAILY RF: 0 levalbuterol tartrate [Xopenex HFA] 45 mcg/actuation HFA aerosol inhaler 2 inh INHALATION QID PRN (Reason: Shortness Of Breath) RF: 0 Diphenhydramine 50 Mg/Ml Sdv 50 mg/ml 50 mg IV DIRECTED RF: 0 Gammagard 1 Gm /10 Ml Inj 1 g/10 ml 4 g IV DIRECTED RF: 0 Gammagard 20 Gm/200 Ml 20 g/200 ml 20 g IV DIRECTED RF: 0 acetaminophen [Tylenol] 325 mg Tablet 325 mg PO BID PRN (Reason: Only as Needed) RF: 0 Systane Gel 0.4-0.3 % Drops,Gel 1 drp ophthalmic (eye) QID RF: 0 sertraline 50 mg Tablet 50 mg PO DAILY RF: 0 folic acid 1 mg Tablet 1 mg PO DAILY RF: 0 Lactobacillus acidophilus 1 billion cell Tablet 1,000 mmu cells PO TID RF: 0 clonidine HCl 0.1 mg Tablet 0.2 mg PO BID RF: 0 valganciclovir 450 mg Tablet 450 mg PO BID RF: 0 atovaquone 750 mg/5 mL Suspension 1,500 mg PO DAILY RF: 0 ipratropium-albuterol 0.5 mg-3 mg(2.5 mg base)/3 mL Solution For Nebulization 3 ml INHALATION Q4H PRN (Reason: Shortness Of Breath) RF: 0 Discontinued Dexamethasone 10mg/Ml Sdv 10 mg/ml 20 mg IV DIRECTED RF: 0 Discharge Orders: Discharge Order (Routine); Ordered 11/17/20 Ordered By: Savage Barry Admission Data Admit Date/Time: 11/09/20 00:02 Attending Provider: Savage Barry Admit Provider: Jose Angel Boudreaux [facility] Other Providers: Jose Angel Boudreaux ; Maciel Young ; Gaby Morris ; Ralph Ramirez I. ; Isaac Rodríguez II ; Lisa Viera ; Miguel Ángel Lee Other Interventions: Discharge Summary Assessment (RN) Last Done: 11/17/20 12:59 Coding Level of Care Code D/C Day Management >30 mins Diagnoses Acute respiratory failure with hypoxia J96.01 COPD (chronic obstructive pulmonary disease) J44.1 COPD type: COPD with acute exacerbation COPD with emphysema J43.9 History of COVID-19 Z86.16 Esophageal varices I85.00 Thoracic ascending aortic aneurysm I71.2 Ex-smoker Z87.891 Common variable immunodeficiency D83.9 CMV (cytomegalovirus infection) B25.9
== END 2020-11-17 13:32 | DRG 177 ==
LOC: ED 18:49 → 2S 11-09 00:02 → SUATTDRO 11-09 00:02 → 2S 11-09 01:00

== ENCOUNTER 2022-05-27 07:19 | Inpatient (IN) ==
[2022-05-27] MEDS ORDERED: CEFEPIME 2,000 MG/20 ML VIAL IV STA (07:31)
[2022-05-27] MEDS ORDERED: SODIUM CHLORIDE 0.9% 1000ML 2,000 ML IV ONE (07:32)
--- NOTE | 2022-05-27 07:40 | Emergency Department Note ---
Impression & Plan Cellulitis, Hypogammaglobulinemia, Immunocompromised, Leukopenia, Thrombocytopenia ED Provider Note NAME: VALERIO [id number] DANE AGE: 56 SEX: M : 1965 ARRIVES VIA: Ambulance INFORMANT: Patient ED PROVIDER(S): Savage Jewell DO CHIEF COMPLAINT: fever and leg pain HPI: Patient is a 56-year-old male with past medical history of acute on chronic hypoxic respiratory failure chronically on 2 L, CMV, COPD, lymphoma in remission, esophageal varices with cirrhosis secondary to hepatitis C, CVID being followed with allergy undergoing IVIG treatment intermittently who presents the ER for left lower extremity redness swelling and fevers which have been worsening. He notes this has been going on since the end of April. She was seen and evaluated here placed on IV antibiotics and discharged to receive Dalvance. He was also taking oral medications at the [facility] and is currently on clindamycin. He notes it was improving for some time and now has been getting worse. He notes the pain in the leg initially started around the Achilles and rotated anteriorly without redness streaking on the foot and tracking up to the knee. Denies any headache or change in vision. No new cough or shortness of breath as he notes he is always short of breath. No chest pain or belly pain. No nausea, vomiting, or diarrhea. No dysuria, urgency, or frequency. No other exacerbating or remitting factors. ROS: See above HPI for pertinent positives & negatives. A total of 10 systems reviewed and were otherwise negative. PAST MEDICAL HISTORY:See Below PAST SURGICAL HISTORY:See Below FAMILY HISTORY:See Below SOCIAL HISTORY:See Below HOME MEDICATIONS:See Below ALLERGIES:See Below VITALS:See Below PHYSICAL EXAMINATION: GENERAL: Sitting up in bed, alert, chronically ill-appearing, disheveled on 4 L nasal cannula EYE EXAM: normal conjunctiva. PERRL and EOM's grossly intact. OROPHARYNX: mucous membranes are dry LUNGS: Clear to auscultation. Normal chest wall mechanics HEART: S1 normal and S2 normal ABDOMEN: abdomen soft, non-tender, normo-active bowel sounds, no masses, no rebound or guarding. BACK: Back is symmetrical on inspection and there is no deformity, no midline tenderness, no CVA tenderness. UPPER EXTREMITIES: upper extremities are grossly normal. LOWER EXTREMITIES: Left leg with erythema over the dorsal aspect of the foot tracking circumferentially around the calf up to/just below the tibial plateau. Skin is warm tender to palpation. DP and PT 2 out of 4. Current sensation intact. No obvious skin breakdown. No crepitus. NEURO EXAM: Normal sensorium, cranial nerves II-XII grossly intact, normal speech, no gross weakness of arms, no gross weakness of legs. MEDICAL DECISION MAKING: Patient is a 56-year-old male immunocompromise with CVID who recently received Dapto that presents to the ER for worsening redness, swelling, and pain on the left foot tracking up into the left calf. IV was established blood work was obtained. Patient has been febrile on antibiotics with worsening redness of the left calf and consequently was [facility] from the [facility]. Labs show mild leukopenia and no anemia. Thrombocytopenia at 76. BMP with hyponatremia 127. Influenza COVID RSV is negative. Chest x-ray is unremarkable. Patient was admitted to the hospital following receiving IV fluids, Dapto and Rocephin for cellulitis left lower extremity failure of outpatient treatment. Triage Nursing notes reviewed. Limited review of prior medical records performed Vital Signs: reviewed and remarkable for no significant abnormalities Differential diagnosis: Differential diagnosis includes etiologies such as sepsis, UTI, pneumonia, metabolic, electrolyte abnormalities, cardiac sources, intracerebral event, toxicologic, neurological, as well as others were entertained. ER treatment provided: See below Diagnostics interpreted by me: ECG: Sinus rhythm rate 85 Normal axis No PVCs QTC 459 Cardiac Monitoring: An order was placed for continuous cardiac monitoring. The monitor shows a rate of 82 with sinus rhythm. Laboratory studies: As stated above and show below. Imaging studies: Portable AP upright 1 view chest unremarkable Consultation(s): none Procedures: none Critical Care: None Past Med/Surg History Medical History Asthma Autoimmune hepatitis (02/25/13) Bronchiectasis Common variable immunodeficiency COVID-19 in immunocompromised patient Second episode of COVID-19 in 90 days with 2 negative tests in between Pneumonia due to 2019 novel coronavirus (~04/2020) Thrombocytopenia Surgical History Hx of colonoscopy Port-A-Cath in place (07/05/19) Insertion Of Mediport With Fluoroscopy Dr. 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 Beliefs That Will Affect Care: None marital status: Single Current Living Situation: Other Current Living Situation Comment: lives in [facility] Feels Safe at Home: Yes Assistive Devices: Oxygen - Continuous Allergies Allergies Allergy/AdvReac Type Severity Reaction Status Date / Time sulfamethoxazole Allergy Mild RASH/BLEEDI Verified 04/27/22 08:47 NG trimethoprim Allergy Mild RASH/BLEEDI Verified 04/27/22 08:47 NG Home Meds Home Medications Medication Instructions Recorded Confirmed carvedilol 6.25 mg tablet 6.25 mg PO BID 06/26/19 04/27/22 ondansetron HCl 4 mg tablet 8 mg PO TID PRN Nausea And Vomiting 07/03/19 04/27/22 (Zofran) acetaminophen 325 mg tablet 325 mg PO BID PRN Only as Needed 05/15/20 04/27/22 (Tylenol) ciclesonide 160 mcg/actuation 2 puff inhalation DAILY 08/12/20 04/27/22 aerosol inhaler (Alvesco) B-complex with vitamin C 1 tab PO DAILY 08/21/20 04/27/22 Diphenhydramine 50 Mg/Ml Sdv 50 mg IV DIRECTED 08/21/20 04/27/22 Gammagard 1 Gm /10 Ml Inj 4 g IV DIRECTED 08/21/20 04/27/22 Gammagard 20 Gm/200 Ml 20 g IV DIRECTED 08/21/20 04/27/22 Magic Mouth Wash 5 ml PO ACHS 08/21/20 04/27/22 ascorbic acid (vitamin C) 500 mg 500 mg PO BID 08/21/20 04/27/22 tablet (Vitamin C) dextromethorphan-guaifenesin ER 60 1 tab PO Q12H 08/21/20 04/27/22 mg-1,200 mg tab,extend release,12hr (Mucinex DM) levalbuterol tartrate 45 2 inh inhalation QID PRN Shortness 08/21/20 04/27/22 mcg/actuation aerosol inhaler Of Breath (Xopenex HFA) pantoprazole 40 mg tablet,delayed 40 mg PO DAILY 08/21/20 04/27/22 release sodium chloride 2.65 % nasal spray 1 spray intranasal BID 08/21/20 04/27/22 aerosol ([facility]) Lactobacillus acidophilus 1 1,000 mmu cells PO TID 11/01/20 04/27/22 billion cell tablet atovaquone 750 mg/5 mL oral 1,500 mg PO DAILY 11/01/20 04/27/22 suspension clonidine HCl 0.1 mg tablet 0.2 mg PO BID 11/01/20 04/27/22 folic acid 1 mg tablet 1 mg PO DAILY 11/01/20 04/27/22 sertraline 50 mg tablet 50 mg PO DAILY 11/01/20 04/27/22 valganciclovir 450 mg tablet 450 mg PO BID 11/01/20 04/27/22 ipratropium 0.5 mg-albuterol 3 mg 3 ml inhalation Q4H PRN Shortness 11/08/20 04/27/22 (2.5 mg base)/3 mL nebulization Of Breath soln dexamethasone sodium phosphate 4 10 mg inhalation UNKNOWN 12/19/20 04/27/22 mg/mL injection solution saliva stimulant comb. no.3 spray mucous membrane UNKNOWN 12/19/20 04/27/22 (Biotene Moisturizing Mouth mucosal spray) umeclidinium 62.5 mcg-vilanterol 2 inh inhalation DIRECTED 12/19/20 04/27/22 25 mcg/actuation powdr for inhalation (Anoro Ellipta) Previous Rx's Medication Instructions Recorded umeclidinium 62.5 mcg-vilanterol 1 puffs inhalation DAILY #60 ea 01/05/20 25 mcg/actuation powdr for inhalation (Anoro Ellipta) zinc sulfate 50 mg zinc (220 mg) 220 mg PO QAM #30 caps 11/17/20 capsule (Orazinc) Results & Data (ED) Vital Signs Vital Signs - 24 hr 05/27/22 07:15 05/27/22 07:30 05/27/22 07:27 Temperature 37.9 C H Temperature Source Oral Pulse Rate 87 80 Pulse Rate from SpO2 Sensor 80 Pulse Rhythm Regular Pulse Strength Normal Respiratory Rate 20 29 H Respiratory Effort / Characteristics Non-Labored Respiratory Depth Normal Respiratory Pattern Regular Blood Pressure 110/71 Blood Pressure Mean 84 Blood Pressure Position Semi-fowlers Pulse Oximetry 97 97 97 Oxygen Delivery Method Nasal Cannula Nasal Cannula Nasal Cannula Oxygen Flow Rate 2 2 2 Sepsis Recent Fever Within 48 Hours Yes Sepsis New/Unexplained Change in Mental Status No Sepsis Action Taken by Nursing No Action Required 05/27/22 07:30 05/27/22 07:45 05/27/22 08:00 Temperature Temperature Source Pulse Rate 86 75 74 Pulse Rate from SpO2 Sensor 75 74 Pulse Rhythm Pulse Strength Respiratory Rate 28 H 23 30 H Respiratory Effort / Characteristics Respiratory Depth Respiratory Pattern Blood Pressure Blood Pressure Mean Blood Pressure Position Pulse Oximetry 96 98 Oxygen Delivery Method Nasal Cannula Nasal Cannula Oxygen Flow Rate 2 2 Sepsis Recent Fever Within 48 Hours Sepsis New/Unexplained Change in Mental Status Sepsis Action Taken by Nursing 05/27/22 08:15 05/27/22 08:19 05/27/22 08:19 Temperature Temperature Source Pulse Rate 78 69 Pulse Rate from SpO2 Sensor 79 70 Pulse Rhythm Pulse Strength Respiratory Rate 24 30 H Respiratory Effort / Characteristics Respiratory Depth Respiratory Pattern Blood Pressure 103/70 Blood Pressure Mean 81 Blood Pressure Position Pulse Oximetry 99 98 Oxygen Delivery Method Nasal Cannula Nasal Cannula Oxygen Flow Rate 2 2 Sepsis Recent Fever Within 48 Hours Sepsis New/Unexplained Change in Mental Status Sepsis Action Taken by Nursing 05/27/22 08:30 05/27/22 08:30 05/27/22 08:45 Temperature Temperature Source Pulse Rate 64 71 Pulse Rate from SpO2 Sensor 64 71 Pulse Rhythm Pulse Strength Respiratory Rate 23 26 H Respiratory Effort / Characteristics Respiratory Depth Respiratory Pattern Blood Pressure 102/71 Blood Pressure Mean 81 Blood Pressure Position Pulse Oximetry 98 98 Oxygen Delivery Method Nasal Cannula Nasal Cannula Oxygen Flow Rate 2 2 Sepsis Recent Fever Within 48 Hours Sepsis New/Unexplained Change in Mental Status Sepsis Action Taken by Nursing 05/27/22 08:46 05/27/22 08:46 05/27/22 09:00 Temperature Temperature Source Pulse Rate 70 Pulse Rate from SpO2 Sensor 71 Pulse Rhythm Pulse Strength Respiratory Rate 31 H Respiratory Effort / Characteristics Respiratory Depth Respiratory Pattern Blood Pressure 106/74 106/71 Blood Pressure Mean 84 82 Blood Pressure Position Pulse Oximetry 98 Oxygen Delivery Method Nasal Cannula Oxygen Flow Rate 2 Sepsis Recent Fever Within 48 Hours Sepsis New/Unexplained Change in Mental Status Sepsis Action Taken by Nursing 05/27/22 09:00 05/27/22 09:15 05/27/22 09:15 Temperature Temperature Source Pulse Rate 74 60 Pulse Rate from SpO2 Sensor 73 60 Pulse Rhythm Pulse Strength Respiratory Rate 22 23 Respiratory Effort / Characteristics Respiratory Depth Respiratory Pattern Blood Pressure 104/68 Blood Pressure Mean 80 Blood Pressure Position Pulse Oximetry 97 99 Oxygen Delivery Method Nasal Cannula Nasal Cannula Oxygen Flow Rate 2 2 Sepsis Recent Fever Within 48 Hours Sepsis New/Unexplained Change in Mental Status Sepsis Action Taken by Nursing 05/27/22 09:30 05/27/22 09:30 05/27/22 09:45 Temperature Temperature Source Pulse Rate 61 Pulse Rate from SpO2 Sensor 58 L Pulse Rhythm Pulse Strength Respiratory Rate 21 Respiratory Effort / Characteristics Respiratory Depth Respiratory Pattern Blood Pressure 106/66 109/65 Blood Pressure Mean 79 79 Blood Pressure Position Pulse Oximetry 100 Oxygen Delivery Method Nasal Cannula Oxygen Flow Rate 2 Sepsis Recent Fever Within 48 Hours Sepsis New/Unexplained Change in Mental Status Sepsis Action Taken by Nursing 05/27/22 09:45 05/27/22 10:00 05/27/22 10:00 Temperature Temperature Source Pulse Rate 56 L 67 Pulse Rate from SpO2 Sensor 56 L 66 Pulse Rhythm Pulse Strength Respiratory Rate 22 25 H Respiratory Effort / Characteristics Respiratory Depth Respiratory Pattern Blood Pressure 107/72 Blood Pressure Mean 83 Blood Pressure Position Pulse Oximetry 100 99 Oxygen Delivery Method Nasal Cannula Nasal Cannula Oxygen Flow Rate 2 2 Sepsis Recent Fever Within 48 Hours Sepsis New/Unexplained Change in Mental Status Sepsis Action Taken by Nursing Laboratory Data Result diagrams: 05/27/22 07:40 05/27/22 07:40 Lab Results 05/27/22 05/27/22 05/27/22 Range/Units 07:40 07:40 07:40 WBC 4.62 L (4.8-10.8) K/ul RBC 4.15 L (4.63-6.08) M/uL Hgb 12.2 L (14.0-18.0) g/dl Hct 34.7 L (40.1-51.0) % MCV 83.6 (80.0-100.0) fL MCH 29.4 (25.0-34.0) pg MCHC 35.2 (32.0-36.0) g/dL RDW Std Deviation 40.4 (36.4-46.3) fL RDW Coeff of John 13.2 (11.5-14.5) % Plt Count 76 L (130-400) K/uL MPV 9.6 (9.4-12.4) fL Immature Gran % (Auto) 0.2 % Neut % (Auto) 84.4 % Lymph % (Auto) 9.3 % [place] % (Auto) 6.1 % Eos % (Auto) 0.0 % Baso % (Auto) 0.0 % Neut # (Auto) 3.90 (1.4-6.5) K/uL Lymph # (Auto) 0.43 L (1.2-3.4) K/uL [place] # (Auto) 0.28 (0.24-0.82) K/uL Eos # (Auto) 0.00 (0-0.50) K/uL Baso # (Auto) 0.00 (0-0.2) K/uL Immature Gran # (Auto) 0.01 (0.00-0.02) K/uL PT (9.0-12.0) Seconds INR (0.9-1.1) Sodium 127 L (136-145) mmol/L Potassium 4.0 (3.5-5.1) mmol/L Chloride 93 L (98-107) mmol/L Carbon Dioxide 28 (21-32) mmol/L Anion Gap 6 (3-11) BUN 9 (6-23) mg/dl Creatinine 0.73 (0.6-1.4) mg/dl Est Cr Clr Drug Dosing 104.4 ml/min Est GFR ( Amer) 119.3 ml/min Est GFR (Non-Af Amer) 103.0 ml/min BUN/Creatinine Ratio 12.3 (10-20) Glucose 87 (70-99(Fasting)) mg/dl Lactate 0.7 (0.4-2.0) mmol/L Calcium 8.4 L (8.5-10.1) mg/dl Magnesium 1.8 (1.7-2.4) mg/dl Total Bilirubin 0.9 (0.2-1.0) mg/dl Direct Bilirubin 0.2 (0-0.2) mg/dl AST 22 (13-39) U/L ALT 19 (7-52) U/L Alkaline Phosphatase 102 (34-104) U/L Troponin I High Sens 7.4 (0-20) pg/ml Total Protein 6.4 (6.0-8.3) gm/dl Albumin 3.6 (3.4-5.0) gm/dl Procalcitonin (0-0.5) ng/ml SARS-CoV-2 (PCR) (Negative) Influenza Type A (PCR) (Neg) Influenza Type B (PCR) (Neg) RSV (RT-PCR) (Neg) 05/27/22 05/27/22 05/27/22 Range/Units 07:40 07:40 07:50 WBC (4.8-10.8) K/ul RBC (4.63-6.08) M/uL Hgb (14.0-18.0) g/dl Hct (40.1-51.0) % MCV (80.0-100.0) fL MCH (25.0-34.0) pg MCHC (32.0-36.0) g/dL RDW Std Deviation (36.4-46.3) fL RDW Coeff of John (11.5-14.5) % Plt Count (130-400) K/uL MPV (9.4-12.4) fL Immature Gran % (Auto) % Neut % (Auto) % Lymph % (Auto) % [place] % (Auto) % Eos % (Auto) % Baso % (Auto) % Neut # (Auto) (1.4-6.5) K/uL Lymph # (Auto) (1.2-3.4) K/uL [place] # (Auto) (0.24-0.82) K/uL Eos # (Auto) (0-0.50) K/uL Baso # (Auto) (0-0.2) K/uL Immature Gran # (Auto) (0.00-0.02) K/uL PT 12.5 H (9.0-12.0) Seconds INR 1.2 H (0.9-1.1) Sodium (136-145) mmol/L Potassium (3.5-5.1) mmol/L Chloride (98-107) mmol/L Carbon Dioxide (21-32) mmol/L Anion Gap (3-11) BUN (6-23) mg/dl Creatinine (0.6-1.4) mg/dl Est Cr Clr Drug Dosing ml/min Est GFR ( Amer) ml/min Est GFR (Non-Af Amer) ml/min BUN/Creatinine Ratio (10-20) Glucose (70-99(Fasting)) mg/dl Lactate (0.4-2.0) mmol/L Calcium (8.5-10.1) mg/dl Magnesium (1.7-2.4) mg/dl Total Bilirubin (0.2-1.0) mg/dl Direct Bilirubin (0-0.2) mg/dl AST (13-39) U/L ALT (7-52) U/L Alkaline Phosphatase (34-104) U/L Troponin I High Sens (0-20) pg/ml Total Protein (6.0-8.3) gm/dl Albumin (3.4-5.0) gm/dl Procalcitonin < 0.05 (0-0.5) ng/ml SARS-CoV-2 (PCR) NEGATIVE (Negative) Influenza Type A (PCR) Negative (Neg) Influenza Type B (PCR) Negative (Neg) RSV (RT-PCR) Negative (Neg) Administered Medications Cefepime HCl 2,000 mg/ Syringe 20 mls @ 5 mls/min IV Q12H JEN; Protocol Stop: 06/03/22 10:29 Last Admin: 05/27/22 12:38 Dose: Not Given Documented By: MICAELA Discontinued Medications Cefepime HCl (Maxipime) 2,000 mg in 20 mls @ 5 mls/min IV NOW STA; Protocol Stop: 05/27/22 07:34 Last Admin: 05/27/22 08:51 Dose: 5 mls/min Documented By: MICAELA Sodium Chloride (Nss 1000ml) 2,000 mls @ 999 mls/hr IV .Q2H1M ONE Stop: 05/27/22 09:32 Last Infusion: 05/27/22 11:00 Dose: 0 mls/hr Documented By: Admin: 05/27/22 08:51 Dose: 999 mls/hr Documented By: MICAELA Daptomycin 400 mg/ Syringe 8 mls @ 4 mls/min IV Q24H JEN; Protocol Stop: 05/29/22 08:14 Last Admin: 05/27/22 08:51 Dose: 4 mls/min Documented By: MICAELA Imaging Data Radiologist's Impression: Chest X-Ray 05/27/22 07:31 XR chest 1V portable HISTORY: 56 years-old Male Sepsis acute sepsis COMPARISON: PET CT 09/24/2021, chest radiograph 11/08/2020 TECHNIQUE: AP view of the chest FINDINGS: A left pectoral [id number] catheter is again noted with distal tip in the expected location of the mid SVC. Cardiac silhouette is normal. No pneumothorax, pleural effusion or overt pulmonary edema. Upper lung zone prominent pulmonary fibrosis with superior elevation/retraction of the keerthi again noted. Bones appear grossly intact. Surgical clips in the right supraclavicular tissues. IMPRESSION: 1. No acute processes of the chest. 2. Upper lung zone fibrosis with superior elevation of the keerthi again noted. ACT 112: Negative or not required by law. The above report was generated using voice recognition software. It may contain grammatical, syntax or spelling errors. Electronically signed by: Kevin Wick M.D. 05/27/2022 8:50 AM Discharge Plan Visit Data Chief Complaint: Infection, Wound ED Provider: Savage Jewell Discharge Problem: Cellulitis, Hypogammaglobulinemia, Immunocompromised, Leukopenia, Thrombocytopenia Discharge Instructions Interventions: ED Discharge Assessment Last Done: 05/27/22 12:21
[2022-05-27] MEDS ORDERED: DAPTOmycin 400 MG in SYRINGE 0 ML IV SCH (08:15)
[2022-05-27 08:18] LABS: INR 1.2 (0.9-1.1); Prothrombin Time 12.5 Seconds (9.0-12.0)
[2022-05-27 08:19] LABS: Hematocrit (blood only) 34.7 % (40.1-51.0); Hemoglobin 12.2 g/dl (14.0-18.0); Mean Corpuscular Hemoglobin 29.4 pg (25.0-34.0); Mean Corpuscular Hgb Conc 35.2 g/dL (32.0-36.0); Mean Corpuscular Volume 83.6 fL (80.0-100.0); Mean Platelet Volume 9.6 fL (9.4-12.4); Platelet Count 76 K/uL (130-400); RDW Coefficient of Variation 13.2 % (11.5-14.5); RDW Standard Deviation 40.4 fL (36.4-46.3); Red Blood Count 4.15 M/uL (4.63-6.08); White Blood Count 4.62 K/ul (4.8-10.8)
[2022-05-27 08:22] LABS: Albumin Level 3.6 gm/dl (3.4-5.0); BUN Creatinine Ratio 12.3 (10-20); Bilirubin Direct 0.2 mg/dl (0-0.2); Bilirubin,Total 0.9 mg/dl (0.2-1.0); Calcium 8.4 mg/dl (8.5-10.1); Creatinine Clr Calc Pharmacy 104.4 ml/min; Est GFR (African American) 119.3 ml/min; Magnesium 1.8 mg/dl (1.7-2.4); Total Protein 6.4 gm/dl (6.0-8.3)
[2022-05-27 08:24] LABS: Troponin I High Sensitivity 7.4 pg/ml (0-20)
[2022-05-27 08:34] LABS: Immature Granulocytes # (auto) 0.01 K/uL (0.00-0.02); Immature Granulocytes % (auto) 0.2 %; Lymphocytes # (auto) 0.43 K/uL (1.2-3.4); Lymphocytes % (auto) 9.3 %; Monocytes # (auto) 0.28 K/uL (0.24-0.82); Monocytes % (auto) 6.1 %; Neutrophils % (auto) 84.4 %
[2022-05-27 08:42] LABS: Influenza A virus by PCR Negative (Neg); Influenza B virus by PCR Negative (Neg); RSV by PCR Negative (Neg); SARS CoV2 RNA(COVID-19) Ceph NEGATIVE (Negative)
--- NOTE | 2022-05-27 08:51 | XRay Report ---
XR chest 1V portable HISTORY: 56 years-old Male Sepsis acute sepsis COMPARISON: PET CT 09/24/2021, chest radiograph 11/08/2020 TECHNIQUE: AP view of the chest FINDINGS: A left pectoral Vmyguq-u-Rjuj catheter is again noted with distal tip in the expected location of the mid SVC. Cardiac silhouette is normal. No pneumothorax, pleural effusion or overt pulmonary edema. U pper lung zone prominent pulmonary fibrosis with superior elevation/retraction of the keerthi again note d. Bones appear grossly intact. Surgical clips in the right supraclavicular tissues. IMPRESSION: 1. No acute processes of the chest. 2. Upper lung zone fibrosis with superior elevation of the keerthi again noted. ACT 112: Negative or not required by law. The above report was generated using voice recognition software. It may contain grammatical, syntax o r spelling errors. Electronically signed by: Kevin Wick M.D. 05/27/2022 8:50 AM
[2022-05-27] MEDS ORDERED: ALBUT/IPRATROP 3MG/0.5MG NEB 3 ML VIAL INH PRN (10:17)
[2022-05-27] MEDS ORDERED: LEVALBUTEROL TARTRATE 15 GM HFA.AER.AD INH PRN (10:17)
[2022-05-27] MEDS ORDERED: VANCOMYCIN CONSULT ACTIVE PRN (10:19)
--- NOTE | 2022-05-27 10:26 | History & Physical Report ---
Date of Service May 27, 2022 Assessment & Plan (1) Cellulitis of lower extremity: Plan: 56-year-old immunocompromise male presenting with worsening LEFT lower extremity cellulitis with failed outpatient management requiring aggressive IV antibiotics and ongoing evaluation and management of worsening LEFT lower extremity cellulitis. * Patient had been on Dalvance as well as clindamycin in the outpatient setting. * Received IV daptomycin and cefepime in the emergency department -in conversation with clinical pharmacist, will change to vancomycin with cefepime. In reality, the patient probably warrants an ID consult given his complex immunodeficiency state and need for aggressive antibiotic management. We will wait until we get input from the patient's cogeneration technician as well. * Given the location and intensity of the patient's cellulitis, will obtain radiographs of the affected lower extremity to evaluate for possible underlying osteomyelitis or other bony involvement. * Patient CRP is elevated, but thankfully procalcitonin and lactate are well within normal limits. * Appreciate Immunology consultation given patient's underlying immunodeficiency state and need for monthly IVIG infusions. (2) Failure of outpatient treatment: Plan: See above (3) Hyponatremia: Plan: Likely hypovolemic hyponatremia. Sodium 127 is of little concern currently. Will recheck after patient received 2L NSS. (4) Thrombocytopenia: Plan: Chronic. Continue to monitor. Hold anticoagulation for now. (5) Common variable immunodeficiency: Plan: Follows with immunology. (6) Hypoxia: Plan: Remains on 2L NC at baseline. (7) CMV (cytomegalovirus infection): Plan: Continue w/ home Rx treatments as previously prescribed. (8) COPD (chronic obstructive pulmonary disease): Plan: Remains on 2L NC. Continue home inhalers/nebulizers. Appears as well as can be expected currently. (9) Hypogammaglobulinemia: Plan: Follows with immunology. (10) Immunocompromised: Plan: Follows with immunology. (11) H/O lymphoma: Plan: Reportedly in remission. History of Present Illness Chief Complaint: Cellulitis Primary Care Provider: [facility] Patient is a 56-year-old male with extensive past medical history including common variable immunodeficiency/hypogammaglobulinemia, CVM pneumonia, lymphoma, COPD, cirrhosis with esophageal varices, history of fungal pneumonia, and recent history of recurrent cellulitis. Patient was seen in this institution on the of last month for cellulitis of the LEFT lower extremity. He was started on Dalvance in the outpatient and reports that he had been doing fairly well, but reports that his symptoms worsened and he was placed on oral clindamycin. Despite these medication combinations, his symptoms have worsened and he developed a fever today which prompted them transferring the patient to the hospital. Patient was noted to have a worsening cellulitis upon evaluation in the emergency department. He was started on daptomycin and cefepime. Patient noted to have low-grade fever. He complains of pain to the LEFT-sided foot and ankle, but otherwise offers no other complaints at this time. Allergies Allergy/AdvReac Type Severity Reaction Status Date / Time sulfamethoxazole Allergy Mild RASH/BLEEDI Verified 04/27/22 08:47 NG trimethoprim Allergy Mild RASH/BLEEDI Verified 04/27/22 08:47 NG Home Medications Medication Instructions Recorded Confirmed Type Lactobacillus acidophilus 1 0 mmu cells PO TID 05/27/22 05/27/22 History billion cell tablet acetaminophen 325 mg tablet 325 mg PO TID PRN Pain 05/27/22 05/27/22 History (Tylenol) ascorbic acid (vitamin C) 500 mg 500 mg PO BID 05/27/22 05/27/22 History tablet (Vitamin C) atovaquone 750 mg/5 mL oral 10 mg PO DAILY 05/27/22 05/27/22 History suspension carbidopa ER 50 mg-levodopa 200 mg 1 tab PO BID 05/27/22 05/27/22 History tablet,extended release carboxymethylcellulose sodium 0.5 1 drp ophthalmic (eye) TID 05/27/22 05/27/22 History % eye drops (Refresh Tears) carvedilol 6.25 mg tablet 6.25 mg PO BID 05/27/22 05/27/22 History cholestyramine (with sugar) 4 gram 4 g PO BID 05/27/22 05/27/22 History powder for susp in a packet diphenhydramine HCl 50 mg/mL 50 mg IV DIRECTED 05/27/22 05/27/22 History injection solution folic acid 1 mg tablet 1 mg PO DAILY 05/27/22 05/27/22 History ipratropium 0.5 mg-albuterol 3 mg 3 ml inhalation QID PRN Shortness 05/27/22 05/27/22 History (2.5 mg base)/3 mL nebulization Of Breath Or Wheezing soln multivit,tx w/iron (hematinic) 1 tab PO DAILY 05/27/22 05/27/22 History ondansetron HCl 4 mg tablet 8 mg PO TID PRN Nausea 05/27/22 05/27/22 History pantoprazole 40 mg tablet,delayed 40 mg PO DAILY 05/27/22 05/27/22 History release paroxetine HCl 20 mg tablet (Paxil) 20 mg PO DAILY 05/27/22 05/27/22 History saliva stimulant comb. no.3 2 spray mucous membrane TID PRN 05/27/22 05/27/22 History (Biotene Moisturizing Mouth Dry Mouth mucosal spray) sodium chloride 0.65 % nasal spray 1 spray intranasal BID 05/27/22 05/27/22 History aerosol ([place] Saline) clonidine HCl 0.1 mg tablet 0.2 mg PO BID #10 tabs 06/01/22 Rx doxycycline hyclate 100 mg capsule 100 mg PO BID 7 days #14 caps 06/01/22 Rx levofloxacin 750 mg tablet 750 mg PO DAILY 7 days #7 tabs 06/01/22 Rx Past Med/Surg History Medical History Asthma Autoimmune hepatitis (02/25/13) Bronchiectasis Common variable immunodeficiency COVID-19 in immunocompromised patient Second episode of COVID-19 in 90 days with 2 negative tests in between Pneumonia due to 2019 novel coronavirus (~04/2020) Thrombocytopenia Surgical History Hx of colonoscopy Port-A-Cath in place (07/05/19) Insertion Of Mediport With Fluoroscopy Dr. Huang 07-05-19 Family History Other Family history non-contributory Social History Smoking Status: Former smoker Tobacco Type: Cigarettes Second Hand Exposure: No; Hx Alcohol Use: No Hx Substance Use: No Preferred Language: Trinidadian Communication Ability: Effective Wind Farm Support Specialist Required: No Beliefs That Will Affect Care: None marital status: Single Current Living Situation: Other Current Living Situation Comment: lives in assisted Feels Safe at Home: Yes Assistive Devices: Oxygen - Continuous Review of Systems Review of Systems: A complete 10 point review of systems was reviewed with the patient with pertinent positives and negatives as per history of present illness. All else were negative. Physical Exam Physical Exam: VITAL SIGNS - Vital signs and nursing notes were reviewed. GENERAL - 56-year-old male appearing his stated age who is in no acute distress. Communicates well with provider and answers questions appropriately. SKIN - Circumferential erythema, edema, and warmth to touch noted on the LEFT lower extremity extending from the foot to just below the knee. Tender to palpation. No crepitus or blistering. HEAD - NC/AT. EYES - PERRL with EOMI bilaterally. Sclera anicteric. EARS - No deformities of external structures noted on gross examination bilaterally. NOSE - Midline and without cyanosis. No epistaxis or purulent drainage noted. MOUTH/OROPHARYNX - Without perioral cyanosis. Buccal mucosa pink and moist and without leukoplakia. T NECK - Neck with FROM. No nuchal rigidity. LUNGS - Chest wall symmetric without accessory muscle use, intercostals retractions, or central cyanosis. Normal vesicular breath sounds CTA B/L. No wheezes, rales, or rhonchi appreciated. CARDIAC - RRR with S1/S2. No murmur, rubs, or gallops appreciated. ABDOMEN - Abdominal contour flat without pulsations or visible masses. BS normoactive all four quadrants. No tenderness, palpable masses, hepatosplenomegaly, or ascites noted. EXTREMITIES - Cellulitis of the LLE as described above. No clubbing or peripheral cyanosis. +3/5 radial and dorsalis pedis pulses palpated throughout. +5/5 strength noted in UE/LE bilaterally. NEUROLOGIC - Cranial nerves II through XII grossly intact. Sensory intact to light touch throughout. PSYCH - A&Ox3 and cooperates fully with examiner. Pt is very pleasant and interacts well with examiner. Results & Data Results & Data ([facility]) Vital Signs (Past 12 Hours) Vital Signs Temp Pulse Resp BP Pulse Ox O2 Del Method O2 Flow Rate 05/27/22 08:46 70 31 H 98 Nasal Cannula 2 05/27/22 08:46 106/74 05/27/22 08:45 71 26 H 98 Nasal Cannula 2 05/27/22 08:30 64 23 98 Nasal Cannula 2 05/27/22 08:30 102/71 05/27/22 08:19 69 30 H 98 Nasal Cannula 2 05/27/22 08:19 103/70 05/27/22 08:15 78 24 99 Nasal Cannula 2 05/27/22 08:00 74 30 H 98 Nasal Cannula 2 05/27/22 07:45 75 23 96 Nasal Cannula 2 05/27/22 07:30 86 28 H 05/27/22 07:27 80 29 H 97 Nasal Cannula 2 05/27/22 07:30 97 Nasal Cannula 2 05/27/22 07:15 37.9 C H 87 20 110/71 97 Nasal Cannula 2 Code Status & VTE Plan VTE Prophylaxis Plan VTE Prophylaxis will be ordered: No Reason for no VTE drug order: Contraindicated Supervising Physician Co-Signing Physician Notes Patient seen and examined at bedside. I obtained a history and physical examination during face to face encounter. I reviewed above note and agree with it. I discussed plan of care with patient and APC Ale Patient admitted for cellulitis, will place on IV antibiotics. PG Care Time/CCT Total # of Minutes Spent Total Time Spent with Patient: Total time spent is greater than 50% in coordination of care (as documented) at patient's floor/unit and/or counseling patient: Coding Level of Care Code 26543 Initial Inpt Care Lvl 3 Diagnoses Cellulitis of lower extremity L03.119 Failure of outpatient treatment Z78.9 Hyponatremia E87.1 Thrombocytopenia D69.6 Common variable immunodeficiency D83.9 Hypoxia R09.02 CMV (cytomegalovirus infection) B25.9 COPD (chronic obstructive pulmonary disease) J44.1 COPD type: COPD with acute exacerbation Hypogammaglobulinemia D80.1 Immunocompromised D84.9 H/O lymphoma Z85.79 Time Spent (min) 45 (1) COPD (chronic obstructive pulmonary disease) COPD type: COPD with acute exacerbation Qualified Code(s): J44.1 - Chronic obstructive pulmonary disease with (acute) exacerbation
[2022-05-27] MEDS ORDERED: UMECLIDINIUM/VILANTEROL 62.5/25MCG 7 PUFFS/INHALER INH SCH (10:30)
[2022-05-27] MEDS ORDERED: NON-FORMULARY MEDICATION (Dextromethorphan-Guaifenesin [Mucinex Dm] 60-1,200 mg Tablet Ext PO SCH (10:30)
[2022-05-27] MEDS ORDERED: NON-FORMULARY MEDICATION (Saliva Stimulant Comb. No.3 [Biotene Moisturizing Mouth] Spray,N MUCOUS MEMBRANE SCH (10:30)
[2022-05-27] MEDS ORDERED: CEFEPIME 2,000 MG in SYRINGE 0 ML IV SCH (10:30)
[2022-05-27 10:37] LABS: Appearance Urine Clear (Clear); Bilirubin Urine Negative (Negative); Blood Urine Negative (Negative); Color Urine Yellow; Glucose Urine UA Negative (Negative); Ketones Urine Negative (Negative); Leukocyte Esterase Urine Negative (Negative); Nitrite Urine Negative (Negative); Protein Urine Negative (Negative); Specific Gravity Urine 1.014 (1.000-1.030); Urobilinogen Urine Negative (Negative)
--- NOTE | 2022-05-27 10:50 | XRay Report ---
XR tibia fibula LT 2V CLINICAL HISTORY: worsening left lower leg cellulitis COMPARISON STUDY: None. FINDINGS: No fracture or dislocation within the left tibia or fibula. No erosive changes to suggest a n osteomyelitis. No radiopaque foreign bodies. Mild subcutaneous edema/swelling within the mid to low er leg IMPRESSION: 1. Mild subcutaneous edema/swelling within the mid to distal left lower leg. 2. No underlying bony abnormality. ACT 112: Negative or not required by law. Electronically signed by: Ramses Valle M.D. 05/27/2022 10:49 AM
--- NOTE | 2022-05-27 10:53 | XRay Report ---
XR foot LT 2V CLINICAL HISTORY: worsening cellulitis, pain/fever COMPARISON: None FINDINGS: Alignment of the left foot is anatomic. Tarsometatarsal joints are intact. There is no fra cture. There is no evidence for acute osteomyelitis. Mild osteoarthritis of the left first metatarsop halangeal joint. Dorsal soft tissue swelling of the foot is noted. IMPRESSION: 1. No acute fracture. No evidence for acute osteomyelitis within the left foot. 2. Dorsal foot soft tissue swelling. ACT 112: Negative or not required by law. Electronically signed by: Rene Msea M.D. 05/27/2022 10:52 AM
[2022-05-27] MEDS ORDERED: ONDANSETRON 8MG OD TAB PO PRN (13:04)
[2022-05-27] MEDS ORDERED: VANCOMYCIN HCL 1,250 MG in SODIUM CHLORIDE 0.9% 250 ML IV ONE (13:30)
[2022-05-27] MEDS ORDERED: VANCOMYCIN HCL 1,250 MG in SODIUM CHLORIDE 0.9% 500 ML IV ONE (13:30)
--- NOTE | 2022-05-27 13:31 | Pharmacy Report ---
Pharmacy PK ABX Note - Date of Service May 27, 2022 - Assessment and Plan Assessment * 56 year old M receiving cefepime and vancomycin for treatment of recurrent cellulitis * PMH: CVID/hypogammaglobulinemia, CMV and fungal pneumonias, lymphoma, COPD, cirrhosis with esophageal varices, * HPI: received dalbavancin on 05/16 in the ED. Had been doing fairly well, but then symptoms worsened and was started on clindamycin. Reported to ED again 05/27 2nd fever * SCr at/near baseline Plan Vancomycin * Loading dose: 1250 mg IV x 1 * Maintenance dose: 1000 mg IV every 12 hours * Regimen is predicted to achieve target AUC/KAHLIL of 400-600 mg/L.hr * Random level ordered for: 05/29/22 Pharmacy will continue to follow and will adjust dose/frequency as necessary. Thank you. Pharmacy has transitioned to AUC monitoring for vancomycin. AUC/KAHLIL is the preferred PK/PD target and is associated with decreased risk of nephrotoxicity compared to traditional trough targets.
--- NOTE | 2022-05-27 14:21 | Electrocardiogram Report ---
Test Reason : Blood Pressure : / mmHG Vent. Rate : 085 BPM Atrial Rate : 085 BPM P-R Int : 158 ms QRS Dur : 076 ms QT Int : 386 ms P-R-T Axes : 045 052 051 degrees QTc Int : 459 ms Poor data quality, interpretation may be adversely affected Normal sinus rhythm Normal ECG When compared with ECG of 16-MAY-2022 08:56, No significant change was found Confirmed by Jeffrey Richey ([id number]) on 05/27/2022 2:20:55 PM Referred By: [facility] Confirmed By:Jeffrey Richey
[2022-05-27] MEDS: ACETAMINOPHEN 325 MG TAB PO PRN (17:47)
[2022-05-27] MEDS: ADVANCED PROBIOTIC 1250 MG CAPSULE PO SCH ×2 (17:47→22:23)
[2022-05-27] MEDS: FIRST - Mouthwash BLM 119 ML PO SCH ×2 (17:48→22:46)
--- NOTE | 2022-05-27 18:32 | Allergy & Immunology Consult ---
Date of Consultation May 27, 2022 Assessment & Plan (1) Common variable immunodeficiency: Patient presents with left lower extremity cellulitis that has been worsening despite oral antibiotics. Patient is susceptible to developing osteomyelitis in this should be considered. The combination of vancomycin plus cefepime should cover most of the bacteria to which patients with common variable are susceptible. Today it seems that the cellulitis is slightly better based on the margins that were drawn yesterday. However, he had some worsening foot swelling. His last fever was yesterday evening. If the cellulitis fails to respond to the current regimen, there are a few considerations that would be specific to common variable. There are a few atypical bacteria that may present in common variable patients with septic arthritis, specifically Ureaplasma and mycoplasma. It is not clear whether these can also cause tissue infections versus joint infections, but will be a consideration. In addition, this patient has had chronically low lymphocyte counts with a low CD4 count, and this does make him prone to opportunistic infections similar to what would be seen in AIDS. His CD4 count has been low as 50 cells/mcl, though this was in the setting of COVID-19. Given his current lymphocyte count of 400 cells/mcl, I would estimate his CD4 count to be approximately 200 cells/mcl. Pneumocystis has been described to cause extrapulmonary infections in common variable, particularly patients who may also have a lymphopenia. It would be helpful to check an IgG level during this admission. He is 3+ weeks out from his last infusion and may require a dose of IVIG while in hospital. This would be unlikely to improve his current infection, but will be necessary to prevent further infections. I would also recommend infectious disease input. (2) Cellulitis: (3) Leukopenia: History of Present Illness Attending Physician: Donell Stevens History of Present Illness This is a 56-year-old male with history of common variable immunodeficiency, history of lymphoma, persistent lymphopenia presents with worsening left lower extremity cellulitis that has not responded to outpatient treatment. He was seen at [facility] on May 16 for the cellulitis and started on Dalvance. Things were going relatively well, but then his symptoms started to worsen and so he was placed on oral clindamycin. Despite this, the cellulitis is worsened and he developed a fever which prompted admission to the hospital. In hospital he was given daptomycin and cefepime, then vancomycin. He says that the cellulitis started on the back of his leg, right above the Achilles tendon and it spread around to the posterior aspect of his ankle, top of the foot, and then 3/4 up to the king. With each of the courses of antibiotics, he did see some improvement, but then symptoms worsened. He feels as though it is primarily the tissue that is swollen, and does not feel that the ankle joint itself is affected. Since getting the IV antibiotics, he does feel as though his symptoms are slightly improving, though the edema of the left foot initially improved, but then worsened again overnight. His last fever was yesterday with a T-max of 39.5C. Allergies Allergy/AdvReac Type Severity Reaction Status Date / Time sulfamethoxazole Allergy Mild RASH/BLEEDI Verified 04/27/22 08:47 NG trimethoprim Allergy Mild RASH/BLEEDI Verified 04/27/22 08:47 NG Home Medications Medication Instructions Recorded Confirmed Type Clindamycin 600mg/50ml 1,000 mg IV TID 05/27/22 05/27/22 History Decadron Sdv 20 mg IV DIRECTED 05/27/22 05/27/22 History Gammagard 40gm/400ml 40 g IV DIRECTED 05/27/22 05/27/22 History Lactobacillus acidophilus 1 0 mmu cells PO TID 05/27/22 05/27/22 History billion cell tablet Magic Mouth Wash 5 ml PO QID 05/27/22 05/27/22 History acetaminophen 325 mg tablet 325 mg PO TID PRN Pain 05/27/22 05/27/22 History (Tylenol) ascorbic acid (vitamin C) 500 mg 500 mg PO BID 05/27/22 05/27/22 History tablet (Vitamin C) atovaquone 750 mg/5 mL oral 10 mg PO DAILY 05/27/22 05/27/22 History suspension carbidopa ER 50 mg-levodopa 200 mg 1 tab PO BID 05/27/22 05/27/22 History tablet,extended release carboxymethylcellulose sodium 0.5 1 drp ophthalmic (eye) TID 05/27/22 05/27/22 History % eye drops (Refresh Tears) carvedilol 6.25 mg tablet 6.25 mg PO BID 05/27/22 05/27/22 History cholestyramine (with sugar) 4 gram 4 g PO BID 05/27/22 05/27/22 History powder for susp in a packet diphenhydramine HCl 50 mg/mL 50 mg IV DIRECTED 05/27/22 05/27/22 History injection solution folic acid 1 mg tablet 1 mg PO DAILY 05/27/22 05/27/22 History ipratropium 0.5 mg-albuterol 3 mg 3 ml inhalation QID PRN Shortness 05/27/22 05/27/22 History (2.5 mg base)/3 mL nebulization Of Breath Or Wheezing soln multivit,tx w/iron (hematinic) 1 tab PO DAILY 05/27/22 05/27/22 History ondansetron HCl 4 mg tablet 8 mg PO TID PRN Nausea 05/27/22 05/27/22 History pantoprazole 40 mg tablet,delayed 40 mg PO DAILY 05/27/22 05/27/22 History release paroxetine HCl 20 mg tablet (Paxil) 20 mg PO DAILY 05/27/22 05/27/22 History saliva stimulant comb. no.3 2 spray mucous membrane TID PRN 05/27/22 05/27/22 History (Biotene Moisturizing Mouth Dry Mouth mucosal spray) sodium chloride 0.65 % nasal spray 1 spray intranasal BID 05/27/22 05/27/22 History aerosol ([place] Saline) Patient History Medical History Asthma Autoimmune hepatitis (02/25/13) Bronchiectasis Common variable immunodeficiency COVID-19 in immunocompromised patient Second episode of COVID-19 in 90 days with 2 negative tests in between Pneumonia due to 2019 novel coronavirus (~04/2020) Thrombocytopenia Surgical History Hx of colonoscopy Port-A-Cath in place (07/05/19) Insertion Of Mediport With Fluoroscopy Dr. Huang 07-05-19 Family History Other Family history non-contributory Social History Smoking Status: Former smoker Tobacco Type: Cigarettes Second Hand Exposure: No; Hx Alcohol Use: No Hx Substance Use: No Preferred Language: Chinese Communication Ability: Effective Chiropractic Neurologist Required: No Beliefs That Will Affect Care: None marital status: Single Current Living Situation: Other Current Living Situation Comment: lives in halfway Feels Safe at Home: Yes Assistive Devices: Oxygen - Continuous Review of Systems Constitutional: + fever; no chills Eyes: as per Subjective / HPI Ear, Nose, Mouth, Throat: as per Subjective / HPI Respiratory: as per Subjective / HPI Cardiovascular: as per Subjective / HPI; no chest pain and no edema Gastrointestinal: as per Subjective / HPI; no abdominal pain Genitourinary: no dysuria Musculoskeletal: as per Subjective / HPI Integumentary: as per Subjective / HPI Neurologic: no gait abnormality, no memory loss and no problem reported Psychiatric: as per Subjective / HPI; no behavioral changes Endocrine: as per Subjective / HPI Hematologic / Lymphatic: as per Subjective / HPI; no easy bleeding Allergy / Immunological: as per Subjective / HPI Physical Exam Eyes: no conjunctival abnormality, no scleral abnormality and sclerae not anicteric ENMT: Nose: no turbinate abnormality, no nasal mucous membrane abnormality, no septum abnormality and no nasal discharge Mouth: no lip abnormality and no oropharynx abnormality Throat: no postnasal drainage Neck: trachea midline, no thyromegaly Respiratory: normal respiratory effort; no respiratory distress Auscultation: no crackles, no rhonchi and no wheezes Cardiovascular: RRR, no murmur, no edema Gastrointestinal (Abdomen): Inspection/Auscultation: abdomen normal to inspection and normal bowel sounds; abdomen not distended Musculoskeletal: Head/Neck/Chest: + head abnormal to inspection and normocephalic Skin: + rash Neurologic: awake Speech / Cognition: normal cognition Motor/Sensory: normal movement Psychiatric: A+Ox3, euthymic affect Results & Data ([facility]) Vital Signs (Past 12 Hours) Vital Signs Temp Pulse Pulse Pulse Resp BP BP 05/27/22 18:20 39.3 C H 98 H 20 134/80 05/27/22 17:48 39.5 C H 62 20 117/65 05/27/22 16:42 89 15 117/65 05/27/22 14:00 69 31 H 05/27/22 14:00 112/76 05/27/22 12:38 59 L 28 H 129/83 05/27/22 12:15 70 18 05/27/22 12:15 129/93 05/27/22 12:00 54 L 24 05/27/22 12:00 113/76 05/27/22 11:45 54 L 24 05/27/22 11:45 109/73 05/27/22 11:30 63 21 05/27/22 11:30 110/78 05/27/22 11:15 61 23 05/27/22 11:15 116/74 05/27/22 11:00 58 L 27 H 05/27/22 11:00 108/73 05/27/22 10:46 103/73 05/27/22 10:46 62 30 H 05/27/22 10:45 66 18 05/27/22 10:30 58 L 23 05/27/22 10:30 108/71 05/27/22 10:16 59 L 26 H 05/27/22 10:16 113/72 05/27/22 10:15 59 L 24 05/27/22 10:00 67 25 H 05/27/22 10:00 107/72 05/27/22 09:45 56 L 22 05/27/22 09:45 109/65 05/27/22 09:30 61 21 05/27/22 09:30 106/66 05/27/22 09:15 60 23 05/27/22 09:15 104/68 05/27/22 09:00 74 22 05/27/22 09:00 106/71 05/27/22 08:46 70 31 H 05/27/22 08:46 106/74 05/27/22 08:45 71 26 H 05/27/22 08:30 64 23 05/27/22 08:30 102/71 05/27/22 08:19 69 30 H 05/27/22 08:19 103/70 05/27/22 08:15 78 24 05/27/22 08:00 74 30 H 05/27/22 07:45 75 23 05/27/22 07:30 86 28 H 05/27/22 07:27 80 29 H 05/27/22 07:30 05/27/22 07:15 37.9 C H 87 20 110/71 Pulse Ox O2 Del Method O2 Flow Rate 05/27/22 18:20 94 Nasal Cannula 2 05/27/22 17:48 95 Nasal Cannula 2 05/27/22 16:42 97 Room Air 05/27/22 14:00 98 Nasal Cannula 2 05/27/22 14:00 05/27/22 12:38 99 Nasal Cannula 2 05/27/22 12:15 96 Nasal Cannula 2 05/27/22 12:15 05/27/22 12:00 100 Nasal Cannula 2 05/27/22 12:00 05/27/22 11:45 99 Nasal Cannula 2 05/27/22 11:45 05/27/22 11:30 99 Nasal Cannula 2 05/27/22 11:30 05/27/22 11:15 100 Nasal Cannula 2 05/27/22 11:15 05/27/22 11:00 100 Nasal Cannula 2 05/27/22 11:00 05/27/22 10:46 05/27/22 10:46 100 Nasal Cannula 2 05/27/22 10:45 100 Nasal Cannula 2 05/27/22 10:30 99 Nasal Cannula 2 05/27/22 10:30 05/27/22 10:16 100 Nasal Cannula 2 05/27/22 10:16 05/27/22 10:15 100 Nasal Cannula 2 05/27/22 10:00 99 Nasal Cannula 2 05/27/22 10:00 05/27/22 09:45 100 Nasal Cannula 2 05/27/22 09:45 05/27/22 09:30 100 Nasal Cannula 2 05/27/22 09:30 05/27/22 09:15 99 Nasal Cannula 2 05/27/22 09:15 05/27/22 09:00 97 Nasal Cannula 2 05/27/22 09:00 05/27/22 08:46 98 Nasal Cannula 2 05/27/22 08:46 05/27/22 08:45 98 Nasal Cannula 2 05/27/22 08:30 98 Nasal Cannula 2 05/27/22 08:30 05/27/22 08:19 98 Nasal Cannula 2 05/27/22 08:19 05/27/22 08:15 99 Nasal Cannula 2 05/27/22 08:00 98 Nasal Cannula 2 05/27/22 07:45 96 Nasal Cannula 2 05/27/22 07:30 05/27/22 07:27 97 Nasal Cannula 2 05/27/22 07:30 97 Nasal Cannula 2 05/27/22 07:15 97 Nasal Cannula 2 Coding Level of Care Code 19451 Inpt Consult Level 4 Diagnoses Common variable immunodeficiency D83.9 Cellulitis L03.119 Laterality: unspecified laterality Site of cellulitis: extremity Site of cellulitis of extremity: lower extremity Leukopenia D72.819 (1) Cellulitis Laterality: unspecified laterality Site of cellulitis: extremity Site of cellulitis of extremity: lower extremity Qualified Code(s): L03.119 - Cellulitis of unspecified part of limb
[2022-05-27] MEDS ORDERED: HYDROmorphone INJ 0.5 MG/0.5 ML SYR IV PRN (20:15)
[2022-05-27] MEDS: DEXTROMETHORPHAN POLYMR COMPLX 60 MG/10 ML UDP PO SCH (22:23)
[2022-05-27] MEDS: VALGANCICLOVIR HCL 450 MG TABLET PO SCH (22:24)
[2022-05-27] MEDS: cloNIDine HCL 0.1 MG TAB PO SCH (22:24)
[2022-05-27] MEDS: carvediloL 6.25 MG TAB PO SCH (22:24)
[2022-05-27] MEDS: guaiFENesin 600 MG TABCR PO SCH (22:24)
[2022-05-27] MEDS: ASCORBIC ACID 500 MG TAB PO SCH (22:24)
[2022-05-27] MEDS: CEFEPIME 2,000 MG in SYRINGE 0 ML IV SCH (22:26)
[2022-05-27] MEDS: SODIUM CHLORIDE 0.65% NA SOLN 45 ML (OCEAN) SCH (22:46)
[2022-05-28] MEDS: VANCOMYCIN HCL 1,000 MG in SODIUM CHLORIDE 0.9% 250 ML IV SCH ×3 (00:06→23:39)
[2022-05-28 07:01] LABS: Creatinine Clr Calc Pharmacy 95.2 ml/min; Est GFR (African American) 114.9 ml/min; Est GFR (Non-African American) 99.2 ml/min
[2022-05-28] MEDS: ATOVAQUONE 750 MG/5 ML UDC PO SCH (07:42)
[2022-05-28] MEDS: guaiFENesin 600 MG TABCR PO SCH ×2 (07:44→20:39)
[2022-05-28] MEDS: ASCORBIC ACID 500 MG TAB PO SCH ×2 (07:45→20:41)
[2022-05-28] MEDS: VITAMIN B COMPLEX TAB PO SCH (07:45)
[2022-05-28] MEDS: ADVANCED PROBIOTIC 1250 MG CAPSULE PO SCH ×3 (07:45→20:40)
[2022-05-28] MEDS: FOLIC ACID 1 MG TAB PO SCH (07:46)
[2022-05-28] MEDS: carvediloL 6.25 MG TAB PO SCH (07:46)
[2022-05-28] MEDS: cloNIDine HCL 0.1 MG TAB PO SCH ×2 (07:47→20:41)
[2022-05-28] MEDS: ZINC SULFATE 220 MG CAPSULE PO SCH (07:51)
[2022-05-28] MEDS: PANTOprazole 40 MG TAB PO SCH (07:52)
[2022-05-28] MEDS: VALGANCICLOVIR HCL 450 MG TABLET PO SCH ×2 (07:52→20:41)
[2022-05-28] MEDS: UMECLIDINIUM/VILANTEROL 62.5/25MCG 7 PUFFS/INHALER INH SCH (07:53)
[2022-05-28] MEDS: FLUTICASONE FUROATE 200MCG 14 PUFFS/INHALER INH SCH (07:53)
[2022-05-28] MEDS: FIRST - Mouthwash BLM 119 ML PO SCH ×5 (07:54→20:40)
[2022-05-28] MEDS: DEXTROMETHORPHAN POLYMR COMPLX 60 MG/10 ML UDP PO SCH ×2 (07:56→21:33)
[2022-05-28] MEDS: CEFEPIME 2,000 MG in SYRINGE 0 ML IV SCH ×2 (08:02→20:39)
[2022-05-28] MEDS ORDERED: SERTRALINE HCL 50 MG TABLET PO SCH (09:00)
[2022-05-28] MEDS ORDERED: ACETAMINOPHEN 325 MG TAB PO PRN (09:11)
[2022-05-28] MEDS ORDERED: ALBUT/IPRATROP 3MG/0.5MG NEB 3 ML VIAL INH PRN (09:11)
[2022-05-28] MEDS: SODIUM CHLORIDE 0.65% NA SOLN 45 ML (OCEAN) SCH ×2 (09:16→20:43)
[2022-05-28 10:04] LABS: Hematocrit (blood only) 33.3 % (40.1-51.0); Hemoglobin 11.2 g/dl (14.0-18.0); Mean Corpuscular Hgb Conc 33.6 g/dL (32.0-36.0); Mean Corpuscular Volume 86.3 fL (80.0-100.0); Mean Platelet Volume 10.6 fL (9.4-12.4); Platelet Count 68 K/uL (130-400); RDW Coefficient of Variation 13.6 % (11.5-14.5); RDW Standard Deviation 42.9 fL (36.4-46.3); Red Blood Count 3.86 M/uL (4.63-6.08); White Blood Count 2.62 K/ul (4.8-10.8)
[2022-05-28 10:07] LABS: Lymphocytes # (auto) 0.31 K/uL (1.2-3.4); Lymphocytes % (auto) 11.8 %; Monocytes # (auto) 0.24 K/uL (0.24-0.82); Monocytes % (auto) 9.2 %; Neutrophils # (auto) 2.07 K/uL (1.4-6.5)
[2022-05-28] MEDS: CHOLESTYRAMINE LIGHT 4 GM PKT PO SCH ×2 (10:19→21:33)
[2022-05-28] MEDS: KETOROLAC TROMETHAMINE 15 MG/ML VIAL IV PRN ×2 (10:23→16:28)
--- NOTE | 2022-05-28 13:00 | Hospitalist Progress Note ---
Date of Service May 28, 2022 Assessment & Plan (1) Cellulitis of lower extremity: Plan: Vancomycin and cefepime day 1. We will get ID consultimmunology and allergy have recommended. Also with patient's history of waxing and waning of the redness on IV antibiotics and present in light of his combined variable immunodeficiency ID consulted. Discussed with Dr. Singh on phone. Patient's pain out of proportion to clinical diagnosis. Stop Dilaudid. Toradol as needed (2) Failure of outpatient treatment: Plan: Cellulitis failed outpatient IV treatment (3) Common variable immunodeficiency: Plan: Immunoglobulin infusion likely today. IgG level pending. Discussed with Dr. Clinton Allergy/immunology (4) Chronic respiratory failure with hypoxia: Plan: RA sats OK Need not use oxygen. (5) CMV (cytomegalovirus infection): Plan: It appears he has a recent diagnosis of CMV pneumonia Valganciclovir to continue at home dose. (6) Thrombocytopenia: Plan: Iron leukopenia stable (7) Hyponatremia: Plan: Repeat BMP pending. 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 He got IV antibiotics and present and the redness receded but then came back. It is currently receded compared with a line drawn last night. Complains of pain in his leg and requesting Dilaudid. Got Toradol this morning. Denies abdominal pain nausea or vomiting. Cirrhosis from hepatitis C he says. Has been in senior care for 13 years. Does not recall the name of the antibiotic he got in senior care for this. Left leg redness which started about 2 weeks ago. Earlier told nurse she is not hypotensive but is on Coreg and clonidine. Longstanding depression he says. Mood anxious on and off. Has gained back 20 pounds out of the 50 pounds he lost about a year ago from COVID he says Never had hematemesis, has diagnosis of esophageal varices. On 2 L oxygen continuously and present. About [id number] history of smoking quit over 10 years ago. Physical Exam Physical Exam: Alert and pleasant, moderately built, well looking, right leg change, two senior care staff in the room 92 to 93% at rest on room airoxygen was on 1 L when I saw him and I removed it. Head and neck moist tongue, anicteric sclerae, no thyromegaly Chest clear to auscultation Abdomen scaphoid, nontender, no hepatomegaly CVS S1-S2 no murmur Extremities redness in the lower half of the left pretibial area extending to the dorsal aspect of the left foot, mild tenderness on touch, black marker area marked last night is much outside the red area seen this morning [employer] grossly intact Results & Data Results & Data ([facility]) Vital Signs (Past 12 Hours) Vital Signs Temp Pulse Resp BP Pulse Ox O2 Del Method O2 Flow Rate 05/28/22 11:31 Room Air 05/28/22 07:17 36.8 C 63 18 91/56 L 99 Nasal Cannula 2 Laboratory Results Abnormal lab results 05/28/22 Range/Units 06:26 WBC 2.62 L (4.8-10.8) K/ul RBC 3.86 L (4.63-6.08) M/uL Hgb 11.2 L (14.0-18.0) g/dl Hct 33.3 L (40.1-51.0) % Plt Count 68 L (130-400) K/uL Lymph # (Auto) 0.31 L (1.2-3.4) K/uL BMP pending from this morning. Sodium 127 last night Medications Administered Home Medications Medication Instructions Recorded Confirmed Last Taken Clindamycin 600mg/50ml 1,000 mg IV TID 05/27/22 05/27/22 05/26/22 Decadron Sdv 20 mg IV DIRECTED 05/27/22 05/27/22 Unknown Gammagard 40gm/400ml 40 g IV DIRECTED 05/27/22 05/27/22 Unknown Lactobacillus acidophilus 1 0 mmu cells PO TID 05/27/22 05/27/22 Unknown billion cell tablet Magic Mouth Wash 5 ml PO QID 05/27/22 05/27/22 Unknown acetaminophen 325 mg tablet 325 mg PO TID PRN Pain 05/27/22 05/27/22 05/26/22 (Tylenol) ascorbic acid (vitamin C) 500 mg 500 mg PO BID 05/27/22 05/27/22 05/26/22 tablet (Vitamin C) atovaquone 750 mg/5 mL oral 10 mg PO DAILY 05/27/22 05/27/22 05/26/22 suspension carbidopa ER 50 mg-levodopa 200 mg 1 tab PO BID 05/27/22 05/27/22 05/26/22 tablet,extended release carboxymethylcellulose sodium 0.5 1 drp ophthalmic (eye) TID 05/27/22 05/27/22 Unknown % eye drops (Refresh Tears) carvedilol 6.25 mg tablet 6.25 mg PO BID 05/27/22 05/27/22 05/26/22 cholestyramine (with sugar) 4 gram 4 g PO BID 05/27/22 05/27/22 05/26/22 powder for susp in a packet diphenhydramine HCl 50 mg/mL 50 mg IV DIRECTED 05/27/22 05/27/22 05/06/22 injection solution folic acid 1 mg tablet 1 mg PO DAILY 05/27/22 05/27/22 05/26/22 ipratropium 0.5 mg-albuterol 3 mg 3 ml inhalation QID PRN Shortness 05/27/22 05/27/22 Unknown (2.5 mg base)/3 mL nebulization Of Breath Or Wheezing soln multivit,tx w/iron (hematinic) 1 tab PO DAILY 05/27/22 05/27/22 05/26/22 ondansetron HCl 4 mg tablet 8 mg PO TID PRN Nausea 05/27/22 05/27/22 05/26/22 pantoprazole 40 mg tablet,delayed 40 mg PO DAILY 05/27/22 05/27/22 05/26/22 release paroxetine HCl 20 mg tablet (Paxil) 20 mg PO DAILY 05/27/22 05/27/22 05/26/22 saliva stimulant comb. no.3 2 spray mucous membrane TID PRN 05/27/22 05/27/22 Unknown (Biotene Moisturizing Mouth Dry Mouth mucosal spray) sodium chloride 0.65 % nasal spray 1 spray intranasal BID 05/27/22 05/27/22 Unknown aerosol (Exmore Saline) Active Medications Generic Name Dose Route Start Last Admin Trade Name Freq PRN Reason Stop Dose Admin Acetaminophen 650 mg 05/27/22 10:07 05/27/22 17:47 Acetaminophen 325 Mg Tab PO 06/26/22 10:06 650 mg Q4H PRN Administration pain/fever Ascorbic Acid 500 mg 05/27/22 21:00 05/28/22 07:45 Ascorbic Acid 500 Mg Tab PO 06/26/22 20:59 500 mg BID JEN Administration Atovaquone 1,500 mg 05/28/22 09:00 05/28/22 07:42 Atovaquone 750 Mg/5 Ml Udc PO 06/27/22 08:59 1,500 mg DAILY JEN Administration Cholestyramine Resin 4 gm 05/28/22 10:00 05/28/22 10:19 Cholestyramine Light 4 Gm Pkt PO 06/27/22 09:59 4 gm BID@1000,2200 JEN Administration Clonidine HCl 0.2 mg 05/27/22 21:00 05/28/22 07:47 Clonidine Hcl 0.1 Mg Tab PO 06/26/22 20:59 Not Given BID JEN Dextromethorphan Polymer Complex 60 mg 05/27/22 21:00 05/28/22 07:56 Dextromethorphan Polymr Complx 60 Mg/10 Ml Udp PO 06/26/22 20:59 60 mg Q12H JEN Administration Fluticasone Furoate 1 puffs 05/28/22 09:00 05/28/22 07:53 Fluticasone Furoate 200mcg 14 Puffs/Inhaler INH 06/27/22 08:59 1 puffs DAILY JEN Administration Protocol Folic Acid 1 mg 05/28/22 09:00 05/28/22 07:46 Folic Acid 1 Mg Tab PO 06/27/22 08:59 1 mg DAILY JEN Administration Guaifenesin 1,200 mg 05/27/22 21:00 05/28/22 07:44 Guaifenesin 600 Mg Tabcr PO 06/26/22 20:59 1,200 mg Q12H JEN Administration Cefepime HCl 2,000 mg/ Syringe 20 mls @ 5 mls/min 05/27/22 20:00 05/28/22 08:02 IV 06/03/22 19:59 5 mls/min Q12H JEN Administration Protocol Vancomycin HCl 1,000 mg/ 270 mls @ 200 mls/hr 05/28/22 00:00 05/28/22 12:17 Sodium Chloride IV 06/04/22 00:00 200 mls/hr Q12H JEN Administration Protocol Ketorolac Tromethamine 15 mg 05/27/22 20:15 05/28/22 10:23 Ketorolac Tromethamine 15 Mg/Ml Vial IV 06/01/22 20:14 15 mg Q6H PRN Administration Pain (5,6,7) Lactobacillus Acidophilus 2 cap 05/27/22 14:00 05/28/22 07:45 Advanced Probiotic 1250 Mg Capsule PO 06/26/22 13:59 2 cap TID JEN Administration Multi-Ingredient Mouthwash/Gargle 5 ml 05/27/22 16:30 05/28/22 12:06 First - Mouthwash Blm 119 Ml PO 06/26/22 16:29 Not Given ACHS JEN Pantoprazole Sodium 40 mg 05/28/22 09:00 05/28/22 07:52 Pantoprazole 40 Mg Tab PO 06/27/22 08:59 40 mg DAILY JEN Administration Sodium Chloride 1 sprays 05/27/22 21:00 05/28/22 09:16 Sodium Chloride 0.65% Na Soln 45 Ml (Niota) NA 06/26/22 20:59 Not Given BID [facility] Protocol Umeclidinium/Vilanterol 1 puffs 05/28/22 09:00 05/28/22 07:53 Umeclidinium/Vilanterol 62.5/25mcg 7 Puffs/Inhaler INH 06/27/22 08:59 1 puffs DAILY JEN Administration Valganciclovir 450 mg 05/27/22 21:00 05/28/22 07:52 Valganciclovir Hcl 450 Mg Tablet PO 06/26/22 20:59 450 mg BID JEN Administration Vitamin B Complex 1 tab 05/28/22 09:00 05/28/22 07:45 Vitamin B Complex Tab PO 06/27/22 08:59 1 tab DAILY JEN Administration Protocol Zinc Sulfate 220 mg 05/28/22 09:00 05/28/22 07:51 Zinc Sulfate 220 Mg Capsule PO 06/27/22 08:59 220 mg QAM JEN Administration PG Care Time/CCT Total # of Minutes Spent Total Time Spent with Patient: Total time spent is greater than 50% in coordination of care (as documented) at patient's floor/unit and/or counseling patient: Coding Level of Care Code 20347 Subseq Hosp Care Lvl 3 Diagnoses Cellulitis of lower extremity L03.119 Failure of outpatient treatment Z78.9 Common variable immunodeficiency D83.9 Chronic respiratory failure with hypoxia J96.11 CMV (cytomegalovirus infection) B25.9 Thrombocytopenia D69.6 Hyponatremia E87.1 Esophageal varices I85.00
[2022-05-28] MEDS: ARTIFICIAL TEARS OP SCH ×2 (13:44→20:39)
[2022-05-28 13:47] LABS: BUN Creatinine Ratio 18.8 (10-20); Creatinine Clr Calc Pharmacy 95.2 ml/min; Est GFR (African American) 114.9 ml/min; Est GFR (Non-African American) 99.2 ml/min; Potassium 4.1 mmol/L (3.5-5.1)
--- NOTE | 2022-05-28 18:23 | Infectious Disease Consult ---
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 Infectious Diseases consulted for pathogenic evaluation in setting of broad antibiotic therapy. Patient has been treated with IV Dalbavancin followed by Clindamycin but presented d/t worsening erythema, fever . VSS, initial labs showed hyponatremia NA 127, low chloride 93, Creatinine 0.73, unremarkable LFTs, INR 1.2, WBC 4.62 (baseline 2s), hemoglobin 11.2, platelets 68 clear negative for pyuria, LE, nitrites. CXR no acute process and chronic upper lung zone fibrosis, L foot and L tib/fib xrays showed no acute fractures or evidence for acute osteomyelitis. He was started on IV Daptomycin (changed now to Vancomycin) and IV Cefepime. Exam is notable for LLE erythema that quickly improves with leg raise. Left chest port without issue. Discussion: This is a severely immunodeficient patient with low CD4, Low Immunoglobulin levels and prior history of OI related infections who is incarcerated. He has failed Dalbavancin+Clindamycin and returns with erythema. Exam is quite striking with leg raise in reduction of redness, which raises the question of vascular component. From ID standoint, typical bacterial infections MRSA, pseudomonas, strep should be covered with current regimen. Atypical bacteria less likely to cause skin, PJP of skin uncommon manifestation. Endemic fungi typically cause smaller lesions on skin and do not have this morphology. I would check MRSA nares, follow up on blood cultures. I would also ask for arterial/venous dopplers and Vascular Medicine consult. We should follow Vanco levels closely if unable to achieve good levels we should change back to Daptomycin. Recommend: -C/W Vancomycin -C/W Cefepime -MRSA nares -Arterial/venous studies, with Vascular evaluation -F/U Blood cultures -IgG levels, with IVIG possibly, Immunology is also seeing patient Following closely with you. Thank you for allowing me to participate in the care of your patient. Ruthy Singh MD [facility], [facility] Consultation Information Consultation was provided via telemedicine using two-way real-time interactive telecommunication between the patient and the telemedicine provider. For the duration of the visit, the provider was performing the assessment from a different facility than the patient. This includesuse of bluetooth stethoscope forauscultationperformed by the telepresenter that the telemedicine provider can hear if described in the physical exam. Representative contact information: Please call [facility] Call Center . (Phone Number For Physician Use Only) After establishing a telemedicine visit, patient was: Patient was verified with two unique identifiers, Patient/authorized rep acknowledged consent and understanding and Gave permission to continue telehealth session History of Present Illness Reason for Consultation: Left leg cellulitis Severe immunodeficiency Requesting Physician: Dr. 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 Infectious Diseases consulted for pathogenic evaluation in setting of broad antibiotic therapy. Patient was initially seen in [facility] ED on 05/16 with 1 week of LLE erythema/redness. Per EMR he was given IV steroids and IV antibiotics (not documented) without improvement. VSS, WBC 3.8, platelets 62, received 1 dose of Dalbavancin and transitioned to clindamycin. Initially redness improved but then worsened. On day of admit developed fever and thus rt to [facility]. VSS on admission, initial labs showed hyponatremia NA 127, low chloride 93, Creatinine 0.73, unremarkable LFTs, INR 1.2, WBC 4.62 (baseline 2s), hemoglobin 11.2, platelets 68 clear negative for pyuria, LE, nitrites. CXR no acute process and chronic upper lung zone fibrosis, L foot and L tib/fib xrays showed no acute fractures or evidence for acute osteomyelitis. He was started on IV Daptomycin (changed now to Vancomycin) and IV Cefepime. Infectious diseases has been consulted today for further evaluation in setting of immunocompromise. On my interview, patient c/o pain in leg. He is able to bear weight. He states he had a fever on day of admit but none since. He denies chills. No bites/cuts/falls or injury to area. Feels it has improved since admission. Allergies Allergy/AdvReac Type Severity Reaction Status Date / Time sulfamethoxazole Allergy Mild RASH/BLEEDI Verified 04/27/22 08:47 NG trimethoprim Allergy Mild RASH/BLEEDI Verified 04/27/22 08:47 NG Home Medications Medication Instructions Recorded Confirmed Type Clindamycin 600mg/50ml 1,000 mg IV TID 05/27/22 05/27/22 History Decadron Sdv 20 mg IV DIRECTED 05/27/22 05/27/22 History Gammagard 40gm/400ml 40 g IV DIRECTED 05/27/22 05/27/22 History Lactobacillus acidophilus 1 0 mmu cells PO TID 05/27/22 05/27/22 History billion cell tablet Magic Mouth Wash 5 ml PO QID 05/27/22 05/27/22 History acetaminophen 325 mg tablet 325 mg PO TID PRN Pain 05/27/22 05/27/22 History (Tylenol) ascorbic acid (vitamin C) 500 mg 500 mg PO BID 05/27/22 05/27/22 History tablet (Vitamin C) atovaquone 750 mg/5 mL oral 10 mg PO DAILY 05/27/22 05/27/22 History suspension carbidopa ER 50 mg-levodopa 200 mg 1 tab PO BID 05/27/22 05/27/22 History tablet,extended release carboxymethylcellulose sodium 0.5 1 drp ophthalmic (eye) TID 05/27/22 05/27/22 History % eye drops (Refresh Tears) carvedilol 6.25 mg tablet 6.25 mg PO BID 05/27/22 05/27/22 History cholestyramine (with sugar) 4 gram 4 g PO BID 05/27/22 05/27/22 History powder for susp in a packet diphenhydramine HCl 50 mg/mL 50 mg IV DIRECTED 05/27/22 05/27/22 History injection solution folic acid 1 mg tablet 1 mg PO DAILY 05/27/22 05/27/22 History ipratropium 0.5 mg-albuterol 3 mg 3 ml inhalation QID PRN Shortness 05/27/22 05/27/22 History (2.5 mg base)/3 mL nebulization Of Breath Or Wheezing soln multivit,tx w/iron (hematinic) 1 tab PO DAILY 05/27/22 05/27/22 History ondansetron HCl 4 mg tablet 8 mg PO TID PRN Nausea 05/27/22 05/27/22 History pantoprazole 40 mg tablet,delayed 40 mg PO DAILY 05/27/22 05/27/22 History release paroxetine HCl 20 mg tablet (Paxil) 20 mg PO DAILY 05/27/22 05/27/22 History saliva stimulant comb. no.3 2 spray mucous membrane TID PRN 05/27/22 05/27/22 History (Biotene Moisturizing Mouth Dry Mouth mucosal spray) sodium chloride 0.65 % nasal spray 1 spray intranasal BID 05/27/22 05/27/22 History aerosol (Roach Saline) Patient History Medical History Asthma Autoimmune hepatitis (02/25/13) Bronchiectasis Common variable immunodeficiency COVID-19 in immunocompromised patient Second episode of COVID-19 in 90 days with 2 negative tests in between Pneumonia due to 2019 novel coronavirus (~04/2020) Thrombocytopenia Surgical History Hx of colonoscopy Port-A-Cath in place (07/05/19) Insertion Of Mediport With Fluoroscopy Dr. Huang 07-05-19 Family History Other Family history non-contributory Social History Smoking Status: Former smoker Tobacco Type: Cigarettes Second Hand Exposure: No; Hx Alcohol Use: No Hx Substance Use: No Preferred Language: French Communication Ability: Effective Crystal Growing Technician Required: No Beliefs That Will Affect Care: None marital status: Single Current Living Situation: Other Current Living Situation Comment: lives in [facility] Feels Safe at Home: Yes Assistive Devices: Oxygen - Continuous Review of System Constitutional: as per Subjective / HPI Cardiovascular: no chest pain, no chest pain at rest, no dyspnea, no dyspnea on exertion, no palpitations and no lightheadedness Gastrointestinal: no abdominal pain, no nausea and no fecal incontinence Musculoskeletal: no joint pain, no stiffness, no limited range of motion, no myalgia and no body aches Integumentary: as per Subjective / HPI Physical Exam Constitutional: WD/WN, vitals as above Respiratory: normal respiratory effort, lungs clear to auscultation Cardiovascular: RRR, no murmur, no edema Musculoskeletal: no cyanosis or clubbing, extremities motor strength 5/5 Skin: Erythema along anterior left leg, no warmth or TTP Straight leg rais approximately 45 degrees resulted in near immediate resolution of erythema Results & Data ([facility]) Vital Signs (Past 12 Hours) Vital Signs Temp Pulse Resp BP BP Pulse Ox O2 Del Method 05/28/22 15:32 124/81 05/28/22 15:07 62 16 88/57 L 98 Room Air 05/28/22 11:31 Room Air 05/28/22 07:17 36.8 C 63 18 91/56 L 99 Nasal Cannula O2 Flow Rate 05/28/22 15:32 05/28/22 15:07 05/28/22 11:31 05/28/22 07:17 2 Laboratory Results Laboratory Results - last 48 hr 05/27/22 05/27/22 05/27/22 07:40 07:40 07:40 WBC 4.62 L RBC 4.15 L Hgb 12.2 L Hct 34.7 L MCV 83.6 MCH 29.4 MCHC 35.2 RDW Std Deviation 40.4 RDW Coeff of John 13.2 Plt Count 76 L MPV 9.6 Immature Gran % (Auto) 0.2 Neut % (Auto) 84.4 Lymph % (Auto) 9.3 [place] % (Auto) 6.1 Eos % (Auto) 0.0 Baso % (Auto) 0.0 Neut # (Auto) 3.90 Lymph # (Auto) 0.43 L [place] # (Auto) 0.28 Eos # (Auto) 0.00 Baso # (Auto) 0.00 Immature Gran # (Auto) 0.01 PT INR Sodium 127 L Potassium 4.0 Chloride 93 L Carbon Dioxide 28 Anion Gap 6 BUN 9 Creatinine 0.73 Est Cr Clr Drug Dosing 104.4 Est GFR ( Amer) 119.3 Est GFR (Non-Af Amer) 103.0 BUN/Creatinine Ratio 12.3 Glucose 87 Lactate 0.7 Calcium 8.4 L Magnesium 1.8 Total Bilirubin 0.9 Direct Bilirubin 0.2 AST 22 ALT 19 Alkaline Phosphatase 102 Troponin I High Sens 7.4 Total Protein 6.4 Albumin 3.6 Procalcitonin Urine Color Urine Appearance Urine pH Ur Specific [place] Urine Protein Urine Glucose (UA) Urine Ketones Urine Blood Urine Nitrite Urine Bilirubin Urine Urobilinogen Ur Leukocyte Esterase Nasal Screen MRSA (PCR) IgG SARS-CoV-2 (PCR) Influenza Type A (PCR) Influenza Type B (PCR) RSV (RT-PCR) 05/27/22 05/27/22 05/27/22 07:40 07:40 07:50 WBC RBC Hgb Hct MCV MCH MCHC RDW Std Deviation RDW Coeff of John Plt Count MPV Immature Gran % (Auto) Neut % (Auto) Lymph % (Auto) [place] % (Auto) Eos % (Auto) Baso % (Auto) Neut # (Auto) Lymph # (Auto) [place] # (Auto) Eos # (Auto) Baso # (Auto) Immature Gran # (Auto) PT 12.5 H INR 1.2 H Sodium Potassium Chloride Carbon Dioxide Anion Gap BUN Creatinine Est Cr Clr Drug Dosing Est GFR ( Amer) Est GFR (Non-Af Amer) BUN/Creatinine Ratio Glucose Lactate Calcium Magnesium Total Bilirubin Direct Bilirubin AST ALT Alkaline Phosphatase Troponin I High Sens Total Protein Albumin Procalcitonin < 0.05 Urine Color Urine Appearance Urine pH Ur Specific [place] Urine Protein Urine Glucose (UA) Urine Ketones Urine Blood Urine Nitrite Urine Bilirubin Urine Urobilinogen Ur Leukocyte Esterase Nasal Screen MRSA (PCR) IgG SARS-CoV-2 (PCR) NEGATIVE Influenza Type A (PCR) Negative Influenza Type B (PCR) Negative RSV (RT-PCR) Negative 05/27/22 05/27/22 05/28/22 10:20 18:55 06:25 WBC RBC Hgb Hct MCV MCH MCHC RDW Std Deviation RDW Coeff of John Plt Count MPV Immature Gran % (Auto) Neut % (Auto) Lymph % (Auto) [place] % (Auto) Eos % (Auto) Baso % (Auto) Neut # (Auto) Lymph # (Auto) [place] # (Auto) Eos # (Auto) Baso # (Auto) Immature Gran # (Auto) PT INR Sodium Potassium Chloride Carbon Dioxide Anion Gap BUN Creatinine 0.80 Est Cr Clr Drug Dosing 95.2 Est GFR ( Amer) 114.9 Est GFR (Non-Af Amer) 99.2 BUN/Creatinine Ratio Glucose Lactate Calcium Magnesium Total Bilirubin Direct Bilirubin AST ALT Alkaline Phosphatase Troponin I High Sens Total Protein Albumin Procalcitonin Urine Color Yellow Urine Appearance Clear Urine pH 8.0 H Ur Specific [place] 1.014 Urine Protein Negative Urine Glucose (UA) Negative Urine Ketones Negative Urine Blood Negative Urine Nitrite Negative Urine Bilirubin Negative Urine Urobilinogen Negative Ur Leukocyte Esterase Negative Nasal Screen MRSA (PCR) Negative IgG SARS-CoV-2 (PCR) Influenza Type A (PCR) Influenza Type B (PCR) RSV (RT-PCR) 05/28/22 05/28/22 05/28/22 06:25 06:26 13:02 WBC 2.62 L RBC 3.86 L Hgb 11.2 L Hct 33.3 L MCV 86.3 MCH 29.0 MCHC 33.6 RDW Std Deviation 42.9 RDW Coeff of John 13.6 Plt Count 68 L MPV 10.6 Immature Gran % (Auto) 0.0 Neut % (Auto) 79.0 Lymph % (Auto) 11.8 [place] % (Auto) 9.2 Eos % (Auto) 0.0 Baso % (Auto) 0.0 Neut # (Auto) 2.07 Lymph # (Auto) 0.31 L [place] # (Auto) 0.24 Eos # (Auto) 0.00 Baso # (Auto) 0.00 Immature Gran # (Auto) 0.00 PT INR Sodium 131 L Potassium 4.1 Chloride 100 Carbon Dioxide 28 Anion Gap 3 BUN 15 Creatinine 0.80 Est Cr Clr Drug Dosing 95.2 Est GFR ( Amer) 114.9 Est GFR (Non-Af Amer) 99.2 BUN/Creatinine Ratio 18.8 Glucose 101 H Lactate Calcium 8.0 L Magnesium Total Bilirubin Direct Bilirubin AST ALT Alkaline Phosphatase Troponin I High Sens Total Protein Albumin Procalcitonin Urine Color Urine Appearance Urine pH Ur Specific [place] Urine Protein Urine Glucose (UA) Urine Ketones Urine Blood Urine Nitrite Urine Bilirubin Urine Urobilinogen Ur Leukocyte Esterase Nasal Screen MRSA (PCR) IgG 662.7 SARS-CoV-2 (PCR) Influenza Type A (PCR) Influenza Type B (PCR) RSV (RT-PCR) Microbiology 05/27/22 07:45 Blood Aerobic Blood Culture - Preliminary No growth in Aerobic bottle after 24 hours. 05/27/22 07:45 Blood Anaerobic Blood Culture - Preliminary No growth in Anaerobic bottle after 24 hours. 05/27/22 07:40 Blood Aerobic Blood Culture - Preliminary No growth in Aerobic bottle after 24 hours. 05/27/22 07:40 Blood Anaerobic Blood Culture - Preliminary No growth in Anaerobic bottle after 24 hours. Diagnostic Findings Chest X-Ray 05/27/22 07:31 XR chest 1V portable HISTORY: 56 years-old Male Sepsis acute sepsis COMPARISON: PET CT 09/24/2021, chest radiograph 11/08/2020 TECHNIQUE: AP view of the chest FINDINGS: A left pectoral [id number] catheter is again noted with distal tip in the expected location of the mid SVC. Cardiac silhouette is normal. No pneumothorax, pleural effusion or overt pulmonary edema. Upper lung zone prominent pulmonary fibrosis with superior elevation/retraction of the keerthi again noted. Bones appear grossly intact. Surgical clips in the right supraclavicular tissues. IMPRESSION: 1. No acute processes of the chest. 2. Upper lung zone fibrosis with superior elevation of the keerthi again noted. ACT 112: Negative or not required by law. The above report was generated using voice recognition software. It may contain grammatical, syntax or spelling errors. Electronically signed by: Kevin Wick M.D. 05/27/2022 8:50 AM Foot X-Ray 05/27/22 10:07 XR foot LT 2V CLINICAL HISTORY: worsening cellulitis, pain/fever COMPARISON: None FINDINGS: Alignment of the left foot is anatomic. Tarsometatarsal joints are intact. There is no fracture. There is no evidence for acute osteomyelitis. Mild osteoarthritis of the left first metatarsophalangeal joint. Dorsal soft tissue swelling of the foot is noted. IMPRESSION: 1. No acute fracture. No evidence for acute osteomyelitis within the left foot. 2. Dorsal foot soft tissue swelling. ACT 112: Negative or not required by law. Electronically signed by: Rene Mesa M.D. 05/27/2022 10:52 AM Tibia/Fibula X-Ray 05/27/22 10:07 XR tibia fibula LT 2V CLINICAL HISTORY: worsening left lower leg cellulitis COMPARISON STUDY: None. FINDINGS: No fracture or dislocation within the left tibia or fibula. No erosive changes to suggest an osteomyelitis. No radiopaque foreign bodies. Mild subcutaneous edema/swelling within the mid to lower leg IMPRESSION: 1. Mild subcutaneous edema/swelling within the mid to distal left lower leg. 2. No underlying bony abnormality. ACT 112: Negative or not required by law. Electronically signed by: Ramses Valle M.D. 05/27/2022 10:49 AM Medications Administered Current Inpatient Medications Acetaminophen (Acetaminophen 325 Mg Tab) 650 mg PO Q4H PRN PRN Reason: pain/fever Stop: 06/26/22 10:06 Last Admin: 05/27/22 17:47 Dose: 650 mg Albuterol (Albut/Ipratrop 3mg/0.5mg Neb 3 Ml Vial) 3 ml INH Q4R PRN; Protocol PRN Reason: Shortness Of Breath Stop: 06/26/22 10:16 Artificial Tears (Artificial Tears) 1 drops OP TID [facility] Stop: 06/27/22 13:59 Last Admin: 05/28/22 20:39 Dose: 1 drops Ascorbic Acid (Ascorbic Acid 500 Mg Tab) 500 mg PO BID JEN Stop: 06/26/22 20:59 Last Admin: 05/28/22 20:41 Dose: 500 mg Atovaquone (Atovaquone 750 Mg/5 Ml Udc) 1,500 mg PO DAILY JEN Stop: 06/27/22 08:59 Last Admin: 05/28/22 07:42 Dose: 1,500 mg Carbidopa/Levodopa (Carbidopa/Levodopa 50/200mg Ext Rel Tab) 1 tab PO BID JEN Stop: 06/27/22 20:59 Last Admin: 05/28/22 20:40 Dose: 1 tab Cholestyramine Resin (Cholestyramine Light 4 Gm Pkt) 4 gm PO BID@1000,2200 JEN Stop: 06/27/22 09:59 Last Admin: 05/28/22 21:33 Dose: 4 gm Clonidine HCl (Clonidine Hcl 0.1 Mg Tab) 0.2 mg PO BID [facility] Stop: 06/26/22 20:59 Last Admin: 05/28/22 20:41 Dose: 0.2 mg Dextromethorphan Polymer Complex (Dextromethorphan Polymr Complx 60 Mg/10 Ml Udp) 60 mg PO Q12H [facility] Stop: 06/26/22 20:59 Last Admin: 05/28/22 21:33 Dose: 60 mg Fluticasone Furoate (Fluticasone Furoate 200mcg 14 Puffs/Inhaler) 1 puffs INH DAILY [facility]; Protocol Stop: 06/27/22 08:59 Last Admin: 05/28/22 07:53 Dose: 1 puffs Folic Acid (Folic Acid 1 Mg Tab) 1 mg PO DAILY [facility] Stop: 06/27/22 08:59 Last Admin: 05/28/22 07:46 Dose: 1 mg Guaifenesin (Guaifenesin 600 Mg Tabcr) 1,200 mg PO Q12H [facility] Stop: 06/26/22 20:59 Last Admin: 05/28/22 20:39 Dose: 1,200 mg Cefepime HCl 2,000 mg/ Syringe 20 mls @ 5 mls/min IV Q12H [facility]; Protocol Stop: 06/03/22 19:59 Last Admin: 05/28/22 20:39 Dose: 5 mls/min Vancomycin HCl 1,000 mg/ (Sodium Chloride) 270 mls @ 200 mls/hr IV Q12H [facility]; Protocol Stop: 06/04/22 00:00 Last Infusion: 05/28/22 13:45 Dose: Infused Ketorolac Tromethamine (Ketorolac Tromethamine 15 Mg/Ml Vial) 15 mg IV Q6H PRN PRN Reason: Pain (5,6,7) Stop: 06/01/22 20:14 Last Admin: 05/28/22 16:28 Dose: 15 mg Lactobacillus Acidophilus (Advanced Probiotic 1250 Mg Capsule) 2 cap PO TID [facility] Stop: 06/26/22 13:59 Last Admin: 05/28/22 20:40 Dose: 2 cap Levalbuterol HCl (Levalbuterol Tartrate 15 Gm Hfa.Aer.Ad) 2 puffs INH QIDR PRN PRN Reason: Shortness Of Breath Stop: 06/26/22 10:16 Miscellaneous Information (Vancomycin Consult Active) 1 each N/A UD PRN PRN Reason: Consult Stop: 06/26/22 10:18 Multi-Ingredient Mouthwash/Gargle (First - Mouthwash Blm 119 Ml) 5 ml PO ACHS [facility] Stop: 06/26/22 16:29 Last Admin: 05/28/22 20:40 Dose: Not Given Ondansetron HCl (Ondansetron 8mg Od Tab) 8 mg PO TID PRN PRN Reason: Nausea And Vomiting Stop: 06/26/22 13:03 Pantoprazole Sodium (Pantoprazole 40 Mg Tab) 40 mg PO DAILY [facility] Stop: 06/27/22 08:59 Last Admin: 05/28/22 07:52 Dose: 40 mg Paroxetine HCl (Paroxetine Hcl 20 Mg Tab) 20 mg PO DAILY [facility] Stop: 06/28/22 08:59 Sodium Chloride (Sodium Chloride 0.65% Na Soln 45 Ml ([place])) 1 sprays NA BID [facility]; Protocol Stop: 06/26/22 20:59 Last Admin: 05/28/22 20:43 Dose: Not Given Umeclidinium/Vilanterol (Umeclidinium/Vilanterol 62.5/25mcg 7 Puffs/Inhaler) 1 puffs INH DAILY [facility] Stop: 06/27/22 08:59 Last Admin: 05/28/22 07:53 Dose: 1 puffs Valganciclovir (Valganciclovir Hcl 450 Mg Tablet) 450 mg PO BID [facility] Stop: 06/26/22 20:59 Last Admin: 05/28/22 20:41 Dose: 450 mg Vitamin B Complex (Vitamin B Complex Tab) 1 tab PO DAILY [facility]; Protocol Stop: 06/27/22 08:59 Last Admin: 05/28/22 07:45 Dose: 1 tab Zinc Sulfate (Zinc Sulfate 220 Mg Capsule) 220 mg PO QAM [facility] Stop: 06/27/22 08:59 Last Admin: 05/28/22 07:51 Dose: 220 mg
[2022-05-28] MEDS: CARBIDOPA/LEVODOPA 50/200MG EXT REL TAB PO SCH (20:40)
[2022-05-28] MEDS ORDERED: ASCORBIC ACID 500 MG TAB PO SCH (21:00)
[2022-05-29] MEDS: HEPARIN 100 UNIT/ML 5ML FLUSH FLUSH PRN (07:31)
[2022-05-29] MEDS: FIRST - Mouthwash BLM 119 ML PO SCH ×4 (07:36→20:08)
[2022-05-29] MEDS: cloNIDine HCL 0.1 MG TAB PO SCH ×2 (07:37→20:06)
[2022-05-29] MEDS: guaiFENesin 600 MG TABCR PO SCH ×2 (07:37→20:10)
[2022-05-29] MEDS: ADVANCED PROBIOTIC 1250 MG CAPSULE PO SCH ×3 (07:37→20:07)
[2022-05-29] MEDS: CARBIDOPA/LEVODOPA 50/200MG EXT REL TAB PO SCH ×2 (07:37→20:04)
[2022-05-29] MEDS: DEXTROMETHORPHAN POLYMR COMPLX 60 MG/10 ML UDP PO SCH ×2 (07:37→20:06)
[2022-05-29] MEDS: UMECLIDINIUM/VILANTEROL 62.5/25MCG 7 PUFFS/INHALER INH SCH (07:38)
[2022-05-29] MEDS: FLUTICASONE FUROATE 200MCG 14 PUFFS/INHALER INH SCH (07:38)
[2022-05-29] MEDS: PANTOprazole 40 MG TAB PO SCH (07:39)
[2022-05-29] MEDS: FOLIC ACID 1 MG TAB PO SCH (07:39)
[2022-05-29] MEDS: VITAMIN B COMPLEX TAB PO SCH (07:39)
[2022-05-29] MEDS: ZINC SULFATE 220 MG CAPSULE PO SCH (07:39)
[2022-05-29] MEDS: PARoxetine HCL 20 MG TAB PO SCH (07:39)
[2022-05-29] MEDS: ARTIFICIAL TEARS OP SCH ×3 (07:39→20:05)
[2022-05-29] MEDS: ASCORBIC ACID 500 MG TAB PO SCH ×2 (07:39→20:04)
[2022-05-29] MEDS: SODIUM CHLORIDE 0.65% NA SOLN 45 ML (OCEAN) SCH ×2 (07:43→20:07)
[2022-05-29] MEDS: ATOVAQUONE 750 MG/5 ML UDC PO SCH (07:43)
[2022-05-29] MEDS: VALGANCICLOVIR HCL 450 MG TABLET PO SCH ×2 (07:49→20:05)
[2022-05-29] MEDS: CEFEPIME 2,000 MG in SYRINGE 0 ML IV SCH ×2 (07:52→20:04)
[2022-05-29 08:13] LABS: BUN Creatinine Ratio 17.6 (10-20); Calcium 7.9 mg/dl (8.5-10.1); Creatinine Clr Calc Pharmacy 112.1 ml/min; Est GFR (African American) 122.9 ml/min; Potassium 3.8 mmol/L (3.5-5.1)
[2022-05-29] MEDS ORDERED: IRON PO SCH (09:00)
[2022-05-29] MEDS ORDERED: MULTIVITAMIN PO SCH (09:00)
[2022-05-29] MEDS ORDERED: FOLIC ACID 1 MG TAB PO SCH (09:00)
--- NOTE | 2022-05-29 09:08 | Pharmacy Report ---
Pharmacy PK ABX Note - Date of Service May 29, 2022 - Assessment and Plan Assessment 05/29: * Patient had been receiving Vancomycin 1000 mg IV q12h * Level obtained this morning after 3 maintenance doses resulted in 12.5 mcg/ml 05/29/22 07:29 Random Vancomycin 12.5 Background 05/27/22: * 56 year old M receiving cefepime and vancomycin for treatment of recurrent cellulitis * PMH: CVID/hypogammaglobulinemia, CMV and fungal pneumonias, lymphoma, COPD, cirrhosis with esophageal varices, * HPI: received dalbavancin on 05/16 in the ED. Had been doing fairly well, but then symptoms worsened and was started on clindamycin. Reported to ED again 05/27 2nd fever * SCr at/near baseline Plan 05/29: * Random Vancomycin level of 12.5 mcg/ml achieves an AUC/KAHLIL of 382 mg/L.hr which is below goal * Vancomycin dosing increased to 1250 mg IV Q12h this morning. * Regimen is predicted to achieve target AUC/KAHLIL of 400-600 mg/L.hr * Random vancomycin level tomorrow with AM labs for new dosing. 05/27/22: Vancomycin * Loading dose: 1250 mg IV x 1 * Maintenance dose: 1000 mg IV every 12 hours * Regimen is predicted to achieve target AUC/KAHLIL of 400-600 mg/L.hr * Random level ordered for: 05/29/22 Pharmacy will continue to follow and will adjust dose/frequency as necessary. Thank you. Pharmacy has transitioned to AUC monitoring for vancomycin. AUC/KAHLIL is the preferred PK/PD target and is associated with decreased risk of nephrotoxicity compared to traditional trough targets.
[2022-05-29] MEDS: VANCOMYCIN HCL 1,250 MG in SODIUM CHLORIDE 0.9% 250 ML IV SCH ×2 (09:27→21:23)
[2022-05-29] MEDS: CHOLESTYRAMINE LIGHT 4 GM PKT PO SCH ×2 (09:27→21:23)
[2022-05-29] MEDS ORDERED: IMMUNE GLOBULIN (HUMAN) SOLN IV ONE (13:15)
[2022-05-29] MEDS ORDERED: diphenhydrAMINE 50 MG/ML VIAL IV PRN (13:17)
[2022-05-29] MEDS ORDERED: Octagam 10% IVIG 5 gram bottle IV SCH (13:45)
[2022-05-29] MEDS ORDERED: diphenhydrAMINE 50 MG/ML VIAL IV ONE (13:45)
[2022-05-29] MEDS ORDERED: ACETAMINOPHEN 325 MG TAB PO ONE (13:45)
[2022-05-29] MEDS ORDERED: IMMUN GLOBG(IGG)/MALT/IGA OV50 100 ML IV SCH (14:45)
[2022-05-29] MEDS ORDERED: IMMUN GLOBG(IGG)/MALT/IGA OV50 200 ML IV SCH (15:45)
--- NOTE | 2022-05-29 16:38 | Allergy & Immunology Prog Note ---
Date of Service May 29, 2022 Assessment & Plan (1) Common variable immunodeficiency: Plan: We administered a dose of IVIG today, 35 g, approximately 500 mg/kg. This should bring his IgG into a therapeutic range we would ideally like to keep his trough in the level of 800 -1,000 mg/dL. I suspect that this may be difficult to do with IVIG I would like to transition him back to subcutaneous. [facility] will [facility] to do [facility] and I believe that this should do a better job of keeping him free of infections. (2) Cellulitis of lower extremity: Plan: The antibiotic regimen seems to be working well. We will defer management to the primary team and infectious disease. Admission and Anticipated Discharge Date Admission Date: May 27, 2022 Subjective This is a 56-year-old male with history of common variable immunodeficiency, history of lymphoma, persistent lymphopenia presents with worsening left lower extremity cellulitis that has not responded to outpatient treatment. He was seen at [facility] on May 16 for the cellulitis and started on Dalvance. Things were going relatively well, but then his symptoms started to worsen and so he was placed on oral clindamycin. Despite this, the cellulitis is worsened and he developed a fever which prompted admission to the hospital. In hospital he was given daptomycin and cefepime, then vancomycin. He says that the cellulitis started on the back of his leg, right above the Achilles tendon and it spread around to the posterior aspect of his ankle, top of the foot, and then 3/4 up to the king. With each of the courses of antibiotics, he did see some improvement, but then symptoms worsened. He feels as though it is primarily the tissue that is swollen, and does not feel that the ankle joint itself is affected. Since getting the IV antibiotics, he does feel as though his symptoms are slightly improving, though the edema of the left foot initially improved, but then worsened again overnight. 05-29-22: The cellulitis is improving. He has not been febrile in the past 24 hours. He feels as though the pain is also improving. We checked his IgG level which was approximately 660, and this should represent an appropriate trough as his last infusion was about 3 weeks ago. Review of Systems Constitutional: as per Subjective / HPI Eyes: as per Subjective / HPI Ear, Nose, Mouth, Throat: as per Subjective / HPI Respiratory: as per Subjective / HPI Cardiovascular: as per Subjective / HPI Gastrointestinal: as per Subjective / HPI Genitourinary: + as per Subjective / HPI Musculoskeletal: as per Subjective / HPI Integumentary: as per Subjective / HPI Neurologic: as per Subjective / HPI Psychiatric: as per Subjective / HPI Endocrine: as per Subjective / HPI Hematologic / Lymphatic: as per Subjective / HPI Allergy / Immunological: as per Subjective / HPI Physical Exam Constitutional: WD/WN, vitals as above Eyes: no conjunctival abnormality and sclerae not anicteric ENMT: external ear and nose normal, oropharynx normal Neck: trachea midline Respiratory: normal respiratory effort and able to speak in complete sentences; does not use accessory muscles Musculoskeletal: Head/Neck/Chest: head atraumatic Gait: normal gait Skin: + rash; no lesions LLE erythema swelling improved, erythema improved Psychiatric: A+Ox3, euthymic affect Results & Data ([facility]) Vital Signs (Past 12 Hours) Vital Signs Temp Pulse Resp BP BP Pulse Ox O2 Del Method 05/29/22 15:36 36.5 C 59 L 17 135/83 95 Room Air 05/29/22 14:54 36.4 C L 62 16 134/83 96 Room Air 05/29/22 07:16 96 Room Air 05/29/22 07:06 36.8 C 60 16 110/70 93 Room Air PG Care Time/CCT Total # of Minutes Spent Total Time Spent with Patient: Total time spent is greater than 50% in coordination of care (as documented) at patient's floor/unit and/or counseling patient: Coding Level of Care Code 62389 Subseq Hosp Care Lvl 1 Diagnoses Common variable immunodeficiency D83.9 Cellulitis of lower extremity L03.119
--- NOTE | 2022-05-29 17:27 | Ultrasound Report ---
LEFT LOWER EXTREMITY ARTERIAL DOPPLER ULTRASOUND CLINICAL HISTORY: erythema suspect PAD COMPARISON STUDY: PET/CT September 24, 2021. TECHNIQUE: Color and duplex Doppler sonography of the arterial system of the left lower extremity was performed. FINDINGS: Focal calcified atherosclerotic plaque within the left common femoral artery measures 1.7 x 0.7 cm, as shown on prior PET/CT. However, no associated elevated velocities are identified to sugge st a hemodynamically significant stenosis. There is triphasic flow within the left common femoral, reed perficial femoral, profunda, popliteal and posterior tibial arteries. There is triphasic flow within the proximal to mid left anterior tibial artery with monophasic flow within the distal left anterior tibial artery and the dorsalis pedis. No vessel occlusion is identified. IMPRESSION: 1. No sonographic evidence for a hemodynamically significant stenosis within the left lower extremity . Triphasic flow within the left lower extremity with the exception of monophasic flow within the lef t dorsalis pedis and distal left anterior tibial arteries. 2. 1.7 x 0.7 cm calcified plaque within the left common femoral artery. However, no sonographic evide nce for an associated stenosis. ACT 112: Negative or not required by law. Electronically signed by: Rene Mesa M.D. 05/29/2022 5:24 PM
--- NOTE | 2022-05-29 18:49 | Hospitalist Progress Note ---
Date of Service May 29, 2022 Assessment & Plan (1) Cellulitis of lower extremity: Plan: Vancomycin and cefepime day 2. ID consulted. Discussed with Dr. Singh on phone again 05/29 The patient had significant dependent erythema on exam yesterday which was alleviated when he got his leg back on the bed. She is concerned about vasculitis or peripheral arterial disease. Duplex ultrasound of the arteries of the left lower extremity is unremarkable. Vascular surgery were consulted but are not here over the weekend Consideration of skin biopsy to look for vasculitis advised by ID. We will get dermatology consult. Common variable immunodeficiency does present with vasculitides per ID. Patient's pain out of proportion to clinical diagnosis. Only on Tylenol as needed now. (2) Failure of outpatient treatment: Plan: Cellulitis failed outpatient IV treatment with MRSA covering Dalbavancin [facility]ycin [facility] (3) Common variable immunodeficiency: Plan: IV Ig infusion appreciated- see Dr Bass note Plan to transition to subcu Ig to keep appropriate immunoglobulin trough level per his note. D/W him earlier IgG level 660 which is staisfcatory. (4) Chronic respiratory failure with hypoxia: Plan: RA sats great 95% at rest We will check 2-minute walk test at time of discharge to evaluate need for home oxygen. States his oxygen saturation falls on the present and that is why he is not very ambulatory. Ambulating only to the bathroom here Need not use oxygen. (5) CMV (cytomegalovirus infection): Plan: It appears he has a recent diagnosis of CMV pneumonia Valganciclovir to continue at home dose. Also atovaquone known for PCP prophylaxis (6) Thrombocytopenia: Plan: and leukopenia are stable (7) Hyponatremia: Plan: 127 on admission, near normal at 133 today (8) Esophageal varices: Plan: Asymptomatic found on EGD, unknown when. 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 Off oxygen still Eating well no nausea or vomiting. Walking to the bathroom. Oxygen saturations fall in the present on oxygen and therefore he does not walk much. He was asked about foot claudication when he gave the statement. 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 grossly intact except for prominent tremor of the right arm and right foot Intact insight and judgment, cheerful affect Results & Data Results & Data ([facility]) Vital Signs (Past 12 Hours) Vital Signs Temp Pulse Resp BP BP Pulse Ox O2 Del Method 05/29/22 16:40 63 17 133/81 95 Room Air 05/29/22 15:36 36.5 C 59 L 17 135/83 95 Room Air 05/29/22 14:54 36.4 C L 62 16 134/83 96 Room Air 05/29/22 07:16 96 Room Air 05/29/22 07:06 36.8 C 60 16 110/70 93 Room Air Laboratory Results Abnormal lab results 05/29/22 Range/Units 07:29 Sodium 133 L (136-145) mmol/L Glucose 109 H (70-99(Fasting)) mg/dl Calcium 7.9 L (8.5-10.1) mg/dl Diagnostic Findings Duplex Scan Lower Extremity Artery 05/29/22 14:16 LEFT LOWER EXTREMITY ARTERIAL DOPPLER ULTRASOUND CLINICAL HISTORY: erythema suspect PAD COMPARISON STUDY: PET/CT September 24, 2021. TECHNIQUE: Color and duplex Doppler sonography of the arterial system of the left lower extremity was performed. FINDINGS: Focal calcified atherosclerotic plaque within the left common femoral artery measures 1.7 x 0.7 cm, as shown on prior PET/CT. However, no associated elevated velocities are identified to suggest a hemodynamically significant stenosis. There is triphasic flow within the left common femoral, superficial femoral, profunda, popliteal and posterior tibial arteries. There is triphasic flow within the proximal to mid left anterior tibial artery with monophasic flow within the distal left anterior tibial artery and the dorsalis pedis. No vessel occlusion is identified. IMPRESSION: 1. No sonographic evidence for a hemodynamically significant stenosis within the left lower extremity. Triphasic flow within the left lower extremity with the exception of monophasic flow within the left dorsalis pedis and distal left anterior tibial arteries. 2. 1.7 x 0.7 cm calcified plaque within the left common femoral artery. However, no sonographic evidence for an associated stenosis. ACT 112: Negative or not required by law. Electronically signed by: Rene Mesa M.D. 05/29/2022 5:24 PM Medications Administered Home Medications Medication Instructions Recorded Confirmed Last Taken Clindamycin 600mg/50ml 1,000 mg IV TID 05/27/22 05/27/22 05/26/22 Decadron Sdv 20 mg IV DIRECTED 05/27/22 05/27/22 Unknown Gammagard 40gm/400ml 40 g IV DIRECTED 05/27/22 05/27/22 Unknown Lactobacillus acidophilus 1 0 mmu cells PO TID 05/27/22 05/27/22 Unknown billion cell tablet Magic Mouth Wash 5 ml PO QID 05/27/22 05/27/22 Unknown acetaminophen 325 mg tablet 325 mg PO TID PRN Pain 05/27/22 05/27/22 05/26/22 (Tylenol) ascorbic acid (vitamin C) 500 mg 500 mg PO BID 05/27/22 05/27/22 05/26/22 tablet (Vitamin C) atovaquone 750 mg/5 mL oral 10 mg PO DAILY 05/27/22 05/27/22 05/26/22 suspension carbidopa ER 50 mg-levodopa 200 mg 1 tab PO BID 05/27/22 05/27/22 05/26/22 tablet,extended release carboxymethylcellulose sodium 0.5 1 drp ophthalmic (eye) TID 05/27/22 05/27/22 Unknown % eye drops (Refresh Tears) carvedilol 6.25 mg tablet 6.25 mg PO BID 05/27/22 05/27/22 05/26/22 cholestyramine (with sugar) 4 gram 4 g PO BID 05/27/22 05/27/22 05/26/22 powder for susp in a packet diphenhydramine HCl 50 mg/mL 50 mg IV DIRECTED 05/27/22 05/27/22 05/06/22 injection solution folic acid 1 mg tablet 1 mg PO DAILY 05/27/22 05/27/22 05/26/22 ipratropium 0.5 mg-albuterol 3 mg 3 ml inhalation QID PRN Shortness 05/27/22 05/27/22 Unknown (2.5 mg base)/3 mL nebulization Of Breath Or Wheezing soln multivit,tx w/iron (hematinic) 1 tab PO DAILY 05/27/22 05/27/22 05/26/22 ondansetron HCl 4 mg tablet 8 mg PO TID PRN Nausea 05/27/22 05/27/22 05/26/22 pantoprazole 40 mg tablet,delayed 40 mg PO DAILY 05/27/22 05/27/22 05/26/22 release paroxetine HCl 20 mg tablet (Paxil) 20 mg PO DAILY 05/27/22 05/27/22 05/26/22 saliva stimulant comb. no.3 2 spray mucous membrane TID PRN 05/27/22 05/27/22 Unknown (Biotene Moisturizing Mouth Dry Mouth mucosal spray) sodium chloride 0.65 % nasal spray 1 spray intranasal BID 05/27/22 05/27/22 Unknown aerosol ([place]) Active Medications Generic Name Dose Route Start Last Admin Trade Name Delmar PRN Reason Stop Dose Admin Acetaminophen 650 mg 05/27/22 10:07 05/27/22 17:47 Acetaminophen 325 Mg Tab PO 06/26/22 10:06 650 mg Q4H PRN Administration pain/fever Artificial Tears 1 drops 05/28/22 14:00 05/29/22 12:57 Artificial Tears OP 06/27/22 13:59 Not Given TID JEN Ascorbic Acid 500 mg 05/27/22 21:00 05/29/22 07:39 Ascorbic Acid 500 Mg Tab PO 06/26/22 20:59 500 mg BID JEN Administration Atovaquone 1,500 mg 05/28/22 09:00 05/29/22 07:43 Atovaquone 750 Mg/5 Ml Udc PO 06/27/22 08:59 1,500 mg DAILY JEN Administration Carbidopa/Levodopa 1 tab 05/28/22 21:00 05/29/22 07:37 Carbidopa/Levodopa 50/200mg Ext Rel Tab PO 06/27/22 20:59 1 tab BID JEN Administration Cholestyramine Resin 4 gm 05/28/22 10:00 05/29/22 09:27 Cholestyramine Light 4 Gm Pkt PO 06/27/22 09:59 4 gm BID@1000,2200 JEN Administration Clonidine HCl 0.2 mg 05/27/22 21:00 05/29/22 07:37 Clonidine Hcl 0.1 Mg Tab PO 06/26/22 20:59 0.2 mg BID JEN Administration Dextromethorphan Polymer Complex 60 mg 05/27/22 21:00 05/29/22 07:37 Dextromethorphan Polymr Complx 60 Mg/10 Ml Udp PO 06/26/22 20:59 60 mg Q12H JEN Administration Fluticasone Furoate 1 puffs 05/28/22 09:00 05/29/22 07:38 Fluticasone Furoate 200mcg 14 Puffs/Inhaler INH 06/27/22 08:59 1 puffs DAILY JNE Administration Protocol Folic Acid 1 mg 05/28/22 09:00 05/29/22 07:39 Folic Acid 1 Mg Tab PO 06/27/22 08:59 1 mg DAILY JEN Administration Guaifenesin 1,200 mg 05/27/22 21:00 05/29/22 07:37 Guaifenesin 600 Mg Tabcr PO 06/26/22 20:59 1,200 mg Q12H JEN Administration Heparin Sodium (Porcine) 5 ml 05/28/22 22:57 05/29/22 07:31 Heparin 100 Unit/Ml 5ml Flush FLUSH 06/27/22 22:56 5 ml PRN PRN Administration Flush Cefepime HCl 2,000 mg/ Syringe 20 mls @ 5 mls/min 05/27/22 20:00 05/29/22 07:52 IV 06/03/22 19:59 5 mls/min Q12H JEN Administration Protocol Vancomycin HCl 1,250 mg/ 275 mls @ 200 mls/hr 05/29/22 09:00 05/29/22 10:57 Sodium Chloride IV 06/05/22 08:59 Infused Q12H JEN Infusion Protocol Immune Globulin 100 mls @ 39.84 mls/hr 05/29/22 14:45 05/29/22 16:34 Octagam 10% IV 12/09/22 23:59 1 mg/kg/min TODAY@1445 JEN 39.8 mls/hr Administration Protocol 1 MG/KG/MIN Ketorolac Tromethamine 15 mg 05/27/22 20:15 05/28/22 16:28 Ketorolac Tromethamine 15 Mg/Ml Vial IV 06/01/22 20:14 15 mg Q6H PRN Administration Pain (5,6,7) Lactobacillus Acidophilus 2 cap 05/27/22 14:00 05/29/22 13:30 Advanced Probiotic 1250 Mg Capsule PO 06/26/22 13:59 2 cap TID JEN Administration Multi-Ingredient Mouthwash/Gargle 5 ml 05/27/22 16:30 05/29/22 15:44 First - Mouthwash Blm 119 Ml PO 06/26/22 16:29 Not Given ACHS JEN Pantoprazole Sodium 40 mg 05/28/22 09:00 05/29/22 07:39 Pantoprazole 40 Mg Tab PO 06/27/22 08:59 40 mg DAILY JEN Administration Paroxetine HCl 20 mg 05/29/22 09:00 05/29/22 07:39 Paroxetine Hcl 20 Mg Tab PO 06/28/22 08:59 20 mg DAILY JEN Administration Sodium Chloride 1 sprays 05/27/22 21:00 05/29/22 07:43 Sodium Chloride 0.65% Na Soln 45 Ml ([place]) NA 06/26/22 20:59 Not Given BID JEN Protocol Umeclidinium/Vilanterol 1 puffs 05/28/22 09:00 05/29/22 07:38 Umeclidinium/Vilanterol 62.5/25mcg 7 Puffs/Inhaler INH 06/27/22 08:59 1 puffs DAILY JEN Administration Valganciclovir 450 mg 05/27/22 21:00 05/29/22 07:49 Valganciclovir Hcl 450 Mg Tablet PO 06/26/22 20:59 450 mg BID JEN Administration Vitamin B Complex 1 tab 05/28/22 09:00 05/29/22 07:39 Vitamin B Complex Tab PO 06/27/22 08:59 1 tab DAILY JEN Administration Protocol Zinc Sulfate 220 mg 05/28/22 09:00 05/29/22 07:39 Zinc Sulfate 220 Mg Capsule PO 06/27/22 08:59 220 mg QAM JEN Administration PG Care Time/CCT Total # of Minutes Spent Total Time Spent with Patient: Total time spent is greater than 50% in coordination of care (as documented) at patient's floor/unit and/or counseling patient: Coding Level of Care Code 82889 Subseq Hosp Care Lvl 2 Diagnoses Cellulitis of lower extremity L03.119 Failure of outpatient treatment Z78.9 Common variable immunodeficiency D83.9 Chronic respiratory failure with hypoxia J96.11 CMV (cytomegalovirus infection) B25.9 Thrombocytopenia D69.6 Hyponatremia E87.1 Esophageal varices I85.00 Comment plus 15 minutes coordinating with vascular surgery and infectious disease.
[2022-05-30] MEDS: HEPARIN 100 UNIT/ML 5ML FLUSH FLUSH PRN ×2 (00:06→22:21)
[2022-05-30 07:43] LABS: BUN Creatinine Ratio 14.9 (10-20); Calcium 8.2 mg/dl (8.5-10.1); Creatinine Clr Calc Pharmacy 113.7 ml/min; Est GFR (African American) 123.6 ml/min; Est GFR (Non-African American) 106.7 ml/min; Potassium 4.3 mmol/L (3.5-5.1)
[2022-05-30] MEDS ORDERED: VANCOMYCIN LEVEL ONE (08:00)
[2022-05-30] MEDS: DEXTROMETHORPHAN POLYMR COMPLX 60 MG/10 ML UDP PO SCH ×2 (08:04→20:52)
[2022-05-30] MEDS: PANTOprazole 40 MG TAB PO SCH (08:05)
[2022-05-30] MEDS: ATOVAQUONE 750 MG/5 ML UDC PO SCH (08:05)
[2022-05-30] MEDS: ZINC SULFATE 220 MG CAPSULE PO SCH (08:05)
[2022-05-30] MEDS: PARoxetine HCL 20 MG TAB PO SCH (08:05)
[2022-05-30] MEDS: ADVANCED PROBIOTIC 1250 MG CAPSULE PO SCH ×3 (08:05→20:52)
[2022-05-30] MEDS: guaiFENesin 600 MG TABCR PO SCH ×2 (08:05→20:54)
[2022-05-30] MEDS: cloNIDine HCL 0.1 MG TAB PO SCH ×3 (08:05→21:01)
[2022-05-30] MEDS: VALGANCICLOVIR HCL 450 MG TABLET PO SCH ×2 (08:05→20:55)
[2022-05-30] MEDS: ASCORBIC ACID 500 MG TAB PO SCH ×2 (08:06→20:53)
[2022-05-30] MEDS: FOLIC ACID 1 MG TAB PO SCH (08:06)
[2022-05-30] MEDS: VITAMIN B COMPLEX TAB PO SCH (08:06)
[2022-05-30] MEDS: CARBIDOPA/LEVODOPA 50/200MG EXT REL TAB PO SCH ×2 (08:06→20:51)
[2022-05-30] MEDS: FLUTICASONE FUROATE 200MCG 14 PUFFS/INHALER INH SCH (08:06)
[2022-05-30] MEDS: SODIUM CHLORIDE 0.65% NA SOLN 45 ML (OCEAN) SCH ×2 (08:07→20:54)
[2022-05-30] MEDS: ARTIFICIAL TEARS OP SCH ×3 (08:07→20:51)
[2022-05-30] MEDS: FIRST - Mouthwash BLM 119 ML PO SCH ×5 (08:07→21:02)
[2022-05-30] MEDS: UMECLIDINIUM/VILANTEROL 62.5/25MCG 7 PUFFS/INHALER INH SCH (08:07)
[2022-05-30] MEDS: CEFEPIME 2,000 MG in SYRINGE 0 ML IV SCH ×2 (08:33→20:39)
[2022-05-30] MEDS: VANCOMYCIN HCL 1,250 MG in SODIUM CHLORIDE 0.9% 250 ML IV SCH ×2 (08:33→20:39)
[2022-05-30] MEDS: CHOLESTYRAMINE LIGHT 4 GM PKT PO SCH ×2 (10:02→21:03)
--- NOTE | 2022-05-30 10:09 | Communication Note ---
Date of Service: May 30, 2022 No arterial occlusions or significant stenosis seen on duplex of the left lower extremity. Redness of leg not secondary from arterial disease. Will see patient on Wednesday if primary service still needs vascular evaluation. Please let us know on Wednesday.
--- NOTE | 2022-05-30 10:28 | Pharmacy Report ---
Pharmacy PK ABX Note - Date of Service May 30, 2022 - Assessment and Plan Assessment 05/30: * Level this AM of 12.1 mcg/mL associated with an AUC of 443 mg/L.hr * Target AUC/KAHLIL of 400-600 mg/L.hr * SCr stable Background 05/27/22: * 56 year old M receiving cefepime and vancomycin for treatment of recurrent cellulitis * PMH: CVID/hypogammaglobulinemia, CMV and fungal pneumonias, lymphoma, COPD, cirrhosis with esophageal varices, * HPI: received dalbavancin on 05/16 in the ED. Had been doing fairly well, but then symptoms worsened and was started on clindamycin. Reported to ED again 05/27 2nd fever * SCr at/near baseline Plan * Continue vancomycin 1250 mg IV q12h * Random level ordered for: 06/01/22 Pharmacy will continue to follow and will adjust dose/frequency as necessary. Thank you. Pharmacy has transitioned to AUC monitoring for vancomycin. AUC/KAHLIL is the preferred PK/PD target and is associated with decreased risk of nephrotoxicity compared to traditional trough targets.
--- NOTE | 2022-05-30 19:01 | Hospitalist Progress Note ---
Date of Service May 30, 2022 Assessment & Plan (1) Cellulitis of lower extremity: Plan: Vancomycin and cefepime day 3. ID consulted. Discussed with Dr. Singh on phone again 05/29 The patient had significant dependent erythema on exam yesterday which was alleviated when he got his leg back on the bed. She is concerned about vasculitis or peripheral arterial disease. Duplex ultrasound of the arteries of the left lower extremity is unremarkable. Vascular surgery were consulted but are not here over the weekend Consideration of skin biopsy to look for vasculitis advised by ID. Common variable immunodeficiency does present with vasculitides per ID. Will consult dermatology though unlikely that the common the Wednesday. (2) Failure of outpatient treatment: Plan: Cellulitis failed outpatient IV treatment with MRSA covering Dalbavancin and clindapycin in shelter (3) Common variable immunodeficiency: Plan: IV Ig infusion appreciated- see Dr Bass note Plan to transition to subcu Ig to keep appropriate immunoglobulin trough level per his note. D/W him earlier IgG level 660 which is satisfcatory. (4) Chronic respiratory failure with hypoxia: Plan: RA sats great 95% at rest We will check 2-minute walk test at time of discharge to evaluate need for home oxygen. States his oxygen saturation falls on the present and that is why he is not very ambulatory. Ambulating only to the bathroom here Need not use oxygen as outpatinent (5) CMV (cytomegalovirus infection): Plan: It appears he has a recent diagnosis of CMV pneumonia Valganciclovir to continue at home dose. Also atovaquone known for PCP prophylaxis (6) Thrombocytopenia: Plan: and leukopenia are stable (7) Hyponatremia: Plan: 127 on admission, normalized now (8) Esophageal varices: Plan: Asymptomatic found on EGD, unknown when. 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 Also discussion of vasculitis ongoing and Derm consult probably not available on the weekend but have not tried it Admission and Anticipated Discharge Date Admission Date: May 27, 2022 Subjective Seen at 9:45 AM. Minimal pain left leg, redness is going down. Patient is very cheerful. Not short of breath. Off oxygen for 2 days. Ambulating without difficulty. Describing his life in shelter and very chatty Physical Exam Physical Exam: Alert and pleasant, moderately built, well looking, Two shelter staff in the room Patient very conversant and describing his life in shelter and how he plans to get more active in the compound exercising. 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 except for prominent tremor of the right arm and right foot Intact insight and judgment, cheerful affect Results & Data Results & [facility]) Vital Signs (Past 12 Hours) Vital Signs Temp Pulse Resp BP Pulse Ox O2 Del Method 05/30/22 14:45 36.6 C 65 16 113/74 93 Room Air Laboratory Results Abnormal lab results 05/30/22 Range/Units 07:08 Sodium 135 L (136-145) mmol/L Calcium 8.2 L (8.5-10.1) mg/dl PG Care Time/CCT Total # of Minutes Spent Total Time Spent with Patient: Total time spent is greater than 50% in coordination of care (as documented) at patient's floor/unit and/or counseling patient: Coding Level of Care Code 36853 Subseq Hosp Care Lvl 2 Diagnoses Cellulitis of lower extremity L03.119 Failure of outpatient treatment Z78.9 Common variable immunodeficiency D83.9 Chronic respiratory failure with hypoxia J96.11 CMV (cytomegalovirus infection) B25.9 Thrombocytopenia D69.6 Hyponatremia E87.1 Esophageal varices I85.00
[2022-05-31] MEDS: FIRST - Mouthwash BLM 119 ML PO SCH ×4 (06:42→20:49)
[2022-05-31] MEDS: cloNIDine HCL 0.1 MG TAB PO SCH ×2 (07:53→20:48)
[2022-05-31] MEDS: guaiFENesin 600 MG TABCR PO SCH ×2 (07:54→20:49)
[2022-05-31] MEDS: FLUTICASONE FUROATE 200MCG 14 PUFFS/INHALER INH SCH (07:56)
[2022-05-31] MEDS: PARoxetine HCL 20 MG TAB PO SCH (07:57)
[2022-05-31] MEDS: CARBIDOPA/LEVODOPA 50/200MG EXT REL TAB PO SCH ×2 (07:57→20:50)
[2022-05-31] MEDS: ASCORBIC ACID 500 MG TAB PO SCH ×2 (07:57→20:49)
[2022-05-31] MEDS: ADVANCED PROBIOTIC 1250 MG CAPSULE PO SCH ×3 (07:57→20:50)
[2022-05-31] MEDS: VITAMIN B COMPLEX TAB PO SCH (07:57)
[2022-05-31] MEDS: UMECLIDINIUM/VILANTEROL 62.5/25MCG 7 PUFFS/INHALER INH SCH (07:57)
[2022-05-31] MEDS: PANTOprazole 40 MG TAB PO SCH (07:57)
[2022-05-31] MEDS: VALGANCICLOVIR HCL 450 MG TABLET PO SCH ×2 (07:57→20:50)
[2022-05-31] MEDS: FOLIC ACID 1 MG TAB PO SCH (07:58)
[2022-05-31] MEDS: ZINC SULFATE 220 MG CAPSULE PO SCH (07:58)
[2022-05-31] MEDS: SODIUM CHLORIDE 0.65% NA SOLN 45 ML (OCEAN) SCH ×2 (07:58→20:49)
[2022-05-31] MEDS: ARTIFICIAL TEARS OP SCH ×3 (07:58→20:47)
[2022-05-31] MEDS: DEXTROMETHORPHAN POLYMR COMPLX 60 MG/10 ML UDP PO SCH ×2 (08:04→20:51)
[2022-05-31] MEDS: CEFEPIME 2,000 MG in SYRINGE 0 ML IV SCH ×2 (08:04→20:46)
[2022-05-31] MEDS: VANCOMYCIN HCL 1,250 MG in SODIUM CHLORIDE 0.9% 250 ML IV SCH ×2 (08:05→20:51)
[2022-05-31] MEDS: ATOVAQUONE 750 MG/5 ML UDC PO SCH (08:14)
[2022-05-31] MEDS: CHOLESTYRAMINE LIGHT 4 GM PKT PO SCH ×2 (10:10→22:12)
--- NOTE | 2022-05-31 22:00 | Hospitalist Progress Note ---
Date of Service May 31, 2022 Assessment & Plan (1) Cellulitis of lower extremity: Plan: Vancomycin and cefepime day 4. ID consulted. Discussed with Dr. Singh on phone again 05/29 The patient had significant dependent erythema on exam yesterday which was alleviated when he got his leg back on the bed. She is concerned about vasculitis or peripheral arterial disease. Duplex ultrasound of the arteries of the left lower extremity is unremarkable. Vascular surgery were consulted but are not here over the weekend Consideration of skin biopsy to look for vasculitis advised by ID. Common variable immunodeficiency does present with vasculitides per ID. Placed consult dermatology 05/31 though unlikely that they come weekends though (2) Failure of outpatient treatment: Plan: Cellulitis failed outpatient IV treatment with MRSA covering Dalbavancin and clindapycin in retirement (3) Common variable immunodeficiency: Plan: IV Ig infusion appreciated- see Dr Bass note Plan to transition to subcu Ig to keep appropriate immunoglobulin trough level per his note. D/W him earlier IgG level 660 which is satisfcatory. (4) Chronic respiratory failure with hypoxia: Plan: RA sats great 95% at rest We will check 2-minute walk test at time of discharge to evaluate need for home oxygen. States his oxygen saturation falls on the present and that is why he is not very ambulatory. Ambulating only to the bathroom here Need not use oxygen as outpatinent (5) CMV (cytomegalovirus infection): Plan: It appears he has a recent diagnosis of CMV pneumonia Valganciclovir to continue at home dose. Also atovaquone known for PCP prophylaxis (6) Thrombocytopenia: Plan: and leukopenia are stable (7) Hyponatremia: Plan: 127 on admission, normalized now (8) Esophageal varices: Plan: Asymptomatic found on EGD, unknown when. 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 Also discussion of vasculitis ongoing and Derm consult probably not available on the weekend but have not tried it Admission and Anticipated Discharge Date Admission Date: May 27, 2022 Subjective around 1345 h, feels good. Left leg redness going down. Dermatology has not seen him yet. Complained of some intermittent right upper quadrant pain, 2 loose bowel movements yesterday, has had diarrhea with antibiotics taken care of by cholestyramine in the past he says. One formed bowel movement today. Physical Exam Physical Exam: Alert and pleasant, moderately built, well looking, Two retirement staff in the room Patient very conversant and describing his life in retirement and how he plans to get more active in the compound exercising. Patient very talkative as every day, 95 percent at rest on room airwalking around the room, sats 92% on room air Head and neck moist tongue, anicteric sclerae, no thyromegaly Chest clear to auscultation Abdomen scaphoid, nontender, no hepatomegaly CVS S1-S2 no murmur Extremities : Left leg examined in dependent positionerythema markedly down and more like a brownish-pink discoloration now TELETYPESETTER MONITOR grossly intact except for prominent tremor of the right arm Intact insight and judgment, cheerful affect Results & Data Results & Data ([facility]) Vital Signs (Past 12 Hours) Vital Signs Temp Pulse Resp BP Pulse Ox O2 Del Method 05/31/22 15:08 36.8 C 100 H 18 132/80 97 Room Air PG Care Time/CCT Total # of Minutes Spent Total Time Spent with Patient: Total time spent is greater than 50% in coordination of care (as documented) at patient's floor/unit and/or counseling patient: Coding Level of Care Code 87059 Subseq Hosp Care Lvl 2 Diagnoses Cellulitis of lower extremity L03.119 Failure of outpatient treatment Z78.9 Common variable immunodeficiency D83.9 Chronic respiratory failure with hypoxia J96.11 CMV (cytomegalovirus infection) B25.9 Thrombocytopenia D69.6 Hyponatremia E87.1 Esophageal varices I85.00
[2022-05-31] MEDS: HEPARIN 100 UNIT/ML 5ML FLUSH FLUSH PRN (22:12)
[2022-06-01] MEDS: ACETAMINOPHEN 325 MG TAB PO PRN (01:56)
[2022-06-01] MEDS: HEPARIN 100 UNIT/ML 5ML FLUSH FLUSH PRN ×2 (05:50→14:30)
[2022-06-01 06:25] LABS: Creatinine Clr Calc Pharmacy 96.5 ml/min; Est GFR (African American) 115.5 ml/min; Est GFR (Non-African American) 99.7 ml/min
[2022-06-01] MEDS: FIRST - Mouthwash BLM 119 ML PO SCH ×3 (06:38→16:18)
[2022-06-01] MEDS ORDERED: VANCOMYCIN LEVEL ONE (08:30)
[2022-06-01] MEDS: VANCOMYCIN HCL 1,250 MG in SODIUM CHLORIDE 0.9% 250 ML IV SCH (09:51)
[2022-06-01] MEDS: guaiFENesin 600 MG TABCR PO SCH (09:58)
[2022-06-01] MEDS: PANTOprazole 40 MG TAB PO SCH (09:58)
[2022-06-01] MEDS: cloNIDine HCL 0.1 MG TAB PO SCH (09:58)
[2022-06-01] MEDS: CEFEPIME 2,000 MG in SYRINGE 0 ML IV SCH (09:58)
[2022-06-01] MEDS: ZINC SULFATE 220 MG CAPSULE PO SCH (09:59)
[2022-06-01] MEDS: FOLIC ACID 1 MG TAB PO SCH (09:59)
[2022-06-01] MEDS: DEXTROMETHORPHAN POLYMR COMPLX 60 MG/10 ML UDP PO SCH (09:59)
[2022-06-01] MEDS: PARoxetine HCL 20 MG TAB PO SCH (09:59)
[2022-06-01] MEDS: CHOLESTYRAMINE LIGHT 4 GM PKT PO SCH (09:59)
[2022-06-01] MEDS: VITAMIN B COMPLEX TAB PO SCH (09:59)
[2022-06-01] MEDS: UMECLIDINIUM/VILANTEROL 62.5/25MCG 7 PUFFS/INHALER INH SCH (10:00)
[2022-06-01] MEDS: ASCORBIC ACID 500 MG TAB PO SCH (10:00)
[2022-06-01] MEDS: CARBIDOPA/LEVODOPA 50/200MG EXT REL TAB PO SCH (10:00)
[2022-06-01] MEDS: VALGANCICLOVIR HCL 450 MG TABLET PO SCH (10:00)
[2022-06-01] MEDS: FLUTICASONE FUROATE 200MCG 14 PUFFS/INHALER INH SCH (10:00)
[2022-06-01] MEDS: ARTIFICIAL TEARS OP SCH ×2 (10:01→14:44)
[2022-06-01] MEDS: ATOVAQUONE 750 MG/5 ML UDC PO SCH (10:01)
[2022-06-01] MEDS: SODIUM CHLORIDE 0.65% NA SOLN 45 ML (OCEAN) SCH (10:02)
[2022-06-01] MEDS: ADVANCED PROBIOTIC 1250 MG CAPSULE PO SCH ×2 (11:30→14:44)
--- NOTE | 2022-06-01 13:34 | Infectious Disease Progress Nt ---
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 Infectious Diseases consulted for pathogenic evaluation in setting of broad antibiotic therapy. Patient has been treated with IV Dalbavancin followed by Clindamycin but presented d/t worsening erythema, fever . VSS, initial labs showed hyponatremia NA 127, low chloride 93, Creatinine 0.73, unremarkable LFTs, INR 1.2, WBC 4.62 (baseline 2s), hemoglobin 11.2, platelets 68 clear negative for pyuria, LE, nitrites. CXR no acute process and chronic upper lung zone fibrosis, L foot and L tib/fib xrays showed no acute fractures or evidence for acute osteomyelitis. He was started on IV Daptomycin (changed now to Vancomycin) and IV Cefepime. Exam is notable for LLE erythema that quickly improves with leg raise. Left pooja st port without issue. Duplex ultrasound of the arteries of the left lower extremity is unremarkable. 05/29 He received Ig, followed by Immunology Discussion: This is a severely immunodeficient patient with low CD4, Low Immunoglobulin levels and prior history of OI related infections who is incarcerated. Symptoms returned when he completed Dalbavancin and was on Clindamycin. Exam is quite striking with leg raise in reduction of redness, which raises the question of vascular component. His U/S is unremarkable. Over the weekend he has had marked improvement in his leg. I did discuss with Primary team from ID standoint, typical bacterial infections MRSA, pseudomonas, strep should be covered with current regimen. Atypical bacteria less likely to cause skin, PJP of skin uncommon manifestation. Endemic fungi typically cause smaller lesions on skin and do not have this morphology. I would check MRSA nares We can transition him to po Doxycycline 100mg po bid with food and Levaquin 750mg po daily (QTc <500) for 7 days as outpatient. If there is recurrence or lack of improvement then would strongly consider derm evaluation for biopsy to evaluation underlying cause. I spoke with Dr. Gama today. If his MRSA swab is positive then would recommend bactriacin ointment for nares when he completes his oral antibiotics. Recommend: -Transition to Doxycycline 100mg po BID with food, avoid dairy, mag, ca products 2 hours before and after AND Levaquin 750mg po daily -Plan for 7 day duration after discharge -If recurrence or no improvement, recommend skin biopsy Thank you for allowing me to participate in the care of your patient. Ruthy Singh MD [facility], [facility] Admission and Anticipated Discharge Date Admission Date: May 27, 2022 Subjective Subsequent visit was provided via telemedicine using two-way real-time interactive telecommunication between the patient and the telemedicine provider. For the duration of the visit, the provider was performing the assessment from a different facility than the patient. This includesuse of bluetooth st ethoscope forauscultationperformed by the telepresenter that the telemedicine provider can hear if described in the physical exam. [employer] contact information: Please call [facility] Call Center . (Phone Number For Physician Use Only) After establishing a telemedicine visit, patient was: Patient was verified with two unique identifiers, Patient/authorized rep acknowledged consent and understanding and Gave permission to continue telehealth session 24 hours: NANCY, VSS, afebrile No new Micro data S: Patient feels much better, pain has improved Physical Exam Constitutional: WD/WN, vitals as above Gastrointestinal (Abdomen): normal bowel sounds, soft, nontender, no hepatosplenomegaly Skin: LLE improved edema and erythema Results & Data ([facility]) Vital Signs (Past 12 Hours) Vital Signs Temp Pulse Pulse Pulse Pulse Pulse Resp 06/01/22 10:53 103 H 73 78 81 06/01/22 07:10 36.7 C 61 12 Resp Resp Resp Resp BP Pulse Ox Pulse Ox 06/01/22 10:53 18 18 18 16 91 06/01/22 07:10 127/79 93 Pulse Ox Pulse Ox Pulse Ox O2 Del Method O2 Flow Rate O2 Flow Rate 06/01/22 10:53 88 L 93 94 1 1 06/01/22 07:10 Room Air Laboratory Results Laboratory Results - last 48 hr 06/01/22 06/01/22 06/01/22 05:53 05:53 11:38 Creatinine 0.79 Est Cr Clr Drug Dosing 96.5 Est GFR ( Amer) 115.5 Est GFR (Non-Af Amer) 99.7 Nasal Screen MRSA (PCR) Negative Random Vancomycin 49.1 H* Microbiology 05/27/22 07:40 Blood Aerobic Blood Culture - Final No growth in Aerobic bottle after 5 days. 05/27/22 07:40 Blood Anaerobic Blood Culture - Final No growth in Anaerobic bottle after 5 days. 05/27/22 07:45 Blood Aerobic Blood Culture - Final No growth in Aerobic bottle after 5 days. 05/27/22 07:45 Blood Anaerobic Blood Culture - Final No growth in Anaerobic bottle after 5 days. Diagnostic Findings Current Inpatient Medications Acetaminophen (Acetaminophen 325 Mg Tab) 650 mg PO Q4H PRN PRN Reason: pain/fever Stop: 06/26/22 10:06 Last Admin: 06/01/22 01:56 Dose: 650 mg Albuterol (Albut/Ipratrop 3mg/0.5mg Neb 3 Ml Vial) 3 ml INH Q4R PRN; Protocol PRN Reason: Shortness Of Breath Stop: 06/26/22 10:16 Artificial Tears (Artificial Tears) 1 drops OP TID [facility] Stop: 06/27/22 13:59 Last Admin: 06/01/22 10:01 Dose: 1 drops Ascorbic Acid (Ascorbic Acid 500 Mg Tab) 500 mg PO BID [facility] Stop: 06/26/22 20:59 Last Admin: 06/01/22 10:00 Dose: 500 mg Atovaquone (Atovaquone 750 Mg/5 Ml Udc) 1,500 mg PO DAILY JEN Stop: 06/27/22 08:59 Last Admin: 06/01/22 10:01 Dose: 1,500 mg Carbidopa/Levodopa (Carbidopa/Levodopa 50/200mg Ext Rel Tab) 1 tab PO BID JEN Stop: 06/27/22 20:59 Last Admin: 06/01/22 10:00 Dose: 1 tab Cholestyramine Resin (Cholestyramine Light 4 Gm Pkt) 4 gm PO BID@1000,2200 JEN Stop: 06/27/22 09:59 Last Admin: 06/01/22 09:59 Dose: 4 gm Clonidine HCl (Clonidine Hcl 0.1 Mg Tab) 0.2 mg PO BID [facility] Stop: 06/26/22 20:59 Last Admin: 06/01/22 09:58 Dose: Not Given Dextromethorphan Polymer Complex (Dextromethorphan Polymr Complx 60 Mg/10 Ml Udp) 60 mg PO Q12H [facility] Stop: 06/26/22 20:59 Last Admin: 06/01/22 09:59 Dose: 60 mg Diphenhydramine HCl (Diphenhydramine 50 Mg/Ml Vial) 50 mg IV Q6H PRN PRN Reason: Allergic Reaction Stop: 06/28/22 13:16 Fluticasone Furoate (Fluticasone Furoate 200mcg 14 Puffs/Inhaler) 1 puffs INH DAILY [facility]; Protocol Stop: 06/27/22 08:59 Last Admin: 06/01/22 10:00 Dose: 1 puffs Folic Acid (Folic Acid 1 Mg Tab) 1 mg PO DAILY [facility] Stop: 06/27/22 08:59 Last Admin: 06/01/22 09:59 Dose: 1 mg Guaifenesin (Guaifenesin 600 Mg Tabcr) 1,200 mg PO Q12H [facility] Stop: 06/26/22 20:59 Last Admin: 06/01/22 09:58 Dose: Not Given Heparin Sodium (Porcine) (Heparin 100 Unit/Ml 5ml Flush) 5 ml FLUSH PRN PRN PRN Reason: Flush Stop: 06/27/22 22:56 Last Admin: 06/01/22 05:50 Dose: 5 ml Cefepime HCl 2,000 mg/ Syringe 20 mls @ 5 mls/min IV Q12H [facility]; Protocol Stop: 06/03/22 19:59 Last Admin: 06/01/22 09:58 Dose: 5 mls/min Lactobacillus Acidophilus (Advanced Probiotic 1250 Mg Capsule) 2 cap PO TID [facility] Stop: 06/26/22 13:59 Last Admin: 06/01/22 11:30 Dose: 2 cap Levalbuterol HCl (Levalbuterol Tartrate 15 Gm Hfa.Aer.Ad) 2 puffs INH QIDR PRN PRN Reason: Shortness Of Breath Stop: 06/26/22 10:16 Miscellaneous Information (Vancomycin Consult Active) 1 each N/A UD PRN PRN Reason: Consult Stop: 06/26/22 10:18 Multi-Ingredient Mouthwash/Gargle (First - Mouthwash Blm 119 Ml) 5 ml PO ACHS [facility] Stop: 06/26/22 16:29 Last Admin: 06/01/22 11:35 Dose: Not Given Ondansetron HCl (Ondansetron 8mg Od Tab) 8 mg PO TID PRN PRN Reason: Nausea And Vomiting Stop: 06/26/22 13:03 Pantoprazole Sodium (Pantoprazole 40 Mg Tab) 40 mg PO DAILY JEN Stop: 06/27/22 08:59 Last Admin: 06/01/22 09:58 Dose: 40 mg Paroxetine HCl (Paroxetine Hcl 20 Mg Tab) 20 mg PO DAILY [facility] Stop: 06/28/22 08:59 Last Admin: 06/01/22 09:59 Dose: 20 mg Sodium Chloride (Sodium Chloride 0.65% Na Soln 45 Ml ([place])) 1 sprays NA BID [facility]; Protocol Stop: 06/26/22 20:59 Last Admin: 06/01/22 10:02 Dose: 1 sprays Umeclidinium/Vilanterol (Umeclidinium/Vilanterol 62.5/25mcg 7 Puffs/Inhaler) 1 puffs INH DAILY [facility] Stop: 06/27/22 08:59 Last Admin: 06/01/22 10:00 Dose: 1 puffs Valganciclovir (Valganciclovir Hcl 450 Mg Tablet) 450 mg PO BID [facility] Stop: 06/26/22 20:59 Last Admin: 06/01/22 10:00 Dose: 450 mg Vitamin B Complex (Vitamin B Complex Tab) 1 tab PO DAILY [facility]; Protocol Stop: 06/27/22 08:59 Last Admin: 06/01/22 09:59 Dose: 1 tab Zinc Sulfate (Zinc Sulfate 220 Mg Capsule) 220 mg PO QAM [facility] Stop: 06/27/22 08:59 Last Admin: 06/01/22 09:59 Dose: 220 mg
--- NOTE | 2022-06-01 16:39 | Discharge Summary ---
Date of Service June 01, 2022 Admission HPI Per Admitting Provider Patient is a 56-year-old male with extensive past medical history including common variable immunodeficiency/hypogammaglobulinemia, CVM pneumonia, lymphoma, COPD, cirrhosis with esophageal varices, history of fungal pneumonia, and recent history of recurrent cellulitis. Patient was seen in this institution on the of last month for cellulitis of the LEFT lower extremity. He was started on Dalvance in the outpatient and reports that he had been doing fairly well, but reports that his symptoms worsened and he was placed on oral clindamycin. Despite these medication combinations, his symptoms have worsened and he developed a fever today which prompted them transferring the patient to the hospital. Patient was noted to have a worsening cellulitis upon evaluation in the emergency department. He was started on daptomycin and cefepime. Patient noted to have low-grade fever. He complains of pain to the LEFT-sided foot and ankle, but otherwise offers no other complaints at this time. Principal Diagnosis Left lower extremity cellulitis with common variable immunodeficiency Hepatic cirrhosis? Autoimmune? Hepatitis C associated Incarcerated status Discharge Exam Alert and pleasant, moderately built, well looking, Two [facility] staff in the room as usual Patient very conversant as usual RA Sats dropped to under 88% after walking, at rest well over 90%. 1 L of oxygen brought back his sats to 91% when he was walking. Head and neck moist tongue, anicteric sclerae, no thyromegaly Chest clear to auscultation Abdomen scaphoid, nontender, no hepatomegaly CVS S1-S2 no murmur Extremities : Left leg examined in supine positionerythema markedly down , slight warmth BAIL BOND AGENT grossly intact except for prominent tremor of the right arm Intact insight and judgment, cheerful affect Discharge Data Allergies Allergy/AdvReac Type Severity Reaction Status Date / Time sulfamethoxazole Allergy Mild RASH/BLEEDI Verified 04/27/22 08:47 NG trimethoprim Allergy Mild RASH/BLEEDI Verified 04/27/22 08:47 NG Consultations 05/27/22 09:06 ED Decision to Admit Stat 05/27/22 10:07 Consult Allergy / Immunology Routine 05/28/22 15:18 Consult Infectious Diseases Routine 05/29/22 13:09 Consult Vascular Surgery Routine 05/31/22 08:40 Consult Dermatology Routine Ordered Studies 05/29/22 14:16 US duplex leg [US arterial duplex LE LT] Urgent Hospital Course (1) Cellulitis of lower extremity: Vancomycin and cefepime day 5 Discharging on Levaquin and doxycycline to complete 7 more days. The patient had significant dependent erythema on exam yesterday which was alleviated when he got his leg back on the bed. She is concerned about vasculitis or peripheral arterial disease. Duplex ultrasound of the arteries of the left lower extremity is unremarkable. Vascular surgery were consulted but are not here over the weekend Consideration of skin biopsy to look for vasculitis advised by ID Dr Ruthy Singh. Dr Rodriguez of Dermatology will see him as an outpatient. On the day of discharge a small proportion of the left leg erythematous area had striae and a somewhat reticular pattern which was new. Common variable immunodeficiency does present with vasculitides per ID. 06/01/2022 D/W Dr Errol Palacios, patient's PCP in [facility]. (2) Failure of outpatient treatment: Cellulitis failed outpatient IV treatment (got doxycycline iv and present for 36 hours and not Dalbavancin which he got 1 dose of in the ED 2 weeks prior to that when he had presented with leg redness MRSA nares negative on the day of discharge (3) Common variable immunodeficiency: IV Ig infusion done 05/29 - 35 grams. Plan to transition to subcu Ig to keep appropriate immunoglobulin trough level per allergy/ immunology Dr. Bass's notes He is aware of discharge and will coordinate subcutaneous Ig with Dr. Palacios, PCP in fdc IgG level 660 which is satisfactory per allergy/ immunology MD. (4) Chronic respiratory failure with hypoxia: RA sats great 95% at rest We will check 2-minute walk test at time of discharge to evaluate need for home oxygen. States his oxygen saturation falls on the present and that is why he is not very ambulatory. Ambulating only to the bathroom here Need not use oxygen as outpatient at rest and only 1 L on activity required. This was conveyed to PCP Dr. Palacios (5) CMV (cytomegalovirus infection): It appears he has a recent diagnosis of CMV pneumonia Valganciclovir to continue at home dose. 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 Also discussion of vasculitis ongoing and Derm consult probably not available on the weekend but have not tried it Total Time Total Time Spent Total Time Spent (In Minutes): 55 Discharge Plan Discharge Items Patient Disposition: Home - Self-Care Reason For Visit: CELLULITIS,FAILED OUTPT,HYPONATREMIA Discharge Diagnosis: Common variable immunodeficiency and left leg cellulitis Activity: Resume your previous activity Activity Comment: Stay active and exercise regularly. Non-emergency contact: Primary Care Provider Call non-emergency contact if: you have any medication questions and your symptoms worsen Follow-up/Referrals: Bradford PERERA [Primary Care Provider] - Diet: Regular Addtl Attending Provider Instructions: I have spoken with your PCP Dr Palacios Pending Studies at Discharge: No Medications and DC Order Prescriptions: New levofloxacin 750 mg tablet 750 mg PO DAILY 7 Days Qty: 7 0RF doxycycline hyclate 100 mg capsule 100 mg PO BID 7 Days Qty: 14 0RF Continued acetaminophen [Tylenol] 325 mg Tablet 325 mg PO TID PRN (Reason: Pain) carvedilol 6.25 mg Tablet 6.25 mg PO BID Rx Instructions: must administer with a meal/food ipratropium-albuterol 0.5 mg-3 mg(2.5 mg base)/3 mL Solution For Nebulization 3 ml INHALATION QID PRN (Reason: Shortness Of Breath Or Wheezing) Rx Instructions: SHOULD ALWAYS TRY XOPENEX 1ST TO SEE IF RESOLVES SOB. ondansetron HCl 4 mg Tablet 8 mg PO TID PRN (Reason: Nausea) carbidopa-levodopa 50-200 mg Tablet Extended Release 1 tab PO BID diphenhydramine HCl [Benadryl] 50 mg/mL Solution 50 mg IV DIRECTED Rx Instructions: INFUSE 50 MG IV DAILY, 30 MIN PRIOR TO G-GUARD. EVERY 4 WEEKS ON Wednesday ON DATES 06/03/2022 ascorbic acid (vitamin C) [Vitamin C] 500 mg Tablet 500 mg PO BID carboxymethylcellulose sodium [Refresh Tears] 0.5 % Drops 1 drp OPHTHALMIC (EYE) TID Rx Instructions: KOP paroxetine HCl [Paxil] 20 mg Tablet 20 mg PO DAILY pantoprazole 40 mg Tablet,Delayed Release (Dr/Ec) 40 mg PO DAILY folic acid 1 mg Tablet 1 mg PO DAILY atovaquone 750 mg/5 mL Suspension 10 mg PO DAILY Rx Instructions: must administer with food, preferably a high-fat meal B Complex Plus Vitamin C Tablet 1 tab PO DAILY cholestyramine (with sugar) 4 gram Powder In Packet 4 g PO BID Rx Instructions: administer w/meal; avoid other meds within 1hr before or 4-6hr after dose Lactobacillus acidophilus [PROBIATA] 1 billion cell Tablet 0 mmu cells PO TID Biotene Moisturizing Mouth [place],Non-Aerosol 2 spray MUCOUS MEMBRANE TID PRN (Reason: Dry Mouth) Discontinued Clindamycin 600mg/50ml 1,000 mg IV TID Decadron Sdv 20 mg IV DIRECTED Rx Instructions: 30 MIN PRIOR TO GAMMAGUARD EVERY 4 WEEKS ON Wed06/03/2022 Gammagard 40gm/400ml 40 g IV DIRECTED Rx Instructions: INFUSE DAILY ON DATES 06/03/2022, 07/01/2022, 07/29/2022, 08/26/2022, 09/23/2022, 10/21/2022 Magic Mouth Wash 5 ml PO QID Rx Instructions: KOP, BEFORE MEALS & HS No Action [place] Saline 0.65 % Aerosol,[place] 1 spray INTRANASAL BID Rx Instructions: KEEP ON PT Discharge Orders: Discharge Order (Routine); Ordered 06/01/22 Ordered By: Damien Gama Admission Data Admit Date/Time: 05/27/22 10:07 Attending Provider: Damien Gama Admit Provider: Donell Stevens [facility] Other Providers: Greg Guerrero ; Jake Bass ; Vicki Oakley ; Bassam Castle ; Gloria Crespo ; Nova Angel ; Isa Sprague ; Ruthy Singh ; Chelita Saldivar Antonie J. ; Cherise Ho ; Matias Hidalgo ; Jaylon Rodriguez Coding Level of Care Code D/C DAY MANAGEMENT >30 MINS Diagnoses Cellulitis of lower extremity L03.119 Failure of outpatient treatment Z78.9 Common variable immunodeficiency D83.9 Chronic respiratory failure with hypoxia J96.11 CMV (cytomegalovirus infection) B25.9 Thrombocytopenia D69.6 Hyponatremia E87.1 Esophageal varices I85.00
--- NOTE | 2022-06-01 17:53 | Discharge Summary ---
Date of Service June 01, 2022 Admission HPI Per Admitting Provider Patient is a 56-year-old male with extensive past medical history including common variable immunodeficiency/hypogammaglobulinemia, CVM pneumonia, lymphoma, COPD, cirrhosis with esophageal varices, history of fungal pneumonia, and recent history of recurrent cellulitis. Patient was seen in this institution on the of last month for cellulitis of the LEFT lower extremity. He was started on Dalvance in the outpatient and reports that he had been doing fairly well, but reports that his symptoms worsened and he was placed on oral clindamycin. Despite these medication combinations, his symptoms have worsened and he developed a fever today which prompted them transferring the patient to the hospital. Patient was noted to have a worsening cellulitis upon evaluation in the emergency department. He was started on daptomycin and cefepime. Patient noted to have low-grade fever. He complains of pain to the LEFT-sided foot and ankle, but otherwise offers no other complaints at this time. Discharge Exam Alert and pleasant, moderately built, well looking, Two long-term staff in the room as usual Patient very conversant as usual RA Sats dropped to under 88% after walking, at rest well over 90%. 1 L of oxygen brought back his sats to 91% when he was walking. 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 intact except for prominent tremor of the right arm Intact insight and judgment, cheerful affect Discharge Data Allergies Allergy/AdvReac Type Severity Reaction Status Date / Time sulfamethoxazole Allergy Mild RASH/BLEEDI Verified 04/27/22 08:47 NG trimethoprim Allergy Mild RASH/BLEEDI Verified 04/27/22 08:47 NG Consultations 05/27/22 09:06 ED Decision to Admit Stat 05/27/22 10:07 Consult Allergy / Immunology Routine 05/28/22 15:18 Consult Infectious Diseases Routine 05/29/22 13:09 Consult Vascular Surgery Routine 05/31/22 08:40 Consult Dermatology Routine Ordered Studies 05/29/22 14:16 US duplex leg [US arterial duplex LE LT] Urgent Hospital Course (1) Cellulitis of lower extremity: Vancomycin and cefepime day 5 Discharging on Levaquin and doxycycline to complete 7 more days. The patient had significant dependent erythema on exam yesterday which was alleviated when he got his leg back on the bed. She is concerned about vascu litis or peripheral arterial disease. Duplex ultrasound of the arteries of the left lower extremity is unremarkable. Vascular surgery were consulted but are not here over the weekend Consideration of skin biopsy to look for vasculitis advised by ID Dr Ruthy Singh. Dr Rodriguez of Dermatology will see him as an outpatient. On the day of discharge a small proportion of the left leg erythematous area had striae and a somewhat reticular pattern which was new. Common variable immunodeficiency does present with vasculitides per ID. 06/01/2022 D/W Dr Errol Palacios, patient's PCP in long-term. (2) Failure of outpatient treatment: Cellulitis failed outpatient IV treatment (got doxycycline iv and present for 36 hours and not Dalbavancin which he got 1 dose of in the ED 2 weeks prior to that when he had presented with leg redness MRSA nares negative on the day of discharge (3) Common variable immunodeficiency: IV Ig infusion done 05/29 - 35 grams. Plan to transition to subcu Ig to keep appropriate immunoglobulin trough level per allergy/ immunology Dr. Bass's notes He is aware of discharge and will coordinate subcutaneous Ig with Dr. Palacios, PCP in long-term IgG level 660 which is satisfactory per allergy/ immunology MD. (4) Chronic respiratory failure with hypoxia: RA sats great 95% at rest We will check 2-minute walk test at time of discharge to evaluate need for home oxygen. States his oxygen saturation falls on the present and that is why he is not very ambulatory. Ambulating only to the bathroom here Need not use oxygen as outpatient at rest and only 1 L on activity required. This was conveyed to PCP Dr. Palacios (5) CMV (cytomegalovirus infection): It appears he has a recent diagnosis of CMV pneumonia Valganciclovir to continue at home dose. 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 Also discussion of vasculitis ongoing and Derm consult probably not available on the weekend but have not tried it Discharge Plan Discharge Items Patient Disposition: Home - Self-Care Reason For Visit: CELLULITIS,FAILED OUTPT,HYPONATREMIA Discharge Diagnosis: Common variable immunodeficiency and left leg cellulitis Activity: Resume your previous activity Activity Comment: Stay active and exercise regularly. Non-emergency contact: Primary Care Provider Call non-emergency contact if: you have any medication questions and your symptoms worsen Follow-up/Referrals: Bradford PERERA [Primary Care Provider] - Diet: Regular Addtl Attending Provider Instructions: I have spoken with your PCP Dr Palacios Later, I had a question whether you are on Valganciclovir at home. If so, it must be continued. I did not see it on your home med list . Pending Studies at Discharge: No Medications and DC Order Prescriptions: New levofloxacin 750 mg tablet 750 mg PO DAILY 7 Days Qty: 7 0RF doxycycline hyclate 100 mg capsule 100 mg PO BID 7 Days Qty: 14 0RF clonidine HCl 0.1 mg Tablet 0.2 mg PO BID Qty: 10 0RF Continued acetaminophen [Tylenol] 325 mg Tablet 325 mg PO TID PRN (Reason: Pain) carvedilol 6.25 mg Tablet 6.25 mg PO BID Rx Instructions: must administer with a meal/food ipratropium-albuterol 0.5 mg-3 mg(2.5 mg base)/3 mL Solution For Nebulization 3 ml INHALATION QID PRN (Reason: Shortness Of Breath Or Wheezing) Rx Instructions: SHOULD ALWAYS TRY XOPENEX 1ST TO SEE IF RESOLVES SOB. ondansetron HCl 4 mg Tablet 8 mg PO TID PRN (Reason: Nausea) carbidopa-levodopa 50-200 mg Tablet Extended Release 1 tab PO BID diphenhydramine HCl 50 mg/mL Solution 50 mg IV DIRECTED Rx Instructions: INFUSE 50 MG IV DAILY, 30 MIN PRIOR TO G-GUARD. EVERY 4 WEEKS ON Wednesday ON DATES 06/03/2022 ascorbic acid (vitamin C) [Vitamin C] 500 mg Tablet 500 mg PO BID carboxymethylcellulose sodium [Refresh Tears] 0.5 % Drops 1 drp OPHTHALMIC (EYE) TID Rx Instructions: KOP paroxetine HCl [Paxil] 20 mg Tablet 20 mg PO DAILY pantoprazole 40 mg Tablet,Delayed Release (Dr/Ec) 40 mg PO DAILY folic acid 1 mg Tablet 1 mg PO DAILY atovaquone 750 mg/5 mL Suspension 10 mg PO DAILY Rx Instructions: must administer with food, preferably a high-fat meal multivit,tx w/iron (hematinic) Tablet 1 tab PO DAILY [place] Saline 0.65 % Aerosol,Benedict 1 spray INTRANASAL BID Rx Instructions: KEEP ON PT cholestyramine (with sugar) 4 gram Powder In Packet 4 g PO BID Rx Instructions: administer w/meal; avoid other meds within 1hr before or 4-6hr after dose Lactobacillus acidophilus 1 billion cell Tablet 0 mmu cells PO TID Biotene Moisturizing Mouth Benedict,Non-Aerosol 2 spray MUCOUS MEMBRANE TID PRN (Reason: Dry Mouth) Discontinued Clindamycin 600mg/50ml 1,000 mg IV TID Decadron Sdv 20 mg IV DIRECTED Rx Instructions: 30 MIN PRIOR TO GAMMAGUARD EVERY 4 WEEKS ON Wed06/03/2022 Gammagard 40gm/400ml 40 g IV DIRECTED Rx Instructions: INFUSE DAILY ON DATES 06/03/2022, 07/01/2022, 07/29/2022, 08/26/2022, 09/23/2022, 10/21/2022 Magic Mouth Wash 5 ml PO QID Rx Instructions: KOP, BEFORE MEALS & HS Discharge Orders: Discharge Order (Routine); Ordered 06/01/22 Ordered By: Damien Gama Admission Data Admit Date/Time: 05/27/22 10:07 Attending Provider: Damien Gama Admit Provider: Donell Stevens [facility] Other Providers: Greg Guerrero Faoud ; Vicki Oakley ; Bassam Castle ; Gloria Crespo ; Nova Angel ; Isa Sprague ; Ruthy Singh ; Chelita Saldivar ; Bean Jefferson ; Cherise Ho ; Matias Hidalgo ; Jaylon Rodriguez Coding Diagnoses Cellulitis of lower extremity L03.119 Failure of outpatient treatment Z78.9 Common variable immunodeficiency D83.9 Chronic respiratory failure with hypoxia J96.11 CMV (cytomegalovirus infection) B25.9 Thrombocytopenia D69.6 Hyponatremia E87.1 Esophageal varices I85.00
== END 2022-06-01 19:02 | disposition home or self-care (01) | DRG 603 ==
LOC: ED 07:19 → EDINP 10:07 → SUATTDRO 10:07 → 3E 12:21